=== PATIENT | female | born 1980 | race Caucasian/White ===

== ENCOUNTER 2025-07-12 07:07 | Inpatient (IN) | payer MEDICAID, SELFPAY ==
[2025-07-12] VITALS (85 sets, daily range): BP systolic 77–189; BP diastolic 43–155; PULSE 0–172; RESP 5–40; TEMP 37.2–38.6; O2SAT 92–174; BMI 33.5
--- NOTE | 2025-07-12 07:15 | EKG_ITS ---
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
--- NOTE | 2025-07-12 07:15 | XR_ITS ---
Examination: CT brain head without contrast. 2-D sagittal coronal reconstructions Date and time of exam: July 12, 2025, 0721 hours, comparison May 09, 2022 INDICATIONS: Stroke alert, onset focal neurologic deficit today CTDI: vol (mGy): 54.4 DLP: (mGycm): 1193 Technique: Multiple CT axial sections of the brain have been obtained, 5 mm slice thickness. Contrast has not been administered. 2-D sagittal, coronal reconstructions have been obtained Low dose protocols were performed. One or more of the following dose reduction techniques were used; automated exposure control, adjustment of the mA and/or KV according to patient size, use of iterative reconstruction technique. Findings: The images are degraded by patient motion Ventricles are not enlarged. No hemorrhage or mass effect is depicted Left frontal and to a lesser extent ethmoid and sphenoid as well as maxillary antral sinusitis Chronic mastoiditis IMPRESSION: The images are degraded by patient motion which limits evaluation No hemorrhage mass effect or midline shift noted
--- NOTE | 2025-07-12 07:15 | XR_ITS ---
Examination: CTA carotids with intravenous contrast CTA brain, head with intravenous contrast. 2-D sagittal, coronal reconstructions. 3-D reconstructions. Exam date and time: July 12, 2025, 0733 hours INDICATIONS: Stroke alert, onside focal neurologic deficit today CTDI: vol (mGy) 18.9 DLP: (mGycm) 419 Technique: Multiple CTA axial brain, head carotid images post intravenous contrast injection 75 cc, [id number]. 2-D sagittal, coronal reconstructions. 3-D reconstructions, 3-D post processing including vascular maximum intensity projection images. Low dose protocols were performed. One or more of the following dose reduction techniques were used; automated exposure control, adjustment of the mA and/or KV according to patient size, use of iterative reconstruction technique. Findings: Bilateral thyromegaly with 6 mm calcified right thyroid nodule No significant, carotid carotid bifurcation or internal carotid artery stenoses Dominant left vertebral artery with no critical vertebral artery stenoses in the neck Intracranial vertebral arteries basilar artery posterior cerebral branches fill with no occlusions Petrous juxtasellar supraclinoid portions internal carotid arteries intact M1 segments middle cerebral arteries middle cerebral artery trifurcation vessels anterior cerebral arteries intact with no large vessel occlusions IMPRESSION: No significant neck arterial stenoses No cerebral large vessel arterial occlusions or thrombus
--- NOTE | 2025-07-12 07:17 | PD.EDAMS ---
Altered Mental Status RME/HPI General Chief Complaint: Altered Mental Status Stated Complaint: AMS Time Seen by Provider: 07/12/25 07:16 Arrival date/time: 07/12/25 07:07 RME / HPI RME / HPI narrative: 45 year old female with history of CVA, AML (in remission), hypertension, diabetes, hyperlipidemia, seizures, and migraines presents to the ED BIBA from home for evaluation of altered mental status today. Per medics, family on scene reported the patient was last known well before going to bed at 7pm though during that time was complaining of a headache. State this morning at about 4am the patient was not awake at her usual time. Daughter stated they went into the room to check in on the patient and found her on the floor, altered, and not responding appropriately. Related Data Home Medications ?Medication ?Instructions ?Recorded ?Confirmed metformin 1,000 mg tablet 1,000 mg PO QDAY 08/23/18 08/06/19 Previous Rx's ?Medication ?Instructions ?Recorded aspirin 81 mg tablet,delayed 81 mg PO QDAY #30 tabs 08/25/18 release (Tylor Low Dose Aspirin) atorvastatin 20 mg tablet 20 mg PO QPM #30 tabs 08/25/18 ibuprofen 800 mg tablet 800 mg PO Q8H PRN pain #30 tabs 04/17/22 amoxicillin 875 mg-potassium 1 tab PO Q12H #20 tabs 05/01/22 clavulanate 125 mg tablet ibuprofen 800 mg tablet 800 mg PO TID PRN pain #30 tabs 05/01/22 alprazolam 0.25 mg tablet (Xanax) 0.25 mg PO BID PRN anxiety #20 tabs 05/17/22 lisinopril 5 mg tablet 5 mg PO QDAY #30 tabs 05/17/22 metformin 1,000 mg tablet 1,000 mg PO QDAY #90 tabs 05/17/22 Allergies Allergy/AdvReac Type Severity Reaction Status Date / Time spider venom Allergy Severe Numbness Verified 05/17/22 12:14 codeine Allergy Mild rash Verified 05/17/22 12:14 vomiting hives hydrocodone Allergy Mild rash hives Verified 05/17/22 12:14 vomiting onion Allergy Mild Anaphylaxis Verified 05/17/22 12:14 Review of Systems Review of Systems ROS Unobtainable: unobtainable due to mental status Past Medical History Past Medical History ENDOCRINE: Positive Endocrine Disorders and Diabetes Mellitus Type 2 Surgical History SURGICAL: Positive Tonsillectomy and Hysterectomy Social History SMOKING STATUS: Never smoker ED Exam General General appearance: Present obtunded Head Head exam: Present atraumatic Eye Eye exam: Present other (Pupils equal and reactive bilaterally 3 cm.) ENT ENT exam: Present other (Not stiff neck.) Neck Neck exam: Absent meningismus or lymphadenopathy Chest Chest inspection: Present normal inspection Respiratory Respiratory exam: Present normal lung sounds bilaterally and respiratory distress (Increased respiratory rate) Cardiovascular Cardiovascular exam: Present tachycardia Abdominal Exam Abdominal exam: Present soft; Absent distention, tenderness, guarding, rebound or rigidity Neurological Exam Neurological exam: Present other (Moving all extremities spontaneously, opens eyes spontaneously, no verbal response) Skin Skin exam: Present diaphoresis; Absent rash, cyanosis, erythema, pallor or mottled Course Quality Measures Suspected type of Stroke: Non Acute Last known well (date): 07/11/25 Last known well (time): 19:00 Tenecteplase given: Reason(s) TPA not given: Outside the time window not given stroke and Current suspected stage: sepsis Possible source: pulmonary Blood cultures ordered: completed in ED Antibiotic ordered: Yes sepsis Orders Category Date Time Status Bedside Blood Glucose NOW Care 07/12/25 07:15 Active Bedside COVID-19 Antigen Test NOW Care 07/12/25 09:20 Active COVID-19 Screening Questionnaire NOW Care 07/12/25 09:25 Active Filter Worker NOW Care 07/12/25 07:15 Active Continuous Pulse Oximetry NOW Care 07/12/25 07:15 Completed Decision to Admit X1 Care 07/12/25 09:25 Completed EKG (ED ONLY) *Do not use* NOW Care 07/12/25 07:15 Completed In and Out Catheter NEEDED Care 07/12/25 07:15 Active Insert IV NOW Care 07/12/25 07:15 Active Intubation NOW Care 07/12/25 08:29 Completed NIH Stroke Scale now Care 07/12/25 07:15 Active NPO NOW Care 07/12/25 07:15 Active Nurse Swallow Screen x1 Care 07/12/25 07:15 Active Consult to Supervisor Pairing And Inspecting Stat Cons 07/12/25 08:56 Ordered Consult to Neurology / Tele-Neurology Routine Cons 07/12/25 07:[address] angio stroke protocol Stat Exams 07/12/25 07:[address] stroke protocol Stat Exams 07/12/25 07:15 Completed EKG (ED Only) Stat Exams 07/12/25 07:15 Draft XR chest 1V post procedure Stat Exams 07/12/25 07:44 Completed XR chest 1V post procedure Stat Exams 07/12/25 08:55 Completed ABG [Arterial Blood Gas] Stat Lab 07/12/25 08:31 Completed CBC Stat Lab 07/12/25 07:25 Results Comprehensive Metabolic Panel Stat Lab 07/12/25 07:25 Completed Drug Screen,Urine Stat Lab 07/12/25 08:20 Completed FLU A&B [Influenza A & B Rapid Panel] Stat Lab 07/12/25 09:27 Completed HCG Titer if Positive Stat Lab 07/12/25 07:25 Completed LDH (Lactate Dehydrogenase) Stat Lab 07/12/25 07:25 Completed Magnesium Stat Lab 07/12/25 07:25 Completed Partial Thromboplastin Time Stat Lab 07/12/25 07:25 Completed Path Review Blood Smear Stat Lab 07/12/25 07:25 Results Prothrombin Time with INR Stat Lab 07/12/25 07:25 Completed Sputum Culture and Gram Stain Stat Lab 07/12/25 08:31 Received Troponin I Stat Lab 07/12/25 07:25 Completed Uric Acid Stat Lab 07/12/25 07:25 Completed Urinalysis, C/S if Indicated Stat Lab 07/12/25 08:20 Completed Acetaminophen Ivpb [Ofirmev Inj] Med 07/12/25 08:28 Active 1,000 mg in 100 ml IV Q6HR Dexmedetomidine 400 Mcg Ivpb [Precedex Ivpb] Med 07/12/25 08:18 Discontinued 400 mcg in 100 ml IV 0.2 mcg/kg/hr Etomidate Inj [Amidate Inj] Med 07/12/25 07:38 Discontinued 20 mg .ROUTE .STK-MED ONE Etomidate Inj [Amidate Inj] Med 07/12/25 07:41 Discontinued 20 mg IV X1 ONE Midazolam Inj [Versed Inj] Med 07/12/25 07:34 Discontinued 2 mg .ROUTE .STK-MED ONE Midazolam Inj [Versed Inj] Med 07/12/25 07:34 Discontinued 2 mg IVP X1 ONE Midazolam Inj [Versed Inj] Med 07/12/25 07:52 Discontinued 2 mg IVP X1 ONE Midazolam Inj [Versed Inj] Med 07/12/25 08:12 Discontinued 2 mg IVP X1 ONE Midazolam/Ns 100 mg Ivpb [Versed Pf Inj in Ns Premix] Med 07/12/25 07:45 Discontinued 100 mg in 100 ml IV 1 mg/hr Propofol 1,000 mg Ivpb [Diprivan Ivpb] Med 07/12/25 08:53 Active 1,000 mg in 100 ml IV 5 mcg/kg/min Propofol 1,000 mg Ivpb [Diprivan Ivpb] Med 07/12/25 08:54 Discontinued 1,000 mg in 100 ml IV 5 mcg/kg/min Sodium Chloride 0.9% 1000 ml [Ns] 1,000 ml Med 07/12/25 07:40 Discontinued IV 999 mls/hr Sodium Chloride 0.9% 1000 ml [Ns] 1,000 ml Med 07/12/25 09:17 Discontinued IV 999 mls/hr Sodium Chloride 0.9% 1000 ml [Ns] 1,503 ml Med 07/12/25 08:29 Discontinued IV 1,503 mls/hr Sodium Chloride 0.9% 500 ml [Ns] 500 ml Med 07/12/25 09:18 Discontinued IV 999 mls/hr Sodium Chloride Rt Radha 10% [NS Rt Radha 10%] Med 07/12/25 08:28 Discontinued 5 ml INH X1 ONE Succinylcholine Inj [Anectine Inj] Med 07/12/25 07:42 Discontinued 100 mg IV X1 ONE Succinylcholine Inj [Anectine Inj] Med 07/12/25 07:38 Discontinued 200 mg .ROUTE .STK-MED ONE Vancomycin Pharmacy to Dose Med 07/12/25 07:52 Discontinued 1 each IV QDAY ONE Vancomycin/D5w 1,250 mg Ivpb 250 ml Med 07/12/25 09:00 Discontinued IV X1 Vancomycin/Water 1250 mg Ivpb 250 ml Med 07/12/25 09:00 Active IV X1 cefTRIAXone [Rocephin] 2 gm Med 07/12/25 07:52 Discontinued SODIUM CHLORIDE 0.9% (Popper) [Ns 0.9% (P)] 50 ml IV X1 fentaNYL 2,500 MCG/250 ML BAG [Sublimaze Inj 2,500 MCG/ Med 07/12/25 07:45 Active 250 ML BAG] 2,500 mcg in 250 ml IV 25 mcg/hr levETIRAcetam INJ [Keppra Inj] Med 07/12/25 07:47 Discontinued 1,000 mg IVP X1 ONE levETIRAcetam INJ [Keppra Inj] Med 07/12/25 07:50 Discontinued 1,500 mg IVP X1 ONE Mechanical [Volume Ventilator] Stat RT 07/12/25 Active Oxygen Delivery NOW RT 07/12/25 07:15 Active Sputum Induction PRN RT 07/12/25 08:30 Ordered Vital Signs Vital signs: Vital Signs Pulse Oximetry (%) 100 07/12/25 08:10 Oxygen Flow Rate 100 07/12/25 08:10 PROCEDURES: Intubation Time out performed: Yes sedative: Etomidate Mg Given: 10 paralytic: Succinylcholine Mg Given: 100 Laryngoscope: fiber optic video scope ET Tube Size: 7.5 ET Tube Uncuffed: No Tube Secured Depth (cm): 24 Tube Secured Location: lips Tube Placement Confirmation: visualized tube passing through cords, equal breath sounds bilaterally, no breath sounds over epigastrium and confirmation by capnometry Patient Tolerated Procedure: well Intubation Complications: none Altered Mental Status MDM Narrative MDM Narrative:: Patient arrived to the emergency department 0711-stroke alert was called. Fingerstick noted to be 306. 0713-patient to CAT scan. 0720-patient returned from CAT scan. Per nursing staff patient had? Witnessed seizure. Repeat fingerstick is 300 Patient is not a candidate for tPA since she is out of the 3-hour window. Sepsis Alert called, please see nurses notes. Differential diagnosis includes acute respiratory distress, pneumonia, acute coronary syndrome to include pulmonary embolism, ultimately status secondary to drug use, subarachnoid hemorrhage, aneurysm, aneurysm rupture, acidosis, sepsis, acute coronary syndrome. Overdose. Stroke. 0740: Patient intubated for airway protection. Prior to intubation the patient had a bilateral left eye gaze. Moving all extremities x 4. Initial ET tube-see procedure note below. Placed to 24 at the lip and then withdrawn by respiratory therapist to 21. Patient has decreased satuartion 96 to 92% and she was suctioned. The patient is biting on the tube and given additional medication. Initial chest x-ray shows patient to be at the josemanuel. Patient re-intubated, previous ET tube is removed. Patient is bagged. Visualized with glide a scope, 7-1/2 ET tube visualized going through the vocal cords. Good color change, equal rise of the chest. Post intubation chest x-ray shows bilateral infiltrates 0845: Daughters aware and want the patient to be a full code. 0900: Elevated troponin is noted. Sinus tachycardia on EKG with heart rate 170. 2.5 L of fluid 45-year-old female with a history of seizure disorder, diabetes, anxiety, high cholesterol, CVA back in 2018, AML in remission that was diagnosed and placed in the chart back in 2016, presenting to the emergency department with altered mental status. Family reports that last night approximately 6 PM she left home from work and walked home complaining of a headache. She went to bed approximately at 7 PM. This morning she was not awake at her normal 2 to 4 AM as per her daughter and when she went into the room she found her on the floor. She had a small abrasion on her right mid forehead. On arrival to the emergency department the patient was called as a stroke alert and immediately taken to CT scan for possible stroke versus subarachnoid hemorrhage versus hypertensive bleed versus other intracranial emergency. While in CT the patient had a witnessed seizure. She was moving all 4 extremities. She had a left ocular gaze. Fingerstick prior to CT was approximately 300. Patient was immediately brought back to the emergency department. She was intubated for airway protection. The patient was biting on her tube and the ET tube was moved from 24-21 by the respiratory therapist. The patient was reintubated and suctioned. Sepsis alert was called. The patient was treated with 2.5 L of fluid, ceftriaxone 2 g and vancomycin IV. Of note from her previous chart it shows that she possibly had remission of AML back in 2016 and per the boyfriend the patient has not been treated since. The patient has not been hypotensive and otherwise is tachycardic in the 170s. Her EKG shows sinus tach without ST elevation AL... After IV fluids her pulse is down to 149. White count is noted to be 32,000 with a hemoglobin of 14/42. This is abnormal. Repeat EKG is obtained. Central line is placed by the residents. Unclear why her white count is 32,000 versus new versus reexacerbation of her AML. Patient is acidotic with a pH of 7.1. Sodium is 139 with a potassium of 3.1. Creatinine is 0.9. Lactic acid is 4.8 and uric acid is 8.3. Troponin is 5. Urinalysis does not show infection. Drug screen is negative. Chest x-ray is reviewed interpreted by me. The patient has bilateral infiltrates. CT is reviewed and interpreted by me. The patient does not have an initial bleed, shift, or tumor. Patient data External records reviewed:: [facility] previous records and Other (specify) (Patient seen in emergency department for anxiety 2021.) Clinical information provided by:: EMS Social determinants that could affect healthcare access:: none (History of anxiety) Patient has the following chronic illnesses:: CVA, AML (in remission), hypertension, diabetes, hyperlipidemia, seizures, and migraines How is presenting disease/condition affected by chronic disease/condition?: exacerbated by Evaluation data The following diagnostics were reviewed and interpreted by me:: lab results, radiology exam(s) and EKG tracing(s) ( Sinus tachycardia on EKG with heart rate 170, no STEMI. ) Lab and/or radiology exams considered but not ordered:: None Interpretation Summary: Ordering Physician: Jessie Billy MD Date of Service: 07/12/25 Procedure(s): CT stroke protocol Accession Number(s): [id number] cc: Jose Patel MD; Jessie Billy MD~ Examination: CT brain head without contrast. 2-D sagittal coronal reconstructions Date and time of exam: July 12, 2025, 0721 hours, comparison May 09, 2022 INDICATIONS: Stroke alert, onset focal neurologic deficit today CTDI: vol (mGy): 54.4 DLP: (mGycm): 1193 Technique: Multiple CT axial sections of the brain have been obtained, 5 mm slice thickness. Contrast has not been administered. 2-D sagittal, coronal reconstructions have been obtained Low dose protocols were performed. One or more of the following dose reduction techniques were used; automated exposure control, adjustment of the mA and/or KV according to patient size, use of iterative reconstruction technique. Findings: The images are degraded by patient motion Ventricles are not enlarged. No hemorrhage or mass effect is depicted Left frontal and to a lesser extent ethmoid and sphenoid as well as maxillary antral sinusitis Chronic mastoiditis IMPRESSION: The images are degraded by patient motion which limits evaluation No hemorrhage mass effect or midline shift noted Dictated By: Jose Patel MD Signed By: <Electronically signed by Jose Patel MD in OV> 07/12/25 0729 Ordering Physician: Jessie Billy MD Date of Service: 07/12/25 Procedure(s): CT angio stroke protocol Accession Number(s): [id number] cc: Jose Patel MD; Jessie Billy MD~ Examination: CTA carotids with intravenous contrast CTA brain, head with intravenous contrast. 2-D sagittal, coronal reconstructions. 3-D reconstructions. Exam date and time: July 12, 2025, 0733 hours INDICATIONS: Stroke alert, onside focal neurologic deficit today CTDI: vol (mGy) 18.9 DLP: (mGycm) 419 Technique: Multiple CTA axial brain, head carotid images post intravenous contrast injection 75 cc, [id number]. 2-D sagittal, coronal reconstructions. 3-D reconstructions, 3-D post processing including vascular maximum intensity projection images. Low dose protocols were performed. One or more of the following dose reduction techniques were used; automated exposure control, adjustment of the mA and/or KV according to patient size, use of iterative reconstruction technique. Findings: Bilateral thyromegaly with 6 mm calcified right thyroid nodule No significant, carotid carotid bifurcation or internal carotid artery stenoses Dominant left vertebral artery with no critical vertebral artery stenoses in the neck Intracranial vertebral arteries basilar artery posterior cerebral branches fill with no occlusions Petrous juxtasellar supraclinoid portions internal carotid arteries intact M1 segments middle cerebral arteries middle cerebral artery trifurcation vessels anterior cerebral arteries intact with no large vessel occlusions IMPRESSION: No significant neck arterial stenoses No cerebral large vessel arterial occlusions or thrombus Dictated By: Jose Patel MD Signed By: <Electronically signed by Jose Patel MD in OV> 07/12/25 0800 Ordering Physician: Jessie Billy MD Date of Service: 07/12/25 Procedure(s): XR chest 1V post procedure Accession Number(s): [id number] cc: Fady Evangelista MD; Jose Patel MD; Jessie Billy MD~ EXAMINATION: AP chest single view TECHNIQUE: AP portable semiupright chest single view Date and time: July 12, 2025, 0809 hours INDICATIONS: Stroke alert, hypoxic respiratory failure today FINDINGS: Endotracheal tube 20 mm above josemanuel. Normal heart size Extensive bilateral aspiration pneumonia IMPRESSION: Extensive bilateral aspiration pneumonia Dictated By: Jose Patel MD Signed By: <Electronically signed by Jose Patel MD in OV> 07/12/25 0856 Ordering Physician: Jessie Billy MD Date of Service: 07/12/25 Procedure(s): XR chest 1V post procedure Accession Number(s): [id number] cc: Fady Evangelista MD; Jose Patel MD; Jessie Billy MD~ EXAMINATION: AP chest single view TECHNIQUE: AP portable upright chest single view Date and time: July 12, 2025, 0909 hours, comparison 0808 hours INDICATIONS: Hypoxic respiratory failure FINDINGS: Extensive bilateral pneumonia again noted Endotracheal tube tip 29 mm above josemanuel. Orogastric tube in the stomach in satisfactory position Normal heart size IMPRESSION: Extensive bilateral aspiration pneumonia Dictated By: Jose Patel MD Signed By: <Electronically signed by Jose Patel MD in OV> 07/12/25923 Medications / Prescriptions Medications or Prescriptions considered but not ordered:: None Medication administrations:: Medication Administration History Acetaminophen (Acetaminophen 325 Mg Tablet) 650 mg NG Q6H PRN PRN Reason: Fever >100.5 or pain 1-3 Stop: 08/11/25 09:28 Dextrose (Dextrose 50%-Water Inj 50 Ml Syringe) 25 ml IV Q15MIN PRN PRN Reason: BG 50-70 responsive npo pt Stop: 08/11/25 10:04 Dextrose (Dextrose 50%-Water Inj 50 Ml Syringe) 50 ml IV Q15MIN PRN PRN Reason: BG <50 OR BG <70 & pt unresponsive Stop: 08/11/25 10:04 Enoxaparin Sodium (Enoxaparin Sod Inj 40 Mg/0.4 Ml Syringe) 40 mg SC QDAY ASHLEY Stop: 07/26/25 09:44 Glucagon (Glucagon Inj 1 Mg Vial) 1 mg IM Q15MIN PRN PRN Reason: BG <70, and no IV access Fentanyl Citrate (Sublimaze Inj 2,500 Mcg/250 Ml Bag) 2,500 mcg in 250 mls @ 2.5 mls/hr IV .Q24H PRN; Protocol PRN Reason: PER PROTOCOL Stop: 07/17/25 07:44 Last Titration: 07/12/25 10:00 Dose: 175 mcg/hr, 17.5 mls/hr Documented By: Titration: 07/12/25 09:00 Dose: 175 mcg/hr, 17.5 mls/hr Documented By: Titration: 07/12/25 08:45 Dose: 125 mcg/hr, 12.5 mls/hr Documented By: Titration: 07/12/25 08:20 Dose: 75 mcg/hr, 7.5 mls/hr Documented By: Admin: 07/12/25 08:00 Dose: 25 mcg/hr, 2.5 mls/hr Documented By: JUAN Co-signed By: KIRBY Vancomycin HCl (Vancomycin/Water 1250 Mg Ivpb) 250 mls @ 120 mls/hr IV X1 ONE; Protocol Stop: 07/12/25 11:04 Last Admin: 07/12/25 09:14 Dose: 120 mls/hr Documented By: JUAN Acetaminophen (Ofirmev Inj) 1,000 mg in 100 mls @ 250 mls/hr IV Q6HR ASHLEY Stop: 07/13/25 00:23 Last Infusion: 07/12/25 09:22 Dose: Infused Documented By: Admin: 07/12/25 08:44 Dose: 250 mls/hr Documented By: JUAN Propofol (Diprivan Ivpb) 1,000 mg in 100 mls @ 2.5 mls/hr IV .Q24H PRN; Protocol PRN Reason: PER PROTOCOL Stop: 08/11/25 08:52 Last Titration: 07/12/25 10:00 Dose: 50 mcg/kg/min, 24.998 mls/hr Documented By: Titration: 07/12/25 09:20 Dose: 25 mcg/kg/min, 12.499 mls/hr Documented By: Titration: 07/12/25 09:13 Dose: 20 mcg/kg/min, 9.999 mls/hr Documented By: Titration: 07/12/25 09:08 Dose: 15 mcg/kg/min, 7.499 mls/hr Documented By: Admin: 07/12/25 09:05 Dose: 5 mcg/kg/min, 2.5 mls/hr Documented By: JUAN Co-signed By: KIRBY Ceftriaxone Sodium 2 gm/ (Sodium Chloride) 50 mls @ 100 mls/hr IV QDAY ASHLEY Stop: 07/20/25 08:59 Norepinephrine/Dextrose (Levophed In D5w 8mg/250ml) 8 mg in 250 mls @ 7.812 mls/hr IV .Q24H PRN; Protocol PRN Reason: PER PROTOCOL Stop: 08/11/25 09:48 Last Admin: 07/12/25 10:00 Dose: 0.05 mcg/kg/min, 7.812 mls/hr Documented By: KIRBY Acyclovir Sodium 500 mg/ (Sodium Chloride) 110 mls @ 94.286 mls/hr IV Q8HR ASHLEY Stop: 07/19/25 09:59 Magnesium Sulfate (Magnesium Sulfate Ivpb) 2 gm in 50 mls @ 25 mls/hr IV X1 ONE Stop: 07/12/25 12:06 Potassium Chloride (Kcl Ivpb) 10 meq in 100 mls @ 100 mls/hr IV Q1H ASHLEY Stop: 07/12/25 14:06 Lactated Ringer's (Lactated Ringers) 1,000 mls @ 999 mls/hr IV .Q1H1M ONE Stop: 07/12/25 11:10 Lactated Ringer's (Lactated Ringers) 500 mls @ 999 mls/hr IV .Q31M ONE Stop: 07/12/25 10:40 Insulin Human Lispro (Insulin Lispro (Admelog) 1 Unit/0.01 Ml Unit) 0 unit SC Q6HR ASHLEY; Protocol Stop: 08/11/25 11:59 Levetiracetam (Levetiracetam Inj 100 Mg/Ml Vial 5ml) 1,000 mg IVP Q12HR ASHLEY Stop: 08/11/25 20:59 Pantoprazole Sodium (Pantoprazole Inj 40 Mg Vial) 40 mg IVP QDAY ASHLEY Stop: 08/11/25 09:44 Discontinued Medications Etomidate (Etomidate Inj 2 Mg/Ml Vial 10 Ml) 20 mg IV X1 ONE Stop: 07/12/25 07:42 Last Admin: 07/12/25 07:42 Dose: 20 mg Documented By: JUAN Etomidate (Etomidate Inj 2 Mg/Ml Vial 10 Ml) Confirm Administered Dose 20 mg .ROUTE .STK-MED ONE Stop: 07/12/25 07:39 Last Admin: 07/12/25 07:50 Dose: Not Given Documented By: JUAN Non-Admin Reason: Override Medication Fentanyl Citrate (Fentanyl Cit Inj 50 Mcg/Ml Amp 2ml) 100 mcg IVP X1 ONE Stop: 07/12/25 09:50 Sodium Chloride (Ns) 1,000 mls @ 999 mls/hr IV .Q1H1M ONE Stop: 07/12/25 08:40 Last Admin: 07/12/25 07:40 Dose: 999 mls/hr Documented By: JUAN Midazolam HCl (Versed Pf Inj In Ns Premix) 100 mg in 100 mls @ 1 mls/hr IV .Q24H PRN; Protocol PRN Reason: PER PROTOCOL Stop: 07/17/25 07:44 Last Titration: 07/12/25 10:16 Dose: 1 mg/hr, 1 mls/hr Documented By: Titration: 07/12/25 10:00 Dose: 2 mg/hr, 2 mls/hr Documented By: Titration: 07/12/25 09:08 Dose: 2 mg/hr, 2 mls/hr Documented By: Titration: 07/12/25 09:00 Dose: 3 mg/hr, 3 mls/hr Documented By: Titration: 07/12/25 08:45 Dose: 3 mg/hr, 3 mls/hr Documented By: Titration: 07/12/25 08:20 Dose: 2 mg/hr, 2 mls/hr Documented By: Admin: 07/12/25 08:04 Dose: 1 mg/hr, 1 mls/hr Documented By: JUAN Co-signed By: KIRBY Ceftriaxone Sodium 2 gm/ (Sodium Chloride) 50 mls @ 100 mls/hr IV X1 ONE Stop: 07/12/25 08:21 Last Admin: 07/12/25 08:18 Dose: 100 mls/hr Documented By: JUAN Vancomycin HCl/Dextrose (Vancomycin/D5w 1,250 Mg Ivpb) 250 mls @ 120 mls/hr IV X1 ONE Stop: 07/12/25 11:04 Dexmedetomidine/Sodium Chloride (Precedex Ivpb) 400 mcg in 100 mls @ 4.166 mls/hr IV .Q24H PRN; Protocol PRN Reason: Per PROTOCOL Stop: 08/11/25 08:17 Sodium Chloride (Ns) 1,503 mls @ 1,503 mls/hr 30 ml/kg infuse over 60 min (1503 ml) IV .Q1H ONE Stop: 07/12/25 09:28 Last Admin: 07/12/25 08:43 Dose: 1,503 mls/hr Documented By: JUAN Propofol (Diprivan Ivpb) 1,000 mg in 100 mls @ 2.5 mls/hr IV .Q24H PRN; Protocol PRN Reason: PER PROTOCOL Stop: 08/11/25 08:53 Sodium Chloride (Ns) 1,000 mls @ 999 mls/hr IV .Q1H1M ONE Stop: 07/12/25 10:17 Last Admin: 07/12/25 09:38 Dose: 999 mls/hr Documented By: JUAN Sodium Chloride (Ns) 500 mls @ 999 mls/hr IV .Q31M ONE Stop: 07/12/25 09:48 Last Admin: 07/12/25 10:29 Dose: 999 mls/hr Documented By: JUAN Acyclovir Sodium 500 mg/ (Sodium Chloride) 110 mls @ 94.286 mls/hr IV Q8HR ASHLEY Stop: 07/19/25 09:59 Levetiracetam (Levetiracetam Inj 100 Mg/Ml Vial 5ml) 1,000 mg IVP X1 ONE Stop: 07/12/25 07:48 Last Admin: 07/12/25 09:41 Dose: Not Given Documented By: JUAN Non-Admin Reason: Cancelled by Provider Levetiracetam (Levetiracetam Inj 100 Mg/Ml Vial 5ml) 1,500 mg IVP X1 ONE Stop: 07/12/25 07:51 Last Admin: 07/12/25 08:02 Dose: 1,500 mg Documented By: JUAN Midazolam HCl (Midazolam Inj 1 Mg/Ml Vial 2 Ml) 2 mg IVP X1 ONE Stop: 07/12/25 07:35 Last Admin: 07/12/25 07:36 Dose: 2 mg Documented By: JUAN Midazolam HCl (Midazolam Inj 1 Mg/Ml Vial 2 Ml) Confirm Administered Dose 2 mg .ROUTE .STK-MED ONE Stop: 07/12/25 07:35 Last Admin: 07/12/25 07:50 Dose: Not Given Documented By: JUAN Non-Admin Reason: Override Medication Midazolam HCl (Midazolam Inj 1 Mg/Ml Vial 2 Ml) 2 mg IVP X1 ONE Stop: 07/12/25 07:53 Last Admin: 07/12/25 07:57 Dose: 2 mg Documented By: JUAN Midazolam HCl (Midazolam Inj 1 Mg/Ml Vial 2 Ml) 2 mg IVP X1 ONE Stop: 07/12/25 08:13 Last Admin: 07/12/25 08:15 Dose: 2 mg Documented By: JUAN Pharmacy Consult (Vancomycin Pharmacy To Dose 1 Each Each) 1 each IV QDAY ONE Stop: 07/12/25 07:53 Last Admin: 07/12/25 08:01 Dose: Not Given Documented By: JUAN Non-Admin Reason: pharmacy dose Sodium Chloride (Sodium Chloride Rt 10% 15 Ml Nebu) 5 ml INH X1 ONE Stop: 07/12/25 08:29 Succinylcholine Chloride (Succinylcholine Inj 20 Mg/Ml Vial 10 Ml) 100 mg IV X1 ONE Stop: 07/12/25 07:43 Last Admin: 07/12/25 07:52 Dose: 100 mg Documented By: JUAN Succinylcholine Chloride (Succinylcholine Inj 20 Mg/Ml Vial 10 Ml) Confirm Administered Dose 200 mg .ROUTE .STK-MED ONE Stop: 07/12/25 07:39 Last Admin: 07/12/25 07:51 Dose: Not Given Documented By: JUAN Non-Admin Reason: Override Medication See above Consultations Consultation(s) initiated? (list below): Yes Consultation #1 (Physician, Specialty, Details): Dr. Dupont saw the patient when she was on the CT scanner table and reported by the nursing that the patient likely has a metabolic etiology to her altered mental status however pending call from [employer]. States patient is no a TNK candidate, LKWT > 4.5 hours. Time: 07:15 Diagnosis Differential diagnosis altered mental status: other ( acute respiratory distress, pneumonia, acute coronary syndrome to include pulmonary embolism, ultimately status secondary to drug use, subarachnoid hemorrhage, aneurysm, aneurysm rupture, acidosis, sepsis, acute coronary syndrome. Overdose. Stroke.) Most likely diagnosis given after review of the tests above:: Acute respiratory distress AMS Elevated troponin level Sepsis Admission Indicated Admission indicated?: indicated Admission Request Was there a request for admission?: Yes Admission Attestation Admission request attestation: Discussed case with [] from Hospitalist service regarding admission. Discussed patients ED course, exam findings, labs, and radiology results. The Hospitalist [agrees,declines] to accept the patient for admission. Disposition Plan Disposition Plan: Admit Critical Care Time Critical Care Time Critical Care Time: Yes Total Critical Care Time (min.): 60 Attestation: The high probability of sudden, clinically significant deterioration in the patient's condition required the highest level of my preparedness to intervene urgently. The services I provided to this patient were to treat and/or prevent clinically significant deterioration. Services included the following: chart data review, reviewing nursing notes and/or old charts, documentation time, crm consultant collaboration regarding findings and treatment options, medication orders and management, direct patient care, vital sign assessments and ordering, interpreting and reviewing diagnostic studies and lab tests. Aggregate critical care time includes only time during which I was engaged in work directly related to the patient's care, as described above, whether at bedside or elsewhere in the Emergency Department. It did not include time spent performing other reported procedures or the services of residents, students, nurses or physician assistants. Discharge Plan Plan Patient Disposition: Admit Acute Care w/in Hospital Patient condition on transfer: Stable Problem List Clinical Impression: Acute respiratory distress, AMS (altered mental status), Elevated troponin I level, Sepsis
[2025-07-12] MEDS: MIDAZOLAM INJ 1 MG/ML VIAL 2 ML 2 MG IVP ×3 (07:36→08:15)
[2025-07-12] MEDS: SODIUM CHLORIDE 0.9% 1000 ML 1,000 ML 999 ML IV ×2 (07:40→09:38)
[2025-07-12] MEDS: ETOMIDATE INJ 2 MG/ML VIAL 10 ML 20 MG IV (07:42)
--- NOTE | 2025-07-12 07:44 | XR_ITS ---
EXAMINATION: AP chest single view TECHNIQUE: AP portable semiupright chest single view Date and time: July 12, 2025, 0809 hours INDICATIONS: Stroke alert, hypoxic respiratory failure today FINDINGS: Endotracheal tube 20 mm above josemanuel. Normal heart size Extensive bilateral aspiration pneumonia IMPRESSION: Extensive bilateral aspiration pneumonia
[2025-07-12 07:52] LABS: Basophils # (Auto) 0.1 Thou/mm3 (0.0-0.2); Basophils % (Auto) 0 % (0-2.5); Eosinophils # (Auto) 0.0 Thou/mm3 (0.0-0.5); Eosinophils % (Auto) 0 % (0-10); Hematocrit 42.5 % (36.0-46.0); Hemoglobin 14.1 g/dL (12.0-16.0); Immature Granulocytes Auto 0.79 Thou/mm3 (0.00-0.00); Lymphocytes # (Auto) 1.3 Thou/mm3 (1.0-4.8); Lymphocytes % (Auto) 4 % (10-50); Mean Corpuscular HGB Conc 33.2 g/dl (31.0-37.0); Mean Corpuscular Hemoglobin 27.8 pg (25.0-35.0); Mean Corpuscular Volume 84 fL (80-100); Monocytes # (Auto) 1.7 Thou/mm3 (0.0-0.8); Monocytes % (Auto) 5 % (0-12); Neutrophils # (Auto) 28.6 Thou/mm3 (1.8-7.7); Neutrophils % (Auto) 88 % (37-80); Nucleated Red Blood Cell # 0.00 Thou/mm3 (0.00-0.00); Nucleated Red Blood Cell % 0 /100 WBC (0); Platelet Count 279 Thou/mm3 (140-440); RDW Standard Deviation 42.1 fL (36.4-46.3); Red Blood Count 5.08 Miln/mm3 (4.00-5.20); White Blood Count 32.4 Thou/mm3 (3.6-11.0)
[2025-07-12] MEDS: SUCCINYLCHOLINE INJ 20 MG/ML VIAL 10 ML 100 MG IV (07:52)
[2025-07-12] MEDS: fentaNYL 2,500 MCG/250 ML BAG 2,500 MCG/250 ML BAG IV (08:00)
[2025-07-12] MEDS: levETIRAcetam INJ 100 MG/ML VIAL 5ML 1500 MG IVP (08:02)
[2025-07-12] MEDS: MIDAZOLAM/NS 100 MG IVPB 100 MG/100 ML BAG IV ×2 (08:04→16:18)
[2025-07-12] MEDS: cefTRIAXone 2 GM in SODIUM CHLORIDE 0.9% (Popper) 50 ML IV (08:18)
[2025-07-12 08:20] LABS: Alanine Aminotransferase 36 U/L (10-49); Albumin, Serum 5.0 gm/dL (3.5-5.0); Albumin/Globulin Ratio 1.7 (1.2-2.2); Alkaline Phosphatase 105 U/L (46-116); Anion Gap 21 (7-16); Aspartate Amino Transferase 36 U/L (0-34); BUN/Creatinine Ratio 14 Ratio (12-20); Bilirubin,Total 0.9 mg/dL (0.3-1.2); Blood Urea Nitrogen 13 mg/dL (9-23); Calcium 9.9 mg/dL (8.3-10.6); Calcium (Corrected) 9.9 mg/dL (8.5-10.1); Carbon Dioxide 18.4 mMol/L (20.0-31.0); Chloride 100 mMol/L (98-107); Creatinine (Component) 0.9 mg/dL (0.6-1.3); Estimated Creatinine Clearance 79.8 mL/min (>60); Globulin 2.9 gm/dL (2.3-3.5); Glucose 375 mg/dL (74-106); Magnesium 1.6 mg/dL (1.6-2.6); Osmolality,Calculated 292 (275-295); Potassium 3.1 mMol/L (3.4-5.1); Sodium 139 mMol/L (136-145); Total Protein 7.9 gm/dL (5.7-8.2); eGFR > 60 See Note
[2025-07-12 08:22] LABS: Troponin I 5.052 ng/mL (0.0-0.045)
[2025-07-12 08:25] LABS: HCG Titer if Positive Negative
--- NOTE | 2025-07-12 08:31 | PD.TNEURO ---
Tele Neuro Consultation Consultation Date 07/12/25 Consultation Narrative [facility] Patient Name:???Juanita Bond Date of :???1980 Identification Number:??? Date of Service:???07/12/2025 07:14:03 Diagnosis:?G93.49 - Encephalopathy Multifactorial Impression: ?Patient is a 41 year old woman, BIBEMS, per family at scene reported patent was LKN at 07/11/2025 at 1900 EST at bedtime, did go to bed with migraine. History of migraines and seizures. This morning found altered, dried yellow around mouth, altered mental status. Not reportedly on blood thinners. Denied drugs or etoh usage. ? ?The patient was not a candidate for IV thrombolytics due to LKN > 4.5 hrs ago. ? ?CT head was performed. No acute findings per radiology report. I reviewed images as well. CTA head and neck, no LVO. ? ?WBC elevated at 32.4 suggesting underlying infectious process. Trop 5, highly elevated. ? ?Differential includes but not limited to [id number] vs post ictal encephalopathy. Also possibly cardiac related given elevated trop. Recommend encephalopathy workup per primary, if unrevealing consider MRI head without contrast to evaluate for stroke. ? ? Our recommendations are outlined below. Recommendations: ? Sign Out: ? Discussed with Emergency Department Provider Advanced Imaging:CTA Head and Neck Completed. LVO:No Patient is not a candidate for LORI Metrics: Last Known Well: 07/11/2025 19:00:00 Dispatch Time: 07/12/2025 07:14:03 Arrival Time: 07/12/2025 07:07:00 Initial Response Time: 07/12/2025 07:16:07Symptoms: altered mental status. Initial patient interaction: 07/12/2025 07:16:50 NIHSS Assessment Completed: 07/12/2025 07:33:30Patient is not a candidate for Thrombolytic. Thrombolytic Medical Decision: 07/12/2025 07:33:31Patient was not deemed candidate for Thrombolytic because of following reasons: LKW outside 4.[address] Head: I personally reviewed all the CT images that were available to me and it showed: no acute hemorrhage. Primary Provider Notified of Diagnostic Impression and Management Plan on: 07/12/2025 08:32:28 History of Present Illness:Patient is a 45 year old Female. Patient was brought by EMS for symptoms of altered mental status. Patient is a 41 year old woman, DOROTHY, per family at scene reported patent was LKN at 07/11/2025 at 1900 EST at bedtime, did go to bed with migraine. History of migraine, HTN, DM, HLD and seizures. Not reportedly on seizure medications. This morning found altered, dried yellow around mouth, altered mental status. Not reportedly on blood thinners. Denied drugs or etoh usage. ? Past Medical History: ?Hypertension ?Diabetes Mellitus ?Hyperlipidemia ?Seizures ?Migraine Headaches Medications: No Anticoagulant use? Antiplatelet use:?Yes?asa Reviewed EMR for current medications Allergies:? Reviewed Social History: Drug Use: No Family History: There is no family history of premature cerebrovascular disease pertinent to this consultation ROS : 14 Points Review of Systems was performed and was negative except mentioned in HPI. Past Surgical History: There Is No Surgical History Contributory To Today?s Visit ? Examination: BP(164/92),?Pulse(120),?Blood Glucose(363) 1A: Level of Consciousness - Movements to Pain?+ 2 1B: Ask Month and Age - Aphasic?+ 2 1C: Blink Eyes & Squeeze Hands - Performs 0 Tasks?+ 2 2: Test Horizontal Extraocular Movements - Normal?+ 0 3: Test Visual Agarwal - No Visual Loss?+ 0 4: Test Facial Palsy (Use Grimace if Obtunded) - Normal symmetry?+ 0 5A: Test Left Arm Motor Drift - Some Effort Against Greenwood?+ 2 5B: Test Right Arm Motor Drift - Some Effort Against Greenwood?+ 2 6A: Test Left Leg Motor Drift - Some Effort Against Greenwood?+ 2 6B: Test Right Leg Motor Drift - Some Effort Against Greenwood?+ 2 7: Test Limb Ataxia (FNF/Heel-Strickland) - No Ataxia?+ 0 8: Test Sensation - Normal; No sensory loss?+ 0 9: Test Language/Aphasia - Mute/Global Aphasia: No Usable Speech/Auditory Comprehension?+ 3 10: Test Dysarthria - Mute/Anarthric?+ 2 11: Test Extinction/Inattention - No abnormality?+ 0 NIHSS Score:?19 Pre-Morbid Modified Dublin Scale: Unable to assess Spoke with :?Connie Garcias This consult was conducted in real time using interactive audio and video technology. Patient was informed of the technology being used for this visit and agreed to proceed. Patient located in hospital and provider located at home/office setting. Patient is being evaluated for possible acute neurologic impairment and high probability of imminent or life-threatening deterioration. I spent total of 30 minutes providing care to this patient, including time for face to face visit via telemedicine, review of medical records, imaging studies and discussion of findings with providers, the patient and/or family. Dr Flaco Dupont [facility] For Inpatient follow-up with [facility] physician please call [facility] at . As we are not an outpatient service for any post hospital discharge needs please contact the hospital for assistance. If you have any questions for the [facility] physicians or need to reconsult for clinical or diagnostic changes please contact us via [facility] at . Signature :Amisha Dupont ?
[2025-07-12 08:41] LABS: Collection Type, Urine Catheter
[2025-07-12] MEDS: SODIUM CHLORIDE 0.9% 1000 ML 1,503 ML 1503 ML IV (08:43)
[2025-07-12] MEDS: ACETAMINOPHEN IVPB 1,000 MG/100 ML VIAL 250 MG IV (08:44)
[2025-07-12 08:45] LABS: Base Excess -14 (-3-3); HCO3 15 mEq/L (20-26); Inspired Oxygen, FIO2 100 %; O2 Saturation 98 % (91-98); PCO2 46 mmHg (32.0-48.0); PO2 122 mmHg (83-108)
[2025-07-12 08:47] LABS: Allen Test Not Performed; Puncture Site Right Radial
[2025-07-12 08:48] LABS: pH, Arterial 7.13 (7.35-7.45)
--- NOTE | 2025-07-12 08:55 | XR_ITS ---
EXAMINATION: AP chest single view TECHNIQUE: AP portable upright chest single view Date and time: July 12, 2025, 0909 hours, comparison 0808 hours INDICATIONS: Hypoxic respiratory failure FINDINGS: Extensive bilateral pneumonia again noted Endotracheal tube tip 29 mm above josemanuel. Orogastric tube in the stomach in satisfactory position Normal heart size IMPRESSION: Extensive bilateral aspiration pneumonia
[2025-07-12 08:56] LABS: Amphetamine/Methamp Scrn,U Negative (Negative); Barbiturate Screen,Urine Negative (Negative); Benzodiazepines Screen,Urine Negative (Negative); Benzoylecgonine Screen, Ur Negative (Negative); Fentanyl Screen,Urine Negative (Negative); Opiate Screen,Urine Negative (Negative); THC Screen,Urine Negative (Negative)
[2025-07-12 08:57] LABS: INR 1.0 (0.9-1.3); Partial Thromboplastin Time 30.9 Seconds (22.0-36.0); Prothrombin Time 10.9 Seconds (9.0-12.2)
[2025-07-12 09:02] LABS: Bacteria,Urine Rare; Bilirubin,Urine Negative (Negative); Blood,Urine 1+ (Negative); Clarity,Urine Clear (Clear/Hazy); Color,Urine Lt-Yellow (Lt Yel-Yel); Culture Indicated,Urine Not Indicated; Glucose, Urine 4+ (Negative); Ketones,Urine 1+ (Negative); Leukocyte Esterase,Urine Negative (Negative); Nitrite,Urine Negative (Negative); PH,Urine 6.0 (5.0-7.0); Protein,Urine 1+ (Neg - Trace); RBC,Urine 2 /hpf (0-3); Specific Gravity,Urine 1.021 (1.001-1.035); Squamous Epithelial Cell,Urine < 1 /hpf (0-5); Urobilinogen,Urine Negative mg/dL (0.0-1.0); WBC,Urine 1 /hpf (0-5)
[2025-07-12] MEDS: PROPOFOL 1,000 MG IVPB 1,000 MG/100 ML VIAL 2.5 MG IV (09:05)
[2025-07-12] MEDS: VANCOMYCIN/WATER 1250 MG IVPB 250 ML 120 MG IV (09:14)
[2025-07-12 09:55] LABS: LDH (Lactate Dehydrogenase) 277 U/L (120-246); Uric Acid 8.3 mg/dL (3.1-7.8)
[2025-07-12 09:57] LABS: Influenza A Ag Negative; Influenza B Ag Negative
[2025-07-12 10:00] LABS: Lactate (Lactic Acid) 4.8 mMol/L (0.4-2.0)
[2025-07-12] MEDS: Norepinephrine/D5W 8mg/250ml 8 MG/250 ML BAG 7.812 MG IV (10:00)
--- NOTE | 2025-07-12 10:24 | PC.NURSE ---
NIHSS was performed on the patient intubated. Teleneuro was unsuccessful to perform due to patient coming in restless, all extremities moving around, pt not speaking, moving head right to left, not able to follow commands. Withdraws to painful stimuli, pupils are equal. Family at bedside reported that patient had a headache yesterday at 2100, and then was found in her own feces and emesis at 0645 this am.
[2025-07-12] MEDS: SODIUM CHLORIDE 0.9% 500 ML 500 ML 999 ML IV (10:29)
--- NOTE | 2025-07-12 10:32 | XR_ITS ---
EXAMINATION: AP chest single view TECHNIQUE: AP portable supine chest single view Date and time: July 12, 2025, 10:41 a.m., comparison July 12, 2025 0909 hours INDICATIONS: Post central line placement FINDINGS: Right internal jugular central line tip right atrium, no pneumothorax Again noted bilateral extensive lung opacity Endotracheal tube tip 26 mm above josemanuel. The orogastric tube is in the stomach, the tip is below the level of the film IMPRESSION: Interval right internal jugular central line, tip right atrium
--- NOTE | 2025-07-12 11:33 | ECHO_ITS ---
Transthoracic Echo Report Ht (in): 62 Wt (lb): 183 Exam Location: 256 Status: Inpatient Lei Seller: Katharine Mccabe Indications: Procedure Performed: BP: 100 / 79 HR: 139 MEASUREMENTS (Male / Female) Normal Values 2D ECHO LV Diastolic Diameter PLAX 4.2 cm 4.2 - 5.9 / 3.9 - 5.3 cm LV Systolic Diameter PLAX 3.3 cm IVS Diastolic Thickness 0.9 cm 0.6 - 1.0 / 0.6 - 0.9 cm LVPW Diastolic Thickness 0.9 cm 0.6 - 1.0 / 0.6 - 0.9 cm LV Relative Wall Thickness 0.4 LVOT Diameter 1.8 cm LV Ejection Fraction MOD BP 41.2 % >= 55 % LV Cardiac Index MOD BP 3100.6 cm?/min?m? LV Ejection Fraction MOD 4C 32.9 % LV Cardiac Index MOD 4C 2427.5 cm?/min?m? LV Ejection Fraction 4C AL 36.6 % LV Cardiac Index 4C AL 2794.4 cm?/min?m? LV Ejection Fraction MOD 2C 53.4 % LV Cardiac Index MOD 2C 3938.4 cm?/min?m? LV Ejection Fraction 2C AL 56.7 % LV Cardiac Index 2C AL 4244.1 cm?/min?m? LA Volume Index 17.0 cm?/m? 16 - 28 cm?/m? Ascending Aorta Diameter 2.6 cm M-MODE AV Cusp Separation MM 1.3 cm DOPPLER AV Peak Velocity 125.0 cm/s AV Peak Gradient 6.3 mmHg AV Mean Gradient 3.0 mmHg AV Velocity Time Integral 16.5 cm LVOT Peak Velocity 100.0 cm/s LVOT Peak Gradient 4.0 mmHg LVOT Velocity Time Integral 15.8 cm LVOT Cardiac Index 2879.1 cm?/min?m? AV Area Cont Eq vti 2.4 cm? AV Area Cont Eq pk 2.0 cm? MV Area PHT 15.7 cm? Mitral E Point Velocity 82.0 cm/s Mitral A Point Velocity 87.8 cm/s Mitral E to A Ratio 0.9 LV E' Lateral Velocity 9.0 cm/s Mitral E to LV E' Lateral Ratio 9.1 LV E' Septal Velocity 9.0 cm/s Mitral E to LV E' Septal Ratio 9.1 TR Peak Velocity 195.3 cm/s TR Peak Gradient 15.3 mmHg PV Peak Velocity 76.0 cm/s PV Peak Gradient 2.3 mmHg FINDINGS Left Ventricle Normal left ventricular size and wall thickness.There is global left ventricular hypokinesis. Global left ventricular systolic function is moderately decreased. The ejection fraction is visually estimated at 40-45% Right Ventricle The right ventricular systolic function is mildly decreased. The estimated right ventricular systolic pressure,24 mmHg with RAP 3. Left Atrium The left atrium is normal by two-dimensional, color flow and Doppler imaging with no structural abnormalities, no thrombus formation present. Right Atrium The right atrium is normal by two-dimensional imaging, color flow and Doppler imaging with no structural abnormalities, no thrombus formation present. Atrial Septum The interatrial septum appears normal with no evidence of a shunt. Aorta The aorta is normal by two-dimensional, color flow and Doppler interrogation. Mitral Valve The mitral valve is normal by two-dimensional, color flow and Doppler interrogation. Mild mitral regurgitation. Aortic Valve The aortic valve is trileaflet and normal by two-dimensional, color flow and Doppler interrogation. There is no significant aortic valve regurgitation. Tricuspid Valve The tricuspid valve is normal by two-dimensional, color flow and Doppler interrogation. There is mild tricuspid valve regurgitation. Pulmonic Valve The pulmonic valve is not well visualized. There is no significant pulmonic valve regurgitation. Vessels The pulmonary artery appears normal. The inferior vena cava pulmonary and hepatic veins appear normal. Pericardium The pericardium is normal by two-dimensional imaging. There is no significant pericardial effusion. CONCLUSIONS Indication: Elevated troponins Normal LV size and mildly decreased LV function with an estimated EF of 40 to 45%. Patient tachycardic. Diastolic dysfunction could not be evaluated. Normal RV size and function is mildly decreased. RVSP 24 mmHg with RAP 3. Mild mitral and tricuspid regurgitation noted. No pericardial effusion Dilip Branhamumansanjana (Electronically Signed) Final Date: 12 July 2025 18:56
--- NOTE | 2025-07-12 11:41 | PC.NURSE ---
Hand off report given to Mila RN @1032 for admission to ICU. Patient is intubated and on ventilator. Pt is now calmer than before, currently sedated. Levophed is infusing as ordered by Dr. Harris, MAP has been above 70. Dr. Castillo placed central line to right IJ right before patient sent up to floor, xray taken for verification. Bedrails padded for seizure precautions. Pt sent via magaly gautam ventilator, RT and vital sign machine.
[2025-07-12 11:49] LABS: Path Review Blood Smear Sent to Pathologist
--- NOTE | 2025-07-12 11:51 | PC.NURSE ---
Patient ALIREZA after found covered in emesis and feces by sister. When pt arrived to ED paitent not following commands, moving all 4 extremeites around, not speaking but making garbled sounds. Pt sent to CT for stroke alert, there RN witnessed tonic clonic seizure lasting 2min [address] was able to be performed. PT returned to ed 2 where she was desating and large amount of foaming at mouth. PT intubated to protect airway. Pt's ETT was adjusted since saturations were on the lower side. CXRAY confirmed, pt heavily sedated since she was very agitated. Mary (sister) was updated.
[2025-07-12 12:14] LABS: Lactate (Lactic Acid) 2.4 mMol/L (0.4-2.0)
[2025-07-12] MEDS: RINGERS LACTATED 1000 ML 1,000 ML 999 ML IV ×2 (12:17→18:30)
[2025-07-12] MEDS: Magnesium Sulfate 2 GM Ivpb 2 GM/50 ML BAG IV ×2 (12:17→19:40)
[2025-07-12] MEDS: ENOXAPARIN SOD INJ 40 MG/0.4 ML SYRINGE SC (12:19)
[2025-07-12] MEDS: PROPOFOL 1,000 MG IVPB 1,000 MG/100 ML VIAL 24.998 MG IV ×3 (12:30→19:40)
[2025-07-12] MEDS: POTASSIUM CHL 20 mEq IVPB 20 MEQ/100 ML BAG 50 MEQ IV ×2 (12:38→14:27)
[2025-07-12 12:44] LABS: Reflex Lactate? Y
[2025-07-12] MEDS: INSULIN LISPRO (AdmeLOG) 1 UNIT/0.01 ML UNIT SC ×3 (13:22→23:42)
[2025-07-12 13:23] LABS: Lactic Acid, 3 HR 2.5 mMol/L (0.4-2.0)
[2025-07-12 13:27] LABS: Beta Hydroxybutyrate 0.3 mmol/L (<0.6)
[2025-07-12] MEDS: RINGERS LACTATED 500 ML 500 ML 999 ML IV (13:27)
[2025-07-12 13:46] LABS: Troponin I 8.049 ng/mL (0.0-0.045)
[2025-07-12] MEDS: NICOTINE PATCH 21 MG/24 HR PATCH.TD24 TOP (14:30)
--- NOTE | 2025-07-12 14:50 | ESHP_ITS ---
<Statement entered by Cayden Anthony MD - 07/12/25 20:48> I discussed and supervised with the newsroom intern physician who took care of this patient. I personally saw and examined the patient. I agree with most of the assessment and plan. Disclaimer: Despite multiple revisions, due to the dictation software being used, the document bellow may not be free of grammatical errors including phonetic/typographic errors. However, this does not deter from our commitment to providing health care in the patient's best interest in mind. Plan of care discussed with attending Physician Dr. Steven Anthony MD PGY-3 Documentation for date of: 07/12/25 HPI History of Present Illness History of present illness: Patient is a 45-year-old female with past medical history of CVA 2018, AML, type 2 diabetes, seizures, migraine, HLD, HTN presented with altered mental status to the ED. Patient initially had a stroke alert called with a fingerstick blood glucose of 306, patient went to the CT and after coming back from that had a witnessed seizure and was given a loading dose of Keppra and was consulted and seen by teleneuro. Patient ended up being intubated for airway protection. Due to being unable to get history from patient, met with family and informed us she has a history of seizures due to a horse riding accident years ago. They state that patient was noted to have a severe migraine yesterday afternoon. Patient last ate yesteday evening and last well known was around 7pm. They stated patient usually wakes up around 2 to 4 AM in the morning, has a history of insomnia. Around 630 they checked on her because she was not awake yet, entered her room and found her with a cut on her head, on the floor, rolling around seizing. Patient's last seizures were around 6 to 12 months ago. States she only takes her seizure medications occasionally mainly whenever she is around flashing lights. States that she did not take her seizure medicine as scheduled due to it being back cancer per her oncologist. Family states her baseline is ANO x 3. States they did not see any foaming but did say she had made some urine during this episode. Primary point of contact is the daughter, Madhu. Past Medical History: AML (last chemo was 10 years ago, remission around 1 year ago) sees oncologist in [place]. CVA 4 to 5 years ago, recovered completely, has not been following a neurologist recently, type 2 diabetes, seizures, migraine, HLD, HTN. Family History: no family history of seizures, endorses family history of diabetes Surgical History: Denies any heart stents, endorses hysterectomy, teeth removal for dentures Social History: Lives at home with family, smokes 1 pack of cigarettes per day, alcohol occasionally, no recreational drugs no vape or marijuana. Current Medications: Excedrin 1 or 2 per month (whenever migraines occur), metformin, was on Mounjaro, multivitamins, aspirin 81, blood pressure meds once or twice a month for her migraines (will follow up med rec) Allergies: Allergies: Codeine (anaphylaxis), bees, [place], Bactrim? ED Course: Vitals on admission showed temperature of 101.4 rectally, 145 heart rate, 27 respiratory rate, 96% oxygen saturation on 6 L nasal cannula, blood pressure 118/43 Labs: Significant for WBC of 32.4, neutrophil percentage 88%, ABG showing pH of 7.13, pCO2 46, pO2 122, bicarb 15; potassium 3.1, bicarb 18.4, anion gap 21, glucose 375, urine uric acid 8.3, LDH 277, troponin 5.052; urinalysis significant for 1+ protein, 4+ glucose, 1+ ketones, 1+ blood; Imaging: Head CT: No hemorrhage mass affect or midline shift noted Head neck CTA showed no significant neck arterial stenosis, no cerebral large vessel arterial occlusions or thrombus Chest x-rays #1, #2: Extensive bilateral aspiration pneumonia EKG #1,#2: Supraventricular tachycardia with nonspecific ST and T wave abnormality Chest x-ray #3 showed interval right internal jugular central line, tip right atrium In ED patient given: In the ED patient was given midazolam 2 mg IV x 1, sodium chloride 1 L bolus x 1, etomidate 20 mg IV x 1, succinylcholine 100 mg IV x 1, midazolam 2 mg IV x 1, fentanyl, Keppra 1500 IV x 1, midazolam drip, midazolam 2 mg IV x 1, ceftriaxone 2 g x 1, normal saline IV bolus 1.5 L x 1, Tylenol 1000 mg IV every 6 hours, propofol drip, vancomycin, normal saline IVF bolus 1 L x 1, Levophed drip, normal saline 0.5 L bolus x 1, fentanyl 100 mcg IV x 1, acyclovir 500 mg, mag sulfate 2 g IV x 1, LR 1 L bolus x 1, enoxaparin 40 mg subcu daily, propofol drip, Protonix 40 mg IV daily, potassium chloride 20 mEq every 2 hours, insulin sliding scale, 0.5 L LR bolus, topical nicotine 21 mg Patient admitted to ICU for workup and management of seizures. Review of Systems Review of systems otherwise negative except what is mentioned above. Exam Vital Signs Temp Pulse Resp BP Pulse Ox O2 Del Method O2 Flow Rate 99.1 F 137 H 27 H 94/69 96 Mechanical Ventilation 100 07/12/25 09:50 07/12/25 13:59 07/12/25 11:00 07/12/25 13:59 07/12/25 13:59 07/12/25 09:50 07/12/25 08:10 FiO2 100 07/12/25 13:59 Narrative Exam General: Sedated, intubated. Skin: Warm, dry, intact, no obvious rash. HENT: NCAT, EOMI/PERRL, not icteric. External ears normal. No rhinorrhea. Moist mucous membranes Cardiovascular: Tachycardic, regular rhythm, no murmur, +S1/S2. Respiratory: Lungs CTAB GI: Soft, nontender, non-distended. No guarding or rebound tenderness. : No suprapubic tenderness. No flank tenderness bilaterally. Extremities: no edema, no cyanosis, no clubbing. Extremity pulses present Neuro: PERRL Results: Labs 07/15/25 04:51 07/15/25 04:51 Labs: Short CBC 07/12/25 Range/Units 07:25 WBC 32.4 H (3.6-11.0) Thou/mm3 Hgb 14.1 (12.0-16.0) g/dL Hct 42.5 (36.0-46.0) % Plt Count 279 (140-440) Thou/mm3 BMP 07/12/25 07:25 Sodium 139 Potassium 3.1 L Chloride 100 Carbon Dioxide 18.4 L BUN 13 Creatinine 0.9 Glucose 375 H Calcium 9.9 Cardiac Enzymes 07/12/25 07/12/25 Range/Units 07:25 13:00 Troponin I 5.052 H* 8.049 H* D (0.0-0.045) ng/mL Liver Function 07/12/25 Range/Units 07:25 Total Bilirubin 0.9 (0.3-1.2) mg/dL AST 36 H (0-34) U/L ALT 36 (10-49) U/L Alkaline Phosphatase 105 (46-116) U/L Albumin 5.0 (3.5-5.0) gm/dL Urine 07/12/25 Range/Units 08:20 Urine Color Lt-Yellow (Lt Yel-Yel) Urine Clarity Clear (Clear/Hazy) Urine pH 6.0 (5.0-7.0) Ur Specific Sunset 1.021 (1.001-1.035) Urine Protein 1+ A (Neg - Trace) Urine Glucose (UA) 4+ A (Negative) ABG Interpretation ABG results: 07/12/25 08:31 ABG pH 7.13 L* ABG pCO2 46 ABG pO2 122 H ABG HCO3 15 L ABG O2 Saturation 98 ABG Base Excess -14 L Quality Measures Quality Measures VTE prophylaxis Medications Home Medications and Allergies Home Medications ?Medication ?Instructions ?Recorded ?Confirmed ?Type metformin 1,000 mg tablet 1,000 mg PO QDAY 08/23/18 History aspirin 81 mg tablet,delayed 325 mg PO QDAY 07/12/25 1 History release (Tylor Low Dose Aspirin) lisinopril 5 mg tablet 20 mg PO QDAY 07/12/2507/12 History metformin 1,000 mg tablet 1,000 mg PO BID 07/12/25 History Allergies Allergy/AdvReac Type Severity Reaction Status Date / Time spider venom Allergy Severe Numbness Verified 05/17/22 12:14 codeine Allergy Mild rash Verified 05/17/22 12:14 vomiting hives hydrocodone Allergy Mild rash hives Verified 05/17/22 12:14 vomiting onion Allergy Mild Anaphylaxis Verified 05/17/22 12:14 Visit Medications Acetaminophen (Acetaminophen 325 Mg Tablet) 650 mg NG Q6H PRN PRN Reason: Fever >100.5 or pain 1-3 Stop: 08/11/25 09:28 Dextrose (Dextrose 50%-Water Inj 50 Ml Syringe) 25 ml IV Q15MIN PRN PRN Reason: BG 50-70 responsive npo pt Stop: 08/11/25 10:04 Dextrose (Dextrose 50%-Water Inj 50 Ml Syringe) 50 ml IV Q15MIN PRN PRN Reason: BG <50 OR BG <70 & pt unresponsive Stop: 08/11/25 10:04 Enoxaparin Sodium (Enoxaparin Sod Inj 40 Mg/0.4 Ml Syringe) 40 mg SC QDAY [facility] Stop: 07/26/25 09:44 Last Admin: 07/12/25 12:19 Dose: 40 mg Glucagon (Glucagon Inj 1 Mg Vial) 1 mg IM Q15MIN PRN PRN Reason: BG <70, and no IV access Fentanyl Citrate (Sublimaze Inj 2,500 Mcg/250 Ml Bag) 2,500 mcg in 250 mls @ 2.5 mls/hr IV .Q24H PRN; Protocol PRN Reason: PER PROTOCOL Stop: 07/17/25 07:44 Last Titration: 07/12/25 14:00 Dose: 175 mcg/hr, 17.5 mls/hr Propofol (Diprivan Ivpb) 1,000 mg in 100 mls @ 2.5 mls/hr IV .Q24H PRN; Protocol PRN Reason: PER PROTOCOL Stop: 08/11/25 08:52 Last Admin: 07/12/25 12:30 Dose: 50 mcg/kg/min, 24.998 mls/hr Ceftriaxone Sodium 2 gm/ (Sodium Chloride) 50 mls @ 100 mls/hr IV QDAY [facility] Stop: 07/20/25 08:59 Norepinephrine/Dextrose (Levophed In D5w 8mg/250ml) 8 mg in 250 mls @ 7.812 mls/hr IV .Q24H PRN; Protocol PRN Reason: PER PROTOCOL Stop: 08/11/25 09:48 Last Titration: 07/12/25 14:46 Dose: 0.03 mcg/kg/min, 4.687 mls/hr Acyclovir Sodium 500 mg/ (Sodium Chloride) 110 mls @ 94.286 mls/hr IV Q8HR [facility] Stop: 07/19/25 09:59 Last Admin: 07/12/25 13:28 Dose: Not Given Potassium Chloride (Kcl Ivpb) 20 meq in 100 mls @ 50 mls/hr IV Q2H [facility] Stop: 07/12/25 16:08 Last Admin: 07/12/25 14:27 Dose: 50 mls/hr Insulin Human Lispro (Insulin Lispro (Admelog) 1 Unit/0.01 Ml Unit) 0 unit SC Q6HR ASHLEY; Protocol Stop: 08/11/25 11:59 Last Admin: 07/12/25 13:22 Dose: 3 unit Levetiracetam (Levetiracetam Inj 100 Mg/Ml Vial 5ml) 1,000 mg IVP Q12HR [facility] Stop: 08/11/25 20:59 Nicotine (Nicotine Patch 21 Mg/24 Hr Patch.Td24) 21 mg TOP QDAY [facility] Stop: 08/11/25 13:14 Last Admin: 07/12/25 14:30 Dose: 21 mg Pantoprazole Sodium (Pantoprazole Inj 40 Mg Vial) 40 mg IVP QDAY [facility] Stop: 08/11/25 09:44 Last Admin: 07/12/25 12:38 Dose: 40 mg Discontinued Medications Etomidate (Etomidate Inj 2 Mg/Ml Vial 10 Ml) 20 mg IV X1 ONE Stop: 07/12/25 07:42 Last Admin: 07/12/25 07:42 Dose: 20 mg Fentanyl Citrate (Fentanyl Cit Inj 50 Mcg/Ml Amp 2ml) 100 mcg IVP X1 ONE Stop: 07/12/25 09:50 Last Admin: 07/12/25 12:06 Dose: Not Given Sodium Chloride (Ns) 1,000 mls @ 999 mls/hr IV .Q1H1M ONE Stop: 07/12/25 08:40 Last Infusion: 07/12/25 10:29 Dose: Infused Midazolam HCl (Versed Pf Inj In Ns Premix) 100 mg in 100 mls @ 1 mls/hr IV .Q24H PRN; Protocol PRN Reason: PER PROTOCOL Stop: 07/17/25 07:44 Last Titration: 07/12/25 10:29 Dose: 0 mg/hr, 0 mls/hr Ceftriaxone Sodium 2 gm/ (Sodium Chloride) 50 mls @ 100 mls/hr IV X1 ONE Stop: 07/12/25 08:21 Last Infusion: 07/12/25 10:29 Dose: Infused Vancomycin HCl/Dextrose (Vancomycin/D5w 1,250 Mg Ivpb) 250 mls @ 120 mls/hr IV X1 ONE Stop: 07/12/25 11:04 Vancomycin HCl (Vancomycin/Water 1250 Mg Ivpb) 250 mls @ 120 mls/hr IV X1 ONE; Protocol Stop: 07/12/25 11:04 Last Infusion: 07/12/25 11:00 Dose: Infused Dexmedetomidine/Sodium Chloride (Precedex Ivpb) 400 mcg in 100 mls @ 4.166 mls/hr IV .Q24H PRN; Protocol PRN Reason: Per PROTOCOL Stop: 08/11/25 08:17 Acetaminophen (Ofirmev Inj) 1,000 mg in 100 mls @ 250 mls/hr IV Q6HR ASHLEY Stop: 07/13/25 00:23 Last Admin: 07/12/25 12:51 Dose: Not Given Sodium Chloride (Ns) 1,503 mls @ 1,503 mls/hr 30 ml/kg infuse over 60 min (1503 ml) IV .Q1H ONE Stop: 07/12/25 09:28 Last Infusion: 07/12/25 10:29 Dose: Infused Propofol (Diprivan Ivpb) 1,000 mg in 100 mls @ 2.5 mls/hr IV .Q24H PRN; Protocol PRN Reason: PER PROTOCOL Stop: 08/11/25 08:53 Sodium Chloride (Ns) 1,000 mls @ 999 mls/hr IV .Q1H1M ONE Stop: 07/12/25 10:17 Last Infusion: 07/12/25 10:29 Dose: Infused Sodium Chloride (Ns) 500 mls @ 999 mls/hr IV .Q31M ONE Stop: 07/12/25 09:48 Last Infusion: 07/12/25 11:00 Dose: Infused Acyclovir Sodium 500 mg/ (Sodium Chloride) 110 mls @ 94.286 mls/hr IV Q8HR [facility]LEY Stop: 07/19/25 09:59 Last Admin: 07/12/25 12:07 Dose: Not Given Magnesium Sulfate (Magnesium Sulfate Ivpb) 2 gm in 50 mls @ 25 mls/hr IV X1 ONE Stop: 07/12/25 12:06 Last Admin: 07/12/25 12:17 Dose: 25 mls/hr Potassium Chloride (Kcl Ivpb) 10 meq in 100 mls @ 100 mls/hr IV Q1H [facility]LEY Stop: 07/12/25 14:06 Last Admin: 07/12/25 12:11 Dose: Not Given Lactated Ringer's (Lactated Ringers) 1,000 mls @ 999 mls/hr IV .Q1H1M ONE Stop: 07/12/25 11:10 Last Admin: 07/12/25 12:17 Dose: 999 mls/hr Lactated Ringer's (Lactated Ringers) 500 mls @ 999 mls/hr IV .Q31M ONE Stop: 07/12/25 10:40 Last Admin: 07/12/25 13:27 Dose: 999 mls/hr Levetiracetam (Levetiracetam Inj 100 Mg/Ml Vial 5ml) 1,000 mg IVP X1 ONE Stop: 07/12/25 07:48 Last Admin: 07/12/25 09:41 Dose: Not Given Levetiracetam (Levetiracetam Inj 100 Mg/Ml Vial 5ml) 1,500 mg IVP X1 ONE Stop: 07/12/25 07:51 Last Admin: 07/12/25 08:02 Dose: 1,500 mg Midazolam HCl (Midazolam Inj 1 Mg/Ml Vial 2 Ml) 2 mg IVP X1 ONE Stop: 07/12/25 07:35 Last Admin: 07/12/25 07:36 Dose: 2 mg Midazolam HCl (Midazolam Inj 1 Mg/Ml Vial 2 Ml) 2 mg IVP X1 ONE Stop: 07/12/25 07:53 Last Admin: 07/12/25 07:57 Dose: 2 mg Midazolam HCl (Midazolam Inj 1 Mg/Ml Vial 2 Ml) 2 mg IVP X1 ONE Stop: 07/12/25 08:13 Last Admin: 07/12/25 08:15 Dose: 2 mg Pharmacy Consult (Vancomycin Pharmacy To Dose 1 Each Each) 1 each IV QDAY ONE Stop: 07/12/25 07:53 Last Admin: 07/12/25 08:01 Dose: Not Given Sodium Chloride (Sodium Chloride Rt 10% 15 Ml Nebu) 5 ml INH X1 ONE Stop: 07/12/25 08:29 Last Admin: 07/12/25 12:04 Dose: Not Given Succinylcholine Chloride (Succinylcholine Inj 20 Mg/Ml Vial 10 Ml) 100 mg IV X1 ONE Stop: 07/12/25 07:43 Last Admin: 07/12/25 07:52 Dose: 100 mg Assessment & Plan Plan Patient is a 45-year-old female with past medical history of CVA 2018, AML, type 2 diabetes, seizures, migraine, HLD, HTN presented with altered mental status to the ED; required intubation for airway protection after having another seizure in the ED. Patient admitted to ICU for workup and management of seizures. Neurology #Acute Encephalopathy 2/2 #Status Epilepticus DDx: septic shock vs cardiac vs lack of sleep, vs dehydration vs electrolyte derangements vs less likely hypoglycemia Dx: -Family states occasionally takes seizure meds at home. Most recent seizures 6- 12 months ago. Patient last well known ~7pm 07/11. Patient's baseline is Patient found seizing in bedroom 07/12 AM by family. Brought to ED, noted to have started seizing again in the ED after getting CT for initial stroke rule out. Glucose was 300s. With patient's reported complaint of severe migraine since yesterday evening, meningitis on differential. -Patient given keppra 1500 mg loading dose followed by Rx: -Discontinued Keppra and Lacosamide, per neurology -Started Depakote 1000 mg IV BID -Neuro checks q2hr -Seizure precautions -EEG ordered -Treat underlying infection -Tele neuro consulted for stroke r/o -Neurology consulted, appreciate recs #Sedation For intubation & mechanical ventilation i/s/o seizures and concern for airway protection Dx: -RASS ordered at -5 Rx: -Plan to decrease sedation in AM to assess for alert and orientation status. -Diet consulted for propofol use #Hx of CVA Patient's family reported CVA ~5 years ago with symptoms fully resolving. Dx: -No stroke on CT imaging -Tele neuro consulted, stroke r/o -Home BP meds (will f/u med rec), ,aspirin 81, per family. Cardiovascular #Distributive Shock DDx: septic shock due to meningitis or aspiration pneumonia (i/s/o seizures) vs possible cardiogenic shock from TN vs arrhythmia Dx: -Severe migraine reported night before. Arrived to ED with fever 101.4, WBC 32.4. Rx: -Given total 3 L NS IV, 2.5 L IV LR -Continue mechanical ventilation -Correct underlying acidosis with fluids -Treat underlying infection with acidosis -Started on levophed 0.05, weaning off #Elevated Troponins 2/2 demand ischemia (shock) vs TN Dx: vs dehyrdation vs sleep deprivation -Trops 5.052 -EKG nonspecific ST & T wave abnormalities Rx: -Cardology consulted to evaluate for acute ischemia -Echo ordered #SVT 2/2 seizures vs acute illness Dx: -EKG as above Rx: -Echo ordered; fluids given as above, #hx of HTN Patient's home meds of lisinopril Rx: -holding lisinopril Respiratory #Intubated with mechanical ventilation 2/2 airway protection (i/s/o seizures) Dx: -ABG 7.13 pH, 46 pco2, 122 po2, 15 bicarb Rx: -continue vent settings; #Likely aspiration pneumonia Dx: -CXR shows extensive bilateral spiration pneumonia Rx: -Blood cultures, ET tube cultures taken -On vancomycin, acycylovir 500 mg IV q8hr, Ceftriaxone 2 gm qd GI and F/E/N #NG Tube -To decrease aspiration risk given seizures and likely aspiration pna Rx: -Will reassess if seizures continue for if NG tube continues to be necessary Renal #High anion gap metabolic acidosis #Lactic Acidosis (i/s/o seizures) DDx: Seizures vs septic shock Dx: -Utox negative Rx: -Trend lactic acid -Treating underlying infection, seizures #hypokalemia DDx: Unsure etiology, possibly due to medication vs dehydration (diarrhea, vomiting) Dx: -Potassium 3.1 Rx: -Repleted with IV potassium chloride Heme #Leukocytosis #Hx AML DDx: Infection (sepsis) vs leukemoid reaction vs less likely blast crisis due to WBC < 100k. Patient had chemo for AML 10 years ago, has been in resmission for ~1 year; unsure oncologist (Jj) Dx: -WBC 32 -CXR extensive pneumonia aspiration bilaterally Rx: -Peripheral smear ordered -Blood cultures, ET tube cultures ordered -Asked family to get records from oncologist -Continue ABX Endo #T2DM Dx: - Home meds reported as Metformin, previously on Mounjaro -Glucose 375 on admission Rx: -Insulin sliding scale in place -glucose q6hr checks -A1c ordered -hypoglycemia protocol in place ID #Aspiration pneumonia #meningitis ? Dx: -As above, patient presented after having seizure and severe migraine reported as well Rx: -Started Vancomycin, Ceftriaxone, acycylovir, as above Disposition: ICU DVT prophylaxis: Lovenox 40 mg SC qday GI prophylaxis: Protonix 40 mg IV qday Diet: NPO Linn: Yes Lines: Peripherals Drips: Midazolam, Propofol Vent: A/CMV PRVC CODE STATUS: Full Code Reason of hospitalization: Seizures Patient plan of care was discussed with the attending physician, Dr. Harris & senior resident Dr. Gabrielle Nicholas MD PGY-1 Attending Provider Attestation/Addendum Patient seen and examined with above resident, Ashutosh Nicholas MD. I agree with the findings, assessment, and plan of care as document except for any differences below. Patient admitted with status epilepticus requiring mechanical ventilation/intubation for airway protection. Patient also with significant history of remote CVA and seizure disorder. Requiring 3 agents to adequately sedate and stop all visible seizures. EEG was ordered as well. Patient will remain on Vimpat and Keppra until further direction of neurology. Versed and propofol drips have all been continued, boluses of Versed utilized as needed for any suspicious breakthrough seizure activity. Patient on appropriate lung protective mechanical ventilation. High-grade fever with suspicion for meningitis, plan for lumbar puncture by neurology. Have empirically started on antibiotics with adequate coverage utilizing vancomycin/ceftriaxone, and acyclovir. patient is under 65 and will not treat for Listeria. Patient had significant leukocytosis with remote history of AML, peripheral smear has been sent for evaluation. Patient with elevated troponin this is likely due to demand ischemia in the setting of severe sepsis/borderline septic shock. Would not plan for anticoagulation at this point. Suspect that component of sedation induced hypotension is the etiology for requirement for vasopressors. Patient aggressively volume resuscitated as per protocol for severe sepsis. Trend lactic acid and monitor urine output. Weaned off vasopressors towards the end of the day we will need to continue to monitor overnight for reassessment of volume responsiveness versus reinitiation of vasopressor support. Await additional input from neurology. Patient is on appropriate prophylaxis otherwise. Patient's daughter was updated at bedside. Total critical care time: I personally spent 50 minutes for review of physiologic parameters, directing plan of care throughout the day, coordination of care with other subspecialties, and counseling patient's family at bedside. This is exclusive of time spent teaching of staff performing a separate billable procedures. Patient remains at significant risk for further morbidity and mortality warranting close monitoring and care only available in the ICU. Critical care services required for acute metabolic encephalopathy, status epilepticus, severe sepsis/septic shock, aspiration pneumonia, and acute hypoxic respiratory failure.
[2025-07-12 15:12] LABS: Reflex Lactate? Y
--- NOTE | 2025-07-12 16:04 | PD.RESPRO ---
Documentation for date of: 07/12/25 Subjective Subjective Interval history: Patient was examined at bedside at ICU. Intubated and on MV with fentanyl and propofol drip. Levophed started due to hypotension from propofol. Vitals at bedside showed tachycardia with rate 130s and BP 96/72. Two daughters were at bedside provided some history. Patient started having seizures at the of 23 after a fall from horse riding. She landed on a pile a rocks resulting in a head injury with a piece that remained lodged intracranially. Since then she was started on Keppra. 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 Daughter stated that visits are 1-2 times/yr. 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 Since that time, patient will only take the Keppra when going to music concerts. Last seizure occurred in February 2025 while at a concert. The seizure was characterized by flexion of the upper extremities, bilateral hand fisting, and eye closure. The patient remained upright and did not fall due to being supported. There was no post ictal confusion, episode lasted for about 1 min. Daughter has never noticed harm during episodes such as tounge biting, head injury, or other body injury. No incontinence. Daughters are unaware of who neurologist is. Possibly located in [place]. CT head/CTA negative. Plan to repeat EEG and do LP to rule out meningitis. Continue acyclovir, ceftriaxone, and vancomycin. Start IV Depakote 1000mg BID. Exam Vital Signs Temp Pulse Resp BP Pulse Ox O2 Del Method O2 Flow Rate 99.1 F 137 H 27 H 94/69 96 Mechanical Ventilation 100 07/12/25 09:50 07/12/25 13:59 07/12/25 11:00 07/12/25 13:59 07/12/25 13:59 07/12/25 09:50 07/12/25 08:10 FiO2 100 07/12/25 13:59 Narrative Exam General: sedated, intubated, on MV HEENT: NCAT, No JVD noted. Mucosa moist. Pupils are equal and reactive to light bilaterally Cardiovascular: Normal S1 and S2. Regular rate and rhythm. Respiratory: Lungs are clear to auscultation bilaterally. Mechanical breath sounds Abdomen: Soft, nontender, not distended, normal bowel sounds. : powers in place Skin: Warm to touch, dry, no rashes noted. Various Tattoes Musculoskeletal: No gross injuries. No pitting edema, pedal pulses palpated Neuro: limited by sedation Objective Labs 07/15/25 04:51 07/15/25 04:51 Labs: Laboratory Results - last 24 hr 07/12/25 07/12/25 07/12/25 07:25 08:20 08:31 WBC 32.4 H RBC 5.08 Hgb 14.1 Hct 42.5 MCV 84 MCH 27.8 MCHC 33.2 RDW Std Deviation 42.1 Plt Count 279 Neut % (Auto) 88 H Lymph % (Auto) 4 L [place] % (Auto) 5 Eos % (Auto) 0 Baso % (Auto) 0 Neut # (Auto) 28.6 H Lymph # (Auto) 1.3 [place] # (Auto) 1.7 H Eos # (Auto) 0.0 Baso # (Auto) 0.1 Immature Gran # (Auto) 0.79 H Absolute Nucleated RBC 0.00 Immature Gran % 2 H Nucleated RBC % 0 Smear Path Review Sent to Pathologist PT 10.9 INR 1.0 APTT 30.9 Puncture Site Right Radial ABG pH 7.13 L* ABG pCO2 46 ABG pO2 122 H ABG HCO3 15 L ABG O2 Saturation 98 ABG Base Excess -14 L FiO2 100 Sodium 139 Potassium 3.1 L Chloride 100 Carbon Dioxide 18.4 L Anion Gap 21 H BUN 13 Creatinine 0.9 Estim Creat Clear Calc 79.8 eGFR > 60 BUN/Creatinine Ratio 14 Glucose 375 H Calculated Osmolality 292 Lactic Acid Uric Acid 8.3 H Calcium 9.9 Corrected Calcium 9.9 Magnesium 1.6 Total Bilirubin 0.9 AST 36 H ALT 36 Alkaline Phosphatase 105 Lactate Dehydrogenase 277 H Troponin I 5.052 H* Total Protein 7.9 Albumin 5.0 Globulin 2.9 Albumin/Globulin Ratio 1.7 Beta-Hydroxybutyrate/Acetoacetate Ur Collection Type Catheter Urine Color Lt-Yellow Urine Clarity Clear Urine pH 6.0 Ur Specific [place] 1.021 Urine Protein 1+ A Urine Glucose (UA) 4+ A Urine Ketones 1+ A Urine Blood 1+ A Urine Nitrite Negative Urine Bilirubin Negative Urine Urobilinogen (Auto) Negative Ur Leukocyte Esterase Negative Urine RBC 2 Urine WBC 1 Ur Squamous Epith Cells < 1 Urine Bacteria Rare Ur Culture Indicated? Not Indicated Urine Opiates Screen Negative Urine Fentanyl Screen Negative Ur Barbiturates Screen Negative U Amphetamin/Meth Scrn Negative U Benzodiazepines Scrn Negative U Cocaine Metab Screen Negative U Marijuana (THC) Screen Negative Influenza A (Rapid) Influenza B (Rapid) HCG (Qual) Negative 07/12/25 07/12/25 07/12/25 09:27 09:40 12:00 WBC RBC Hgb Hct MCV MCH MCHC RDW Std Deviation Plt Count Neut % (Auto) Lymph % (Auto) [place] % (Auto) Eos % (Auto) Baso % (Auto) Neut # (Auto) Lymph # (Auto) [place] # (Auto) Eos # (Auto) Baso # (Auto) Immature Gran # (Auto) Absolute Nucleated RBC Immature Gran % Nucleated RBC % Smear Path Review PT INR APTT Puncture Site ABG pH ABG pCO2 ABG pO2 ABG HCO3 ABG O2 Saturation ABG Base Excess FiO2 Sodium Potassium Chloride Carbon Dioxide Anion Gap BUN Creatinine Estim Creat Clear Calc eGFR BUN/Creatinine Ratio Glucose Calculated Osmolality Lactic Acid 4.8 H* 2.4 H Uric Acid Calcium Corrected Calcium Magnesium Total Bilirubin AST ALT Alkaline Phosphatase Lactate Dehydrogenase Troponin I Total Protein Albumin Globulin Albumin/Globulin Ratio Beta-Hydroxybutyrate/Acetoacetate Ur Collection Type Urine Color Urine Clarity Urine pH Ur Specific [place] Urine Protein Urine Glucose (UA) Urine Ketones Urine Blood Urine Nitrite Urine Bilirubin Urine Urobilinogen (Auto) Ur Leukocyte Esterase Urine RBC Urine WBC Ur Squamous Epith Cells Urine Bacteria Ur Culture Indicated? Urine Opiates Screen Urine Fentanyl Screen Ur Barbiturates Screen U Amphetamin/Meth Scrn U Benzodiazepines Scrn U Cocaine Metab Screen U Marijuana (THC) Screen Influenza A (Rapid) Negative Influenza B (Rapid) Negative HCG (Qual) 07/12/25 13:00 WBC RBC Hgb Hct MCV MCH MCHC RDW Std Deviation Plt Count Neut % (Auto) Lymph % (Auto) [place] % (Auto) Eos % (Auto) Baso % (Auto) Neut # (Auto) Lymph # (Auto) [place] # (Auto) Eos # (Auto) Baso # (Auto) Immature Gran # (Auto) Absolute Nucleated RBC Immature Gran % Nucleated RBC % Smear Path Review PT INR APTT Puncture Site ABG pH ABG pCO2 ABG pO2 ABG HCO3 ABG O2 Saturation ABG Base Excess FiO2 Sodium Potassium Chloride Carbon Dioxide Anion Gap BUN Creatinine Estim Creat Clear Calc eGFR BUN/Creatinine Ratio Glucose Calculated Osmolality Lactic Acid 2.5 H Uric Acid Calcium Corrected Calcium Magnesium Total Bilirubin AST ALT Alkaline Phosphatase Lactate Dehydrogenase Troponin I 8.049 H* D Total Protein Albumin Globulin Albumin/Globulin Ratio Beta-Hydroxybutyrate/Acetoacetate 0.3 Ur Collection Type Urine Color Urine Clarity Urine pH Ur Specific [place] Urine Protein Urine Glucose (UA) Urine Ketones Urine Blood Urine Nitrite Urine Bilirubin Urine Urobilinogen (Auto) Ur Leukocyte Esterase Urine RBC Urine WBC Ur Squamous Epith Cells Urine Bacteria Ur Culture Indicated? Urine Opiates Screen Urine Fentanyl Screen Ur Barbiturates Screen U Amphetamin/Meth Scrn U Benzodiazepines Scrn U Cocaine Metab Screen U Marijuana (THC) Screen Influenza A (Rapid) Influenza B (Rapid) HCG (Qual) ABG Interpretation ABG results: 07/12/25 08:31 ABG pH 7.13 L* ABG pCO2 46 ABG pO2 122 H ABG HCO3 15 L ABG O2 Saturation 98 ABG Base Excess -14 L Quality Measures Quality Measures stroke Suspected type of Stroke: Non Acute Last known well (date): 07/11/25 Last known well (time): 19:00 Tenecteplase given: Reason(s) Tenecteplase not given: Outside the time window not given Rehab services: Speech Language Pathology eval ordered VTE Prophylaxis: mechanical Antithrombotic by day 2:: not indicated (describe) Statin ordered: not ordered Anticoagulation ordered for A-fib or flutter (current or hx): not indicated and sepsis Current suspected stage: ruled out Possible source: pulmonary Blood cultures ordered: completed in ED Antibiotic ordered: Yes Assessment & Plan Assessment Current Active Medications: Generic Name Dose Route Start Last Admin Trade Name Freq PRN Reason Stop Dose Admin Acetaminophen 650 mg 07/12/25 09:29 Acetaminophen 325 Mg Tablet NG 08/11/25 09:28 Q6H PRN Fever >100.5 or pain 1-3 Dextrose 25 ml 07/12/25 10:05 Dextrose 50%-Water Inj 50 Ml Syringe IV 08/11/25 10:04 Q15MIN PRN BG 50-70 responsive npo pt Dextrose 50 ml 07/12/25 10:05 Dextrose 50%-Water Inj 50 Ml Syringe IV 08/11/25 10:04 Q15MIN PRN BG <50 OR BG <70 & pt unresponsive Enoxaparin Sodium 40 mg 07/12/25 09:45 07/12/25 12:19 Enoxaparin Sod Inj 40 Mg/0.4 Ml Syringe SC 07/26/25 09:44 40 mg QDAY ASHLEY Administration Glucagon 1 mg 07/12/25 10:05 Glucagon Inj 1 Mg Vial IM Q15MIN PRN BG <70, and no IV access Ceftriaxone Sodium 2 gm/ 50 mls @ 100 mls/hr 07/13/25 09:00 Sodium Chloride IV 07/20/25 08:59 QDAY ASHLEY Norepinephrine/Dextrose 8 mg in 250 mls @ 7.812 mls/hr 07/12/25 09:49 07/12/25 15:00 Levophed In D5w 8mg/250ml IV 08/11/25 09:48 0.01 mcg/kg/min .Q24H PRN 1.562 mls/hr PER PROTOCOL Titration Protocol 0.05 MCG/KG/MIN Acyclovir Sodium 500 mg/ 110 mls @ 94.286 mls/hr 07/12/25 10:15 07/12/25 13:28 Sodium Chloride IV 07/19/25 09:59 Not Given Q8HR ASHLEY Potassium Chloride 20 meq in 100 mls @ 50 mls/hr 07/12/25 12:09 07/12/25 14:27 Kcl Ivpb IV 07/12/25 16:08 50 mls/hr Q2H ASHLEY Administration Fentanyl Citrate 2,500 mcg in 250 mls @ 2.5 mls/hr 07/12/25 15:35 Sublimaze Inj 2,500 Mcg/250 Ml Bag IV 07/17/25 07:44 .Q24H PRN PER PROTOCOL Protocol 25 MCG/HR Propofol 1,000 mg in 100 mls @ 2.5 mls/hr 07/12/25 15:35 Diprivan Ivpb IV 08/11/25 08:52 .Q24H PRN PER PROTOCOL Protocol 5 MCG/KG/MIN Midazolam HCl 100 mg in 100 mls @ 5 mls/hr 07/12/25 15:35 Versed Pf Inj In Ns Premix IV 07/17/25 15:32 .Q20H PRN PER PROTOCOL Protocol 5 MG/HR Insulin Human Lispro 0 unit 07/12/25 12:00 07/12/25 13:22 Insulin Lispro (Admelog) 1 Unit/0.01 Ml Unit SC 08/11/25 11:59 3 unit Q6HR ASHLEY Administration Protocol Lacosamide 200 mg 07/12/25 21:00 Lacosamide Inj 200 Mg/20 Ml Vial IVP 08/11/25 20:59 BID ASHLEY Levetiracetam 1,000 mg 07/12/25 21:00 Levetiracetam Inj 100 Mg/Ml Vial 5ml IVP 08/11/25 20:59 Q12HR ASHLEY Nicotine 21 mg 07/12/25 13:15 07/12/25 14:30 Nicotine Patch 21 Mg/24 Hr Patch.Td24 TOP 08/11/25 13:14 21 mg QDAY ASHLEY Administration Pantoprazole Sodium 40 mg 07/12/25 09:45 07/12/25 12:38 Pantoprazole Inj 40 Mg Vial IVP 08/11/25 09:44 40 mg QDAY ASHLEY Administration Plan Patient is a 45-year-old female with past medical history of CVA 2018, AML, type 2 diabetes, seizures, migraine, HLD, HTN presented to ED on 07/12/25 due to breakthrough seizures/AMS. Neurology consulted for management and LP to rule out meningitis. #Acute encephalopathy #Hx seizures Likely due to status epilepticus break through seizures. 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 Since that time, patient will only take the Keppra when going to music concerts. Stroke alert called in ED. Tele neuro was consulted, NIHSS score 0. CT head/CTA negative. She recieved 4mg of versed without cessation. Subsequently intubated and sedated with prop/fent. Given 1500mg loading dose of Keppra in ED. Urine, sputum, and blood cultures negative. -plan for LP to rule out meningitis -repeat EEG -Continue acyclovir, ceftriaxone, and vancomycin. -stop lacosamide due to cardiogenic effects -hold Keppra has family expresses concern about AML returning. They were counseled on this medication and how there has been no correlation on this. -start IV depakote 1000mg BID -euthermia, euglycemia -serial neuro checks as sedation lightened #AML #Previous CVA #T2DM #HLD #HTN Primary care team to manage above conditions and ongoing care needs. The patient's management plan was discussed with my attending physician Dr. Colvin. Paz Rivero, PGY-2 Attending Provider Attestation/Addendum I personally have seen and examined the patient at the bedside and I agreed with the resident's findings, assessment and plan of care. Follow-up with the spinal fluid analysis, continue with IV antibiotics for now
[2025-07-12] MEDS: MIDAZOLAM INJ 1 MG/ML VIAL 2 ML 5 MG IVP ×2 (16:17→18:37)
[2025-07-12 16:21] LABS: Lactic Acid, 3 HR 1.8 mMol/L (0.4-2.0)
[2025-07-12] MEDS: LACOSAMIDE INJ 200 MG/20 ML VIAL IVP (16:34)
--- NOTE | 2025-07-12 16:45 | PD.RESPRO ---
Documentation for date of: 07/12/25 Exam Vital Signs Temp Pulse Resp BP Pulse Ox O2 Del Method O2 Flow Rate 100.4 F 148 H 29 H 101/62 99 Mechanical Ventilation 100 07/12/25 16:00 07/12/25 16:32 07/12/25 16:32 07/12/25 16:32 07/12/25 16:32 07/12/25 09:50 07/12/25 08:10 FiO2 100 07/12/25 13:59 Objective Labs 07/12/25 07:25 07/12/25 07:25 Labs: Laboratory Results - last 24 hr 07/12/25 07/12/25 07/12/25 07:25 08:20 08:31 WBC 32.4 H RBC 5.08 Hgb 14.1 Hct 42.5 MCV 84 MCH 27.8 MCHC 33.2 RDW Std Deviation 42.1 Plt Count 279 Neut % (Auto) 88 H Lymph % (Auto) 4 L [place] % (Auto) 5 Eos % (Auto) 0 Baso % (Auto) 0 Neut # (Auto) 28.6 H Lymph # (Auto) 1.3 [place] # (Auto) 1.7 H Eos # (Auto) 0.0 Baso # (Auto) 0.1 Immature Gran # (Auto) 0.79 H Absolute Nucleated RBC 0.00 Immature Gran % 2 H Nucleated RBC % 0 Smear Path Review Sent to Pathologist PT 10.9 INR 1.0 APTT 30.9 Puncture Site Right Radial ABG pH 7.13 L* ABG pCO2 46 ABG pO2 122 H ABG HCO3 15 L ABG O2 Saturation 98 ABG Base Excess -14 L FiO2 100 Sodium 139 Potassium 3.1 L Chloride 100 Carbon Dioxide 18.4 L Anion Gap 21 H BUN 13 Creatinine 0.9 Estim Creat Clear Calc 79.8 eGFR > 60 BUN/Creatinine Ratio 14 Glucose 375 H Calculated Osmolality 292 Lactic Acid Uric Acid 8.3 H Calcium 9.9 Corrected Calcium 9.9 Magnesium 1.6 Total Bilirubin 0.9 AST 36 H ALT 36 Alkaline Phosphatase 105 Lactate Dehydrogenase 277 H Troponin I 5.052 H* Total Protein 7.9 Albumin 5.0 Globulin 2.9 Albumin/Globulin Ratio 1.7 Beta-Hydroxybutyrate/Acetoacetate Ur Collection Type Catheter Urine Color Lt-Yellow Urine Clarity Clear Urine pH 6.0 Ur Specific [place] 1.021 Urine Protein 1+ A Urine Glucose (UA) 4+ A Urine Ketones 1+ A Urine Blood 1+ A Urine Nitrite Negative Urine Bilirubin Negative Urine Urobilinogen (Auto) Negative Ur Leukocyte Esterase Negative Urine RBC 2 Urine WBC 1 Ur Squamous Epith Cells < 1 Urine Bacteria Rare Ur Culture Indicated? Not Indicated Urine Opiates Screen Negative Urine Fentanyl Screen Negative Ur Barbiturates Screen Negative U Amphetamin/Meth Scrn Negative U Benzodiazepines Scrn Negative U Cocaine Metab Screen Negative U Marijuana (THC) Screen Negative Influenza A (Rapid) Influenza B (Rapid) HCG (Qual) Negative 07/12/25 07/12/25 07/12/25 09:27 09:40 12:00 WBC RBC Hgb Hct MCV MCH MCHC RDW Std Deviation Plt Count Neut % (Auto) Lymph % (Auto) [place] % (Auto) Eos % (Auto) Baso % (Auto) Neut # (Auto) Lymph # (Auto) [place] # (Auto) Eos # (Auto) Baso # (Auto) Immature Gran # (Auto) Absolute Nucleated RBC Immature Gran % Nucleated RBC % Smear Path Review PT INR APTT Puncture Site ABG pH ABG pCO2 ABG pO2 ABG HCO3 ABG O2 Saturation ABG Base Excess FiO2 Sodium Potassium Chloride Carbon Dioxide Anion Gap BUN Creatinine Estim Creat Clear Calc eGFR BUN/Creatinine Ratio Glucose Calculated Osmolality Lactic Acid 4.8 H* 2.4 H Uric Acid Calcium Corrected Calcium Magnesium Total Bilirubin AST ALT Alkaline Phosphatase Lactate Dehydrogenase Troponin I Total Protein Albumin Globulin Albumin/Globulin Ratio Beta-Hydroxybutyrate/Acetoacetate Ur Collection Type Urine Color Urine Clarity Urine pH Ur Specific [place] Urine Protein Urine Glucose (UA) Urine Ketones Urine Blood Urine Nitrite Urine Bilirubin Urine Urobilinogen (Auto) Ur Leukocyte Esterase Urine RBC Urine WBC Ur Squamous Epith Cells Urine Bacteria Ur Culture Indicated? Urine Opiates Screen Urine Fentanyl Screen Ur Barbiturates Screen U Amphetamin/Meth Scrn U Benzodiazepines Scrn U Cocaine Metab Screen U Marijuana (THC) Screen Influenza A (Rapid) Negative Influenza B (Rapid) Negative HCG (Qual) 07/12/25 07/12/25 13:00 16:14 WBC RBC Hgb Hct MCV MCH MCHC RDW Std Deviation Plt Count Neut % (Auto) Lymph % (Auto) [place] % (Auto) Eos % (Auto) Baso % (Auto) Neut # (Auto) Lymph # (Auto) [place] # (Auto) Eos # (Auto) Baso # (Auto) Immature Gran # (Auto) Absolute Nucleated RBC Immature Gran % Nucleated RBC % Smear Path Review PT INR APTT Puncture Site ABG pH ABG pCO2 ABG pO2 ABG HCO3 ABG O2 Saturation ABG Base Excess FiO2 Sodium Potassium Chloride Carbon Dioxide Anion Gap BUN Creatinine Estim Creat Clear Calc eGFR BUN/Creatinine Ratio Glucose Calculated Osmolality Lactic Acid 2.5 H 1.8 Uric Acid Calcium Corrected Calcium Magnesium Total Bilirubin AST ALT Alkaline Phosphatase Lactate Dehydrogenase Troponin I 8.049 H* D Total Protein Albumin Globulin Albumin/Globulin Ratio Beta-Hydroxybutyrate/Acetoacetate 0.3 Ur Collection Type Urine Color Urine Clarity Urine pH Ur Specific [place] Urine Protein Urine Glucose (UA) Urine Ketones Urine Blood Urine Nitrite Urine Bilirubin Urine Urobilinogen (Auto) Ur Leukocyte Esterase Urine RBC Urine WBC Ur Squamous Epith Cells Urine Bacteria Ur Culture Indicated? Urine Opiates Screen Urine Fentanyl Screen Ur Barbiturates Screen U Amphetamin/Meth Scrn U Benzodiazepines Scrn U Cocaine Metab Screen U Marijuana (THC) Screen Influenza A (Rapid) Influenza B (Rapid) HCG (Qual) ABG Interpretation ABG results: 07/12/25 08:31 ABG pH 7.13 L* ABG pCO2 46 ABG pO2 122 H ABG HCO3 15 L ABG O2 Saturation 98 ABG Base Excess -14 L Quality Measures Quality Measures stroke Suspected type of Stroke: Non Acute Last known well (date): 07/11/25 Last known well (time): 19:00 Tenecteplase given: Reason(s) Tenecteplase not given: Outside the time window not given and sepsis Possible source: pulmonary Blood cultures ordered: completed in ED Assessment & Plan Assessment Current Active Medications: Generic Name Dose Route Start Last Admin Trade Name Freq PRN Reason Stop Dose Admin Acetaminophen 650 mg 07/12/25 09:29 Acetaminophen 325 Mg Tablet NG 08/11/25 09:28 Q6H PRN Fever >100.5 or pain 1-3 Dextrose 25 ml 07/12/25 10:05 Dextrose 50%-Water Inj 50 Ml Syringe IV 08/11/25 10:04 Q15MIN PRN BG 50-70 responsive npo pt Dextrose 50 ml 07/12/25 10:05 Dextrose 50%-Water Inj 50 Ml Syringe IV 08/11/25 10:04 Q15MIN PRN BG <50 OR BG <70 & pt unresponsive Enoxaparin Sodium 40 mg 07/12/25 09:45 07/12/25 12:19 Enoxaparin Sod Inj 40 Mg/0.4 Ml Syringe SC 07/26/25 09:44 40 mg QDAY ASHLEY Administration Glucagon 1 mg 07/12/25 10:05 Glucagon Inj 1 Mg Vial IM Q15MIN PRN BG <70, and no IV access Ceftriaxone Sodium 2 gm/ 50 mls @ 100 mls/hr 07/13/25 09:00 Sodium Chloride IV 07/20/25 08:59 QDAY ASHLEY Norepinephrine/Dextrose 8 mg in 250 mls @ 7.812 mls/hr 07/12/25 09:49 07/12/25 15:00 Levophed In D5w 8mg/250ml IV 08/11/25 09:48 0.01 mcg/kg/min .Q24H PRN 1.562 mls/hr PER PROTOCOL Titration Protocol 0.05 MCG/KG/MIN Acyclovir Sodium 500 mg/ 110 mls @ 94.286 mls/hr 07/12/25 10:15 07/12/25 13:28 Sodium Chloride IV 07/19/25 09:59 Not Given Q8HR ASHLEY Fentanyl Citrate 2,500 mcg in 250 mls @ 2.5 mls/hr 07/12/25 15:35 Sublimaze Inj 2,500 Mcg/250 Ml Bag IV 07/17/25 07:44 .Q24H PRN PER PROTOCOL Protocol 25 MCG/HR Propofol 1,000 mg in 100 mls @ 2.5 mls/hr 07/12/25 15:35 Diprivan Ivpb IV 08/11/25 08:52 .Q24H PRN PER PROTOCOL Protocol 5 MCG/KG/MIN Midazolam HCl 100 mg in 100 mls @ 5 mls/hr 07/12/25 15:35 07/12/25 16:18 Versed Pf Inj In Ns Premix IV 07/17/25 15:32 5 mg/hr .Q20H PRN 5 mls/hr PER PROTOCOL Administration Protocol 5 MG/HR Insulin Human Lispro 0 unit 07/12/25 12:00 07/12/25 13:22 Insulin Lispro (Admelog) 1 Unit/0.01 Ml Unit SC 08/11/25 11:59 3 unit Q6HR ASHLEY Administration Protocol Lacosamide 200 mg 07/12/25 21:00 Lacosamide Inj 200 Mg/20 Ml Vial IVP 08/11/25 20:59 BID ASHLEY Levetiracetam 1,000 mg 07/12/25 21:00 Levetiracetam Inj 100 Mg/Ml Vial 5ml IVP 08/11/25 20:59 Q12HR ASHLEY Nicotine 21 mg 07/12/25 13:15 07/12/25 14:30 Nicotine Patch 21 Mg/24 Hr Patch.Td24 TOP 08/11/25 13:14 21 mg QDAY ASHLEY Administration Pantoprazole Sodium 40 mg 07/12/25 09:45 07/12/25 12:38 Pantoprazole Inj 40 Mg Vial IVP 08/11/25 09:44 40 mg QDAY ASHLEY Administration
[2025-07-12 16:47] LABS: Anion Gap 12 (7-16); BUN/Creatinine Ratio 15 Ratio (12-20); Blood Urea Nitrogen 9 mg/dL (9-23); Calcium 8.1 mg/dL (8.3-10.6); Carbon Dioxide 16.3 mMol/L (20.0-31.0); Chloride 111 mMol/L (98-107); Creatinine (Component) 0.6 mg/dL (0.6-1.3); Estimated Creatinine Clearance 119.7 mL/min (>60); Glucose 292 mg/dL (74-106); Osmolality,Calculated 287 (275-295); Potassium 4.7 mMol/L (3.4-5.1); Sodium 139 mMol/L (136-145); eGFR > 60 See Note
[2025-07-12 17:21] LABS: Base Excess -7 (-3-3); HCO3 20 mEq/L (20-26); Inspired Oxygen, FIO2 65 %; O2 Saturation 98 % (91-98); PCO2 45 mmHg (32.0-48.0); PO2 100 mmHg (83-108); pH, Arterial 7.26 (7.35-7.45)
[2025-07-12 17:22] LABS: Allen Test Not Performed; Puncture Site Right Radial
--- NOTE | 2025-07-12 17:29 | PD.RESCONSUL ---
HPI Data of Consult Requesting Physician: Edward Harris MD Admitting Provider: Edward Harris MD Attending Provider: Edward Harris MD Primary Care Provider: Fady Evangelista MD Consult Narrative History of present illness: Patient is a 45 year old female with PMH of CVA 2018, AML, type 2 diabetes, seizures, migraine, HLD, HTN who presents with altered mental status. Was found to be seizing this morning by her family members, last known normal 7PM last night. On Keppra but does not take it consistently because she was told that it could exacerbate her AML. BP 118/43 but tachycardic at HR 145, RR 27 and fever of 101.4. WBC 32.4, hemoglobin 14.1. Potassium 2.1, bicarb 18.4, anion gap 21, BUN 13, creatinine 0.9, glucose 275, LDH 277. Troponin 5.052. Magnesium 1.6. Patient was intubated s/p witnessed seizure during CT scan. EKG showed SVT, unable to clearly identify any ST or T wave abnormalities. Head neck CTA negative for stenosis. CXR shows extensive bilateral aspiration pneumonia. Cardiology was consulted for elevated troponin. Past Medical History: As above Family History: No known history of heart disease. Surgical History: hysterectomy, appendectomy, cholecystectomy Social History: Smoked 1ppd, denies current alcohol use, denies recreational drug use. Current Medications: per pharmacy review, Xanax prn, atorvastatin 20 mg daily, lisinopril 20 mg daily, metformin 1000 mg BID Allergies: No known drug allergies cc:: cc: Edward Harris MD Exam Vital Signs Temp Pulse Resp BP Pulse Ox O2 Del Method O2 Flow Rate 100.4 F 148 H 29 H 101/62 99 Mechanical Ventilation 100 07/12/25 16:00 07/12/25 16:32 07/12/25 16:32 07/12/25 16:32 07/12/25 16:32 07/12/25 09:50 07/12/25 08:10 FiO2 65 07/12/25 16:00 Narrative Exam Physical Exam General: Intubated and sedated. Obese female. HEENT: Normocephalic, atraumatic, mucous membranes moist. Heart: Tachycardic. Regular rate and rhythm, normal S1 and S2, no murmurs. Lungs: Clear to auscultation with no wheezing or crackles. Abdomen: Soft, nondistended, nontender, positive bowel sounds. No guarding or rebound tenderness. Neurologic: Alert and oriented x3, no gross neurological deficit, and patient able to move all 4 extremities. Extremities: No edema. Skin: No rash or ecchymoses. Results Labs 07/14/25 04:27 07/14/25 04:27 Labs: Short CBC 07/12/25 Range/Units 07:25 WBC 32.4 H (3.6-11.0) Thou/mm3 Hgb 14.1 (12.0-16.0) g/dL Hct 42.5 (36.0-46.0) % Plt Count 279 (140-440) Thou/mm3 BMP 07/12/25 07/12/25 07:25 16:14 Sodium 139 139 Potassium 3.1 L 4.7 D Chloride 100 111 H Carbon Dioxide 18.4 L 16.3 L BUN 13 9 Creatinine 0.9 0.6 Glucose 375 H 292 H D Calcium 9.9 8.1 L D Cardiac Enzymes 07/12/25 07/12/25 Range/Units 07:25 13:00 Troponin I 5.052 H* 8.049 H* D (0.0-0.045) ng/mL Liver Function 07/12/25 Range/Units 07:25 Total Bilirubin 0.9 (0.3-1.2) mg/dL AST 36 H (0-34) U/L ALT 36 (10-49) U/L Alkaline Phosphatase 105 (46-116) U/L Albumin 5.0 (3.5-5.0) gm/dL Urine 07/12/25 Range/Units 08:20 Urine Color Lt-Yellow (Lt Yel-Yel) Urine Clarity Clear (Clear/Hazy) Urine pH 6.0 (5.0-7.0) Ur Specific [place] 1.021 (1.001-1.035) Urine Protein 1+ A (Neg - Trace) Urine Glucose (UA) 4+ A (Negative) ABG Interpretation ABG results: 07/12/25 07/12/25 08:31 17:13 ABG pH 7.13 L* 7.26 L D ABG pCO2 46 45 ABG pO2 122 H 100 D ABG HCO3 15 L 20 ABG O2 Saturation 98 98 ABG Base Excess -14 L -7 L Quality Measures Quality Measures stroke Suspected type of Stroke: Non Acute Last known well (date): 07/11/25 Last known well (time): 19:00 Tenecteplase given: Reason(s) Tenecteplase not given: Outside the time window not given Rehab services: Speech Language Pathology eval ordered (deferred as patient is currently intubated) VTE Prophylaxis: pharmaceutical Antithrombotic by day 2:: not indicated (describe) Statin ordered: not ordered Anticoagulation ordered for A-fib or flutter (current or hx): not indicated and sepsis Current suspected stage: sepsis Possible source: pulmonary Blood cultures ordered: completed in ED Antibiotic ordered: Yes Medications Home Medications and Allergies Home Medications ?Medication ?Instructions ?Recorded ?Confirmed ?Type metformin 1,000 mg tablet 1,000 mg PO QDAY 08/23/18 07/12/25 History aspirin 81 mg tablet,delayed 325 mg PO QDAY 07/12/25 07/12/25 History release (Tylor Low Dose Aspirin) lisinopril 5 mg tablet 20 mg PO QDAY 07/12/25 07/12/25 History metformin 1,000 mg tablet 1,000 mg PO BID 07/12/25 07/12/25 History Allergies Allergy/AdvReac Type Severity Reaction Status Date / Time spider venom Allergy Severe Numbness Verified 05/17/22 12:14 codeine Allergy Mild rash Verified 05/17/22 12:14 vomiting hives hydrocodone Allergy Mild rash hives Verified 05/17/22 12:14 vomiting onion Allergy Mild Anaphylaxis Verified 05/17/22 12:14 Visit Medications Acetaminophen (Acetaminophen 325 Mg Tablet) 650 mg NG Q6H PRN PRN Reason: Fever >100.5 or pain 1-3 Stop: 08/11/25 09:28 Dextrose (Dextrose 50%-Water Inj 50 Ml Syringe) 25 ml IV Q15MIN PRN PRN Reason: BG 50-70 responsive npo pt Stop: 08/11/25 10:04 Dextrose (Dextrose 50%-Water Inj 50 Ml Syringe) 50 ml IV Q15MIN PRN PRN Reason: BG <50 OR BG <70 & pt unresponsive Stop: 08/11/25 10:04 Enoxaparin Sodium (Enoxaparin Sod Inj 40 Mg/0.4 Ml Syringe) 40 mg SC QDAY [facility] Stop: 07/26/25 09:44 Last Admin: 07/12/25 12:19 Dose: 40 mg Glucagon (Glucagon Inj 1 Mg Vial) 1 mg IM Q15MIN PRN PRN Reason: BG <70, and no IV access Ceftriaxone Sodium 2 gm/ (Sodium Chloride) 50 mls @ 100 mls/hr IV QDAY [facility] Stop: 07/20/25 08:59 Norepinephrine/Dextrose (Levophed In D5w 8mg/250ml) 8 mg in 250 mls @ 7.812 mls/hr IV .Q24H PRN; Protocol PRN Reason: PER PROTOCOL Stop: 08/11/25 09:48 Last Titration: 07/12/25 15:00 Dose: 0.01 mcg/kg/min, 1.562 mls/hr Acyclovir Sodium 500 mg/ (Sodium Chloride) 110 mls @ 94.286 mls/hr IV Q8HR [facility] Stop: 07/19/25 09:59 Last Admin: 07/12/25 13:28 Dose: Not Given Fentanyl Citrate (Sublimaze Inj 2,500 Mcg/250 Ml Bag) 2,500 mcg in 250 mls @ 2.5 mls/hr IV .Q24H PRN; Protocol PRN Reason: PER PROTOCOL Stop: 07/17/25 07:44 Propofol (Diprivan Ivpb) 1,000 mg in 100 mls @ 2.5 mls/hr IV .Q24H PRN; Protocol PRN Reason: PER PROTOCOL Stop: 08/11/25 08:52 Midazolam HCl (Versed Pf Inj In Ns Premix) 100 mg in 100 mls @ 5 mls/hr IV .Q20H PRN; Protocol PRN Reason: PER PROTOCOL Stop: 07/17/25 15:32 Last Admin: 07/12/25 16:18 Dose: 5 mg/hr, 5 mls/hr Insulin Human Lispro (Insulin Lispro (Admelog) 1 Unit/0.01 Ml Unit) 0 unit SC Q6HR [facility]; Protocol Stop: 08/11/25 11:59 Last Admin: 07/12/25 13:22 Dose: 3 unit Lacosamide (Lacosamide Inj 200 Mg/20 Ml Vial) 200 mg IVP BID [facility] Stop: 08/11/25 20:59 Levetiracetam (Levetiracetam Inj 100 Mg/Ml Vial 5ml) 1,000 mg IVP Q12HR [facility] Stop: 08/11/25 20:59 Nicotine (Nicotine Patch 21 Mg/24 Hr Patch.Td24) 21 mg TOP QDAY [facility] Stop: 08/11/25 13:14 Last Admin: 07/12/25 14:30 Dose: 21 mg Pantoprazole Sodium (Pantoprazole Inj 40 Mg Vial) 40 mg IVP QDAY [facility] Stop: 08/11/25 09:44 Last Admin: 07/12/25 12:38 Dose: 40 mg Discontinued Medications Etomidate (Etomidate Inj 2 Mg/Ml Vial 10 Ml) 20 mg IV X1 ONE Stop: 07/12/25 07:42 Last Admin: 07/12/25 07:42 Dose: 20 mg Fentanyl Citrate (Fentanyl Cit Inj 50 Mcg/Ml Amp 2ml) 100 mcg IVP X1 ONE Stop: 07/12/25 09:50 Last Admin: 07/12/25 12:06 Dose: Not Given Sodium Chloride (Ns) 1,000 mls @ 999 mls/hr IV .Q1H1M ONE Stop: 07/12/25 08:40 Last Infusion: 07/12/25 10:29 Dose: Infused Midazolam HCl (Versed Pf Inj In Ns Premix) 100 mg in 100 mls @ 1 mls/hr IV .Q24H PRN; Protocol PRN Reason: PER PROTOCOL Stop: 07/17/25 07:44 Last Titration: 07/12/25 10:29 Dose: 0 mg/hr, 0 mls/hr Fentanyl Citrate (Sublimaze Inj 2,500 Mcg/250 Ml Bag) 2,500 mcg in 250 mls @ 2.5 mls/hr IV .Q24H PRN; Protocol PRN Reason: PER PROTOCOL Stop: 07/17/25 07:44 Last Titration: 07/12/25 15:00 Dose: 175 mcg/hr, 17.5 mls/hr Ceftriaxone Sodium 2 gm/ (Sodium Chloride) 50 mls @ 100 mls/hr IV X1 ONE Stop: 07/12/25 08:21 Last Infusion: 07/12/25 10:29 Dose: Infused Vancomycin HCl/Dextrose (Vancomycin/D5w 1,250 Mg Ivpb) 250 mls @ 120 mls/hr IV X1 ONE Stop: 07/12/25 11:04 Vancomycin HCl (Vancomycin/Water 1250 Mg Ivpb) 250 mls @ 120 mls/hr IV X1 ONE; Protocol Stop: 07/12/25 11:04 Last Infusion: 07/12/25 11:00 Dose: Infused Dexmedetomidine/Sodium Chloride (Precedex Ivpb) 400 mcg in 100 mls @ 4.166 mls/hr IV .Q24H PRN; Protocol PRN Reason: Per PROTOCOL Stop: 08/11/25 08:17 Acetaminophen (Ofirmev Inj) 1,000 mg in 100 mls @ 250 mls/hr IV Q6HR [facility] Stop: 07/13/25 00:23 Last Admin: 07/12/25 12:51 Dose: Not Given Sodium Chloride (Ns) 1,503 mls @ 1,503 mls/hr 30 ml/kg infuse over 60 min (1503 ml) IV .Q1H ONE Stop: 07/12/25 09:28 Last Infusion: 07/12/25 10:29 Dose: Infused Propofol (Diprivan Ivpb) 1,000 mg in 100 mls @ 2.5 mls/hr IV .Q24H PRN; Protocol PRN Reason: PER PROTOCOL Stop: 08/11/25 08:52 Last Titration: 07/12/25 15:00 Dose: 50 mcg/kg/min, 24.998 mls/hr Propofol (Diprivan Ivpb) 1,000 mg in 100 mls @ 2.5 mls/hr IV .Q24H PRN; Protocol PRN Reason: PER PROTOCOL Stop: 08/11/25 08:53 Sodium Chloride (Ns) 1,000 mls @ 999 mls/hr IV .Q1H1M ONE Stop: 07/12/25 10:17 Last Infusion: 07/12/25 10:29 Dose: Infused Sodium Chloride (Ns) 500 mls @ 999 mls/hr IV .Q31M ONE Stop: 07/12/25 09:48 Last Infusion: 07/12/25 11:00 Dose: Infused Acyclovir Sodium 500 mg/ (Sodium Chloride) 110 mls @ 94.286 mls/hr IV Q8HR [facility] Stop: 07/19/25 09:59 Last Admin: 07/12/25 12:07 Dose: Not Given Magnesium Sulfate (Magnesium Sulfate Ivpb) 2 gm in 50 mls @ 25 mls/hr IV X1 ONE Stop: 07/12/25 12:06 Last Admin: 07/12/25 12:17 Dose: 25 mls/hr Potassium Chloride (Kcl Ivpb) 10 meq in 100 mls @ 100 mls/hr IV Q1H [facility] Stop: 07/12/25 14:06 Last Admin: 07/12/25 12:11 Dose: Not Given Lactated Ringer's (Lactated Ringers) 1,000 mls @ 999 mls/hr IV .Q1H1M ONE Stop: 07/12/25 11:10 Last Admin: 07/12/25 12:17 Dose: 999 mls/hr Lactated Ringer's (Lactated Ringers) 500 mls @ 999 mls/hr IV .Q31M ONE Stop: 07/12/25 10:40 Last Admin: 07/12/25 13:27 Dose: 999 mls/hr Potassium Chloride (Kcl Ivpb) 20 meq in 100 mls @ 50 mls/hr IV Q2H [facility] Stop: 07/12/25 16:08 Last Admin: 07/12/25 14:27 Dose: 50 mls/hr Midazolam HCl (Versed Pf Inj In Ns Premix) 100 mg in 100 mls @ 5 mls/hr IV .Q20H PRN; Protocol PRN Reason: PER PROTOCOL Stop: 07/17/25 15:32 Lacosamide (Lacosamide Inj 200 Mg/20 Ml Vial) 200 mg IVP X1 ONE Stop: 07/12/25 15:41 Last Admin: 07/12/25 16:34 Dose: 200 mg Levetiracetam (Levetiracetam Inj 100 Mg/Ml Vial 5ml) 1,000 mg IVP X1 ONE Stop: 07/12/25 07:48 Last Admin: 07/12/25 09:41 Dose: Not Given Levetiracetam (Levetiracetam Inj 100 Mg/Ml Vial 5ml) 1,500 mg IVP X1 ONE Stop: 07/12/25 07:51 Last Admin: 07/12/25 08:02 Dose: 1,500 mg Midazolam HCl (Midazolam Inj 1 Mg/Ml Vial 2 Ml) 2 mg IVP X1 ONE Stop: 07/12/25 07:35 Last Admin: 07/12/25 07:36 Dose: 2 mg Midazolam HCl (Midazolam Inj 1 Mg/Ml Vial 2 Ml) 2 mg IVP X1 ONE Stop: 07/12/25 07:53 Last Admin: 07/12/25 07:57 Dose: 2 mg Midazolam HCl (Midazolam Inj 1 Mg/Ml Vial 2 Ml) 2 mg IVP X1 ONE Stop: 07/12/25 08:13 Last Admin: 07/12/25 08:15 Dose: 2 mg Midazolam HCl (Midazolam Inj 1 Mg/Ml Vial 2 Ml) 5 mg IVP X1 ONE Stop: 07/12/25 15:34 Last Admin: 07/12/25 16:17 Dose: 5 mg Pharmacy Consult (Vancomycin Pharmacy To Dose 1 Each Each) 1 each IV QDAY ONE Stop: 07/12/25 07:53 Last Admin: 07/12/25 08:01 Dose: Not Given Sodium Chloride (Sodium Chloride Rt 10% 15 Ml Nebu) 5 ml INH X1 ONE Stop: 07/12/25 08:29 Last Admin: 07/12/25 12:04 Dose: Not Given Succinylcholine Chloride (Succinylcholine Inj 20 Mg/Ml Vial 10 Ml) 100 mg IV X1 ONE Stop: 07/12/25 07:43 Last Admin: 07/12/25 07:52 Dose: 100 mg Assessment & Plan Plan Patient is a 45 year old female with PMH of CVA 2018, AML, type 2 diabetes, seizures, migraine, HLD, HTN who presents with altered mental status s/p intubation, admitted to ICU for work up and management of seizures. Cardiology consulted for elevated troponins likely secondary to lactic acidosis. #Elevated troponins - NSTEMI type II #SVT versus Sinus tachycardia Patient initial troponins were elevated at 5.05. Unable to obtain cardiac history and cannot determine any chest pain or chest pressure. Mostly NSTEMI type II secondary to the severe sepsis or septic shock on pressors along with status epilepticus and metabolic abnormalities. BP 118/43 but tachycardic at HR 145, RR 27 and fever of 101.4. WBC count was severely elevated at 32,000 on admission. Troponin 5.052. Initial EKG was read as SVT versus sinus tachycardia and nonspecific T wave changes. Reviewed the EKG and patient does have distinct P waves indicating mostly sinus tachycardia for this patient. - Repeat the EKG once the patient is admitted to the ICU. - Continue to trend the troponins until the peak is noticed, troponin starts downtrending. - Start heparin drip with bolus as per protocol if no contraindications. Continue for a total of 48 hours if troponins are downtrending. - Check TSH A1c and lipid profile for further cardiac risk stratification. - Echo ordered to rule out any kind of cardiomyopathy and evaluate LV function RV function diastolic function as well as to look for regional wall motion abnormalities. Will follow-up with results. - Agree with pressor support with Levophed for now. If patient continues to be tachycardic then patient can be changed to phenylephrine drip. - Recommend to identify and treat underlying cause - Keep K >4 and Mg >2 #Acute metabolic encephalopathy secondary to seizures #Hx of seizures, on Keppra #History of CVA - Neurology consulted - Defer to primary team for management #Bilateral aspiration PNA CXR finding, likely occurred after seizure. - Defer to primary team for management #History of hypertension Takes lisinopril 20 mg daily. ?Hold home BP med as patient is normotensive #High anion gap metabolic acidosis #Lactic acidosis #Leukocytosis #History of AML #Type 2 diabetes #? Meningitis #Complex migraines Thank you for your consultation, please do not hesitate to reach out if you have any question or concern Patient plan of care was discussed with the attending physician, Dr. Early. Barbara Gabriel, PGY-1 Attending Provider Attestation/Addendum I have personally seen and examined the patient separately on the above date of service and discussed the plan of care with the resident. I reviewed the resident Dr. Barbara Gabriel consultation progress note and agree with the resident findings and plan in the note above and have also edited the documentation to reflect my findings and plan. Dilip Early M.D. Interventional Cardiology
--- NOTE | 2025-07-12 17:55 | ESOP_ITS ---
<Statement entered by Edward Harris MD - 07/15/25 08:50> Attending Attestation: I was present for entire procedure. No immediate complications. Tolerated procedure well. Tip of catheter in adequate position. No post procedure PTX. PROCEDURES: Procedure Date / Time 07/12/25 1100 Procedure Narrative Procedure Narrative: Right IJV central Line placement A time out was performed. My hands were washed immediately prior to the procedure. I wore a surgical cap, mask with protective eyewear, full gown and sterile gloves throughout the procedure. The patient was placed in Trendelenburg position. Right chest region was prepped using chlorhexidine scrub and draped in sterile fashion using a full drape and sterile probe cover and sterile gel employed. The medial and lateral heads of the sternocleidomastoid muscle were identified as was the carotid pulse. The Right Internal Jugular vein was identified using the ultrasound. Anesthesia was achieved over the vein using 1% lidocaine. Using real-time out of plane guidance, the introducer needle was inserted into the Right Internal Jugular vein under direct ultrasound visualization. Venous blood was withdrawn. The syringe was removed and a guidewire was advanced into the introducer needle. The guidewire was visualized in the Internal Jugular Vein by ultrasound. A small incision was made at the skin surface with a scalpel and the introducer needle was exchanged for a dilator over the guidewire. After appropriate dilation was obtained, the dilator was exchanged over the wire for a central venous catheter. The wire was removed and the catheter was sutured in place. A sterile sorbaview shield was placed over the catheter at the insertion site. The patient tolerated the procedure without any hemodynamic compromise. At time of procedure completion, all ports aspirated and flushed properly. Post-procedure chest x-ray is pending at this time. Estimated blood loss is <5cc. -- Proceedure performed under the supervision of ICU attending,Dr Steven Nicholas MD PGY1 Central Line Placement Right IJ: Indication(s): poor, or inadequate peripheral venous access Informed consent obtained: obtained from surrogate decision maker Time out done, and the following verified: correct patient, side and site, procedure, patient position and implants and/or equipment Patient placed on monitor/pulse ox: Yes Hand Hygiene: scrub, soap & water, alcohol-based hand rub and other Max Sterile Barrier Techniques used: cap, mask, sterile gown and sterile gloves Central line prep: Chlorhexidine scrub and sterile drapes applied Local anesthesia used: lidocaine 1% Amount of anesthesia used (mL): 3 Ultrasound used for placement: Yes Sterile Technique if Ultrasound used, including sterile gel: yes Central line lumen inserted: triple Post procedure: sutured in place, good blood return, all ports aspirated, flushed, capped and sterile dressing applied Post procedure x-ray: tip of catheter in good position and no pneumothorax seen Patient tolerated procedure: well and no complications EBL(ml): 4 Complications: none
[2025-07-12] MEDS: VALPROATE SOD INJ 1,000 MG in SODIUM CHLORIDE 0.9% 50 ML 60 MG IV (18:59)
[2025-07-12 19:47] LABS: Magnesium 2.1 mg/dL (1.6-2.6)
[2025-07-12] MEDS: fentaNYL 2,500 MCG/250 ML BAG 2,500 MCG/250 ML BAG 17.5 MCG IV (22:41)
[2025-07-12 23:16] LABS: Glucose,CSF 97 mg/dL (40-70); Protein Total,CSF > 250 mg/dL (8-32)
[2025-07-12 23:43] LABS: CSF Cell Count Tube # Tube # 4
[2025-07-12 23:44] LABS: CSF Color Other (Colorless); CSF Mononuclear 9 %; CSF Red Blood Cell 1000 /cmm
[2025-07-12 23:45] LABS: CSF Polynuclear WBC 91 %; CSF White Blood Cell 10720 /cmm; CSF, Appearance Cloudy (Clear)
[2025-07-13] VITALS (104 sets, daily range): BP systolic 81–126; BP diastolic 53–81; PULSE 104–145; RESP 15–32; TEMP 35.7–37.2; O2SAT 96–99; BMI 33.5; BMI 33.7
--- NOTE | 2025-07-13 00:01 | PD.EVENT ---
Documentation for date of: 07/12/25 Date of procedure: 07/12/25 Pre-op diagnosis: Encephalitis Post-op diagnosis: Same Consent signed by: Family Position: lateral decubitus Prep: betadine Anesthesia: 1 % Lidocaine Sedation: none Needle size: 22ga Needle length: other (5) Interspace: L3-4 Number of attempts: 2 Opening pressure: other (37) Fluids mLs collected: 14 Fluid description: cloudy Complications: No Procedure performed by: Alfie Colvin Condition: Stable Disposition: ICU
[2025-07-13] MEDS: PROPOFOL 1,000 MG IVPB 1,000 MG/100 ML VIAL 24.998 MG IV ×3 (00:13→08:42)
[2025-07-13] MEDS: DEXAMETHASONE SOD PHOS INJ 10 MG/ML VIAL IVP (02:08)
[2025-07-13 05:12] LABS: Base Excess -5 (-3-3); HCO3 22 mEq/L (20-26); Inspired Oxygen, FIO2 55 %; O2 Saturation 99 % (91-98); PCO2 46 mmHg (32.0-48.0); PO2 129 mmHg (83-108); pH, Arterial 7.28 (7.35-7.45)
[2025-07-13 05:18] LABS: Allen Test Performed/OK; Puncture Site Right Radial
[2025-07-13 05:19] LABS: Basophils # (Auto) 0.1 Thou/mm3 (0.0-0.2); Basophils % (Auto) 0 % (0-2.5); Eosinophils # (Auto) 0.0 Thou/mm3 (0.0-0.5); Eosinophils % (Auto) 0 % (0-10); Hematocrit 35.9 % (36.0-46.0); Hemoglobin 11.3 g/dL (12.0-16.0); Immature Granulocytes Auto 0.41 Thou/mm3 (0.00-0.00); Lymphocytes # (Auto) 1.0 Thou/mm3 (1.0-4.8); Lymphocytes % (Auto) 4 % (10-50); Mean Corpuscular HGB Conc 31.5 g/dl (31.0-37.0); Mean Corpuscular Hemoglobin 27.4 pg (25.0-35.0); Mean Corpuscular Volume 87 fL (80-100); Monocytes # (Auto) 0.8 Thou/mm3 (0.0-0.8); Monocytes % (Auto) 3 % (0-12); Neutrophils # (Auto) 24.9 Thou/mm3 (1.8-7.7); Neutrophils % (Auto) 92 % (37-80); Nucleated Red Blood Cell # 0.00 Thou/mm3 (0.00-0.00); Nucleated Red Blood Cell % 0 /100 WBC (0); Platelet Count 177 Thou/mm3 (140-440); RDW Standard Deviation 46.2 fL (36.4-46.3); Red Blood Count 4.12 Miln/mm3 (4.00-5.20); White Blood Count 27.2 Thou/mm3 (3.6-11.0)
[2025-07-13 05:42] LABS: Glucose Estimated Average 217 mg/dL (80-131); Hemoglobin A1C 9.2 % Hgb (4.8-6.0)
[2025-07-13 05:51] LABS: Alanine Aminotransferase 35 U/L (10-49); Albumin, Serum 3.4 gm/dL (3.5-5.0); Albumin/Globulin Ratio 1.5 (1.2-2.2); Alkaline Phosphatase 86 U/L (46-116); Anion Gap 9 (7-16); Aspartate Amino Transferase 67 U/L (0-34); BUN/Creatinine Ratio 27 Ratio (12-20); Bilirubin,Total 0.6 mg/dL (0.3-1.2); Blood Urea Nitrogen 16 mg/dL (9-23); Calcium 8.7 mg/dL (8.3-10.6); Calcium (Corrected) 9.2 mg/dL (8.5-10.1); Carbon Dioxide 22.1 mMol/L (20.0-31.0); Chloride 110 mMol/L (98-107); Creatinine (Component) 0.6 mg/dL (0.6-1.3); Estimated Creatinine Clearance 119.7 mL/min (>60); Globulin 2.2 gm/dL (2.3-3.5); Glucose 221 mg/dL (74-106); Magnesium 2.9 mg/dL (1.6-2.6); Osmolality,Calculated 289 (275-295); Phosphorous 3.2 mg/dL (2.4-5.1); Potassium 4.7 mMol/L (3.4-5.1); Sodium 141 mMol/L (136-145); Thyroid Stimulating Hormone < 0.01 uIU/mL (0.55-4.78); Total Protein 5.6 gm/dL (5.7-8.2); eGFR > 60 See Note
[2025-07-13] MEDS: DEXAMETHASONE SOD PHOS INJ 4 MG/ML VIAL IV ×3 (06:23→18:16)
[2025-07-13] MEDS: INSULIN LISPRO (AdmeLOG) 1 UNIT/0.01 ML UNIT SC ×3 (06:24→18:13)
[2025-07-13 08:05] LABS: Free T4 (Free Thyroxine) 3.08 ng/dL (0.89-1.76); Troponin I 6.167 ng/mL (0.0-0.045)
[2025-07-13 08:22] LABS: Ag, Group B Strep Negative (Negative); Ag, H Influenza B Negative (Negative); Ag, N Meningitidis ACY W135 Negative (Negative)
[2025-07-13 08:23] LABS: Ag, N Mening B/Ecoli K1 Negative (Negative)
[2025-07-13 08:24] LABS: Ag, Strep Pneumonia Positive (Negative)
[2025-07-13 08:25] LABS: CSF Gram Stain Alert Gram Stain Completed
[2025-07-13] MEDS: VANCOMYCIN/NS 1 GM IVPB 200 ML IV ×2 (08:30→14:09)
[2025-07-13] MEDS: MIDAZOLAM/NS 100 MG IVPB 100 MG/100 ML BAG IV (08:42)
[2025-07-13] MEDS: ENOXAPARIN SOD INJ 40 MG/0.4 ML SYRINGE SC (09:53)
[2025-07-13] MEDS: NICOTINE PATCH 21 MG/24 HR PATCH.TD24 TOP (09:54)
[2025-07-13] MEDS: cefTRIAXone 2 GM in SODIUM CHLORIDE 0.9% (Popper) 50 ML IV (09:55)
[2025-07-13] MEDS: VALPROATE SOD INJ 1,000 MG in SODIUM CHLORIDE 0.9% 50 ML 60 MG IV ×2 (09:55→20:31)
--- NOTE | 2025-07-13 10:51 | PC.DIETICIAN ---
Nutrition prescription If EN is initiated, consider: Trophic feeds of Vital 1.2 at 20 ml/hr via OG tube by pump. If no IV fluids, water flushes of 25 ml/hr (or per MD). When indicated, advance 10 ml every 8 hrs to goal rate of 40 ml/hr x 24 hrs.
--- NOTE | 2025-07-13 11:36 | ESPR_ITS ---
Documentation for date of: 07/13/25 Subjective Subjective Interval history: Patient was seen and assessed at bedside. Patient continues to be intubated and sedated. Blood pressure 87/53, heart rate 108. Continues to be in SVT on telemetry. Recommend repeat EKG. Troponins down trended to 6 this morning. All CBC cell lines decreased, likely secondary to IV fluid resuscitation. Potassium 4.7, magnesium 2.9. TSH less than 0.01. A1c 9.2. Echo results below. Exam Vital Signs Temp Pulse Resp BP Pulse Ox O2 Del Method O2 Flow Rate 97.9 F 107 H 21 H 91/55 L 98 Mechanical Ventilation 100 07/13/25 04:00 07/13/25 10:12 07/13/25 07:15 07/13/25 10:12 07/13/25 10:12 07/12/25 09:50 07/12/25 08:10 FiO2 55 07/13/25 10:12 Narrative Exam Physical Exam General: Intubated and sedated. Obese female. HEENT: Normocephalic, atraumatic, mucous membranes moist. Heart: Tachycardic. Regular rate and rhythm, normal S1 and S2, no murmurs. Lungs: Clear to auscultation with no wheezing or crackles. Abdomen: Soft, nondistended, nontender, positive bowel sounds. No guarding or rebound tenderness. Neurologic: Alert and oriented x3, no gross neurological deficit, and patient able to move all 4 extremities. Extremities: No edema. Skin: No rash or ecchymoses. Objective Labs 07/14/25 04:27 07/14/25 04:27 Labs: Laboratory Results - last 24 hr 07/12/25 07/12/25 07/12/25 07:25 12:00 13:00 WBC RBC Hgb Hct MCV MCH MCHC RDW Std Deviation Plt Count Neut % (Auto) Lymph % (Auto) [place] % (Auto) Eos % (Auto) Baso % (Auto) Neut # (Auto) Lymph # (Auto) [place] # (Auto) Eos # (Auto) Baso # (Auto) Immature Gran # (Auto) Absolute Nucleated RBC Immature Gran % Nucleated RBC % Smear Path Review Sent to Pathologist Puncture Site ABG pH ABG pCO2 ABG pO2 ABG HCO3 ABG O2 Saturation ABG Base Excess FiO2 Sodium Potassium Chloride Carbon Dioxide Anion Gap BUN Creatinine Estim Creat Clear Calc eGFR BUN/Creatinine Ratio Glucose Estimated Ave Glu mg/dL Hemoglobin A1c Calculated Osmolality Lactic Acid 2.4 H 2.5 H Calcium Corrected Calcium Phosphorus Magnesium Total Bilirubin AST ALT Alkaline Phosphatase Troponin I 8.049 H* D Total Protein Albumin Globulin Albumin/Globulin Ratio Beta-Hydroxybutyrate/Acetoacetate 0.3 TSH Free T4 CSF Appearance CSF Color CSF WBC CSF RBC CSF Cell Count Tube # CSF Mononuclear WBCs CSF Polynuclear WBCs CSF Glucose CSF Total Protein CSF H.influenzae B Ag CSF N.meningit ACY/W135 CSF N.mening B/E.coli K1 CSF Strep B Antigen CSF Strep pneumoniae Ag 07/12/25 07/12/25 07/12/25 16:14 17:13 21:58 WBC RBC Hgb Hct MCV MCH MCHC RDW Std Deviation Plt Count Neut % (Auto) Lymph % (Auto) [place] % (Auto) Eos % (Auto) Baso % (Auto) Neut # (Auto) Lymph # (Auto) [place] # (Auto) Eos # (Auto) Baso # (Auto) Immature Gran # (Auto) Absolute Nucleated RBC Immature Gran % Nucleated RBC % Smear Path Review Puncture Site Right Radial ABG pH 7.26 L D ABG pCO2 45 ABG pO2 100 D ABG HCO3 20 ABG O2 Saturation 98 ABG Base Excess -7 L FiO2 65 Sodium 139 Potassium 4.7 D Chloride 111 H Carbon Dioxide 16.3 L Anion Gap 12 BUN 9 Creatinine 0.6 Estim Creat Clear Calc 119.7 eGFR > 60 BUN/Creatinine Ratio 15 Glucose [address] Glu mg/dL Hemoglobin A1c Calculated Osmolality 287 Lactic Acid 1.8 Calcium 8.1 L D Corrected Calcium Phosphorus Magnesium 2.1 Total Bilirubin AST ALT Alkaline Phosphatase Troponin I Total Protein Albumin Globulin Albumin/Globulin Ratio Beta-Hydroxybutyrate/Acetoacetate TSH Free T4 CSF Appearance Cloudy A CSF Color Other A CSF WBC 74325 CSF RBC 1000 CSF Cell Count Tube # Tube # 4 CSF Mononuclear WBCs 9 CSF Polynuclear WBCs 91 CSF Glucose 97 H CSF Total Protein > 250 H CSF H.influenzae B Ag Negative CSF N.meningit ACY/W135 Negative CSF N.mening B/E.coli K1 Negative CSF Strep B Antigen Negative CSF Strep pneumoniae Ag Positive A 07/13/25 07/13/25 04:48 04:57 WBC 27.2 H D RBC 4.12 Hgb 11.3 L D Hct 35.9 L MCV 87 MCH 27.4 MCHC 31.5 RDW Std Deviation 46.2 Plt Count 177 D Neut % (Auto) 92 H Lymph % (Auto) 4 L [place] % (Auto) 3 Eos % (Auto) 0 Baso % (Auto) 0 Neut # (Auto) 24.9 H Lymph # (Auto) 1.0 [place] # (Auto) 0.8 Eos # (Auto) 0.0 Baso # (Auto) 0.1 Immature Gran # (Auto) 0.41 H Absolute Nucleated RBC 0.00 Immature Gran % 2 H Nucleated RBC % 0 Smear Path Review Puncture Site Right Radial ABG pH 7.28 L ABG pCO2 46 ABG pO2 129 H D ABG HCO3 22 ABG O2 Saturation 99 H ABG Base Excess -5 L FiO2 55 Sodium 141 Potassium 4.7 Chloride 110 H Carbon Dioxide 22.1 Anion Gap 9 BUN 16 Creatinine 0.6 Estim Creat Clear Calc 119.7 eGFR > 60 BUN/Creatinine Ratio 27 H Glucose [address] Glu mg/dL 217 H Hemoglobin A1c 9.2 H Calculated Osmolality 289 Lactic Acid Calcium 8.7 Corrected Calcium 9.2 Phosphorus 3.2 Magnesium 2.9 H Total Bilirubin 0.6 AST 67 H ALT 35 Alkaline Phosphatase 86 Troponin I 6.167 H* D Total Protein 5.6 L Albumin 3.4 L D Globulin 2.2 L Albumin/Globulin Ratio 1.5 Beta-Hydroxybutyrate/Acetoacetate TSH < 0.01 L* Free T4 3.08 H CSF Appearance CSF Color CSF WBC CSF RBC CSF Cell Count Tube # CSF Mononuclear WBCs CSF Polynuclear WBCs CSF Glucose CSF Total Protein CSF H.influenzae B Ag CSF N.meningit ACY/W135 CSF N.mening B/E.coli K1 CSF Strep B Antigen CSF Strep pneumoniae Ag ABG Interpretation ABG results: 07/12/25 07/12/25 07/13/25 08:31 17:13 04:48 ABG pH 7.13 L* 7.26 L D 7.28 L ABG pCO2 46 45 46 ABG pO2 122 H 100 D 129 H D ABG HCO3 15 L 20 22 ABG O2 Saturation 98 98 99 H ABG Base Excess -14 L -7 L -5 L Quality Measures Quality Measures VTE prophylaxis Assessment & Plan Assessment Current Active Medications: Generic Name Dose Route Start Last Admin Trade Name Freq PRN Reason Stop Dose Admin Dexamethasone Sodium Phosphate 4 mg 07/13/25 06:00 07/13/25 06:23 Dexamethasone Sod Phos Inj 4 Mg/Ml Vial IV 07/17/25 05:59 4 mg Q6HR ASHLEY Administration Protocol Dextrose 25 ml 07/12/25 10:05 Dextrose 50%-Water Inj 50 Ml Syringe IV 08/11/25 10:04 Q15MIN PRN BG 50-70 responsive npo pt Dextrose 50 ml 07/12/25 10:05 Dextrose 50%-Water Inj 50 Ml Syringe IV 08/11/25 10:04 Q15MIN PRN BG <50 OR BG <70 & pt unresponsive Enoxaparin Sodium 40 mg 07/12/25 09:45 07/13/25 09:53 Enoxaparin Sod Inj 40 Mg/0.4 Ml Syringe SC 07/26/25 09:44 40 mg QDAY ASHLEY Administration Glucagon 1 mg 07/12/25 10:05 Glucagon Inj 1 Mg Vial IM Q15MIN PRN BG <70, and no IV access Ceftriaxone Sodium 2 gm/ 50 mls @ 100 mls/hr 07/13/25 09:00 07/13/25 09:55 Sodium Chloride IV 07/20/25 08:59 100 mls/hr QDAY ASHLEY Administration Norepinephrine/Dextrose 8 mg in 250 mls @ 7.812 mls/hr 07/12/25 09:49 07/12/25 18:15 Levophed In D5w 8mg/250ml IV 08/11/25 09:48 0 mcg/kg/min .Q24H PRN 0 mls/hr PER PROTOCOL Titration Protocol 0.05 MCG/KG/MIN Acyclovir Sodium 500 mg/ 110 mls @ 94.286 mls/hr 07/12/25 10:15 07/13/25 06:31 Sodium Chloride IV 07/19/25 09:59 94.286 mls/hr Q8HR ASHLEY Administration Fentanyl Citrate 2,500 mcg in 250 mls @ 2.5 mls/hr 07/12/25 15:35 07/13/25 10:00 Sublimaze Inj 2,500 Mcg/250 Ml Bag IV 07/17/25 07:44 Infused .Q24H PRN Titration PER PROTOCOL Protocol 25 MCG/HR Propofol 1,000 mg in 100 mls @ 2.5 mls/hr 07/12/25 15:35 07/13/25 08:42 Diprivan Ivpb IV 08/11/25 08:52 50 mcg/kg/min .Q24H PRN 24.998 mls/hr PER PROTOCOL Administration Protocol 5 MCG/KG/MIN Valproic Acid 1,000 mg/ Sodium 60 mls @ 60 mls/hr 07/12/25 19:00 07/13/25 09:55 Chloride IV 08/11/25 18:59 60 mls/hr BID ASHLEY Administration Protocol Acetaminophen 1,000 mg in 100 mls @ 250 mls/hr 07/12/25 20:33 Ofirmev Inj IV 07/15/25 20:32 Q6HR PRN fever >99.9 Vancomycin/Sodium Chloride 200 mls @ 120 mls/hr 07/13/25 07:30 07/13/25 08:30 Vancomycin/Ns 1 Gm Ivpb IV 07/20/25 07:29 120 mls/hr Q8HR ASHLEY Administration Protocol Midazolam HCl 100 mg in 100 mls @ 5 mls/hr 07/13/25 09:53 07/13/25 08:42 Versed Pf Inj In Ns Premix IV 07/17/25 15:32 5 mg/hr .Q20H PRN 5 mls/hr PER PROTOCOL Administration Protocol 5 MG/HR Insulin Human Lispro 0 unit 07/12/25 12:00 07/13/25 06:24 Insulin Lispro (Admelog) 1 Unit/0.01 Ml Unit SC 08/11/25 11:59 2 unit Q6HR ASHLEY Administration Protocol Nicotine 21 mg 07/12/25 13:15 07/13/25 09:54 Nicotine Patch 21 Mg/24 Hr Patch.Td24 TOP 08/11/25 13:14 21 mg QDAY ASHLEY Administration Pantoprazole Sodium 40 mg 07/12/25 09:45 07/13/25 09:55 Pantoprazole Inj 40 Mg Vial IVP 08/11/25 09:44 40 mg QDAY ASHLEY Administration Pharmacy Consult 1 each 07/13/25 07:18 Vancomycin Pharmacy To Dose 1 Each Each IV 08/12/25 07:17 QDAY PRN CONSULT Plan Patient is a 45 year old female with PMH of CVA 2018, AML, type 2 diabetes, seizures, migraine, HLD, HTN who presents with altered mental status s/p intubation, admitted to ICU for work up and management of seizures. Cardiology consulted for elevated troponins likely secondary to lactic acidosis. #NSTEMI II secondary to severe sepsis and metabolic abnormalities from status epilepticus #Elevated troponins #SVT versus tachycardia #HFrEF (EF 40-45%) (07/12/25) Patient initial troponins were elevated at 5.05. Unable to obtain cardiac history and cannot determine any chest pain or chest pressure. Mostly NSTEMI type II secondary to the severe sepsis or septic shock on pressors along with status epilepticus and metabolic abnormalities. BP 118/43 but tachycardic at HR 145, RR 27 and fever of 101.4. WBC count was severely elevated at 32,000 on admission. Troponin 5.052 -> 8.049 -> 6.167. TSH <0.01. A1c 9.2. Initial EKG was read as SVT versus sinus tachycardia and nonspecific T wave changes. Reviewed the EKG and patient does have distinct P waves indicating mostly sinus tachycardia for this patient. Echo 07/12/25 showed normal LV size and mildly decreased LV function with an estimated EF of 40 to 45%. Patient tachycardic. Diastolic dysfunction could not be evaluated. Normal RV size and function is mildly decreased. RVSP 24 mmHg with RAP 3. Mild mitral and tricuspid regurgitation noted. No pericardial effusion. - Decreased EF with mild global hypokinesis mostly secondary to septic shock and tachycardia- expect improvement and will repeat echo prior to discharge. - Repeat the EKG once the patient is admitted to the ICU. - Not started on heparin per primary team as patient was having LP procedure and did not believe anticoagulation was indicated - Check lipid profile for further cardiac risk stratification. - Agree with pressor support with Levophed for now. If patient continues to be tachycardic then patient can be changed to phenylephrine drip. - Recommend to identify and treat underlying cause - Keep K >4 and Mg >2 #Acute metabolic encephalopathy secondary to seizures #Hx of seizures, on Keppra #History of CVA - Intubated and sedated - Neurology consulted - Defer to primary team for management #Bilateral aspiration PNA CXR finding, likely occurred after seizure. - Defer to primary team for management #History of hypertension Takes lisinopril 20 mg daily. ?Hold home BP med as patient is normotensive #High anion gap metabolic acidosis #Lactic acidosis #Leukocytosis #History AML #Type 2 diabetes #? Meningitis #Complex migraines Thank you for your consultation, please do not hesitate to reach out if you have any question or concern Patient plan of care was discussed with the attending physician, Dr. Early. Barbara Gabriel, PGY-1 Attending Provider Attestation/Addendum I have personally seen and examined the patient separately on the above date of service and discussed the plan of care with the resident. I reviewed the resident Dr. Barbara Gabriel consultation progress note and agree with the resident findings and plan in the note above and have also edited the documentation to reflect my findings and plan. Dilip Early M.D. Interventional Cardiology
[2025-07-13] MEDS: INSULIN DEGLUDEC 5 UNIT/0.05 ML (PER 5 UNITS) 10 UNIT SC (12:27)
--- NOTE | 2025-07-13 12:28 | ESPR_ITS ---
<Statement entered by Cayden Anthony MD - 07/13/25 19:09> I discussed and supervised with the merchandising intern physician who took care of this patient. I personally saw and examined the patient. I agree with most of the assessment and plan. Disclaimer: Despite multiple revisions, due to the dictation software being used, the document bellow may not be free of grammatical errors including phonetic/typographic errors. However, this does not deter from our commitment to providing health care in the patient's best interest in mind. Plan of care discussed with attending Physician Dr. Steven Anthony MD PGY-3 Documentation for date of: 07/13/25 Subjective Subjective Interval history: Patient is a 45-year-old female with past medical history of CVA 2018, AML (last chemo 10 years ago, in remission for ~1 year), type 2 diabetes, seizures, migraine, HLD, HTN presented with altered mental status to the ED. Patient initially had a stroke alert called with a fingerstick blood glucose of 306, patient had a witnessed seizure and was given a loading dose of Keppra and was consulted and seen by teleneuro. Patient ended up being intubated for airway protection. Due to being unable to get history from patient, met with family and informed us she has a history of seizures due to a horse riding accident years ago. They state that patient was noted to have a severe migraine yesterday afternoon. Patient last ate yesteday evening and last well known was around 7pm. They stated patient usually wakes up around 2 to 4 AM in the morning, has a history of insomnia. Around 630 they checked on her because she was not awake yet, entered her room and found her with a cut on her head, on the floor, rolling around seizing. Patient's last seizures were around 6 to 12 months ago. States she only takes her seizure medications occasionally mainly whenever she is around flashing lights. States that she did not take her seizure medicine as scheduled due to it being back cancer per her oncologist. Family states her baseline is ANO x 3. States they did not see any foaming but did say she had made some urine during this episode. Primary point of contact is the daughter, Madhu. ED Course: Vitals on admission showed temperature of 101.4 rectally, 145 heart rate, 27 respiratory rate, 96% oxygen saturation on 6 L nasal cannula, blood pressure 118/43. Labs Significant for WBC of 32.4, neutrophil percentage 88%, ABG showing pH of 7.13, pCO2 46, pO2 122, bicarb 15; potassium 3.1, bicarb 18.4, anion gap 21, glucose 375, urine uric acid 8.3, LDH 277, troponin 5.052; urinalysis significant for 1+ protein, 4+ glucose, 1+ ketones, 1+ blood; CT Imaging negative for stroke, Chest x-rays showed Extensive bilateral aspiration pneumonia. In ED patient was given multiple Versed's x1 for agitation, was sedated, paralyzed and intubated, given keppra loading dose, 4 total L of IV fluids. Patient admitted to ICU for workup and management of seizures. Interval Subjective History: 07/13/2025: Overnight patient had a lumbar puncture done, consent was obtained from daughter yesterday. Results from LP showed cloudy CSF, 10k WBC, 1K RBC, glucose 97, total protein > 250; pending CSF cultures. CSF gram stain came back positive for strep pneumo. Patient was off of levophed overnight with heart rate at 110s (down from yesterdays 140+) with a MAP around 70. Cardiology was consulted regarding patient's initial troponin level increase and most recent decrease to 6, will not plan to do heparin drip. This morning patient was afebrile, heart rate of 104, MAP of 68, saturating well on 55% FiO2 on mechanical ventilation A/CMV & PRVC. Patient was initially sedated and overnight continued to be on fentanyl, midazolam and propofol. In the morning, she was taken off fentanyl, titrated down on propofol (and taken off shortly after) , patient remains on Versed sedation. Exam Vital Signs Temp Pulse Resp BP Pulse Ox O2 Del Method O2 Flow Rate 96.3 F L 107 H 21 H 92/63 99 Mechanical Ventilation 100 07/13/25 12:00 07/13/25 12:00 07/13/25 12:00 07/13/25 12:00 07/13/25 12:00 07/12/25 09:50 07/12/25 08:10 FiO2 55 07/13/25 12:00 Narrative Exam General: Sedated, intubated. Skin: Warm, dry, intact, no obvious rash. HENT: NCAT, PERRL, not icteric. External ears normal. No rhinorrhea. Moist mucous membranes Cardiovascular: Tachycardic, regular rhythm, no murmur, +S1/S2. Respiratory: Lungs CTAB, decreased breath sounds bilateral lower lobes. GI: Soft, nontender, non-distended. No guarding or rebound tenderness. : No suprapubic tenderness. No flank tenderness bilaterally. Extremities: Bilateral lower extremity edema +2, no cyanosis, no clubbing. Extremity pulses present Neuro: PERRL, RASS -5, gag reflex intact, Objective Labs 07/15/25 04:51 07/15/25 04:51 Labs: Laboratory Results - last 24 hr 07/12/25 07/12/25 07/12/25 13:00 16:14 17:13 WBC RBC Hgb Hct MCV MCH MCHC RDW Std Deviation Plt Count Neut % (Auto) Lymph % (Auto) Yates % (Auto) Eos % (Auto) Baso % (Auto) Neut # (Auto) Lymph # (Auto) Yates # (Auto) Eos # (Auto) Baso # (Auto) Immature Gran # (Auto) Absolute Nucleated RBC Immature Gran % Nucleated RBC % Puncture Site Right Radial ABG pH 7.26 L D ABG pCO2 45 ABG pO2 100 D ABG HCO3 20 ABG O2 Saturation 98 ABG Base Excess -7 L FiO2 65 Sodium 139 Potassium 4.7 D Chloride 111 H Carbon Dioxide 16.3 L Anion Gap 12 BUN 9 Creatinine 0.6 Estim Creat Clear Calc 119.7 eGFR > 60 BUN/Creatinine Ratio 15 [address]ucose [address] Glu mg/dL Hemoglobin A1c Calculated Osmolality 287 Lactic Acid 2.5 H 1.8 Calcium 8.1 L D Corrected Calcium Phosphorus Magnesium 2.1 Total Bilirubin AST ALT Alkaline Phosphatase Troponin I 8.049 H* D Total Protein Albumin Globulin Albumin/Globulin Ratio Beta-Hydroxybutyrate/Acetoacetate 0.3 TSH Free T4 CSF Appearance CSF Color CSF WBC CSF RBC CSF Cell Count Tube # CSF Mononuclear WBCs CSF Polynuclear WBCs CSF Glucose CSF Total Protein CSF H.influenzae B Ag CSF N.meningit ACY/W135 CSF N.mening B/E.coli K1 CSF Strep B Antigen CSF Strep pneumoniae Ag 07/12/25 07/13/25 07/13/25 21:58 04:48 04:57 WBC 27.2 H D RBC 4.12 Hgb 11.3 L D Hct 35.9 L MCV 87 MCH 27.4 MCHC 31.5 RDW Std Deviation 46.2 Plt Count 177 D Neut % (Auto) 92 H Lymph % (Auto) 4 L Yates % (Auto) 3 Eos % (Auto) 0 Baso % (Auto) 0 Neut # (Auto) 24.9 H Lymph # (Auto) 1.0 Yates # (Auto) 0.8 Eos # (Auto) 0.0 Baso # (Auto) 0.1 Immature Gran # (Auto) 0.41 H Absolute Nucleated RBC 0.00 Immature Gran % 2 H Nucleated RBC % 0 Puncture Site Right Radial ABG pH 7.28 L ABG pCO2 46 ABG pO2 129 H D ABG HCO3 22 ABG O2 Saturation 99 H ABG Base Excess -5 L FiO2 55 Sodium 141 Potassium 4.7 Chloride 110 H Carbon Dioxide 22.1 Anion Gap 9 BUN 16 Creatinine 0.6 Estim Creat Clear Calc 119.7 eGFR > 60 BUN/Creatinine Ratio 27 H Glucose [address] Glu mg/dL 217 H Hemoglobin A1c 9.2 H Calculated Osmolality 289 Lactic Acid Calcium 8.7 Corrected Calcium 9.2 Phosphorus 3.2 Magnesium 2.9 H Total Bilirubin 0.6 AST 67 H ALT 35 Alkaline Phosphatase 86 Troponin I 6.167 H* D Total Protein 5.6 L Albumin 3.4 L D Globulin 2.2 L Albumin/Globulin Ratio 1.5 Beta-Hydroxybutyrate/Acetoacetate TSH < 0.01 L* Free T4 3.08 H CSF Appearance Cloudy A CSF Color Other A CSF WBC 56069 CSF RBC 1000 CSF Cell Count Tube # Tube # 4 CSF Mononuclear WBCs 9 CSF Polynuclear WBCs 91 CSF Glucose 97 H CSF Total Protein > 250 H CSF H.influenzae B Ag Negative CSF N.meningit ACY/W135 Negative CSF N.mening B/E.coli K1 Negative CSF Strep B Antigen Negative CSF Strep pneumoniae Ag Positive A ABG Interpretation ABG results: 07/12/25 07/12/25 07/13/25 08:31 17:13 04:48 ABG pH 7.13 L* 7.26 L D 7.28 L ABG pCO2 46 45 46 ABG pO2 122 H 100 D 129 H D ABG HCO3 15 L 20 22 ABG O2 Saturation 98 98 99 H ABG Base Excess -14 L -7 L -5 L Quality Measures Quality Measures VTE prophylaxis Assessment & Plan Assessment Current Active Medications: Generic Name Dose Route Start Last Admin Trade Name Freq PRN Reason Stop Dose Admin Dexamethasone Sodium Phosphate 4 mg 07/13/25 06:00 07/13/25 12:16 Dexamethasone Sod Phos Inj 4 Mg/Ml Vial IV 07/17/25 05:59 4 mg Q6HR ASHLEY Administration Protocol Dextrose 25 ml 07/12/25 10:05 Dextrose 50%-Water Inj 50 Ml Syringe IV 08/11/25 10:04 Q15MIN PRN BG 50-70 responsive npo pt Dextrose 50 ml 07/12/25 10:05 Dextrose 50%-Water Inj 50 Ml Syringe IV 08/11/25 10:04 Q15MIN PRN BG <50 OR BG <70 & pt unresponsive Enoxaparin Sodium 40 mg 07/12/25 09:45 07/13/25 09:53 Enoxaparin Sod Inj 40 Mg/0.4 Ml Syringe SC 07/26/25 09:44 40 mg QDAY ASHLEY Administration Glucagon 1 mg 07/12/25 10:05 Glucagon Inj 1 Mg Vial IM Q15MIN PRN BG <70, and no IV access Ceftriaxone Sodium 2 gm/ 50 mls @ 100 mls/hr 07/13/25 09:00 07/13/25 09:55 Sodium Chloride IV 07/20/25 08:59 100 mls/hr QDAY ASHLEY Administration Norepinephrine/Dextrose 8 mg in 250 mls @ 7.812 mls/hr 07/12/25 09:49 07/12/25 18:15 Levophed In D5w 8mg/250ml IV 08/11/25 09:48 0 mcg/kg/min .Q24H PRN 0 mls/hr PER PROTOCOL Titration Protocol 0.05 MCG/KG/MIN Acyclovir Sodium 500 mg/ 110 mls @ 94.286 mls/hr 07/12/25 10:15 07/13/25 06:31 Sodium Chloride IV 07/19/25 09:59 94.286 mls/hr Q8HR ASHLEY Administration Fentanyl Citrate 2,500 mcg in 250 mls @ 2.5 mls/hr 07/12/25 15:35 07/13/25 10:00 Sublimaze Inj 2,500 Mcg/250 Ml Bag IV 07/17/25 07:44 Infused .Q24H PRN Titration PER PROTOCOL Protocol 25 MCG/HR Propofol 1,000 mg in 100 mls @ 2.5 mls/hr 07/12/25 15:35 07/13/25 11:45 Diprivan Ivpb IV 08/11/25 08:52 35 mcg/kg/min .Q24H PRN 17.498 mls/hr PER PROTOCOL Titration Protocol 5 MCG/KG/MIN Valproic Acid 1,000 mg/ Sodium 60 mls @ 60 mls/hr 07/12/25 19:00 07/13/25 09:55 Chloride IV 08/11/25 18:59 60 mls/hr BID ASHLEY Administration Protocol Acetaminophen 1,000 mg in 100 mls @ 250 mls/hr 07/12/25 20:33 Ofirmev Inj IV 07/15/25 20:32 Q6HR PRN fever >99.9 Vancomycin/Sodium Chloride 200 mls @ 120 mls/hr 07/13/25 07:30 07/13/25 08:30 Vancomycin/Ns 1 Gm Ivpb IV 07/20/25 07:29 120 mls/hr Q8HR ASHLEY Administration Protocol Midazolam HCl 100 mg in 100 mls @ 5 mls/hr 07/13/25 09:53 07/13/25 11:00 Versed Pf Inj In Ns Premix IV 07/17/25 15:32 5 mg/hr .Q20H PRN 5 mls/hr PER PROTOCOL Titration Protocol 5 MG/HR Insulin Degludec 10 unit 07/13/25 12:15 Insulin Degludec 5 Unit/0.05 Ml (Per 5 Units) SC 08/12/25 12:14 QDAY ASHLEY Insulin Human Lispro 0 unit 07/12/25 12:00 07/13/25 12:14 Insulin Lispro (Admelog) 1 Unit/0.01 Ml Unit SC 08/11/25 11:59 2 unit Q6HR ASHLEY Administration Protocol Nicotine 21 mg 07/12/25 13:15 07/13/25 09:54 Nicotine Patch 21 Mg/24 Hr Patch.Td24 TOP 08/11/25 13:14 21 mg QDAY ASHLEY Administration Pantoprazole Sodium 40 mg 07/12/25 09:45 07/13/25 09:55 Pantoprazole Inj 40 Mg Vial IVP 08/11/25 09:44 40 mg QDAY ASHLEY Administration Pharmacy Consult 1 each 07/13/25 07:18 Vancomycin Pharmacy To Dose 1 Each Each IV 08/12/25 07:17 QDAY PRN CONSULT Plan Patient is a 45-year-old female with past medical history of CVA 2018, AML, type 2 diabetes, seizures, migraine, HLD, HTN presented with altered mental status to the ED; required intubation for airway protection after having another seizure in the ED. Patient admitted to ICU for workup and management of seizures. Neurology #meningitis Dx: -LP showed cloudy CSF, 10k WBC, 1K RBC, glucose 97, total protein > 250; pending CSF cultures. -CSF antigen positive for strep pneumo; other antigens pending/negative -CSF gram stain +3 WBCs, no ogranism seen -CSF Culture pending -MRSA 07/12 pending -Blood culture prelim 2/2 strep pneumo -ET Gram stain +1 WBCs, 2+ Mixed gilma -ET sputum culture pending Rx: -Continuing Ceftriaxone -Gave Decadron loading dose 10 mg IV x1 -Started Decadron 4 mg IV q6hr for 4 days -DC'd Vanc & acyclovir #Status Epilepticus DDx: infection vs cardiac vs lack of sleep, vs dehydration vs electrolyte derangements vs less likely hypoglycemia Dx: -Family states occasionally takes seizure meds at home. Most recent seizures 6- 12 months ago. Patient last well known ~7pm 07/11. Patient's baseline is Patient found seizing in bedroom 1014 AM by family. Brought to ED, noted to have started seizing again in the ED after getting CT for initial stroke rule out. Glucose was 300s. With patient's reported complaint of severe migraine since yesterday evening, meningitis on differential. -Patient given keppra 1500 mg loading dose followed by Rx: -Continue Depakote 1000 mg IV BID -Seizure precautions -EEG taken, follow up results -Treating underlying infection -Neurology consulted, appreciate recs #Sedated for mech ventilation for airway protection i/s/o status epilepticus For intubation & mechanical ventilation i/s/o seizures and concern for airway protection Dx: -RASS ordered at -5, examined and was -5 1015 AM. Rx: -Decreased sedation. DC'd fentanyl & propofol. -Continuing Versed, will wean in morning to assess mentation #Hx of CVA Patient's family reported CVA ~5 years ago with symptoms fully resolving. Dx: -No stroke on CT imaging -Tele neuro consulted, stroke r/o -Home BP meds (will f/u med rec), ,aspirin 81, per family. Cardiovascular #Severe Sepsis DDx: severe sepsis due to meningitis vs oral etiology of patient's family reporting having swollen L jaw area on 07/10 vs aspiration pneumonia (i/s/o seizures). Family denied sick contacts, Dx: -Severe migraine reported night before. Arrived to ED with fever 101.4, WBC 32.4. Rx: -Given total 3 L NS IV, 2.5 L IV LR -Continue mechanical ventilation -Correct underlying acidosis with fluids -Treat underlying infection with abx -Has been off levophed since previous night #Elevated Troponins 2/2 demand ischemia (shock) vs less likelyMI DDx: Other contributors including dehyrdation vs sleep deprivation Dx: -Trops 5.052 -> 8 -> 6 -EKG nonspecific ST & T wave abnormalities Rx: -Cardology consulted to evaluate for acute ischemia -Echo ordered #SVT 2/2 seizures vs acute illness Dx: -EKG as above Rx: -Echo ordered; fluids given as above Respiratory #Intubated with mechanical ventilation 2/2 airway protection (i/s/o seizures) Dx: -07/12: ABG 7.13 pH, 46 pco2, 122 po2, 15 bicarb -07/13: ABG 7.28 pH, 46 pco2, 129 po2, 22 bicarb Rx: -plan for pressure support tomorrow morning after sedation is weaned -continue vent settings for now #Likely aspiration pneumonia Dx: -CXR shows extensive bilateral spiration pneumonia Rx: -Blood cultures, ET tube cultures taken -On Ceftriaxone 2 gm qd GI and F/E/N #OG Tube -Dietitian Consulted, appreciate recs -Ordered, Per Dietitian If EN is initiated, consider: feeds of Vital 1.2 at 20 ml/hr via OG tube by pump. If no IV fluids, water flushes of 25 ml/hr (or per MD). When indicated, advance 10 ml every 8 hrs to goal rate of 40 ml/hr x 24 hrs. Renal #High anion gap metabolic acidosis, resolved #Lactic Acidosis (i/s/o seizures) DDx: Seizures vs septic shock Dx: -Utox negative Rx: -Trend lactic acid -Treating underlying infection, seizures #hypokalemia, resolved DDx: Unsure etiology, possibly due to medication vs dehydration (diarrhea, vomiting) Dx: -Potassium 3.1 Rx: -Repleted with IV potassium chloride Heme #Leukocytosis #Hx AML DDx: Infection (sepsis) vs leukemoid reaction vs less likely blast crisis due to WBC < 100k. Patient had chemo for AML 10 years ago, has been in resmission for ~1 year; unsure oncologist (Jj) Dx: -WBC 32 -> 27.2 -Meningitis confirmed. -CXR extensive pneumonia aspiration bilaterally Rx: -Peripheral smear showed unremarkable RBC's & platelets; mature neutrophila -Asked family to get records from oncologist -Continue ABX #Anemia DDx: dilutional after getting multiple liters of fluid yesterday Dx: -Hgb 11.3 (14.1) Rx: -Will continue to trend hgb, monitor for signs of bleeding Endo #T2DM Dx: - Home meds reported as Metformin, previously on Mounjaro -Glucose 375 on admission -> 221 (07/13) - A1c 9.2% -Expect rise in glucose from steroids and tube feeds being started. Will be more aggressive with insulin usage. Rx: -Started Degludec 15 u SC qday -Insulin sliding scale in place -glucose q6hr checks -hypoglycemia protocol in place #Euthyroid sick syndrome Dx: -TSH < 0.01, Free T4 wnl Rx: -Treat underlying illness ID #meningitis As above in Neuro Disposition: ICU DVT prophylaxis: Lovenox 40 mg SC qday GI prophylaxis: Protonix 40 mg IV qday Diet: NPO Powers: Yes Lines: Peripherals, Central line, powers Drips: Midazolam Vent: A/CMV PRVC CODE STATUS: Full Code Reason of hospitalization: Seizures Patient plan of care was discussed with the attending physician, Dr. Harris & senior resident Dr. Gabrielle Nicholas MD PGY-1 Attending Provider Attestation/Addendum Patient seen and examined with above resident, Ashutosh Nicholas MD. I agree with the findings, assessment, and plan of care as document except for any differences below. Patient overnight with confirmed strep pneumonia and meningitis. Patient started promptly on steroids to prevent secondary complications. Patient remains on appropriate sedation with Versed and propofol. Patient adequately started on antiepileptic with transition to just Depakote per neurology recommendations. EEG results still pending at this time though no visible seizures overnight. Patient did also defervesced. No pressors or pressor requirements with additional volume resuscitation done overnight. Monitoring urine output closely which is remains adequate at this point. Peripheral smear reassuring with mature leukocytes. Hypoglycemia continues to be persistent due to underlying infection and will be more aggressive in management of status epilepticus has been adequately controlled. Patient also with sick euthyroid syndrome. Follow-up as an outpatient level of TSH before initiating therapy. Patient's echo does show global decline in function likely secondary to stress-induced cardiomyopathy versus true ischemic events. Patient remains on appropriate DVT prophylaxis with heparin. Will begin to wean sedation gradually throughout the day and overnight to allow for patient to arise and reassess neurologic status with adequate treatment. Patient family updated at bedside. Continue on current mechanical ventilation with appropriate lung protective strategy. Total critical care time: I personally spent 45 minutes for review of physiologic parameters, directing plan of care throughout the day, coordination of care with other subspecialties, and counseling patient's family at bedside. This is exclusive of time spent teaching and staff performing separate billable procedures. Patient remains at significant risk for further morbidity and mortality warranting close monitoring and care only available in the ICU. Critical care services required for bacterial/streptococcal meningitis, acute metabolic encephalopathy, status epilepticus, acute hypoxic respiratory failure, severe sepsis.
--- NOTE | 2025-07-13 13:10 | PC.SS ---
SOFTWARE BUILD ENGINEER conducted bedside contact with the patient conduct initial assessment and to discuss discharge planning.? Patient is currently in ICU on mechanical ventilation.? At bedside with patient was daughterKarl .? Information obtained from patient?s daughter.? Patient resides at home with daughter.? Patient is employed as senior care specialist.? Patient does not utilize DME to assist with ambulation.? Patient does not require the use of home oxygen.? Patient is able to complete ADL?s independently.? Patient?s surrogate medical decision maker is Karl parker.? Patient?s PCP is Dr. Evangelista [facility]. ?hospitality services manager will discuss discharge needs at an appropriate future time.? No further intervention required at this time, social worker delinquency prevention will be available to address any further concerns.? Next of Kin: Karl Matt D/C Plan: Pending
--- NOTE | 2025-07-13 17:41 | PD.RESPRO ---
Documentation for date of: 07/13/25 Subjective Subjective Interval history: Patient examined at bedside. Blood pressure noted to be still soft 92/63, heart rate 107. Yesterday lacosamide was discontinued and started patient on valproate 1000 mg twice daily. Has remained seizure-free since upgraded to ICU. CSF analysis appearance was cloudy, WBCs 10,720, RBC 1000, glucose 97, protein greater than 250, strep pneumo antigen positive. Opening pressure 37. CSF culture stain showing 3+ WBCs. Plan to continue ceftriaxone and vancomycin along with starting dexamethasone. Appropriate to discontinue acyclovir at this time. WBCs downtrending 27, A1c 9.2, TSH less than 0.01, T43.08. Continue current seizure medication valproate 1000 mg twice daily. Exam Vital Signs Temp Pulse Resp BP Pulse Ox O2 Del Method O2 Flow Rate 96.3 F L 115 H 21 H 113/79 98 Mechanical Ventilation 100 07/13/25 12:00 07/13/25 14:24 07/13/25 12:00 07/13/25 14:24 07/13/25 14:24 07/12/25 09:50 07/12/25 08:10 FiO2 45 07/13/25 14:24 Narrative Exam General: sedated, intubated, on MV HEENT: NCAT, No JVD noted. Mucosa moist. Pupils are equal and reactive to light bilaterally Cardiovascular: Normal S1 and S2. Regular rate and rhythm. Respiratory: Lungs are clear to auscultation bilaterally. Mechanical breath sounds Abdomen: Soft, nontender, not distended, normal bowel sounds. : powers in place Skin: Warm to touch, dry, no rashes noted. Various Tattoes Musculoskeletal: No gross injuries. No pitting edema, pedal pulses palpated Neuro: limited by sedation Objective Labs 07/15/25 04:51 07/15/25 04:51 Labs: Laboratory Results - last 24 hr 07/12/25 07/12/25 07/13/25 16:14 21:58 04:48 WBC RBC Hgb Hct MCV MCH MCHC RDW Std Deviation Plt Count Neut % (Auto) Lymph % (Auto) [place] % (Auto) Eos % (Auto) Baso % (Auto) Neut # (Auto) Lymph # (Auto) [place] # (Auto) Eos # (Auto) Baso # (Auto) Immature Gran # (Auto) Absolute Nucleated RBC Immature Gran % Nucleated RBC % Puncture Site Right Radial ABG pH 7.28 L ABG pCO2 46 ABG pO2 129 H D ABG HCO3 22 ABG O2 Saturation 99 H ABG Base Excess -5 L FiO2 55 Sodium Potassium Chloride Carbon Dioxide Anion Gap BUN Creatinine Estim Creat Clear Calc eGFR BUN/Creatinine Ratio Glucose Estimated Ave Glu mg/dL Hemoglobin A1c Calculated Osmolality Calcium Corrected Calcium Phosphorus Magnesium 2.1 Total Bilirubin AST ALT Alkaline Phosphatase Troponin I Total Protein Albumin Globulin Albumin/Globulin Ratio TSH Free T4 CSF Appearance Cloudy A CSF Color Other A CSF WBC 76502 CSF RBC 1000 CSF Cell Count Tube # Tube # 4 CSF Mononuclear WBCs 9 CSF Polynuclear WBCs 91 CSF Glucose 97 H CSF Total Protein > 250 H CSF H.influenzae B Ag Negative CSF N.meningit ACY/W135 Negative CSF N.mening B/E.coli K1 Negative CSF Strep B Antigen Negative CSF Strep pneumoniae Ag Positive A 07/13/25 04:57 WBC 27.2 H D RBC 4.12 Hgb 11.3 L D Hct 35.9 L MCV 87 MCH 27.4 MCHC 31.5 RDW Std Deviation 46.2 Plt Count 177 D Neut % (Auto) 92 H Lymph % (Auto) 4 L [place] % (Auto) 3 Eos % (Auto) 0 Baso % (Auto) 0 Neut # (Auto) 24.9 H Lymph # (Auto) 1.0 [place] # (Auto) 0.8 Eos # (Auto) 0.0 Baso # (Auto) 0.1 Immature Gran # (Auto) 0.41 H Absolute Nucleated RBC 0.00 Immature Gran % 2 H Nucleated RBC % 0 Puncture Site ABG pH ABG pCO2 ABG pO2 ABG HCO3 ABG O2 Saturation ABG Base Excess FiO2 Sodium 141 Potassium 4.7 Chloride 110 H Carbon Dioxide 22.1 Anion Gap 9 BUN 16 Creatinine 0.6 Estim Creat Clear Calc 119.7 eGFR > 60 BUN/Creatinine Ratio 27 H Glucose [address] Glu mg/dL 217 H Hemoglobin A1c 9.2 H Calculated Osmolality 289 Calcium 8.7 Corrected Calcium 9.2 Phosphorus 3.2 Magnesium 2.9 H Total Bilirubin 0.6 AST 67 H ALT 35 Alkaline Phosphatase 86 Troponin I 6.167 H* D Total Protein 5.6 L Albumin 3.4 L D Globulin 2.2 L Albumin/Globulin Ratio 1.5 TSH < 0.01 L* Free T4 3.08 H CSF Appearance CSF Color CSF WBC CSF RBC CSF Cell Count Tube # CSF Mononuclear WBCs CSF Polynuclear WBCs CSF Glucose CSF Total Protein CSF H.influenzae B Ag CSF N.meningit ACY/W135 CSF N.mening B/E.coli K1 CSF Strep B Antigen CSF Strep pneumoniae Ag ABG Interpretation ABG results: 07/12/25 07/12/25 07/13/25 08:31 17:13 04:48 ABG pH 7.13 L* 7.26 L D 7.28 L ABG pCO2 46 45 46 ABG pO2 122 H 100 D 129 H D ABG HCO3 15 L 20 22 ABG O2 Saturation 98 98 99 H ABG Base Excess -14 L -7 L -5 L Quality Measures Quality Measures VTE prophylaxis Assessment & Plan Assessment Current Active Medications: Generic Name Dose Route Start Last Admin Trade Name Freq PRN Reason Stop Dose Admin Dexamethasone Sodium Phosphate 4 mg 07/13/25 06:00 07/13/25 12:16 Dexamethasone Sod Phos Inj 4 Mg/Ml Vial IV 07/17/25 05:59 4 mg Q6HR ASHLEY Administration Protocol Dextrose 25 ml 07/12/25 10:05 Dextrose 50%-Water Inj 50 Ml Syringe IV 08/11/25 10:04 Q15MIN PRN BG 50-70 responsive npo pt Dextrose 50 ml 07/12/25 10:05 Dextrose 50%-Water Inj 50 Ml Syringe IV 08/11/25 10:04 Q15MIN PRN BG <50 OR BG <70 & pt unresponsive Enoxaparin Sodium 40 mg 07/12/25 09:45 07/13/25 09:53 Enoxaparin Sod Inj 40 Mg/0.4 Ml Syringe SC 07/26/25 09:44 40 mg QDAY ASHLEY Administration Glucagon 1 mg 07/12/25 10:05 Glucagon Inj 1 Mg Vial IM Q15MIN PRN BG <70, and no IV access Ceftriaxone Sodium 2 gm/ 50 mls @ 100 mls/hr 07/13/25 09:00 07/13/25 09:55 Sodium Chloride IV 07/20/25 08:59 100 mls/hr QDAY ASHLEY Administration Norepinephrine/Dextrose 8 mg in 250 mls @ 7.812 mls/hr 07/12/25 09:49 07/12/25 18:15 Levophed In D5w 8mg/250ml IV 08/11/25 09:48 0 mcg/kg/min .Q24H PRN 0 mls/hr PER PROTOCOL Titration Protocol 0.05 MCG/KG/MIN Valproic Acid 1,000 mg/ Sodium 60 mls @ 60 mls/hr 07/12/25 19:00 07/13/25 09:55 Chloride IV 08/11/25 18:59 60 mls/hr BID ASHLEY Administration Protocol Acetaminophen 1,000 mg in 100 mls @ 250 mls/hr 07/12/25 20:33 Ofirmev Inj IV 07/15/25 20:32 Q6HR PRN fever >99.9 Midazolam HCl 100 mg in 100 mls @ 5 mls/hr 07/13/25 09:53 07/13/25 13:52 Versed Pf Inj In Ns Premix IV 07/17/25 15:32 4 mg/hr .Q20H PRN 4 mls/hr PER PROTOCOL Titration Protocol 5 MG/HR Insulin Degludec 15 unit 07/14/25 09:00 Insulin Degludec 5 Unit/0.05 Ml (Per 5 Units) SC 08/13/25 08:59 QDAY ASHLEY Insulin Human Lispro 0 unit 07/12/25 12:00 07/13/25 12:14 Insulin Lispro (Admelog) 1 Unit/0.01 Ml Unit SC 08/11/25 11:59 2 unit Q6HR ASHLEY Administration Protocol Nicotine 21 mg 07/12/25 13:15 07/13/25 09:54 Nicotine Patch 21 Mg/24 Hr Patch.Td24 TOP 08/11/25 13:14 21 mg QDAY ASHLEY Administration Pantoprazole Sodium 40 mg 07/12/25 09:45 07/13/25 09:55 Pantoprazole Inj 40 Mg Vial IVP 08/11/25 09:44 40 mg QDAY ASHLEY Administration Plan Patient is a 45-year-old female with past medical history of CVA 2018, AML, type 2 diabetes, seizures, migraine, HLD, HTN presented to ED on 07/12/25 due to breakthrough seizures/AMS. Neurology consulted for management and LP to rule out meningitis. #Strep pneumonia meningitis #Hx seizures Likely due to status epilepticus break through seizures. 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 Since that time, patient will only take the Keppra when going to music concerts. Stroke alert called in ED. Tele neuro was consulted, NIHSS score 0. CT head/CTA negative. She received 4mg of versed without cessation. Subsequently intubated and sedated with prop/fent. Given 1500mg loading dose of Keppra in ED. Urine, sputum, and blood cultures negative. CSF analysis appearance was cloudy, WBCs 10,720, RBC 1000, glucose 97, protein greater than 250, strep pneumo antigen positive. Opening pressure 37. CSF culture stain showing 3+ WBCs. -EEG read pending -dc acyclovir -continue IV ceftriaxone and IV vancomycin until sensitivity pannel results -stop lacosamide due to cardiogenic effects -hold Keppra has family expresses concern about AML returning. They were counseled on this medication and how there has been no correlation on this. -continue IV depakote 1000mg BID -euthermia, euglycemia -serial neuro checks as sedation lightened #AML #Previous CVA #T2DM #HLD #HTN Primary care team to manage above conditions and ongoing care needs. The patient's management plan was discussed with my attending physician Dr. Colvin. Paz Rivero, PGY-2 Attending Provider Attestation/Addendum I personally have seen and examined the patient at the bedside and agreed with the resident's findings, assessment and plan of care. CSF analysis showed strep. Pneumo meningitis, continue with current IV antibiotics, iv depakote for sz control and FU with imaging study. EEG showed paroxysmal epileptifom discharges, slowing with burst suppression.
[2025-07-13] MEDS: INSULIN DEGLUDEC 5 UNIT/0.05 ML (PER 5 UNITS) SC (18:12)
[2025-07-13] MEDS: Vancomycin Inj 1,500 MG in SODIUM CHLORIDE 0.9% 500 ML 500 ML 200 MG IV (19:59)
[2025-07-13 21:58] LABS: Vancomycin,Trough 36.6 mcg/mL (5.0-10.0)
[2025-07-14] VITALS (52 sets, daily range): BP systolic 109–167; BP diastolic 66–108; PULSE 106–133; RESP 16–32; TEMP 36.6–37.5; O2SAT 95–99; BMI 33.9
[2025-07-14] MEDS: DEXAMETHASONE SOD PHOS INJ 4 MG/ML VIAL IV ×4 (00:14→18:14)
[2025-07-14] MEDS: INSULIN LISPRO (AdmeLOG) 1 UNIT/0.01 ML UNIT SC ×3 (00:15→18:14)
[2025-07-14 01:12] LABS: Base Excess -2 (-3-3); HCO3 24 mEq/L (20-26); Inspired Oxygen, FIO2 45 %; O2 Saturation 100 % (91-98); PCO2 46 mmHg (32.0-48.0); PO2 127 mmHg (83-108); pH, Arterial 7.33 (7.35-7.45)
[2025-07-14 01:13] LABS: Allen Test Performed/OK; Puncture Site Right Radial
--- NOTE | 2025-07-14 01:30 | PC.RT ---
fio2 titrated to 35% per abg results MALENA Manning made aware.
[2025-07-14 04:24] LABS: Base Excess -1 (-3-3); HCO3 25 mEq/L (20-26); Inspired Oxygen, FIO2 35 %; O2 Saturation 99 % (91-98); PCO2 44 mmHg (32.0-48.0); PO2 98 mmHg (83-108); pH, Arterial 7.36 (7.35-7.45)
[2025-07-14 04:29] LABS: Allen Test Performed/OK; Puncture Site Right Radial
--- NOTE | 2025-07-14 04:43 | PC.RT ---
DR. martinez made aware of abg results per titrate peep to 5 no other changes at this time, RN made aware.
[2025-07-14 05:03] LABS: Basophils # (Auto) 0.0 Thou/mm3 (0.0-0.2); Basophils % (Auto) 0 % (0-2.5); Eosinophils # (Auto) 0.0 Thou/mm3 (0.0-0.5); Eosinophils % (Auto) 0 % (0-10); Hematocrit 31.8 % (36.0-46.0); Hemoglobin 10.2 g/dL (12.0-16.0); Immature Granulocytes Auto 0.29 Thou/mm3 (0.00-0.00); Lymphocytes # (Auto) 1.1 Thou/mm3 (1.0-4.8); Lymphocytes % (Auto) 6 % (10-50); Mean Corpuscular HGB Conc 32.1 g/dl (31.0-37.0); Mean Corpuscular Hemoglobin 27.8 pg (25.0-35.0); Mean Corpuscular Volume 87 fL (80-100); Monocytes # (Auto) 0.9 Thou/mm3 (0.0-0.8); Monocytes % (Auto) 5 % (0-12); Neutrophils # (Auto) 17.2 Thou/mm3 (1.8-7.7); Neutrophils % (Auto) 88 % (37-80); Nucleated Red Blood Cell # 0.00 Thou/mm3 (0.00-0.00); Nucleated Red Blood Cell % 0 /100 WBC (0); Platelet Count 172 Thou/mm3 (140-440); RDW Standard Deviation 46.5 fL (36.4-46.3); Red Blood Count 3.67 Miln/mm3 (4.00-5.20); White Blood Count 19.5 Thou/mm3 (3.6-11.0)
[2025-07-14 05:22] LABS: Alanine Aminotransferase 27 U/L (10-49); Albumin, Serum 3.4 gm/dL (3.5-5.0); Albumin/Globulin Ratio 1.5 (1.2-2.2); Alkaline Phosphatase 79 U/L (46-116); Anion Gap 8 (7-16); Aspartate Amino Transferase 39 U/L (0-34); BUN/Creatinine Ratio 50 Ratio (12-20); Bilirubin,Total 0.3 mg/dL (0.3-1.2); Blood Urea Nitrogen 20 mg/dL (9-23); Calcium 9.2 mg/dL (8.3-10.6); Calcium (Corrected) 9.7 mg/dL (8.5-10.1); Carbon Dioxide 25.9 mMol/L (20.0-31.0); Cardiac Risk Estimate 8.0 RATIO (3.7-5.6); Chloride 110 mMol/L (98-107); Cholesterol 81 mg/dL (132-200); Creatinine (Component) 0.4 mg/dL (0.6-1.3); Estimated Creatinine Clearance 175.7 mL/min (>60); Globulin 2.3 gm/dL (2.3-3.5); Glucose 252 mg/dL (74-106); HDL Cholesterol < 10 mg/dL (40-60); LDL Cholesterol,Calculated 23 mg/dL (0-130); Magnesium 2.1 mg/dL (1.6-2.6); Osmolality,Calculated 298 (275-295); Phosphorous 2.5 mg/dL (2.4-5.1); Potassium 4.4 mMol/L (3.4-5.1); Sodium 144 mMol/L (136-145); Total Protein 5.7 gm/dL (5.7-8.2); Triglycerides 238 mg/dL (30-150); eGFR > 60 See Note
[2025-07-14] MEDS: ALBUTEROL RT 2.5 MG/0.5 ML NEBU 10 MG INH (08:51)
[2025-07-14] MEDS: cefTRIAXone 2 GM in SODIUM CHLORIDE 0.9% (Popper) 50 ML IV (08:51)
--- NOTE | 2025-07-14 08:52 | PD.RESPRO ---
Documentation for date of: 07/14/25 Subjective Subjective Interval history: Patient seen and assessed at bedside. Remains intubated however off Levophed and sedation this morning, still not responsive to verbal cues or pain. Blood pressure 118/85, heart rate continues to be between 119-130. On telemetry appears to be in sinus tachycardia as P waves are clearly visualized. Ordered EKG to confirm. Tachycardia secondary to sepsis and being off sedation. Hemoglobin 10.2 (from 11.3, 14.1 on admission). WBC 19.5. Potassium 4.4, magnesium 2.1, creatinine 0.4. Exam Vital Signs Temp Pulse Resp BP Pulse Ox O2 Del Method O2 Flow Rate 99.2 F 131 H 26 H 143/99 H 97 Mechanical Ventilation 35 07/14/25 08:00 07/14/25 08:51 07/14/25 08:00 07/14/25 08:00 07/14/25 08:00 07/14/25 08:00 07/14/25 08:00 FiO2 35 07/14/25 08:00 Narrative Exam Physical Exam General: Intubated, but off sedation and pressors. Obese female. Still not responsive to verbal or pain cues. HEENT: Normocephalic, atraumatic, mucous membranes moist. Heart: Tachycardic. Regular rate and rhythm, normal S1 and S2, no murmurs. Lungs: Clear to auscultation with no wheezing or crackles. Abdomen: Soft, nondistended, nontender, positive bowel sounds. No guarding or rebound tenderness. Neurologic: Alert and oriented x3, no gross neurological deficit, and patient able to move all 4 extremities. Extremities: No edema. Skin: No rash or ecchymoses. Objective Labs 07/15/25 04:51 07/15/25 04:51 Labs: Laboratory Results - last 24 hr 07/13/25 07/14/25 07/14/25 21:22 01:03 04:17 WBC RBC Hgb Hct MCV MCH MCHC RDW Std Deviation Plt Count Neut % (Auto) Lymph % (Auto) [place] % (Auto) Eos % (Auto) Baso % (Auto) Neut # (Auto) Lymph # (Auto) [place] # (Auto) Eos # (Auto) Baso # (Auto) Immature Gran # (Auto) Absolute Nucleated RBC Immature Gran % Nucleated RBC % Puncture Site Right Radial Right Radial ABG pH 7.33 L 7.36 ABG pCO2 46 44 ABG pO2 127 H 98 D ABG HCO3 24 25 ABG O2 Saturation 100 H 99 H ABG Base Excess -2 -1 FiO2 45 35 Sodium Potassium Chloride Carbon Dioxide Anion Gap BUN Creatinine Estim Creat Clear Calc eGFR BUN/Creatinine Ratio Glucose Calculated Osmolality Calcium Corrected Calcium Phosphorus Magnesium Total Bilirubin AST ALT Alkaline Phosphatase Total Protein Albumin Globulin Albumin/Globulin Ratio Triglycerides Cholesterol LDL Cholesterol, Calc HDL Cholesterol Cholesterol/HDL Ratio Vancomycin Trough 36.6 H* 07/14/25 04:27 WBC 19.5 H D RBC 3.67 L Hgb 10.2 L Hct 31.8 L MCV 87 MCH 27.8 MCHC 32.1 RDW Std Deviation 46.5 H Plt Count 172 Neut % (Auto) 88 H Lymph % (Auto) 6 L [place] % (Auto) 5 Eos % (Auto) 0 Baso % (Auto) 0 Neut # (Auto) 17.2 H Lymph # (Auto) 1.1 [place] # (Auto) 0.9 H Eos # (Auto) 0.0 Baso # (Auto) 0.0 Immature Gran # (Auto) 0.29 H Absolute Nucleated RBC 0.00 Immature Gran % 2 H Nucleated RBC % 0 Puncture Site ABG pH ABG pCO2 ABG pO2 ABG HCO3 ABG O2 Saturation ABG Base Excess FiO2 Sodium 144 Potassium 4.4 Chloride 110 H Carbon Dioxide 25.9 Anion Gap 8 BUN 20 Creatinine 0.4 L Estim Creat Clear Calc 175.7 eGFR > 60 BUN/Creatinine Ratio 50 H Glucose 252 H Calculated Osmolality 298 H Calcium 9.2 Corrected Calcium 9.7 Phosphorus 2.5 Magnesium 2.1 Total Bilirubin 0.3 AST 39 H ALT 27 Alkaline Phosphatase 79 Total Protein 5.7 Albumin 3.4 L Globulin 2.3 Albumin/Globulin Ratio 1.5 Triglycerides 238 H Cholesterol 81 L LDL Cholesterol, Calc 23 HDL Cholesterol < 10 L Cholesterol/HDL Ratio 8.0 H Vancomycin Trough ABG Interpretation ABG results: 07/12/25 07/12/25 07/13/25 08:31 17:13 04:48 ABG pH 7.13 L* 7.26 L D 7.28 L ABG pCO2 46 45 46 ABG pO2 122 H 100 D 129 H D ABG HCO3 15 L 20 22 ABG O2 Saturation 98 98 99 H ABG Base Excess -14 L -7 L -5 L 07/14/25 07/14/25 01:03 04:17 ABG pH 7.33 L 7.36 ABG pCO2 46 44 ABG pO2 127 H 98 D ABG HCO3 24 25 ABG O2 Saturation 100 H 99 H ABG Base Excess -2 -1 Quality Measures Quality Measures VTE prophylaxis Assessment & Plan Assessment Current Active Medications: Generic Name Dose Route Start Last Admin Trade Name Freq PRN Reason Stop Dose Admin Dexamethasone Sodium Phosphate 4 mg 07/13/25 06:00 07/14/25 06:02 Dexamethasone Sod Phos Inj 4 Mg/Ml Vial IV 07/17/25 05:59 4 mg Q6HR ASHLEY Administration Protocol Dextrose 25 ml 07/12/25 10:05 Dextrose 50%-Water Inj 50 Ml Syringe IV 08/11/25 10:04 Q15MIN PRN BG 50-70 responsive npo pt Dextrose 50 ml 07/12/25 10:05 Dextrose 50%-Water Inj 50 Ml Syringe IV 08/11/25 10:04 Q15MIN PRN BG <50 OR BG <70 & pt unresponsive Enoxaparin Sodium 40 mg 07/12/25 09:45 07/13/25 09:53 Enoxaparin Sod Inj 40 Mg/0.4 Ml Syringe SC 07/26/25 09:44 40 mg QDAY ASHLEY Administration Glucagon 1 mg 07/12/25 10:05 Glucagon Inj 1 Mg Vial IM Q15MIN PRN BG <70, and no IV access Ceftriaxone Sodium 2 gm/ 50 mls @ 100 mls/hr 07/13/25 09:00 07/14/25 08:51 Sodium Chloride IV 07/20/25 08:59 100 mls/hr QDAY ASHLEY Administration Norepinephrine/Dextrose 8 mg in 250 mls @ 7.812 mls/hr 07/12/25 09:49 07/12/25 18:15 Levophed In D5w 8mg/250ml IV 08/11/25 09:48 0 mcg/kg/min .Q24H PRN 0 mls/hr PER PROTOCOL Titration Protocol 0.05 MCG/KG/MIN Valproic Acid 1,000 mg/ Sodium 60 mls @ 60 mls/hr 07/12/25 19:00 07/13/25 20:31 Chloride IV 08/11/25 18:59 60 mls/hr BID ASHLEY Administration Protocol Acetaminophen 1,000 mg in 100 mls @ 250 mls/hr 07/12/25 20:33 Ofirmev Inj IV 07/15/25 20:32 Q6HR PRN fever >99.9 Midazolam HCl 100 mg in 100 mls @ 5 mls/hr 07/13/25 09:53 07/14/25 06:00 Versed Pf Inj In Ns Premix IV 07/17/25 15:32 0 mg/hr .Q20H PRN 0 mls/hr PER PROTOCOL Titration Protocol 5 MG/HR Vancomycin/Sodium Chloride 200 mls @ 120 mls/hr 07/14/25 06:45 07/14/25 07:12 Vancomycin/Ns 1 Gm Ivpb IV 07/21/25 06:44 Not Given Q8HR [facility] Protocol Insulin Degludec 15 unit 07/14/25 09:00 Insulin Degludec 5 Unit/0.05 Ml (Per 5 Units) SC 08/13/25 08:59 QDAY ASHLEY Insulin Human Lispro 0 unit 07/12/25 12:00 07/14/25 06:02 Insulin Lispro (Admelog) 1 Unit/0.01 Ml Unit SC 08/11/25 11:59 3 unit Q6HR ASHLEY Administration Protocol Nicotine 21 mg 07/12/25 13:15 07/13/25 09:54 Nicotine Patch 21 Mg/24 Hr Patch.Td24 TOP 08/11/25 13:14 21 mg QDAY ASHLEY Administration Pantoprazole Sodium 40 mg 07/12/25 09:45 07/14/25 08:50 Pantoprazole Inj 40 Mg Vial IVP 08/11/25 09:44 40 mg QDAY ASHLEY Administration Pharmacy Consult 1 each 07/14/25 09:00 Vancomycin Pharmacy To Dose 1 Each Each IV 08/13/25 08:59 QDAY PRN PROTOCOL Plan Patient is a 45 year old female with PMH of CVA 2018, AML, type 2 diabetes, seizures, migraine, HLD, HTN who presents with altered mental status s/p intubation, admitted to ICU for work up and management of seizures. Cardiology consulted for elevated troponins likely secondary to lactic acidosis. #NSTEMI II secondary to severe sepsis and metabolic abnormalities from status epilepticus #Elevated troponins #SVT versus tachycardia #HFrEF (EF 40-45%) (07/12/25) Patient initial troponins were elevated at 5.05. Unable to obtain cardiac history and cannot determine any chest pain or chest pressure. Mostly NSTEMI type II secondary to the severe sepsis or septic shock on pressors along with status epilepticus and metabolic abnormalities. BP 118/43 but tachycardic at HR 145, RR 27 and fever of 101.4. WBC count was severely elevated at 32,000 on admission. Troponin 5.052 -> 8.049 -> 6.167. TSH <0.01. A1c 9.2. Initial EKG was read as SVT versus sinus tachycardia and nonspecific T wave changes. Reviewed the EKG and patient does have distinct P waves indicating mostly sinus tachycardia for this patient. Sinus tachycardia also likely secondary to severe sepsis, also currently being weaned from sedation. Echo 07/12/25 showed normal LV size and mildly decreased LV function with an estimated EF of 40 to 45%. Patient tachycardic. Diastolic dysfunction could not be evaluated. Normal RV size and function is mildly decreased. RVSP 24 mmHg with RAP 3. Mild mitral and tricuspid regurgitation noted. No pericardial effusion. - Decreased EF with mild global hypokinesis mostly secondary to septic shock and tachycardia- expect improvement and will repeat echo prior to discharge. - Ordered repeat EKG - Not started on heparin per primary team as patient was having LP procedure and did not believe anticoagulation was indicated - Check lipid profile for further cardiac risk stratification. - Agree with pressor support with Levophed for now. If patient continues to be tachycardic then patient can be changed to phenylephrine drip. - Recommend to identify and treat underlying cause - Keep K >4 and Mg >2 #Acute metabolic encephalopathy secondary to seizures #Hx of seizures, on Keppra #History of CVA - Intubated, off sedation and pressors - Neurology consulted - Defer to primary team for management #Bilateral aspiration PNA CXR finding, likely occurred after seizure. - Defer to primary team for management #History of hypertension Takes lisinopril 20 mg daily. ?Hold home BP med as patient is normotensive #High anion gap metabolic acidosis #Lactic acidosis #Leukocytosis #History AML #Type 2 diabetes #? Meningitis #Complex migraines Thank you for your consultation, please do not hesitate to reach out if you have any question or concern Patient plan of care was discussed with the attending physician, Dr. Early. Barbara Gabriel, PGY-1 Attending Provider Attestation/Addendum I have personally seen and examined the patient separately on the above date of service and discussed the plan of care with the resident. I reviewed the resident Dr. Barbara Gabriel consultation progress note and agree with the resident findings and plan in the note above and have also edited the documentation to reflect my findings and plan. Dilip Early M.D. Interventional Cardiology
[2025-07-14] MEDS: VALPROATE SOD INJ 1,000 MG in SODIUM CHLORIDE 0.9% 50 ML 60 MG IV ×2 (09:11→20:54)
[2025-07-14] MEDS: ENOXAPARIN SOD INJ 40 MG/0.4 ML SYRINGE SC (09:11)
[2025-07-14] MEDS: NICOTINE PATCH 21 MG/24 HR PATCH.TD24 TOP (09:11)
--- NOTE | 2025-07-14 09:18 | XR_ITS ---
Examination: CT brain head without contrast. 2-D sagittal coronal reconstructions Date and time of exam: July 14, 2025 1233 hours INDICATIONS: Hypoxic respiratory failure, stroke alert July 12, 2025 CTDI: vol (mGy): 54.2 DLP: (mGycm): 1143 Technique: Multiple CT axial sections of the brain have been obtained, 5 mm slice thickness. Contrast has not been administered. 2-D sagittal, coronal reconstructions have been obtained Low dose protocols were performed. One or more of the following dose reduction techniques were used; automated exposure control, adjustment of the mA and/or KV according to patient size, use of iterative reconstruction technique. Findings: No significant ventricular enlargement. Subtle abnormal low density areas in the left parietal convexity, for instance axial image 9 Intra-axial or extra-axial hemorrhage density is not seen. No mass effect or midline shift Basal cisterns are not remarkable. Fourth ventricle is midline. Cranial vault intact. Impression: Suspicious for acute infarcts in the high left parietal lobe, recommend brain MRI MRA without contrast, stroke protocol, follow-up
[2025-07-14] MEDS: INSULIN DEGLUDEC 5 UNIT/0.05 ML (PER 5 UNITS) 15 UNIT SC (10:19)
--- NOTE | 2025-07-14 10:25 | ESPR_ITS ---
<Statement entered by Cayden Anthony MD - 07/14/25 17:57> Patient was seen and examined in the ICU. No acute overnight events were reported. Patient was completely off sedation this morning. She was not withdrawing to painful stimuli likely related to prolonged sedation use since admission. Patient was wheezing on auscultation therefore breathing treatment was given with albuterol 10 mg inhalation. Tube feeds were held to evaluate with SBT and extubation trial. However, patient had a RASS of -4 despite being off sedation. CT brain without contrast was ordered to evaluate EDITORIAL CLERK pathology like stroke given underlying strep pneumonia meningitis concerning for vasculitis or vascular pathology. EEG reported to show multifocal seizures. Neurology recommended in case patient's neurological does not improve then recommended to repeat EEG.CT brain came suspicious for left parietal lobe infarct, which will confirm with MR brain. We will continue with IV ceftriaxone 2 g once daily, 4 mg dexamethasone for 3 more days, continue Depakote 1000 mg twice daily. Tube feeds are resumed. Will continue to keep her off sedation. Patient was having prolonged expiratory phase with short expiratory phase improved after breathing treatment. I discussed and supervised with the regulatory affairs internship physician who took care of this patient. I personally saw and examined the patient. I agree with most of the assessment and plan. Disclaimer: Despite multiple revisions, due to the dictation software being used, the document bellow may not be free of grammatical errors including phonetic/typographic errors. However, this does not deter from our commitment to providing health care in the patient's best interest in mind. Plan of care discussed with attending Physician Dr. Steven Anthony MD PGY-3 Documentation for date of: 07/14/25 Subjective Subjective Interval history: Patient is a 45-year-old female with past medical history of CVA 2018, AML (last chemo 10 years ago, in remission for ~1 year), type 2 diabetes, seizures, migraine, HLD, HTN presented with altered mental status to the ED. Patient initially had a stroke alert called with a fingerstick blood glucose of 306, patient had a witnessed seizure and was given a loading dose of Keppra and was consulted and seen by teleneuro. Patient ended up being intubated for airway protection. Due to being unable to get history from patient, met with family and informed us she has a history of seizures due to a horse riding accident years ago. They state that patient was noted to have a severe migraine yesterday afternoon. Patient last ate yesteday evening and last well known was around 7pm. They stated patient usually wakes up around 2 to 4 AM in the morning, has a history of insomnia. Around 630 they checked on her because she was not awake yet, entered her room and found her with a cut on her head, on the floor, rolling around seizing. Patient's last seizures were around 6 to 12 months ago. States she only takes her seizure medications occasionally mainly whenever she is around flashing lights. States that she did not take her seizure medicine as scheduled due to it being back cancer per her oncologist. Family states her baseline is ANO x 3. States they did not see any foaming but did say she had made some urine during this episode. Primary point of contact is the daughter, Madhu. ED Course: Vitals on admission showed temperature of 101.4 rectally, 145 heart rate, 27 respiratory rate, 96% oxygen saturation on 6 L nasal cannula, blood pressure 118/43. Labs Significant for WBC of 32.4, neutrophil percentage 88%, ABG showing pH of 7.13, pCO2 46, pO2 122, bicarb 15; potassium 3.1, bicarb 18.4, anion gap 21, glucose 375, urine uric acid 8.3, LDH 277, troponin 5.052; urinalysis significant for 1+ protein, 4+ glucose, 1+ ketones, 1+ blood; CT Imaging negative for stroke, Chest x-rays showed Extensive bilateral aspiration pneumonia. In ED patient was given multiple Versed's x1 for agitation, was sedated, paralyzed and intubated, given keppra loading dose, 4 total L of IV fluids. Patient admitted to ICU for workup and management of seizures. Interval Subjective History: 07/13/2025: Overnight patient had a lumbar puncture done, consent was obtained from daughter yesterday. Results from LP showed cloudy CSF, 10k WBC, 1K RBC, glucose 97, total protein > 250; pending CSF cultures. CSF gram stain came back positive for strep pneumo. Patient was off of levophed overnight with heart rate at 110s (down from yesterdays 140+) with a MAP around 70. Cardiology was consulted regarding patient's initial troponin level increase and most recent decrease to 6, will not plan to do heparin drip. This morning patient was afebrile, heart rate of 104, MAP of 68, saturating well on 55% FiO2 on mechanical ventilation A/CMV & PRVC. Patient was initially sedated and overnight continued to be on fentanyl, midazolam and propofol. In the morning, she was taken off fentanyl, titrated down on propofol (and taken off shortly after) , patient remains on Versed sedation. 07/14/2025: Overnight patient was titrated off of sedation. Did not appear to have any seizures. Patient when assessed and examined today had a RASS of -4, patient would awake to sternal rub, not voice. Patient urine output overnight was 125 cc/hr. Patient's vitals this morning were heart rate fo 121, blood pressure of 127/88, saturating well on mechanical ventilation of FiO2 of 35. Patient planned to get a head CT done today to try and rule out complications of meningitis, will plan to start tube feeds after patient gets back from CT scan. Continuing patient on antibiotic and steroid for meningitis. EEG results showed paroxysmal multifocal spike and wave discharges consistent with seizure disorder. Patient was given breathing treatment x1 for some wheezes in the morning; is now getting scheduled levalbuteral/ipratropium treatments q2hr. Exam Vital Signs Temp Pulse Resp BP Pulse Ox O2 Del Method O2 Flow Rate 99.2 F 124 H 26 H 133/87 H 99 Mechanical Ventilation 35 07/14/25 08:00 07/14/25 09:00 07/14/25 09:00 07/14/25 09:00 07/14/25 09:00 07/14/25 08:00 07/14/25 08:00 FiO2 35 07/14/25 08:00 Narrative Exam General: NOT sedated. Intubated. Skin: Warm, dry, intact, no obvious rash. HENT: NCAT, PERRL, not icteric. External ears normal. No rhinorrhea. Moist mucous membranes Cardiovascular: Tachycardic, regular rhythm, no murmur, +S1/S2. Respiratory: Lungs CTAB, decreased breath sounds bilateral lower lobes. GI: Soft, nontender, non-distended. No guarding or rebound tenderness. : No suprapubic tenderness. No flank tenderness bilaterally. Extremities: Trace bilateral LE edema, no cyanosis, no clubbing. Extremity pulses present Neuro: PERRL, RASS -4, gag reflex intact, Objective Labs 07/14/25 04:27 07/14/25 04:27 Labs: Laboratory Results - last 24 hr 07/13/25 07/14/25 07/14/25 21:22 01:03 04:17 WBC RBC Hgb Hct MCV MCH MCHC RDW Std Deviation Plt Count Neut % (Auto) Lymph % (Auto) [place] % (Auto) Eos % (Auto) Baso % (Auto) Neut # (Auto) Lymph # (Auto) [place] # (Auto) Eos # (Auto) Baso # (Auto) Immature Gran # (Auto) Absolute Nucleated RBC Immature Gran % Nucleated RBC % Puncture Site Right Radial Right Radial ABG pH 7.33 L 7.36 ABG pCO2 46 44 ABG pO2 127 H 98 D ABG HCO3 24 25 ABG O2 Saturation 100 H 99 H ABG Base Excess -2 -1 FiO2 45 35 Sodium Potassium Chloride Carbon Dioxide Anion Gap BUN Creatinine Estim Creat Clear Calc eGFR BUN/Creatinine Ratio Glucose Calculated Osmolality Calcium Corrected Calcium Phosphorus Magnesium Total Bilirubin AST ALT Alkaline Phosphatase Total Protein Albumin Globulin Albumin/Globulin Ratio Triglycerides Cholesterol LDL Cholesterol, Calc HDL Cholesterol Cholesterol/HDL Ratio Vancomycin Trough 36.6 H* 07/14/25 04:27 WBC 19.5 H D RBC 3.67 L Hgb 10.2 L Hct 31.8 L MCV 87 MCH 27.8 MCHC 32.1 RDW Std Deviation 46.5 H Plt Count 172 Neut % (Auto) 88 H Lymph % (Auto) 6 L [place] % (Auto) 5 Eos % (Auto) 0 Baso % (Auto) 0 Neut # (Auto) 17.2 H Lymph # (Auto) 1.1 [place] # (Auto) 0.9 H Eos # (Auto) 0.0 Baso # (Auto) 0.0 Immature Gran # (Auto) 0.29 H Absolute Nucleated RBC 0.00 Immature Gran % 2 H Nucleated RBC % 0 Puncture Site ABG pH ABG pCO2 ABG pO2 ABG HCO3 ABG O2 Saturation ABG Base Excess FiO2 Sodium 144 Potassium 4.4 Chloride 110 H Carbon Dioxide 25.9 Anion Gap 8 BUN 20 Creatinine 0.4 L Estim Creat Clear Calc 175.7 eGFR > 60 BUN/Creatinine Ratio 50 H Glucose 252 H Calculated Osmolality 298 H Calcium 9.2 Corrected Calcium 9.7 Phosphorus 2.5 Magnesium 2.1 Total Bilirubin 0.3 AST 39 H ALT 27 Alkaline Phosphatase 79 Total Protein 5.7 Albumin 3.4 L Globulin 2.3 Albumin/Globulin Ratio 1.5 Triglycerides 238 H Cholesterol 81 L LDL Cholesterol, Calc 23 HDL Cholesterol < 10 L Cholesterol/HDL Ratio 8.0 H Vancomycin Trough ABG Interpretation ABG results: 07/12/25 07/12/25 07/13/25 08:31 17:13 04:48 ABG pH 7.13 L* 7.26 L D 7.28 L ABG pCO2 46 45 46 ABG pO2 122 H 100 D 129 H D ABG HCO3 15 L 20 22 ABG O2 Saturation 98 98 99 H ABG Base Excess -14 L -7 L -5 L 07/14/25 07/14/25 01:03 04:17 ABG pH 7.33 L 7.36 ABG pCO2 46 44 ABG pO2 127 H 98 D ABG HCO3 24 25 ABG O2 Saturation 100 H 99 H ABG Base Excess -2 -1 Quality Measures Quality Measures VTE prophylaxis Assessment & Plan Assessment Current Active Medications: Generic Name Dose Route Start Last Admin Trade Name Freq PRN Reason Stop Dose Admin Dexamethasone Sodium Phosphate 4 mg 07/13/25 06:00 07/14/25 06:02 Dexamethasone Sod Phos Inj 4 Mg/Ml Vial IV 07/17/25 05:59 4 mg Q6HR ASHLEY Administration Protocol Dextrose 25 ml 07/12/25 10:05 Dextrose 50%-Water Inj 50 Ml Syringe IV 08/11/25 10:04 Q15MIN PRN BG 50-70 responsive npo pt Dextrose 50 ml 07/12/25 10:05 Dextrose 50%-Water Inj 50 Ml Syringe IV 08/11/25 10:04 Q15MIN PRN BG <50 OR BG <70 & pt unresponsive Enoxaparin Sodium 40 mg 07/12/25 09:45 07/14/25 09:11 Enoxaparin Sod Inj 40 Mg/0.4 Ml Syringe SC 07/26/25 09:44 40 mg QDAY ASHLEY Administration Glucagon 1 mg 07/12/25 10:05 Glucagon Inj 1 Mg Vial IM Q15MIN PRN BG <70, and no IV access Ceftriaxone Sodium 2 gm/ 50 mls @ 100 mls/hr 07/13/25 09:00 07/14/25 09:21 Sodium Chloride IV 07/20/25 08:59 Infused QDAY ASHLEY Infusion Norepinephrine/Dextrose 8 mg in 250 mls @ 7.812 mls/hr 07/12/25 09:49 07/12/25 18:15 Levophed In D5w 8mg/250ml IV 08/11/25 09:48 0 mcg/kg/min .Q24H PRN 0 mls/hr PER PROTOCOL Titration Protocol 0.05 MCG/KG/MIN Valproic Acid 1,000 mg/ Sodium 60 mls @ 60 mls/hr 07/12/25 19:00 07/14/25 10:21 Chloride IV 08/11/25 18:59 Infused BID ASHLEY Infusion Protocol Acetaminophen 1,000 mg in 100 mls @ 250 mls/hr 07/12/25 20:33 Ofirmev Inj IV 07/15/25 20:32 Q6HR PRN fever >99.9 Midazolam HCl 100 mg in 100 mls @ 5 mls/hr 07/13/25 09:53 07/14/25 06:00 Versed Pf Inj In Ns Premix IV 07/17/25 15:32 0 mg/hr .Q20H PRN 0 mls/hr PER PROTOCOL Titration Protocol 5 MG/HR Vancomycin/Sodium Chloride 200 mls @ 120 mls/hr 07/14/25 06:45 07/14/25 07:12 Vancomycin/Ns 1 Gm Ivpb IV 07/21/25 06:44 Not Given Q8HR [facility] Protocol Insulin Degludec 15 unit 07/14/25 09:00 07/14/25 10:19 Insulin Degludec 5 Unit/0.05 Ml (Per 5 Units) SC 08/13/25 08:59 15 unit QDAY ASHLEY Administration Insulin Human Lispro 0 unit 07/12/25 12:00 07/14/25 06:02 Insulin Lispro (Admelog) 1 Unit/0.01 Ml Unit SC 08/11/25 11:59 3 unit Q6HR ASHLEY Administration Protocol Nicotine 21 mg 07/12/25 13:15 07/14/25 09:11 Nicotine Patch 21 Mg/24 Hr Patch.Td24 TOP 08/11/25 13:14 21 mg QDAY ASHLEY Administration Pantoprazole Sodium 40 mg 07/12/25 09:45 07/14/25 08:50 Pantoprazole Inj 40 Mg Vial IVP 08/11/25 09:44 40 mg QDAY ASHLEY Administration Pharmacy Consult 1 each 07/14/25 09:00 Vancomycin Pharmacy To Dose 1 Each Each IV 08/13/25 08:59 QDAY PRN PROTOCOL Plan Patient is a 45-year-old female with past medical history of CVA 2018, AML, type 2 diabetes, seizures, migraine, HLD, HTN presented with altered mental status to the ED; required intubation for airway protection after having another seizure in the ED. Patient admitted to ICU for workup and management of seizures. Neurology #meningitis Dx: -LP showed cloudy CSF, 10k WBC, 1K RBC, glucose 97, total protein > 250; pending CSF cultures. -CSF antigen positive for strep pneumo; other antigens pending/negative -CSF gram stain +3 WBCs, no ogranism seen -CSF Culture prelim NG24 hours, reincubating -MRSA 07/12 negative -Blood culture prelim 10/31 strep pneumo -ET Gram stain +1 WBCs, 2+ Mixed gilma -ET sputum culture 3+ mixed oral gilma -07/14: CT Head ordered to rule out neurological complications from meningitis/seizures, showed suspiscious for acute infaracts? Will follow up Neuro recommendations, plan to order MRI Rx: -Continuing Ceftriaxone -Gave Decadron loading dose 10 mg IV x1 -Started Decadron 4 mg IV q6hr for 4 days (07/13 through 07/16) #Status Epilepticus DDx: infection vs cardiac vs lack of sleep, vs dehydration vs electrolyte derangements vs less likely hypoglycemia Dx: -Family states occasionally takes seizure meds at home. Most recent seizures 6- 12 months ago. Patient last well known ~7pm 07/11. Patient's baseline is Patient found seizing in bedroom 10/14 AM by family. Brought to ED, noted to have started seizing again in the ED after getting CT for initial stroke rule out. Glucose was 300s. With patient's reported complaint of severe migraine since yesterday evening, meningitis on differential. -Patient given keppra 1500 mg loading dose on admission -Possible repeat EEG if patient's mentation does not improve Rx: -Continue Depakote 1000 mg IV BID -Seizure precautions -EEG taken, follow up results -Treating underlying infection -Neurology consulted, appreciate recs #Weaned off of Sedation for mech ventilation for airway protection i/s/o status epilepticus Dx: -RASS -4 07/14. Patient may take some time for sedation medication (versed, multiple pushes) to get out of system. Rx: -Continues to be off of sedation -Will continue to assess mentation #Hx of CVA Patient's family reported CVA ~5 years ago with symptoms fully resolving. Dx: -No stroke on CT imaging -Tele neuro consulted, stroke r/o -Home BP meds (will f/u med rec), ,aspirin 81, per family. Cardiovascular #Severe Sepsis DDx: severe sepsis due to meningitis vs oral etiology of patient's family reporting having swollen L jaw area on 07/10 vs aspiration pneumonia (i/s/o seizures). Family denied sick contacts, Dx: -Severe migraine reported night before. Arrived to ED with fever 101.4, WBC 32.4. Rx: -Given total 3 L NS IV, 2.5 L IV LR -Continue mechanical ventilation -Correct underlying acidosis with fluids -Treat underlying infection with abx -Has been off levophed since previous night #Elevated Troponins 2/2 demand ischemia (shock) vs less likelyMI, resolved DDx: Other contributors including dehyrdation vs sleep deprivation Dx: -Trops 5.052 -> 8 -> 6 -EKG nonspecific ST & T wave abnormalities -07/12 ECHO: Normal LV size and mildly decreased LV function with an estimated EF of 40 to 45%. Patient tachycardic. Normal RV size and function is mildly decreased. RVSP 24 mmHg with RAP 3. Rx: -Cardology consulted to evaluate for acute ischemia #SVT 2/2 seizures vs acute illness Dx: -EKG as above Rx: -Echo ordered; fluids given as above Respiratory #Intubated with mechanical ventilation 2/2 airway protection (i/s/o seizures) Dx: -07/12: ABG 7.13 pH, 46 pco2, 122 po2, 15 bicarb -07/13: ABG 7.28 pH, 46 pco2, 129 po2, 22 bicarb -07/14: ABG 7.36 pH, 44 pco2, 98 po2, 25 bicarb Rx: -Gave Albuterol 10 mg inh x1 07/14 for wheezing, breathing improved, saturating well -Scheduled prn 2hr breathing treatment -plan for pressure support pending mentation improvement -continue vent settings for now #Likely aspiration pneumonia Dx: -CXR shows extensive bilateral spiration pneumonia Rx: -Blood cultures, ET tube cultures taken -On Ceftriaxone 2 gm qd GI and F/E/N #OG Tube -Dietitian Consulted, appreciate recs -Planned to start tube feeds after CT scan -Ordered, Per Dietitian If EN is initiated, consider: feeds of Vital 1.2 at 20 ml/hr via OG tube by pump. If no IV fluids, water flushes of 25 ml/hr (or per MD). When indicated, advance 10 ml every 8 hrs to goal rate of 40 ml/hr x 24 hrs. Renal #High anion gap metabolic acidosis, resolved #Lactic Acidosis (i/s/o seizures) DDx: Seizures vs septic shock Dx: -Utox negative Rx: -Trend lactic acid -Treating underlying infection, seizures #hypokalemia, resolved DDx: Unsure etiology, possibly due to medication vs dehydration (diarrhea, vomiting) Dx: -Potassium 3.1 Rx: -Repleted with IV potassium chloride Heme #Leukocytosis #Hx AML DDx: Infection (sepsis) vs leukemoid reaction vs less likely blast crisis due to WBC < 100k. Patient had chemo for AML 10 years ago, has been in resmission for ~1 year; unsure oncologist (Jj) Dx: -WBC 19.5 (27.2); afebrile -Meningitis confirmed. -CXR extensive pneumonia aspiration bilaterally Rx: -Peripheral smear showed unremarkable RBC's & platelets; mature neutrophila -Asked family to get records from oncologist -Continue ABX #Anemia DDx: dilutional after getting multiple liters of fluid yesterday Dx: -Hgb 10.2 (11.3) -stable, no signs of bleeding Rx: -Will continue to trend hgb, monitor for signs of bleeding Endo #T2DM Dx: - Home meds reported as Metformin, previously on Mounjaro -Glucose 375 on admission -> 252 (221) - A1c 9.2% -Expect rise in glucose from steroids and tube feeds being started. Will be more aggressive with insulin usage. Rx: -Increased Degludec to 20 u qday. -Insulin sliding scale q6hr -glucose q6hr checks -hypoglycemia protocol in place #Euthyroid sick syndrome Dx: -TSH < 0.01, Free T4 wnl Rx: -Continue to treat underlying illness ID #meningitis As above in Neuro Disposition: ICU DVT prophylaxis: Lovenox 40 mg SC qday GI prophylaxis: Protonix 40 mg IV qday Diet: NPO, plan for tube feeds later today Powers: Yes Lines: Peripherals, Central line, powers Drips: None Vent: yes CODE STATUS: Full Code Patient plan of care was discussed with the attending physician, Dr. Harris & senior resident Dr. Gabrielle Nicholas MD PGY-1 Attending Provider Attestation/Addendum Patient seen and examined with the above resident, Ashutosh Nicholas MD. I agree with the findings, assessment, and plan of care as documented except for any differences below. Patient with continued improvement clinically. Remains on stable MV. Antibiotics and steroids continued for streptococcal meningitis. Patient's sedation completely weaned off this AM. Trying to open eyes to sternal rub with cough/ gag intact. Pupils equal and reactive. Hold all sedation for now to allow metabolization. Remains on depakote per neurology. No recurrence of seizure activity. EEG did confirm seizures on initial hospital day prior to addition of higher dosing of versed. Patient completed repeat CT this afternoon. Presence of suspected infarct in let parietal though will need MRI to be definitive. This can be associated with streptococal meninigitis with hypercoaguability and vasculitis. No repeat EEG at this time, reassess in AM for possible need to exclude NCS. Patients daughters updated at bedside. TF initiated. Prophylaxis with lovenox and protonix in place. BG remains out of goal range, additional adjustments to insulin regimen. Tolerating lung protective ventilation on SIMV, treating for bronchospasm did help work of breathing and component of bronchitis form ongoing smoking possible. Await mentation to determine ability to extubate in coming days. Total critical care time: I personally spent 40 minutes for review of physiologic parameters, directing plan of care, coordination of care with other specialists, and counseling family at bedside. This is exclusive of time spent teaching housestaff or performing any separate billable procedures. Patient remains at significant risk of further morbidity and mortality warranting close monitoring and care only available in the ICU. Critical care services required for acute hypoxic respiratory failure, acute metabolic encephalopathy, bacterial meningitis, and severe sepsis.
[2025-07-14] MEDS: INSULIN LISPRO (AdmeLOG) 1 UNIT/0.01 ML UNIT 3 UNIT SC (12:16)
[2025-07-14] MEDS: VANCOMYCIN/NS 1 GM IVPB 200 ML IV ×2 (14:53→21:52)
--- NOTE | 2025-07-14 15:58 | PC.SS ---
Update: Patient remains intubated. Off sedation. Tube feedings on hold. Patient receiving IV antibiotics. Patient is in possession of low grade fever. Neurology is consulting.
--- NOTE | 2025-07-14 18:16 | ESPR_ITS ---
Documentation for date of: 07/14/25 Subjective Subjective Interval history: Patient examined at bedside at ICU. Vitals at bedside showed tachycardia 120, BP 120/70. WBCs downtrending to 19. Currently on ceftriaxone and vancomycin. Continue vancomycin until cultures so sensitivity to ceftriaxone strep pneumonia meningitis. Remains intubated, no longer on any sedation. No movement appreciated to painful stimuli. EEG had shown seizure-like activity. Continue valproate 1000 mg twice daily. Boyfriend of 1 year was present at bedside. Shared concern that patient has been noncompliant with medication even before her oncologist has suggested to stop antiepileptic. CT head from this morning showed area of acute infarct in left parietal lobe. Plan for MRI without contrast. Monitor for improvement s/p sedation. Exam Vital Signs Temp Pulse Resp BP Pulse Ox O2 Del Method O2 Flow Rate 99.2 F 121 H 24 H 129/86 H 98 Mechanical Ventilation 35 07/14/25 16:00 07/14/25 18:00 07/14/25 18:00 07/14/25 18:00 07/14/25 18:00 07/14/25 16:00 07/14/25 08:00 FiO2 35 07/14/25 16:00 Narrative Exam General: no longer sedated, intubated, on MV HEENT: NCAT, No JVD noted. Mucosa moist. Pupils are equal and reactive to light bilaterally Cardiovascular: Normal S1 and S2. Regular rate and rhythm. Respiratory: Lungs are clear to auscultation bilaterally. Mechanical breath sounds Abdomen: Soft, nontender, not distended, normal bowel sounds. : powers in place Skin: Warm to touch, dry, no rashes noted. Various Tattoes Musculoskeletal: No gross injuries. No pitting edema, pedal pulses palpated Neuro: limited by sedation effect. Does not withdran to pain Objective Labs 07/17/25 04:30 07/17/25 09:13 Labs: Laboratory Results - last 24 hr 07/13/25 07/14/25 07/14/25 21:22 01:03 04:17 WBC RBC Hgb Hct MCV MCH MCHC RDW Std Deviation Plt Count Neut % (Auto) Lymph % (Auto) [place] % (Auto) Eos % (Auto) Baso % (Auto) Neut # (Auto) Lymph # (Auto) [place] # (Auto) Eos # (Auto) Baso # (Auto) Immature Gran # (Auto) Absolute Nucleated RBC Immature Gran % Nucleated RBC % Puncture Site Right Radial Right Radial ABG pH 7.33 L 7.36 ABG pCO2 46 44 ABG pO2 127 H 98 D ABG HCO3 24 25 ABG O2 Saturation 100 H 99 H ABG Base Excess -2 -1 FiO2 45 35 Sodium Potassium Chloride Carbon Dioxide Anion Gap BUN Creatinine Estim Creat Clear Calc eGFR BUN/Creatinine Ratio Glucose Calculated Osmolality Calcium Corrected Calcium Phosphorus Magnesium Total Bilirubin AST ALT Alkaline Phosphatase Total Protein Albumin Globulin Albumin/Globulin Ratio Triglycerides Cholesterol LDL Cholesterol, Calc HDL Cholesterol Cholesterol/HDL Ratio Vancomycin Trough 36.6 H* 07/14/25 04:27 WBC 19.5 H D RBC 3.67 L Hgb 10.2 L Hct 31.8 L MCV 87 MCH 27.8 MCHC 32.1 RDW Std Deviation 46.5 H Plt Count 172 Neut % (Auto) 88 H Lymph % (Auto) 6 L [place] % (Auto) 5 Eos % (Auto) 0 Baso % (Auto) 0 Neut # (Auto) 17.2 H Lymph # (Auto) 1.1 [place] # (Auto) 0.9 H Eos # (Auto) 0.0 Baso # (Auto) 0.0 Immature Gran # (Auto) 0.29 H Absolute Nucleated RBC 0.00 Immature Gran % 2 H Nucleated RBC % 0 Puncture Site ABG pH ABG pCO2 ABG pO2 ABG HCO3 ABG O2 Saturation ABG Base Excess FiO2 Sodium 144 Potassium 4.4 Chloride 110 H Carbon Dioxide 25.9 Anion Gap 8 BUN 20 Creatinine 0.4 L Estim Creat Clear Calc 175.7 eGFR > 60 BUN/Creatinine Ratio 50 H Glucose 252 H Calculated Osmolality 298 H Calcium 9.2 Corrected Calcium 9.7 Phosphorus 2.5 Magnesium 2.1 Total Bilirubin 0.3 AST 39 H ALT 27 Alkaline Phosphatase 79 Total Protein 5.7 Albumin 3.4 L Globulin 2.3 Albumin/Globulin Ratio 1.5 Triglycerides 238 H Cholesterol 81 L LDL Cholesterol, Calc 23 HDL Cholesterol < 10 L Cholesterol/HDL Ratio 8.0 H Vancomycin Trough ABG Interpretation ABG results: 07/12/25 07/12/25 07/13/25 08:31 17:13 04:48 ABG pH 7.13 L* 7.26 L D 7.28 L ABG pCO2 46 45 46 ABG pO2 122 H 100 D 129 H D ABG HCO3 15 L 20 22 ABG O2 Saturation 98 98 99 H ABG Base Excess -14 L -7 L -5 L 07/14/25 07/14/25 01:03 04:17 ABG pH 7.33 L 7.36 ABG pCO2 46 44 ABG pO2 127 H 98 D ABG HCO3 24 25 ABG O2 Saturation 100 H 99 H ABG Base Excess -2 -1 Quality Measures Quality Measures VTE prophylaxis Assessment & Plan Assessment Current Active Medications: Generic Name Dose Route Start Last Admin Trade Name Freq PRN Reason Stop Dose Admin Dexamethasone Sodium Phosphate 4 mg 07/13/25 06:00 07/14/25 12:06 Dexamethasone Sod Phos Inj 4 Mg/Ml Vial IV 07/17/25 05:59 4 mg Q6HR ASHLEY Administration Protocol Dextrose 25 ml 07/12/25 10:05 Dextrose 50%-Water Inj 50 Ml Syringe IV 08/11/25 10:04 Q15MIN PRN BG 50-70 responsive npo pt Dextrose 50 ml 07/12/25 10:05 Dextrose 50%-Water Inj 50 Ml Syringe IV 08/11/25 10:04 Q15MIN PRN BG <50 OR BG <70 & pt unresponsive Enoxaparin Sodium 40 mg 07/12/25 09:45 07/14/25 09:11 Enoxaparin Sod Inj 40 Mg/0.4 Ml Syringe SC 07/26/25 09:44 40 mg QDAY ASHLEY Administration Glucagon 1 mg 07/12/25 10:05 Glucagon Inj 1 Mg Vial IM Q15MIN PRN BG <70, and no IV access Ceftriaxone Sodium 2 gm/ 50 mls @ 100 mls/hr 07/13/25 09:00 07/14/25 09:21 Sodium Chloride IV 07/20/25 08:59 Infused QDAY ASHLEY Infusion Norepinephrine/Dextrose 8 mg in 250 mls @ 7.812 mls/hr 07/12/25 09:49 07/12/25 18:15 Levophed In D5w 8mg/250ml IV 08/11/25 09:48 0 mcg/kg/min .Q24H PRN 0 mls/hr PER PROTOCOL Titration Protocol 0.05 MCG/KG/MIN Valproic Acid 1,000 mg/ Sodium 60 mls @ 60 mls/hr 07/12/25 19:00 07/14/25 10:21 Chloride IV 08/11/25 18:59 Infused BID ASHLEY Infusion Protocol Acetaminophen 1,000 mg in 100 mls @ 250 mls/hr 07/12/25 20:33 Ofirmev Inj IV 07/15/25 20:32 Q6HR PRN fever >99.9 Midazolam HCl 100 mg in 100 mls @ 5 mls/hr 07/13/25 09:53 07/14/25 06:00 Versed Pf Inj In Ns Premix IV 07/17/25 15:32 0 mg/hr .Q20H PRN 0 mls/hr PER PROTOCOL Titration Protocol 5 MG/HR Vancomycin/Sodium Chloride 200 mls @ 120 mls/hr 07/14/25 06:45 07/14/25 14:53 Vancomycin/Ns 1 Gm Ivpb IV 07/21/25 06:44 120 mls/hr Q8HR ASHLEY Administration Protocol Insulin Degludec 20 unit 07/15/25 09:00 Insulin Degludec 5 Unit/0.05 Ml (Per 5 Units) SC 08/14/25 08:59 QDAY ASHLEY Insulin Human Lispro 0 unit 07/14/25 12:05 Insulin Lispro (Admelog) 1 Unit/0.01 Ml Unit SC 08/11/25 11:59 Q6HR [facility] Protocol Ipratropium [place] 0.5 mg 07/14/25 11:29 Ipratropium Rt 0.5 Mg/ 2.5 Ml Nebu INH 08/13/25 11:28 Q2HR PRN WHEEZING Levalbuterol HCl 1.25 mg 07/14/25 11:29 Levalbuterol Rt 1.25 Mg/0.5 Ml Nebu INH 08/13/25 11:28 Q2H PRN WHEEZING Nicotine 21 mg 07/12/25 13:15 07/14/25 09:11 Nicotine Patch 21 Mg/24 Hr Patch.Td24 TOP 08/11/25 13:14 21 mg QDAY ASHLEY Administration Pantoprazole Sodium 40 mg 07/12/25 09:45 07/14/25 08:50 Pantoprazole Inj 40 Mg Vial IVP 08/11/25 09:44 40 mg QDAY ASHLEY Administration Pharmacy Consult 1 each 07/14/25 09:00 Vancomycin Pharmacy To Dose 1 Each Each IV 08/13/25 08:59 QDAY PRN PROTOCOL Sodium Chloride 3 ml 07/14/25 11:29 Sodium Chloride Rt Radha 0.9% 3 Ml Nebu INH 08/13/25 11:28 PRN PRN SOLN Plan Patient is a 45-year-old female with past medical history of CVA 2018, AML, type 2 diabetes, seizures, migraine, HLD, HTN presented to ED on 07/12/25 due to breakthrough seizures/AMS. Neurology consulted for management and LP to rule out meningitis. #Strep pneumonia meningitis #Multifocal seizure #Hx seizures Likely due to status epilepticus break through seizures. 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 Since that time, patient will only take the Keppra when going to music concerts. Stroke alert called in ED. Tele neuro was consulted, NIHSS score 0. CT head/CTA negative. She received 4mg of versed without cessation. Subsequently intubated and sedated with prop/fent. Given 1500mg loading dose of Keppra in ED. Urine, sputum, and blood cultures negative. CSF analysis appearance was cloudy, WBCs 10,720, RBC 1000, glucose 97, protein greater than 250, strep pneumo antigen positive. Opening pressure 37. CSF culture stain showing 3+ WBCs. Repeat CT head showed area of acute infarct in left parietal lobe. EEG read was abnormal showing multifocal seizure pattern. -plan for MRI without contrast to rule out stroke lesions -continue IV ceftriaxone and IV vancomycin until sensitivity pannel results -stop lacosamide due to cardiogenic effects -hold Keppra has family expresses concern about AML returning. They were counseled on this medication and how there has been no correlation on this. -continue IV depakote 1000mg BID -euthermia, euglycemia -serial neuro checks as sedation lightened -EEG repeat if mentation not improving #AML #Previous CVA #T2DM #HLD #HTN Primary care team to manage above conditions and ongoing care needs. The patient's management plan was discussed with my attending physician Dr. Colvin. Paz Rivero, PGY-2 Attending Provider Attestation/Addendum I have seen and examined the patient at the bedside and agree with the resident's findings, assessment and plan of care. She has not had any seizures after being on Depakote. Will continue to watch her closely for any breakthrough seizures, follow Depakote level as it becomes available. Follow-up with MRI brain to evaluate for the extent of ischemic infarction as the CT head showed hypodensity in the left parietal and frontal lobe.
[2025-07-14 21:41] LABS: Vancomycin,Trough 11.6 mcg/mL (5.0-10.0)
[2025-07-15] VITALS (33 sets, daily range): BP systolic 114–156; BP diastolic 70–110; PULSE 78–145; RESP 16–334; TEMP 36.5–37.3; O2SAT 89–97
--- NOTE | 2025-07-15 | XR_ITS ---
Examination: MRI brain without intravenous contrast. Date and time of exam: July 15, 2025, 1106 hours, comparison August 23, 2018 INDICATIONS: Onset lethargy and left-sided body weakness July 14, 2025, CT brain July 14, 2025 suspicious for acute infarction in the high left parietal lobe Technique: Multiple axial and sagittal images of the brain obtained. Siemens high-resolution 1.5 Sandi short bore scanners utilized. Sagittal sections, T1-weighted, TR 500, TE 14, are performed. Axial sections proton-density and T2-weighted have been obtained. Inversion recovery axial images, TR 9, 260, TE 111, TI 2500. Diffusion weighted images, axial sections, TR 4800, TE 128, B value 1000 Axial sections, ADC map, TR 4800, TE 128 Findings: Enlargement of the sella turcica is not present. The optic chiasm and infundibular are not remarkable. Prepontine and interpeduncular cisterns are not enlarged. There is no localized enlargement of the medulla or susana. Fourth ventricle and cerebellar tonsils appear normal in position. No subacute area of hemorrhage density is seen. Mass in the cerebellopontine angle region is not evident. Globes symmetrical. Orbital musculature including medial lateral rectus muscles do not exhibit abnormality. Diffusion-weighted images demonstrate multiple foci restricted diffusion left frontal lobe left parietal lobe, the largest in the left frontal lobe 21 mm Foci of restricted diffusion also in the occipital horns diffusion image 11. Increased white matter signal evident in the same locations left frontal lobe left parietal lobe and occipital horns Mass effect upon the ventricular system is not identified. Impression: Foci of restricted diffusion in the left frontal lobe left parietal lobe without prominent signal deficit on the ADC map, recommend neurology consultation and correlation with clinical findings as to whether this represents demyelinating disease versus acute infarct Also recommend repeat CT brain scan to assess the occipital horns as there is restricted diffusion in these locations in addition
[2025-07-15] MEDS: DEXAMETHASONE SOD PHOS INJ 4 MG/ML VIAL IV ×5 (00:09→23:55)
[2025-07-15] MEDS: INSULIN LISPRO (AdmeLOG) 1 UNIT/0.01 ML UNIT SC ×4 (00:10→17:54)
[2025-07-15] MEDS: VANCOMYCIN/NS 1 GM IVPB 200 ML IV (05:41)
[2025-07-15 06:00] LABS: Basophils # (Auto) 0.0 Thou/mm3 (0.0-0.2); Basophils % (Auto) 0 % (0-2.5); Eosinophils # (Auto) 0.0 Thou/mm3 (0.0-0.5); Eosinophils % (Auto) 0 % (0-10); Hematocrit 32.2 % (36.0-46.0); Hemoglobin 10.6 g/dL (12.0-16.0); Immature Granulocytes Auto 0.14 Thou/mm3 (0.00-0.00); Lymphocytes # (Auto) 1.4 Thou/mm3 (1.0-4.8); Lymphocytes % (Auto) 12 % (10-50); Mean Corpuscular HGB Conc 32.9 g/dl (31.0-37.0); Mean Corpuscular Hemoglobin 27.7 pg (25.0-35.0); Mean Corpuscular Volume 84 fL (80-100); Monocytes # (Auto) 0.6 Thou/mm3 (0.0-0.8); Monocytes % (Auto) 5 % (0-12); Neutrophils # (Auto) 10.0 Thou/mm3 (1.8-7.7); Neutrophils % (Auto) 82 % (37-80); Nucleated Red Blood Cell # 0.10 Thou/mm3 (0.00-0.00); Nucleated Red Blood Cell % 1 /100 WBC (0); Platelet Count 211 Thou/mm3 (140-440); RDW Standard Deviation 44.9 fL (36.4-46.3); Red Blood Count 3.82 Miln/mm3 (4.00-5.20); White Blood Count 12.2 Thou/mm3 (3.6-11.0)
[2025-07-15 06:20] LABS: Alanine Aminotransferase 26 U/L (10-49); Albumin, Serum 3.6 gm/dL (3.5-5.0); Albumin/Globulin Ratio 1.5 (1.2-2.2); Alkaline Phosphatase 76 U/L (46-116); Anion Gap 9 (7-16); Aspartate Amino Transferase 43 U/L (0-34); BUN/Creatinine Ratio 52 Ratio (12-20); Bilirubin,Total 0.4 mg/dL (0.3-1.2); Blood Urea Nitrogen 26 mg/dL (9-23); Calcium 9.4 mg/dL (8.3-10.6); Calcium (Corrected) 9.7 mg/dL (8.5-10.1); Carbon Dioxide 27.6 mMol/L (20.0-31.0); Chloride 111 mMol/L (98-107); Creatinine (Component) 0.5 mg/dL (0.6-1.3); Estimated Creatinine Clearance 144.4 mL/min (>60); Globulin 2.4 gm/dL (2.3-3.5); Glucose 276 mg/dL (74-106); Magnesium 2.0 mg/dL (1.6-2.6); Osmolality,Calculated 308 (275-295); Phosphorous 2.7 mg/dL (2.4-5.1); Potassium 3.9 mMol/L (3.4-5.1); Sodium 148 mMol/L (136-145); Total Protein 6.0 gm/dL (5.7-8.2); eGFR > 60 See Note
--- NOTE | 2025-07-15 08:19 | PD.INTPROG ---
Documentation for date of: 07/15/25 Subjective Subjective Interval history: No events overnight. Afebrile. Adequate UOP. Opens right eye to verbal stimuli. Coughing more this AM. Remains off sedation, no pushes given overnight. PPeak 24, remains tachypnic in high 20s, mild tachycardia. Critical Care Note Critical care time (min.): 35 Exam Vital Signs Temp Pulse Resp BP Pulse Ox O2 Del Method O2 Flow Rate 97.7 F 106 H 28 H 147/85 H 95 Mechanical Ventilation 35 07/15/25 04:00 07/15/25 07:00 07/15/25 07:00 07/15/25 07:00 07/15/25 07:00 07/14/25 16:00 07/14/25 08:00 FiO2 35 07/15/25 06:19 Narrative Exam GEN: NAD, opening eyes to verbal stimulation, no distress HEENT: PERRL, ETT in place 23 at gum, gag intact NECK: RIJ CVC site C/D/I CVS: S1/S2+ regular, slight tachycardia PULM: no wheezing/ crackles ABD: soft, NT, ND, BS+ EXT: no pedal edema, pulses intact NEURO: CN grossly intact, nonresponsive, not responding to pain in all limbs, sternal rub leads to cough/ gag Physical Exam Completion Physical Exam Complete?: Yes Objective - [employer] Labs 07/15/25 04:51 07/15/25 04:51 Labs: Laboratory Results - last 24 hr 07/14/25 07/15/25 20:52 04:51 WBC 12.2 H D RBC 3.82 L Hgb 10.6 L Hct 32.2 L MCV 84 MCH 27.7 MCHC 32.9 RDW Std Deviation 44.9 Plt Count 211 D Neut % (Auto) 82 H Lymph % (Auto) 12 [place] % (Auto) 5 Eos % (Auto) 0 Baso % (Auto) 0 Neut # (Auto) 10.0 H Lymph # (Auto) 1.4 [place] # (Auto) 0.6 Eos # (Auto) 0.0 Baso # (Auto) 0.0 Immature Gran # (Auto) 0.14 H Absolute Nucleated RBC 0.10 H Immature Gran % 1 H Nucleated RBC % 1 H Sodium 148 H Potassium 3.9 D Chloride 111 H Carbon Dioxide 27.6 Anion Gap 9 BUN 26 H Creatinine 0.5 L Estim Creat Clear Calc 144.4 eGFR > 60 BUN/Creatinine Ratio 52 H Glucose 276 H Calculated Osmolality 308 H Calcium 9.4 Corrected Calcium 9.7 Phosphorus 2.7 Magnesium 2.0 Total Bilirubin 0.4 AST 43 H ALT 26 Alkaline Phosphatase 76 Total Protein 6.0 Albumin 3.6 Globulin 2.4 Albumin/Globulin Ratio 1.5 Vancomycin Trough 11.6 H Assessment & Plan Additional Plan Additional Plan: Patient is a 45-year-old female with past medical history of CVA 2018, AML, type 2 diabetes, seizures, migraine, HLD, HTN presented with altered mental status to the ED; required intubation for airway protection after having another seizure in the ED. Patient admitted to ICU for workup and management of seizures. Neurology #Streptococcal meningitis Dx: -LP showed cloudy CSF, 10k WBC, 1K RBC, glucose 97, total protein > 250; CSF NGTD. -CSF antigen positive for strep pneumo; other antigens pending/negative -CSF gram stain +3 WBCs, no ogranism seen -CSF Culture prelim NG24 hours, reincubating -MRSA 07/12 negative -Blood culture prelim 2/2 strep pneumo -07/14: CT Head ordered to rule out neurological complications from meningitis/seizures, showed suspiscious for acute infaracts? Will follow up Neuro recommendations, Rx: -Continuing Ceftriaxone, stop vancomycin as confirmed MRSA negative and strep is sensitive to CFTX -Gave Decadron loading dose 10 mg IV x1 -Continue on Decadron 4 mg IV q6hr for 4 days (07/13 through 07/16) -MRI today to confirm findings on repeat CT #Status Epilepticus DDx: infection vs cardiac vs lack of sleep, vs dehydration vs electrolyte derangements vs less likely hypoglycemia Dx: -Family states occasionally takes seizure meds at home. Most recent seizures 6-12 months ago. Patient last well known ~7pm 07/11. Patient's baseline is Patient found seizing in bedroom 10/14 AM by family. Brought to ED, noted to have started seizing again in the ED after getting CT for initial stroke rule out. Glucose was 300s. With patient's reported complaint of severe migraine since yesterday evening, meningitis on differential. -Patient given keppra 1500 mg loading dose on admission -Possible repeat EEG if patient's mentation does not improve, though slow to reemerge from sedation Rx: -Continue Depakote 1000 mg IV BID -Seizure precautions -EEG taken, follow up results -Treating underlying infection -Neurology consulted, appreciate recs #Hx of CVA Patient's family reported CVA ~5 years ago with symptoms fully resolving. Dx: -No stroke on CT imaging initially, repeat with questionable high left parietal lobe -Tele neuro consulted, stroke r/o on admission -Home BP meds (will f/u med rec), ,aspirin 81, per family. Cardiovascular #Severe Sepsis DDx: severe sepsis due to meningitis vs oral etiology of patient's family reporting having swollen L jaw area on 07/10 vs aspiration pneumonia (i/s/o seizures). Family denied sick contacts, Dx: -Severe migraine reported night before. Arrived to ED with fever 101.4, WBC 32.4. Rx: -Given total 3 L NS IV, 2.5 L IV LR -Correct underlying acidosis with fluids -Treat underlying infection with abx -Has been off levophed for 48 hours, predominantly to faciltate high dose sedation #Elevated Troponins 2/2 demand ischemia (shock) vs less likelyMI, resolved DDx: Other contributors including dehyrdation vs sleep deprivation Dx: -Trops 5.052 -> 8 -> 6 -EKG nonspecific ST & T wave abnormalities -07/12 ECHO: Normal LV size and mildly decreased LV function with an estimated EF of 40 to 45%. Patient tachycardic. Normal RV size and function is mildly decreased. RVSP 24 mmHg with RAP 3. Rx: -Cardology consulted to evaluate for acute ischemia, likely demand -Repeat Echo prior to discharge #SVT 2/2 seizures vs acute illness - Resolved Respiratory #Intubated with mechanical ventilation 2/2 airway protection (i/s/o seizures) Dx: -07/12: ABG 7.13 pH, 46 pco2, 122 po2, 15 bicarb -07/13: ABG 7.28 pH, 46 pco2, 129 po2, 22 bicarb -07/14: ABG 7.36 pH, 44 pco2, 98 po2, 25 bicarb Rx: -Gave Albuterol 10 mg inh x1 07/14 for wheezing, breathing improved, saturating well -Scheduled PRN 2hr breathing treatment -plan for pressure support pending mentation improvement -continue vent settings for now, SIMV well tolerated with tachypnea #Likely aspiration pneumonia Dx: -CXR shows extensive bilateral aspiration pneumonia Rx: -ET tube cultures NGTD -On Ceftriaxone 2 gm qd GI and F/E/N #OG Tube -Dietitian Consulted, appreciate recs -Planned to start tube feeds after CT scan -Ordered, Per Dietitian If EN is initiated, consider: feeds of Vital 1.2 at 20 ml/hr via OG tube by pump. If no IV fluids, water flushes of 25 ml/hr (or per MD). When indicated, advance 10 ml every 8 hrs to goal rate of 40 ml/hr x 24 hrs. -Now at goal, well tolerated -Start daily Miralax Renal #High anion gap metabolic acidosis, resolved #Lactic Acidosis (i/s/o seizures) DDx: Seizures vs septic shock Dx: -Utox negative Rx: -Trend lactic acid -Treating underlying infection, seizures #hypokalemia, resolved DDx: Unsure etiology, possibly due to medication vs dehydration (diarrhea, vomiting) Dx: -Potassium 3.1->3.9 Rx: -Replete as needed Heme #Leukocytosis #Hx AML DDx: Infection (sepsis) vs leukemoid reaction vs less likely blast crisis due to WBC < 100k. Patient had chemo for AML 10 years ago, has been in resmission for ~1 year; unsure oncologist (Jj) Dx: -WBC 27.2->19.5->12.2; afebrile -Meningitis confirmed. -CXR extensive pneumonia aspiration bilaterally Rx: -Peripheral smear showed unremarkable RBC's & platelets; mature neutrophila -Asked family to get records from oncologist -Continue ABX as per above #Anemia DDx: dilutional after getting multiple liters of fluid yesterday Dx: -Hgb 10.6 (11.3) -stable, no signs of bleeding Rx: -Will continue to trend hgb, monitor for signs of bleeding Endo #T2DM Dx: - Home meds reported as Metformin, previously on Mounjaro -Glucose 375 on admission -> 252 (221) - A1c 9.2% -Expect rise in glucose from steroids and tube feeds being started. Will be more aggressive with insulin usage. Rx: -Increased Degludec to 30 u qday. -Scheduled short acting as well -Insulin sliding scale q6hr -glucose q6hr checks -hypoglycemia protocol in place #Euthyroid sick syndrome Dx: -TSH < 0.01, Free T4 wnl Rx: -Continue to treat underlying illness ID # Bacterial/ streptoccoccal meningitis As above in Neuro Disposition: ICU DVT prophylaxis: Lovenox 40 mg SC qday GI prophylaxis: Protonix 40 mg IV qday Diet: NPO, tube feeds at goal Powers: Yes Lines: Peripherals, Central line, powers Drips: None Vent: yes, LTV ( <8 ml/kg IBW) with PPeak in mid teens CODE STATUS: Full Code Provider Notation Provider Notation: Although this document has been carefully reviewed, there may still be some phonetic and other typographical errors. These errors are purely grammatical due to imperfections in the software program and should not be construed in any way to compromise the substance of the patient's medical care during this visit. Thank you for the opportunity and privilege in assisting you with this patient's care and management.
[2025-07-15] MEDS: cefTRIAXone 2 GM in SODIUM CHLORIDE 0.9% (Popper) 50 ML IV (09:10)
[2025-07-15] MEDS: VALPROATE SOD INJ 1,000 MG in SODIUM CHLORIDE 0.9% 50 ML 60 MG IV ×2 (09:10→20:36)
[2025-07-15] MEDS: NICOTINE PATCH 21 MG/24 HR PATCH.TD24 TOP (09:10)
[2025-07-15] MEDS: ENOXAPARIN SOD INJ 40 MG/0.4 ML SYRINGE SC (09:10)
[2025-07-15] MEDS: POLYETHYLENE GLYCOL 17 GM PACKET PO (09:11)
[2025-07-15] MEDS: INSULIN DEGLUDEC 5 UNIT/0.05 ML (PER 5 UNITS) 30 UNIT SC (09:21)
[2025-07-15] MEDS: fentaNYL CIT INJ 50 mCg/ML AMP 2ML 200 MCG IVP (11:05)
[2025-07-15] MEDS: MIDAZOLAM INJ 1 MG/ML VIAL 2 ML 4 MG IVP (11:05)
[2025-07-15] MEDS: ASPIRIN 81 MG CHEW NG (13:42)
--- NOTE | 2025-07-15 14:08 | ESPR_ITS ---
Documentation for date of: 07/15/25 Subjective Subjective Interval history: Patient seen and assessed at bedside. Patient still intubated and sedated Telemetry reviewed and patient still continues to be tachycardic around 110-130 bpm and mostly sinus tachycardia Tachycardia mostly secondary to the septic shock. Troponin elevation mostly secondary to the septic shock with status epilepticus and unlikely cardiac. Echo as noted before with mild LV dysfunction but with diffuse hypokinesis and will repeat before discharge to reevaluate her cardiac function is present clinical presentation could be contributing to the global mild LV dysfunction. CT done yesterday showed questionable infarct in the left parietal lobe and MRI of the brain performed today showed foci of restricted diffusion in the left frontal side, left parietal lobe concerning for demyelinating disease versus acute infarct. WBC still elevated but improving from 32,000-12,000 Sodium at 148 and BUN at 26 and creatinine of 0.5. LFTs appear normal Exam Vital Signs Temp Pulse Resp BP Pulse Ox O2 Del Method O2 Flow Rate 98.2 F 85 30 H 114/74 92 L Mechanical Ventilation 35 07/15/25 12:03 07/15/25 13:00 07/15/25 13:00 07/15/25 13:00 07/15/25 13:00 07/15/25 12:03 07/14/25 08:00 FiO2 40 07/15/25 12:03 Narrative Exam General: Intubated, but off sedation and pressors. Obese female. Still not responsive to verbal or pain cues. HEENT: Normocephalic, atraumatic, mucous membranes moist. Heart: Tachycardic. Regular rate and rhythm, normal S1 and S2, no murmurs. Lungs: Clear to auscultation with no wheezing or crackles. Abdomen: Soft, nondistended, nontender, positive bowel sounds. No guarding or rebound tenderness. Neurologic: Alert and oriented x3, no gross neurological deficit, and patient able to move all 4 extremities. Extremities: No edema. Skin: No rash or ecchymoses. Objective Labs 07/16/25 04:56 07/17/25 00:19 Labs: Laboratory Results - last 24 hr 07/14/25 07/15/25 20:52 04:51 WBC 12.2 H D RBC 3.82 L Hgb 10.6 L Hct 32.2 L MCV 84 MCH 27.7 MCHC 32.9 RDW Std Deviation 44.9 Plt Count 211 D Neut % (Auto) 82 H Lymph % (Auto) 12 [place] % (Auto) 5 Eos % (Auto) 0 Baso % (Auto) 0 Neut # (Auto) 10.0 H Lymph # (Auto) 1.4 [place] # (Auto) 0.6 Eos # (Auto) 0.0 Baso # (Auto) 0.0 Immature Gran # (Auto) 0.14 H Absolute Nucleated RBC 0.10 H Immature Gran % 1 H Nucleated RBC % 1 H Sodium 148 H Potassium 3.9 D Chloride 111 H Carbon Dioxide 27.6 Anion Gap 9 BUN 26 H Creatinine 0.5 L Estim Creat Clear Calc 144.4 eGFR > 60 BUN/Creatinine Ratio 52 H Glucose 276 H Calculated Osmolality 308 H Calcium 9.4 Corrected Calcium 9.7 Phosphorus 2.7 Magnesium 2.0 Total Bilirubin 0.4 AST 43 H ALT 26 Alkaline Phosphatase 76 Total Protein 6.0 Albumin 3.6 Globulin 2.4 Albumin/Globulin Ratio 1.5 Vancomycin Trough 11.6 H ABG Interpretation ABG results: 07/12/25 07/12/25 07/13/25 08:31 17:13 04:48 ABG pH 7.13 L* 7.26 L D 7.28 L ABG pCO2 46 45 46 ABG pO2 122 H 100 D 129 H D ABG HCO3 15 L 20 22 ABG O2 Saturation 98 98 99 H ABG Base Excess -14 L -7 L -5 L 07/14/25 07/14/25 01:03 04:17 ABG pH 7.33 L 7.36 ABG pCO2 46 44 ABG pO2 127 H 98 D ABG HCO3 24 25 ABG O2 Saturation 100 H 99 H ABG Base Excess -2 -1 Assessment & Plan A&P Narrative Patient is a 45 year old female with PMH of CVA 2018, AML, type 2 diabetes, seizures, migraine, HLD, HTN who presents with altered mental status s/p intubation, admitted to ICU for work up and management of seizures. Cardiology consulted for elevated troponins likely secondary to lactic acidosis. #NSTEMI II secondary to severe sepsis and metabolic abnormalities from status epilepticus #Elevated troponins #SVT versus tachycardia #HFrEF (EF 40-45%) (07/12/25) Patient initial troponins were elevated at 5.05. Unable to obtain cardiac history and cannot determine any chest pain or chest pressure. Mostly NSTEMI type II secondary to the severe sepsis or septic shock on pressors along with status epilepticus and metabolic abnormalities. BP 118/43 but tachycardic at HR 145, RR 27 and fever of 101.4. WBC count was severely elevated at 32,000 on admission. Troponin 5.052 -> 8.049 -> 6.167. TSH <0.01. A1c 9.2. Initial EKG was read as SVT versus sinus tachycardia and nonspecific T wave changes. Reviewed the EKG and patient does have distinct P waves indicating mostly sinus tachycardia for this patient. Sinus tachycardia also likely secondary to severe sepsis, also currently being weaned from sedation. Echo 07/12/25 showed normal LV size and mildly decreased LV function with an estimated EF of 40 to 45%. Patient tachycardic. Diastolic dysfunction could not be evaluated. Normal RV size and function is mildly decreased. RVSP 24 mmHg with RAP 3. Mild mitral and tricuspid regurgitation noted. No pericardial effusion. - Decreased EF with mild global hypokinesis mostly secondary to septic shock and tachycardia- expect improvement and will repeat echo prior to discharge. - Ordered repeat EKG - Not started on heparin per primary team as patient was having LP procedure and did not believe anticoagulation was indicated - Check lipid profile for further cardiac risk stratification. - Agree with pressor support with Levophed for now. If patient continues to be tachycardic then patient can be changed to phenylephrine drip. - Recommend to identify and treat underlying cause - Keep K >4 and Mg >2 07/15/2025: Patient still intubated and sedated Telemetry reviewed and patient still continues to be tachycardic around 110-130 bpm and mostly sinus tachycardia Tachycardia mostly secondary to the septic shock. Troponin elevation mostly secondary to the septic shock with status epilepticus and unlikely cardiac. Echo as noted before with mild LV dysfunction but with diffuse hypokinesis and will repeat before discharge to reevaluate her cardiac function is present clinical presentation could be contributing to the global mild LV dysfunction. CT done yesterday showed questionable infarct in the left parietal lobe and MRI of the brain performed today showed foci of restricted diffusion in the left frontal side, left parietal lobe concerning for demyelinating disease versus acute infarct. WBC still elevated but improving from 32,000-12,000 Sodium at 148 and BUN at 26 and creatinine of 0.5. LFTs appear normal #Acute metabolic encephalopathy secondary to seizures #Hx of seizures, on Keppra #History of CVA - Intubated, off sedation and pressors - Neurology consulted - Defer to primary team for management #Bilateral aspiration PNA CXR finding, likely occurred after seizure. - Defer to primary team for management #History of hypertension Takes lisinopril 20 mg daily. ?Hold home BP med as patient is normotensive #High anion gap metabolic acidosis #Lactic acidosis #Leukocytosis #History AML #Type 2 diabetes #? Meningitis #Complex migraines Management of rest of the medical conditions as per primary team and other consultants. Thank you for the consult and allowing me to participate in the care of the patient. Cardiology will continue to follow. Dilip Early M.D. Interventional Cardiology Time Spent With Patient Time: Total time spent is greater than 50% in coordination of care (as documented) at patient's floor/unit and/or counseling patient:
--- NOTE | 2025-07-15 16:05 | PC.SS ---
Update: Patient remains intubated. Off sedation. Afebrile. Not receiving pressor support. Patient receiving IV antibiotics. Tube feedings in place. Plan to extubate patient tomorrow.
[2025-07-15] MEDS: DEXMEDETOMIDINE 400 MCG IVPB 400 MCG/100 ML BAG IV (19:36)
--- NOTE | 2025-07-15 23:54 | ESPR_ITS ---
Documentation for date of: 07/15/25 Subjective Subjective Interval history: Patient was seen in ICU today, continues to be intubated on mechanical ventilatory support. Not much response other than spontaneous eye opening. Exam - Neurology Vital Signs Temp Pulse Resp BP Pulse Ox O2 Del Method O2 Flow Rate 98.8 F 84 16 155/97 H 96 Mechanical Ventilation 35 07/15/25 20:00 07/15/25 23:00 07/15/25 23:00 07/15/25 23:00 07/15/25 23:00 07/15/25 20:00 07/14/25 08:00 FiO2 45 07/15/25 21:56 Narrative Exam GENERAL APPEARANCE: Well hydrated, well-nourished intubated and on mechanical ventilatory support. HEENT: Normocephalic, atraumatic. Pupils: Equal reacting to light NECK: Supple, no JVD or bruits. CARDIOVASULAR: Heart: S1, S2 heard, regular without S3-S4 or murmur no rubs or gallops. LUNGS/CHEST: Occasional Rales and rhonchi heard in the bases ABDOMEN: Soft, nontender, with normal bowel sounds. No pulsatile masses. No rebound, rigidity, or guarding. Normal inspection and palpation. EXTREMITIES: Normal inspection and palpation. No edema, clubbing or cyanosis. SKIN: Warm and dry without rashes. Normal inspection. NEURO: Spontaneous eye opening noted, no response to pain or verbal commands in the extremities PSYCHIATRIC: Limited Objective Labs 07/17/25 04:30 07/17/25 09:13 Labs: Laboratory Results - last 24 hr 07/15/25 04:51 WBC 12.2 H D RBC 3.82 L Hgb 10.6 L Hct 32.2 L MCV 84 MCH 27.7 MCHC 32.9 RDW Std Deviation 44.9 Plt Count 211 D Neut % (Auto) 82 H Lymph % (Auto) 12 [place] % (Auto) 5 Eos % (Auto) 0 Baso % (Auto) 0 Neut # (Auto) 10.0 H Lymph # (Auto) 1.4 [place] # (Auto) 0.6 Eos # (Auto) 0.0 Baso # (Auto) 0.0 Immature Gran # (Auto) 0.14 H Absolute Nucleated RBC 0.10 H Immature Gran % 1 H Nucleated RBC % 1 H Sodium 148 H Potassium 3.9 D Chloride 111 H Carbon Dioxide 27.6 Anion Gap 9 BUN 26 H Creatinine 0.5 L Estim Creat Clear Calc 144.4 eGFR > 60 BUN/Creatinine Ratio 52 H Glucose 276 H Calculated Osmolality 308 H Calcium 9.4 Corrected Calcium 9.7 Phosphorus 2.7 Magnesium 2.0 Total Bilirubin 0.4 AST 43 H ALT 26 Alkaline Phosphatase 76 Total Protein 6.0 Albumin 3.6 Globulin 2.4 Albumin/Globulin Ratio 1.5 ABG Interpretation ABG results: 07/12/25 07/12/25 07/13/25 08:31 17:13 04:48 ABG pH 7.13 L* 7.26 L D 7.28 L ABG pCO2 46 45 46 ABG pO2 122 H 100 D 129 H D ABG HCO3 15 L 20 22 ABG O2 Saturation 98 98 99 H ABG Base Excess -14 L -7 L -5 L 07/14/25 07/14/25 01:03 04:17 ABG pH 7.33 L 7.36 ABG pCO2 46 44 ABG pO2 127 H 98 D ABG HCO3 24 25 ABG O2 Saturation 100 H 99 H ABG Base Excess -2 -1 Assessment & Plan Additional Assessment & Plan Additional Plan: Patient is a 45-year-old female with past medical history of CVA 2018, AML, type 2 diabetes, seizures, migraine, HLD, HTN presented to ED on 07/12/25 due to breakthrough seizures/AMS. Neurology consulted for management and LP to rule out meningitis. #Strep pneumonia meningitis #Multifocal seizure #Hx seizures Likely due to status epilepticus break through seizures. 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 Since that time, patient will only take the Keppra when going to music concerts. Stroke alert called in ED. Tele neuro was consulted, NIHSS score 0. CT head/CTA negative. She received 4mg of versed without cessation. Subsequently intubated and sedated with prop/fent. Given 1500mg loading dose of Keppra in ED. Urine, sputum, and blood cultures negative. CSF analysis appearance was cloudy, WBCs 10,720, RBC 1000, glucose 97, protein greater than 250, strep pneumo antigen positive. Opening pressure 37. CSF culture stain showing 3+ WBCs. Repeat CT head and MRI brain showed areas of acute infarct in left frontal and parietal lobe. EEG read was abnormal showing multifocal epileptiform discharges consistent with seizures. But no electrographic status noted -continue IV depakote 1000mg BID -euthermia, euglycemia -serial neuro checks as sedation lightened -EEG repeat if mentation not improving - Continue with aspirin 81 mg alone as the left hemispherical infarct is massive to prevent hemorrhagic conversion and DVT prophylaxis - Continue with IV antibiotics. CSF culture resulted negative. #AML #Previous CVA by history but not from MRI in 2018 #T2DM #HLD #HTN Primary care team to manage above conditions and ongoing care needs.
[2025-07-16] VITALS (34 sets, daily range): BP systolic 146–177; BP diastolic 81–109; PULSE 60–109; RESP 15–34; TEMP 36.6–38.2; O2SAT 9–99; BMI 34.4
[2025-07-16] MEDS: INSULIN LISPRO (AdmeLOG) 1 UNIT/0.01 ML UNIT SC ×4 (00:09→18:09)
[2025-07-16] MEDS: ACETAMINOPHEN 325 MG TABLET 650 MG PO ×2 (01:11→13:43)
[2025-07-16] MEDS: DEXMEDETOMIDINE 400 MCG IVPB 400 MCG/100 ML BAG 12.705 MCG IV (02:44)
[2025-07-16] MEDS: DEXAMETHASONE SOD PHOS INJ 4 MG/ML VIAL IV ×4 (05:28→23:45)
[2025-07-16 05:51] LABS: Basophils # (Auto) 0.0 Thou/mm3 (0.0-0.2); Basophils % (Auto) 0 % (0-2.5); Eosinophils # (Auto) 0.0 Thou/mm3 (0.0-0.5); Eosinophils % (Auto) 0 % (0-10); Hematocrit 34.3 % (36.0-46.0); Hemoglobin 11.0 g/dL (12.0-16.0); Immature Granulocytes Auto 0.15 Thou/mm3 (0.00-0.00); Lymphocytes # (Auto) 1.6 Thou/mm3 (1.0-4.8); Lymphocytes % (Auto) 23 % (10-50); Mean Corpuscular HGB Conc 32.1 g/dl (31.0-37.0); Mean Corpuscular Hemoglobin 27.4 pg (25.0-35.0); Mean Corpuscular Volume 86 fL (80-100); Monocytes # (Auto) 0.5 Thou/mm3 (0.0-0.8); Monocytes % (Auto) 8 % (0-12); Neutrophils # (Auto) 4.6 Thou/mm3 (1.8-7.7); Neutrophils % (Auto) 67 % (37-80); Nucleated Red Blood Cell # 0.04 Thou/mm3 (0.00-0.00); Nucleated Red Blood Cell % 1 /100 WBC (0); Platelet Count 202 Thou/mm3 (140-440); RDW Standard Deviation 44.6 fL (36.4-46.3); Red Blood Count 4.01 Miln/mm3 (4.00-5.20); White Blood Count 6.8 Thou/mm3 (3.6-11.0)
[2025-07-16 06:14] LABS: Alanine Aminotransferase 22 U/L (10-49); Albumin, Serum 3.5 gm/dL (3.5-5.0); Albumin/Globulin Ratio 1.5 (1.2-2.2); Alkaline Phosphatase 67 U/L (46-116); Anion Gap 13 (7-16); Aspartate Amino Transferase 37 U/L (0-34); BUN/Creatinine Ratio 53 Ratio (12-20); Bilirubin,Total 0.3 mg/dL (0.3-1.2); Blood Urea Nitrogen 32 mg/dL (9-23); Calcium 8.9 mg/dL (8.3-10.6); Calcium (Corrected) 9.3 mg/dL (8.5-10.1); Carbon Dioxide 25.9 mMol/L (20.0-31.0); Chloride 111 mMol/L (98-107); Creatinine (Component) 0.6 mg/dL (0.6-1.3); Estimated Creatinine Clearance 121.5 mL/min (>60); Globulin 2.3 gm/dL (2.3-3.5); Glucose 372 mg/dL (74-106); Magnesium 2.2 mg/dL (1.6-2.6); Osmolality,Calculated 319 (275-295); Phosphorous 3.8 mg/dL (2.4-5.1); Potassium 4.1 mMol/L (3.4-5.1); Sodium 150 mMol/L (136-145); Total Protein 5.8 gm/dL (5.7-8.2); eGFR > 60 See Note
[2025-07-16] MEDS: cefTRIAXone 2 GM in SODIUM CHLORIDE 0.9% (Popper) 50 ML IV (08:28)
[2025-07-16] MEDS: ENOXAPARIN SOD INJ 40 MG/0.4 ML SYRINGE SC (08:29)
[2025-07-16] MEDS: INSULIN DEGLUDEC 5 UNIT/0.05 ML (PER 5 UNITS) 30 UNIT SC (08:30)
[2025-07-16] MEDS: NICOTINE PATCH 21 MG/24 HR PATCH.TD24 TOP (08:32)
[2025-07-16] MEDS: ASPIRIN 81 MG CHEW NG (08:33)
[2025-07-16] MEDS: VALPROATE SOD INJ 1,000 MG in SODIUM CHLORIDE 0.9% 50 ML 60 MG IV ×2 (08:58→20:22)
[2025-07-16] MEDS: POLYETHYLENE GLYCOL 17 GM PACKET PO (09:59)
[2025-07-16 15:35] LABS: West Nile Virus (IgG), CSF <1.30
--- NOTE | 2025-07-16 16:08 | ESPR_ITS ---
Documentation for date of: 07/16/25 Subjective Subjective Interval history: No events overnight. Afebrile. On precedex until this AM. Tracking and opening eyes spontaneously. Not following commands at this time. Doing well on TF and had BM this AM X2. Spontaneously voiding urine. Patient tolerated PS trial with adequate RSBI however unable to extubate due to mentation. Trasition back to SIMV with PRVC and spontaneous volume improving. Good UOP. Family visiting throughout the morning. Updated daughters at bedside. Critical Care Note Critical care time (min.): 35 Exam Vital Signs Temp Pulse Resp BP Pulse Ox O2 Del Method O2 Flow Rate 97.9 F 109 H 23 H 177/86 H 98 Mechanical Ventilation 35 07/16/25 14:47 07/16/25 15:01 07/16/25 15:01 07/16/25 15:01 07/16/25 15:01 07/16/25 04:00 07/14/25 08:00 FiO2 45 07/16/25 13:35 Narrative Exam GEN: NAD, opening eyes to verbal stimulation and tracking voice, no distress HEENT: PERRL, ETT in place 23 at gum, gag/cough intact NECK: RIJ CVC site C/D/I CVS: S1/S2+ regular, slight tachycardia PULM: no wheezing/ crackles ABD: soft, NT, ND, BS+ EXT: no pedal edema, pulses intact NEURO: Left eye ptosis, follows verbal stimuli, cough/ gag intact, overbreathing ventilator, moves LUE and LLE spontaneously, no RLE movement, rare RUE movement, not following commands though turns to both sides and tracks Physical Exam Completion Physical Exam Complete?: Yes Objective - Clarification Operator Labs 07/16/25 04:56 07/16/25 04:56 Labs: Laboratory Results - last 24 hr 07/16/25 04:56 WBC 6.8 D RBC 4.01 Hgb 11.0 L Hct 34.3 L MCV 86 MCH 27.4 MCHC 32.1 RDW Std Deviation 44.6 Plt Count 202 Neut % (Auto) 67 Lymph % (Auto) 23 [place] % (Auto) 8 Eos % (Auto) 0 Baso % (Auto) 0 Neut # (Auto) 4.6 Lymph # (Auto) 1.6 [place] # (Auto) 0.5 Eos # (Auto) 0.0 Baso # (Auto) 0.0 Immature Gran # (Auto) 0.15 H Absolute Nucleated RBC 0.04 H Immature Gran % 2 H Nucleated RBC % 1 H Sodium 150 H Potassium 4.1 Chloride 111 H Carbon Dioxide 25.9 Anion Gap 13 BUN 32 H Creatinine 0.6 Estim Creat Clear Calc 121.5 eGFR > 60 BUN/Creatinine Ratio 53 H Glucose 372 H D Calculated Osmolality 319 H Calcium 8.9 Corrected Calcium 9.3 Phosphorus 3.8 Magnesium 2.2 Total Bilirubin 0.3 AST 37 H ALT 22 Alkaline Phosphatase 67 Total Protein 5.8 Albumin 3.5 Globulin 2.3 Albumin/Globulin Ratio 1.5 Critical care time Critical Care Time Total Critical Care Time (min.): 35 Attestation: Patient remains at significant risk for further morbidity and mortality warranting close monitoring and care only available in the ICU. Critical care services required for acute metabolic encephalopathy, streptococcal meningitis, cerebral infarction, status epilepticus Assessment & Plan Additional Plan Additional Plan: Patient is a 45-year-old female with past medical history of CVA 2018, AML, type 2 diabetes, seizures, migraine, HLD, HTN presented with altered mental status to the ED; required intubation for airway protection after having another seizure in the ED. Patient admitted to ICU for workup and management of seizures. Neurology #Streptococcal meningitis Dx: -LP showed cloudy CSF, 10k WBC, 1K RBC, glucose 97, total protein > 250; CSF NGTD. -CSF antigen positive for strep pneumo; other antigens pending/negative -CSF gram stain +3 WBCs, no ogranism seen -CSF Culture prelim NG24 hours, reincubating -MRSA 07/12 negative -Blood culture prelim 2/2 strep pneumo -07/14: CT Head ordered to rule out neurological complications from meningitis/seizures, showed suspiscious for acute infaracts? Will follow up Neuro recommendations, Rx: -Continuing Ceftriaxone, strep is sensitive to CFTX -Complete decadron today -MRI today to confirm findings on repeat CT #Status Epilepticus DDx: infection vs cardiac vs lack of sleep, vs dehydration vs electrolyte derangements vs less likely hypoglycemia Dx: -Family states occasionally takes seizure meds at home. Most recent seizures 6- 12 months ago. Patient last well known ~7pm 07/11. Patient's baseline is Patient found seizing in bedroom 07/12 AM by family. Brought to ED, noted to have started seizing again in the ED after getting CT for initial stroke rule out. Glucose was 300s. With patient's reported complaint of severe migraine since yesterday evening, meningitis on differential. -Patient given keppra 1500 mg loading dose on admission -Possible repeat EEG if patient's mentation does not improve, though slow to reemerge from sedation Rx: -Continue Depakote 1000 mg IV BID -Seizure precautions -EEG taken, consistent with seizure activity -Treating underlying infection -Neurology consulted, appreciate recs #Hx of CVA Patient's family reported CVA ~5 years ago with symptoms fully resolving. Dx: -No stroke on CT imaging initially, repeat with questionable high left parietal lobe - MRI confirmed multifocal cerebral infarction consistent with meningitis - Tele neuro consulted, stroke r/o on admission - Home BP meds (will f/u med rec), ,aspirin 81, per family. Cardiovascular #Severe Sepsis DDx: severe sepsis due to meningitis vs oral etiology of patient's family reporting having swollen L jaw area on 07/10 vs aspiration pneumonia (i/s/o seizures). Family denied sick contacts, Dx: -Severe migraine reported night before. Arrived to ED with fever 101.4, WBC 32.4. Rx: -Given total 3 L NS IV, 2.5 L IV LR -Correct underlying acidosis with fluids -Treat underlying infection with abx -Has been off levophed for 72 hours, predominantly to facilitate high dose sedation #Elevated Troponins 2/2 demand ischemia (shock) vs less likely type I OK, resolved DDx: Other contributors including dehyrdation vs sleep deprivation Dx: -Trops 5.052 -> 8 -> 6 -EKG nonspecific ST & T wave abnormalities -07/12 ECHO: Normal LV size and mildly decreased LV function with an estimated EF of 40 to 45%. Patient tachycardic. Normal RV size and function is mildly decreased. RVSP 24 mmHg with RAP 3. Rx: -Cardiology consulted to evaluate for acute ischemia, likely demand -Repeat Echo prior to discharge #SVT 2/2 seizures vs acute illness - Resolved Respiratory #Intubated with mechanical ventilation 2/2 airway protection (i/s/o seizures) Rx: -Gave Albuterol 10 mg inh x1 07/14 for wheezing, breathing improved, saturating well -Scheduled PRN 2hr breathing treatment -plan for pressure support pending mentation improvement -continue vent settings for now, SIMV well tolerated with tachypnea #Likely aspiration pneumonia Dx: -CXR shows extensive bilateral aspiration pneumonia Rx: -ET tube cultures NGTD -On Ceftriaxone 2 gm qd GI and F/E/N #OG Tube -Dietitian Consulted, appreciate recs -Planned to start tube feeds after CT scan -Ordered, Per Dietitian If EN is initiated, consider: feeds of Vital 1.2 at 20 ml/hr via OG tube by pump. If no IV fluids, water flushes of 25 ml/hr (or per MD). When indicated, advance 10 ml every 8 hrs to goal rate of 40 ml/hr x 24 hrs. -Now at goal, well tolerated -Start daily Miralax- last BM 07/16 Renal #High anion gap metabolic acidosis, resolved #Lactic Acidosis (i/s/o seizures) DDx: Seizures vs septic shock Dx: -Utox negative Rx: -Trend lactic acid -Treating underlying infection, seizures #hypokalemia, resolved DDx: Unsure etiology, possibly due to medication vs dehydration (diarrhea, vomiting) Rx: -Replete as needed Heme #Leukocytosis #Hx AML DDx: Infection (sepsis) vs leukemoid reaction vs less likely blast crisis due to WBC < 100k. Patient had chemo for AML 10 years ago, has been in resmission for ~1 year; unsure oncologist (Jj) Dx: -WBC 27.2->19.5->12.2-6.8>; afebrile -Meningitis confirmed. -CXR extensive pneumonia aspiration bilaterally Rx: -Peripheral smear showed unremarkable RBC's & platelets; mature neutrophila -Asked family to get records from oncologist -Continue ABX as per above #Anemia DDx: dilutional after getting multiple liters of fluid yesterday Dx: -Hgb 11.0 (10.6) -stable, no signs of bleeding Rx: -Will continue to trend hgb, monitor for signs of bleeding Endo #T2DM Dx: - Home meds reported as Metformin, previously on Mounjaro -Glucose 375 on admission -> 252 (221) - A1c 9.2% -Expect rise in glucose from steroids and tube feeds being started. Will be more aggressive with insulin usage. Rx: -Increased Degludec to 40 u qday - Expect improvement with completion of dexamethasone -Scheduled short acting as well -Insulin sliding scale q6hr -glucose q6hr checks -hypoglycemia protocol in place #Euthyroid sick syndrome Dx: -TSH < 0.01, Free T4 wnl Rx: -Continue to treat underlying illness ID # Bacterial/ streptoccoccal meningitis As above in Neuro Disposition: ICU DVT prophylaxis: Lovenox 40 mg SC qday GI prophylaxis: Protonix 40 mg IV qday Diet: NPO, tube feeds at goal Powers: Yes Lines: Peripherals, Central line, powers Drips: None Vent: yes, LTV ( <8 ml/kg IBW) with PPeak in mid teens/ spontaneous breaths volume appropriate CODE STATUS: Full Code Provider Notation Provider Notation: Although this document has been carefully reviewed, there may still be some phonetic and other typographical errors. These errors are purely grammatical due to imperfections in the software program and should not be construed in any way to compromise the substance of the patient's medical care during this visit. Thank you for the opportunity and privilege in assisting you with this patient's care and management.
[2025-07-16] MEDS: INSULIN DEGLUDEC 5 UNIT/0.05 ML (PER 5 UNITS) 10 UNIT SC (18:10)
--- NOTE | 2025-07-16 19:13 | PD.RESEVENT ---
Documentation for date of: 07/16/25 Event Note Event Note: 1900 Corrected Na for hyperglycemia form CMP am draw today showed Na 154 Will start water flushes via NGT @ 100cc every 2 hours Recheck Na on chem panel STAT, again at 0000 and 0500 - Billy Biswas M.D. PGY3
[2025-07-16 19:51] LABS: Anion Gap 10 (7-16); BUN/Creatinine Ratio 56 Ratio (12-20); Blood Urea Nitrogen 28 mg/dL (9-23); Calcium 8.8 mg/dL (8.3-10.6); Carbon Dioxide 30.1 mMol/L (20.0-31.0); Chloride 112 mMol/L (98-107); Creatinine (Component) 0.5 mg/dL (0.6-1.3); Estimated Creatinine Clearance 145.7 mL/min (>60); Glucose 235 mg/dL (74-106); Osmolality,Calculated 315 (275-295); Potassium 3.6 mMol/L (3.4-5.1); Sodium 152 mMol/L (136-145); eGFR > 60 See Note
[2025-07-16 19:52] LABS: Enterovirus Source CSF; HSV-1 DNA, CSF NOT DETECTED copies/mL; HSV-1 DNA, CSF Source CEREBROSPINAL FLUID
--- NOTE | 2025-07-16 23:56 | PD.NEUROPROG ---
Documentation for date of: 07/16/25 Subjective Subjective Interval history: Patient was seen in ICU today, continues to be intubated on neck and medical support. Only on Precedex. Not much response other than spontaneous eye opening. Exam - Neurology Vital Signs Temp Pulse Resp BP Pulse Ox O2 Del Method O2 Flow Rate 98.2 F 60 24 H 149/84 H 99 Mechanical Ventilation 35 07/16/25 20:00 07/16/25 23:00 07/16/25 23:00 07/16/25 23:00 07/16/25 23:00 07/16/25 23:00 07/14/25 08:00 FiO2 45 07/16/25 22:25 Narrative Exam GENERAL APPEARANCE: Well hydrated, well-nourished intubated and on mechanical ventilatory support. HEENT: Normocephalic, atraumatic. Pupils: Equal reacting to light NECK: Supple, no JVD or bruits. CARDIOVASULAR: Heart: S1, S2 heard, regular without S3-S4 or murmur no rubs or gallops. LUNGS/CHEST: Occasional Rales and rhonchi heard in the bases ABDOMEN: Soft, nontender, with normal bowel sounds. No pulsatile masses. No rebound, rigidity, or guarding. Normal inspection and palpation. EXTREMITIES: Normal inspection and palpation. No edema, clubbing or cyanosis. SKIN: Warm and dry without rashes. Normal inspection. NEURO: Spontaneous eye opening noted, no response to pain or verbal commands in the extremities PSYCHIATRIC: Limited Objective Labs 07/17/25 04:30 07/17/25 04:30 Labs: Laboratory Results - last 24 hr 07/16/25 07/16/25 04:56 19:28 WBC 6.8 D RBC 4.01 Hgb 11.0 L Hct 34.3 L MCV 86 MCH 27.4 MCHC 32.1 RDW Std Deviation 44.6 Plt Count 202 Neut % (Auto) 67 Lymph % (Auto) 23 Cottle % (Auto) 8 Eos % (Auto) 0 Baso % (Auto) 0 Neut # (Auto) 4.6 Lymph # (Auto) 1.6 Cottle # (Auto) 0.5 Eos # (Auto) 0.0 Baso # (Auto) 0.0 Immature Gran # (Auto) 0.15 H Absolute Nucleated RBC 0.04 H Immature Gran % 2 H Nucleated RBC % 1 H Sodium 150 H 152 H Potassium 4.1 3.6 D Chloride 111 H 112 H Carbon Dioxide 25.9 30.1 Anion Gap 13 10 BUN 32 H 28 H Creatinine 0.6 0.5 L Estim Creat Clear Calc 121.5 145.7 eGFR > 60 > 60 BUN/Creatinine Ratio 53 H 56 H Glucose 372 H D 235 H D Calculated Osmolality 319 H 315 H Calcium 8.9 8.8 Corrected Calcium 9.3 Phosphorus 3.8 Magnesium 2.2 Total Bilirubin 0.3 AST 37 H ALT 22 Alkaline Phosphatase 67 Total Protein 5.8 Albumin 3.5 Globulin 2.3 Albumin/Globulin Ratio 1.5 ABG Interpretation ABG results: 07/12/25 07/12/25 07/13/25 08:31 17:13 04:48 ABG pH 7.13 L* 7.26 L D 7.28 L ABG pCO2 46 45 46 ABG pO2 122 H 100 D 129 H D ABG HCO3 15 L 20 22 ABG O2 Saturation 98 98 99 H ABG Base Excess -14 L -7 L -5 L 07/14/25 07/14/25 01:03 04:17 ABG pH 7.33 L 7.36 ABG pCO2 46 44 ABG pO2 127 H 98 D ABG HCO3 24 25 ABG O2 Saturation 100 H 99 H ABG Base Excess -2 -1 Assessment & Plan Additional Assessment & Plan Additional Plan: Patient is a 45-year-old female with past medical history of CVA 2018, AML, type 2 diabetes, seizures, migraine, HLD, HTN presented to ED on 07/12/25 due to breakthrough seizures/AMS. Neurology consulted for management and LP to rule out meningitis. #Strep pneumonia meningitis #Multifocal seizure #Hx seizures Likely due to status epilepticus break through seizures. 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 Since that time, patient will only take the Keppra when going to music concerts. Stroke alert called in ED. Tele neuro was consulted, NIHSS score 0. CT head/CTA negative. She received 4mg of versed without cessation. Subsequently intubated and sedated with prop/fent. Given 1500mg loading dose of Keppra in ED. Urine, sputum, and blood cultures negative. CSF analysis appearance was cloudy, WBCs 10,720, RBC 1000, glucose 97, protein greater than 250, strep pneumo antigen positive. Opening pressure 37. CSF culture stain showing 3+ WBCs. Repeat CT head and MRI brain showed areas of acute infarct in left frontal and parietal lobe. EEG read was abnormal showing multifocal epileptiform discharges consistent with seizures. But no electrographic status noted -continue IV depakote 1000mg BID -euthermia, euglycemia -serial neuro checks as sedation lightened -EEG repeat if mentation not improving - Continue with aspirin 81 mg alone as the left hemispherical infarct is massive to prevent hemorrhagic conversion and DVT prophylaxis - Continue with IV antibiotics. CSF culture resulted negative. #AML #Previous CVA by history but not from MRI in 2018 #T2DM #HLD #HTN Primary care team to manage above conditions and ongoing care needs.
[2025-07-17] VITALS (32 sets, daily range): BP systolic 125–197; BP diastolic 61–105; PULSE 57–89; RESP 0–34; TEMP 36.1–37.3; O2SAT 91–100; BMI 34.6
[2025-07-17] MEDS: INSULIN LISPRO (AdmeLOG) 1 UNIT/0.01 ML UNIT SC ×3 (00:03→11:55)
[2025-07-17] MEDS: DEXMEDETOMIDINE 400 MCG IVPB 400 MCG/100 ML BAG 8.47 MCG IV (00:30)
[2025-07-17 00:55] LABS: Anion Gap 9 (7-16); BUN/Creatinine Ratio 56 Ratio (12-20); Blood Urea Nitrogen 28 mg/dL (9-23); Calcium 8.2 mg/dL (8.3-10.6); Carbon Dioxide 30.0 mMol/L (20.0-31.0); Chloride 111 mMol/L (98-107); Creatinine (Component) 0.5 mg/dL (0.6-1.3); Estimated Creatinine Clearance 145.7 mL/min (>60); Glucose 282 mg/dL (74-106); Osmolality,Calculated 313 (275-295); Potassium 4.0 mMol/L (3.4-5.1); Sodium 150 mMol/L (136-145); eGFR > 60 See Note
[2025-07-17 04:59] LABS: Basophils # (Auto) 0.0 Thou/mm3 (0.0-0.2); Basophils % (Auto) 0 % (0-2.5); Eosinophils # (Auto) 0.0 Thou/mm3 (0.0-0.5); Eosinophils % (Auto) 0 % (0-10); Hematocrit 33.7 % (36.0-46.0); Hemoglobin 10.6 g/dL (12.0-16.0); Immature Granulocytes Auto 0.17 Thou/mm3 (0.00-0.00); Lymphocytes # (Auto) 2.5 Thou/mm3 (1.0-4.8); Lymphocytes % (Auto) 28 % (10-50); Mean Corpuscular HGB Conc 31.5 g/dl (31.0-37.0); Mean Corpuscular Hemoglobin 27.0 pg (25.0-35.0); Mean Corpuscular Volume 86 fL (80-100); Monocytes # (Auto) 0.7 Thou/mm3 (0.0-0.8); Monocytes % (Auto) 8 % (0-12); Neutrophils # (Auto) 5.5 Thou/mm3 (1.8-7.7); Neutrophils % (Auto) 62 % (37-80); Nucleated Red Blood Cell # 0.02 Thou/mm3 (0.00-0.00); Nucleated Red Blood Cell % 0 /100 WBC (0); Platelet Count 184 Thou/mm3 (140-440); RDW Standard Deviation 44.1 fL (36.4-46.3); Red Blood Count 3.92 Miln/mm3 (4.00-5.20); White Blood Count 8.9 Thou/mm3 (3.6-11.0)
[2025-07-17 05:51] LABS: Alanine Aminotransferase 20 U/L (10-49); Albumin, Serum 3.3 gm/dL (3.5-5.0); Albumin/Globulin Ratio 1.6 (1.2-2.2); Alkaline Phosphatase 52 U/L (46-116); Anion Gap 10 (7-16); Aspartate Amino Transferase 37 U/L (0-34); BUN/Creatinine Ratio 54 Ratio (12-20); Bilirubin,Total 0.3 mg/dL (0.3-1.2); Blood Urea Nitrogen 27 mg/dL (9-23); Calcium 8.4 mg/dL (8.3-10.6); Calcium (Corrected) 9.0 mg/dL (8.5-10.1); Carbon Dioxide 29.7 mMol/L (20.0-31.0); Chloride 110 mMol/L (98-107); Creatinine (Component) 0.5 mg/dL (0.6-1.3); Estimated Creatinine Clearance 145.7 mL/min (>60); Globulin 2.1 gm/dL (2.3-3.5); Glucose 285 mg/dL (74-106); Magnesium 2.3 mg/dL (1.6-2.6); Osmolality,Calculated 313 (275-295); Phosphorous 4.0 mg/dL (2.4-5.1); Potassium 4.2 mMol/L (3.4-5.1); Sodium 150 mMol/L (136-145); Total Protein 5.4 gm/dL (5.7-8.2); eGFR > 60 See Note
[2025-07-17] MEDS: ENOXAPARIN SOD INJ 40 MG/0.4 ML SYRINGE SC (08:25)
[2025-07-17] MEDS: ASPIRIN 81 MG CHEW NG (08:25)
[2025-07-17] MEDS: NICOTINE PATCH 21 MG/24 HR PATCH.TD24 TOP (08:26)
[2025-07-17] MEDS: VALPROATE SOD INJ 1,000 MG in SODIUM CHLORIDE 0.9% 50 ML 60 MG IV ×2 (08:27→20:14)
[2025-07-17] MEDS: cefTRIAXone 2 GM in SODIUM CHLORIDE 0.9% (Popper) 50 ML IV (08:27)
[2025-07-17] MEDS: INSULIN DEGLUDEC 5 UNIT/0.05 ML (PER 5 UNITS) 40 UNIT SC (08:30)
--- NOTE | 2025-07-17 09:41 | ESPR_ITS ---
Documentation for date of: 07/17/25 Subjective Subjective Interval history: Patient seen and assessed at bedside. Awake and tracking with eyes however continues to be intubated. Blood pressure 150/88, systolics 150s to 160s. Heart rate improved, now in 60s-70s since on Precedex. Sinus rhythm with shortened NC interval and peaked T waves on telemetry. WBC within normal limits, septic shock appears to have resolved. Potassium 4.2, magnesium 2.3. Exam Vital Signs Temp Pulse Resp BP Pulse Ox O2 Del Method O2 Flow Rate 98.2 F 65 24 H 156/93 H 98 Mechanical Ventilation 35 07/17/25 08:00 07/17/25 09:00 07/17/25 09:00 07/17/25 09:00 07/17/25 09:00 07/17/25 08:00 07/14/25 08:00 FiO2 45 07/17/25 08:00 Narrative Exam General: Intubated and mildly sedated, off pressors. Obese female. Tracking with eyes and responsive to verbal cues but drowsy. HEENT: Normocephalic, atraumatic, mucous membranes moist. Heart: Regular rate and rhythm, normal S1 and S2, no murmurs appreciated. Lungs: Clear to auscultation with no wheezing or crackles. Abdomen: Soft, nondistended, nontender, positive bowel sounds. No guarding or rebound tenderness. Neurologic: Unable to assess. Extremities: No edema. Skin: No rash or ecchymoses. Objective Labs 07/18/25 04:52 07/18/25 01:14 Labs: Laboratory Results - last 24 hr 07/16/25 07/17/25 07/17/25 19:28 00:19 04:30 WBC 8.9 RBC 3.92 L Hgb 10.6 L Hct 33.7 L MCV 86 MCH 27.0 MCHC 31.5 RDW Std Deviation 44.1 Plt Count 184 Neut % (Auto) 62 Lymph % (Auto) 28 Emery % (Auto) 8 Eos % (Auto) 0 Baso % (Auto) 0 Neut # (Auto) 5.5 Lymph # (Auto) 2.5 Emery # (Auto) 0.7 Eos # (Auto) 0.0 Baso # (Auto) 0.0 Immature Gran # (Auto) 0.17 H Absolute Nucleated RBC 0.02 H Immature Gran % 2 H Nucleated RBC % 0 Sodium 152 H 150 H 150 H Potassium 3.6 D 4.0 4.2 Chloride 112 H 111 H 110 H Carbon Dioxide 30.1 30.0 29.7 Anion Gap 10 9 10 BUN 28 H 28 H 27 H Creatinine 0.5 L 0.5 L 0.5 L Estim Creat Clear Calc 145.7 145.7 145.7 eGFR > 60 > 60 > 60 BUN/Creatinine Ratio 56 H 56 H 54 H Glucose 235 H D 282 H 285 H Calculated Osmolality 315 H 313 H 313 H Calcium 8.8 8.2 L 8.4 Corrected Calcium 9.0 Phosphorus 4.0 Magnesium 2.3 Total Bilirubin 0.3 AST 37 H ALT 20 Alkaline Phosphatase 52 D Total Protein 5.4 L Albumin 3.3 L Globulin 2.1 L Albumin/Globulin Ratio 1.6 ABG Interpretation ABG results: 07/12/25 07/12/25 07/13/25 08:31 17:13 04:48 ABG pH 7.13 L* 7.26 L D 7.28 L ABG pCO2 46 45 46 ABG pO2 122 H 100 D 129 H D ABG HCO3 15 L 20 22 ABG O2 Saturation 98 98 99 H ABG Base Excess -14 L -7 L -5 L 07/14/25 07/14/25 01:03 04:17 ABG pH 7.33 L 7.36 ABG pCO2 46 44 ABG pO2 127 H 98 D ABG HCO3 24 25 ABG O2 Saturation 100 H 99 H ABG Base Excess -2 -1 Quality Measures Quality Measures VTE prophylaxis Assessment & Plan Assessment Current Active Medications: Generic Name Dose Route Start Last Admin Trade Name Kodakq PRN Reason Stop Dose Admin Acetaminophen 650 mg 07/16/25 01:05 07/16/25 13:43 Acetaminophen 325 Mg Tablet PO 08/15/25 01:04 650 mg Q6HR PRN Administration Fever >100.4 Aspirin 81 mg 07/17/25 09:00 07/17/25 08:25 Aspirin 81 Mg Chew NG 08/16/25 08:59 81 mg QDAY ASHLEY Administration Dextrose 25 ml 07/12/25 10:05 Dextrose 50%-Water Inj 50 Ml Syringe IV 08/11/25 10:04 Q15MIN PRN BG 50-70 responsive npo pt Dextrose 50 ml 07/12/25 10:05 Dextrose 50%-Water Inj 50 Ml Syringe IV 08/11/25 10:04 Q15MIN PRN BG <50 OR BG <70 & pt unresponsive Enoxaparin Sodium 40 mg 07/12/25 09:45 07/17/25 08:25 Enoxaparin Sod Inj 40 Mg/0.4 Ml Syringe SC 07/26/25 09:44 40 mg QDAY ASHLEY Administration Glucagon 1 mg 07/12/25 10:05 Glucagon Inj 1 Mg Vial IM Q15MIN PRN BG <70, and no IV access Ceftriaxone Sodium 2 gm/ 50 mls @ 100 mls/hr 07/13/25 09:00 07/17/25 08:27 Sodium Chloride IV 07/20/25 08:59 100 mls/hr QDAY ASHLEY Administration Valproic Acid 1,000 mg/ Sodium 60 mls @ 60 mls/hr 07/12/25 19:00 07/17/25 08:27 Chloride IV 08/11/25 18:59 60 mls/hr BID ASHLEY Administration Protocol Dexmedetomidine/Sodium Chloride 400 mcg in 100 mls @ 4.235 mls/hr 07/15/25 12:44 07/17/25 06:00 Precedex Ivpb IV 08/14/25 12:43 0.4 mcg/kg/hr .[id number] PRN 8.47 mls/hr Per PROTOCOL Titration Protocol 0.2 MCG/KG/HR Insulin Degludec 40 unit 07/17/25 09:00 07/17/25 08:30 Insulin Degludec 5 Unit/0.05 Ml (Per 5 Units) SC 08/16/25 08:59 40 unit QDAY ASHLEY Administration Insulin Human Lispro 0 unit 07/15/25 08:12 07/17/25 05:54 Insulin Lispro (Admelog) 1 Unit/0.01 Ml Unit SC 08/11/25 11:59 5 unit Q6HR ASHLEY Administration Protocol Ipratropium [place] 0.5 mg 07/14/25 11:29 Ipratropium Rt 0.5 Mg/ 2.5 Ml Nebu INH 08/13/25 11:28 Q2HR PRN WHEEZING Levalbuterol HCl 1.25 mg 07/14/25 11:29 Levalbuterol Rt 1.25 Mg/0.5 Ml Nebu INH 08/13/25 11:28 Q2H PRN WHEEZING Lisinopril 20 mg 07/17/25 09:00 07/17/25 08:25 Lisinopril 20 Mg Tablet NG 08/16/25 08:59 20 mg QDAY ASHLEY Administration Nicotine 21 mg 07/12/25 13:15 07/17/25 08:26 Nicotine Patch 21 Mg/24 Hr Patch.Td24 TOP 08/11/25 13:14 21 mg QDAY ASHLEY Administration Pantoprazole Sodium 40 mg 07/12/25 09:45 07/17/25 08:25 Pantoprazole Inj 40 Mg Vial IVP 08/11/25 09:44 40 mg QDAY ASHLEY Administration Polyethylene Glycol 17 gm 07/15/25 09:00 07/17/25 08:46 Polyethylene Glycol 17 Gm Packet PO 08/14/25 08:59 Not Given QDAY ASHLEY Sodium Chloride 3 ml 07/14/25 11:29 Sodium Chloride Rt Radha 0.9% 3 Ml Nebu INH 08/13/25 11:28 PRN PRN SOLN Plan Patient is a 45 year old female with PMH of CVA 2018, AML, type 2 diabetes, seizures, migraine, HLD, HTN who presents with altered mental status s/p intubation, admitted to ICU for work up and management of seizures. Cardiology consulted for elevated troponins likely secondary to lactic acidosis. #NSTEMI II secondary to severe sepsis and metabolic abnormalities from status epilepticus #Elevated troponins secondary to septic shock #Tachycardia secondary to septic shock #HFrEF (EF 40-45%) (07/12/25) Patient initial troponins were elevated at 5.05. Unable to obtain cardiac history and cannot determine any chest pain or chest pressure. Mostly NSTEMI type II secondary to the severe sepsis or septic shock on pressors along with status epilepticus and metabolic abnormalities. BP 118/43 but tachycardic at HR 145, RR 27 and fever of 101.4. WBC count was severely elevated at 32,000 on admission. Troponin 5.052 -> 8.049 -> 6.167. TSH <0.01. A1c 9.2. Lipid panel: Triglycerides 238, cholesterol 81, LDL 23, HDL <10 Initial EKG was read as SVT versus sinus tachycardia and nonspecific T wave changes. Reviewed the EKG and patient does have distinct P waves indicating mostly sinus tachycardia for this patient. Sinus tachycardia also likely secondary to severe sepsis, also currently being weaned from sedation. Echo 10/14/25 showed normal LV size and mildly decreased LV function with an estimated EF of 40 to 45%. Patient tachycardic. Diastolic dysfunction could not be evaluated. Normal RV size and function is mildly decreased. RVSP 24 mmHg with RAP 3. Mild mitral and tricuspid regurgitation noted. No pericardial effusion. - Decreased EF with mild global hypokinesis mostly secondary to septic shock and tachycardia- expect improvement and will repeat echo prior to discharge. - Not started on heparin per primary team as patient was having LP procedure and did not believe anticoagulation was indicated - Keep K >4 and Mg >2 #Acute metabolic encephalopathy secondary to seizures versus CVA #Hx of seizures, on Keppra #History of CVA CT 07/14 showed questionable infarct in the left parietal lobe and MRI of the brain performed today showed foci of restricted diffusion in the left frontal side, left parietal lobe concerning for demyelinating disease versus acute infarct. EEG 07/14 was abnormal showing intermittent slowing and burst suppression with paroxysmal multifocal spike and wave discharges are consistent with seizure disorder Brain MRI 07/15 shows foci of restricted diffusion in the left frontal lobe left parietal lobe without prominent signal deficit, possible demyelinating disease versus acute infarct - Intubated and sedated, off pressors - IV valproate - Neurology consulted - Defer to primary team for management #Bilateral aspiration PNA CXR finding, likely occurred after seizure. - Defer to primary team for management #History of hypertension Takes lisinopril 20 mg daily. ?Hold home BP med as patient is normotensive #High anion gap metabolic acidosis #Lactic acidosis #Leukocytosis #History AML #Type 2 diabetes #? Meningitis #Complex migraines Thank you for your consultation, please do not hesitate to reach out if you have any question or concern Patient plan of care was discussed with the attending physician, Dr. Early. Barbara Gabriel, PGY-1 Attending Provider Attestation/Addendum I have personally seen and examined the patient separately on the above date of service and discussed the plan of care with the resident. I reviewed the resident Dr. Barbara Gabriel consultation progress note and agree with the resident findings and plan in the note above and have also edited the documentation to reflect my findings and plan. Dilip Early M.D. Interventional Cardiology
--- NOTE | 2025-07-17 10:10 | PC.SS ---
SS update: Patient remains intubated.
[2025-07-17 10:13] LABS: Albumin, Serum 3.2 gm/dL (3.5-5.0); Anion Gap 10 (7-16); BUN/Creatinine Ratio 48 Ratio (12-20); Blood Urea Nitrogen 24 mg/dL (9-23); Calcium 8.3 mg/dL (8.3-10.6); Calcium (Corrected) 8.9 mg/dL (8.5-10.1); Carbon Dioxide 29.3 mMol/L (20.0-31.0); Chloride 109 mMol/L (98-107); Creatinine (Component) 0.5 mg/dL (0.6-1.3); Estimated Creatinine Clearance 146.0 mL/min (>60); Glucose 272 mg/dL (74-106); Osmolality,Calculated 308 (275-295); Phosphorous 3.8 mg/dL (2.4-5.1); Potassium 3.8 mMol/L (3.4-5.1); Sodium 148 mMol/L (136-145); eGFR > 60 See Note
[2025-07-17] MEDS: RINGERS LACTATED 500 ML 500 ML 999 ML IV (11:45)
--- NOTE | 2025-07-17 11:47 | PD.RESPRO ---
Documentation for date of: 07/17/25 Subjective Subjective Interval history: Patient is a 45-year-old female with past medical history of CVA 2018, AML (last chemo 10 years ago, in remission for ~1 year), type 2 diabetes, seizures, migraine, HLD, HTN presented with altered mental status to the ED. Patient initially had a stroke alert called with a fingerstick blood glucose of 306, patient had a witnessed seizure and was given a loading dose of Keppra and was consulted and seen by teleneuro. Patient ended up being intubated for airway protection. Due to being unable to get history from patient, met with family and informed us she has a history of seizures due to a horse riding accident years ago. They state that patient was noted to have a severe migraine yesterday afternoon. Patient last ate yesteday evening and last well known was around 7pm. They stated patient usually wakes up around 2 to 4 AM in the morning, has a history of insomnia. Around 630 they checked on her because she was not awake yet, entered her room and found her with a cut on her head, on the floor, rolling around seizing. Patient's last seizures were around 6 to 12 months ago. States she only takes her seizure medications occasionally mainly whenever she is around flashing lights. States that she did not take her seizure medicine as scheduled due to it being back cancer per her oncologist. Family states her baseline is ANO x 3. States they did not see any foaming but did say she had made some urine during this episode. Primary point of contact is the daughter, Madhu. ED Course: Vitals on admission showed temperature of 101.4 rectally, 145 heart rate, 27 respiratory rate, 96% oxygen saturation on 6 L nasal cannula, blood pressure 118/43. Labs Significant for WBC of 32.4, neutrophil percentage 88%, ABG showing pH of 7.13, pCO2 46, pO2 122, bicarb 15; potassium 3.1, bicarb 18.4, anion gap 21, glucose 375, urine uric acid 8.3, LDH 277, troponin 5.052; urinalysis significant for 1+ protein, 4+ glucose, 1+ ketones, 1+ blood; CT Imaging negative for stroke, Chest x-rays showed Extensive bilateral aspiration pneumonia. In ED patient was given multiple Versed's x1 for agitation, was sedated, paralyzed and intubated, given keppra loading dose, 4 total L of IV fluids. Patient admitted to ICU for workup and management of seizures. Interval Subjective History: 07/13/2025: Overnight patient had a lumbar puncture done, consent was obtained from daughter yesterday. Results from LP showed cloudy CSF, 10k WBC, 1K RBC, glucose 97, total protein > 250; pending CSF cultures. CSF gram stain came back positive for strep pneumo. Patient was off of levophed overnight with heart rate at 110s (down from yesterdays 140+) with a MAP around 70. Cardiology was consulted regarding patient's initial troponin level increase and most recent decrease to 6, will not plan to do heparin drip. This morning patient was afebrile, heart rate of 104, MAP of 68, saturating well on 55% FiO2 on mechanical ventilation A/CMV & PRVC. Patient was initially sedated and overnight continued to be on fentanyl, midazolam and propofol. In the morning, she was taken off fentanyl, titrated down on propofol (and taken off shortly after) , patient remains on Versed sedation. 07/14/2025: Overnight patient was titrated off of sedation. Did not appear to have any seizures. Patient when assessed and examined today had a RASS of -4, patient would awake to sternal rub, not voice. Patient urine output overnight was 125 cc/hr. Patient's vitals this morning were heart rate fo 121, blood pressure of 127/88, saturating well on mechanical ventilation of FiO2 of 35. Patient planned to get a head CT done today to try and rule out complications of meningitis, will plan to start tube feeds after patient gets back from CT scan. Continuing patient on antibiotic and steroid for meningitis. EEG results showed paroxysmal multifocal spike and wave discharges consistent with seizure disorder. Patient was given breathing treatment x1 for some wheezes in the morning; is now getting scheduled levalbuteral/ipratropium treatments q2hr. 07/17/2025: Overnight patient noted to be hyponatremic, sodium checks and free water flushes initiated by night team. Patient shows improved mentation, able to follow commands. Patient placed on pressure support, well-tolerated. Patient was extubated successfully, monitoring closely. CSF culture negative, repeat blood cultures negative x 48 hours. MRI showed new multifocal infarcts consistent with strep pneumo meningitis etiology. Continuing Rocephin treatment. Closely monitoring blood sugar, expect improvement now that steroid treatment has been completed. Exam Vital Signs Temp Pulse Resp BP Pulse Ox O2 Del Method O2 Flow Rate 98.2 F 82 28 H 167/91 H 99 Mechanical Ventilation 40 07/17/25 08:00 07/17/25 11:43 07/17/25 11:43 07/17/25 10:26 07/17/25 11:43 07/17/25 08:00 07/17/25 11:43 FiO2 40 07/17/25 11:43 Narrative Exam PE: Gen: Well-developed and well-nourished. Extubated. HEENT: NCAT, PERRLA, EOMI, MMM, anicteric conjunctivae. CVS: normal S1 and S2. RRR. No M/R/G. Resp: CTA B/L. No rhonchi, rales, crackles or wheezing. Abd: soft, non-tender, non-distended. BS+ in all 4 quadrants. MSK: Good ROM in BUE & BLE. No edema or rash. Neuro: CN II-XII grossly intact. Opens eyes spontaneously. Able to follow commands with left upper extremity intermittently, significant weakness. Objective Labs 07/17/25 04:30 07/17/25 09:13 Labs: Laboratory Results - last 24 hr 07/16/25 07/17/25 07/17/25 19:28 00:19 04:30 WBC 8.9 RBC 3.92 L Hgb 10.6 L Hct 33.7 L MCV 86 MCH 27.0 MCHC 31.5 RDW Std Deviation 44.1 Plt Count 184 Neut % (Auto) 62 Lymph % (Auto) 28 [place] % (Auto) 8 Eos % (Auto) 0 Baso % (Auto) 0 Neut # (Auto) 5.5 Lymph # (Auto) 2.5 [place] # (Auto) 0.7 Eos # (Auto) 0.0 Baso # (Auto) 0.0 Immature Gran # (Auto) 0.17 H Absolute Nucleated RBC 0.02 H Immature Gran % 2 H Nucleated RBC % 0 Sodium 152 H 150 H 150 H Potassium 3.6 D 4.0 4.2 Chloride 112 H 111 H 110 H Carbon Dioxide 30.1 30.0 29.7 Anion Gap 10 9 10 BUN 28 H 28 H 27 H Creatinine 0.5 L 0.5 L 0.5 L Estim Creat Clear Calc 145.7 145.7 145.7 eGFR > 60 > 60 > 60 BUN/Creatinine Ratio 56 H 56 H 54 H Glucose 235 H D 282 H 285 H Calculated Osmolality 315 H 313 H 313 H Calcium 8.8 8.2 L 8.4 Corrected Calcium 9.0 Phosphorus 4.0 Magnesium 2.3 Total Bilirubin 0.3 AST 37 H ALT 20 Alkaline Phosphatase 52 D Total Protein 5.4 L Albumin 3.3 L Globulin 2.1 L Albumin/Globulin Ratio 1.6 07/17/25 09:13 WBC RBC Hgb Hct MCV MCH MCHC RDW Std Deviation Plt Count Neut % (Auto) Lymph % (Auto) [place] % (Auto) Eos % (Auto) Baso % (Auto) Neut # (Auto) Lymph # (Auto) [place] # (Auto) Eos # (Auto) Baso # (Auto) Immature Gran # (Auto) Absolute Nucleated RBC Immature Gran % Nucleated RBC % Sodium 148 H Potassium 3.8 Chloride 109 H Carbon Dioxide 29.3 Anion Gap 10 BUN 24 H Creatinine 0.5 L Estim Creat Clear Calc 146.0 eGFR > 60 BUN/Creatinine Ratio 48 H Glucose 272 H Calculated Osmolality 308 H Calcium 8.3 Corrected Calcium 8.9 Phosphorus 3.8 Magnesium Total Bilirubin AST ALT Alkaline Phosphatase Total Protein Albumin 3.2 L Globulin Albumin/Globulin Ratio ABG Interpretation ABG results: 07/12/25 07/12/25 07/13/25 08:31 17:13 04:48 ABG pH 7.13 L* 7.26 L D 7.28 L ABG pCO2 46 45 46 ABG pO2 122 H 100 D 129 H D ABG HCO3 15 L 20 22 ABG O2 Saturation 98 98 99 H ABG Base Excess -14 L -7 L -5 L 07/14/25 07/14/25 01:03 04:17 ABG pH 7.33 L 7.36 ABG pCO2 46 44 ABG pO2 127 H 98 D ABG HCO3 24 25 ABG O2 Saturation 100 H 99 H ABG Base Excess -2 -1 Quality Measures Quality Measures VTE prophylaxis Assessment & Plan Assessment Current Active Medications: Generic Name Dose Route Start Last Admin Trade Name Freq PRN Reason Stop Dose Admin Acetaminophen 650 mg 07/16/25 01:05 07/16/25 13:43 Acetaminophen 325 Mg Tablet PO 08/15/25 01:04 650 mg Q6HR PRN Administration Fever >100.4 Aspirin 81 mg 07/17/25 09:00 07/17/25 08:25 Aspirin 81 Mg Chew NG 08/16/25 08:59 81 mg QDAY ASHLEY Administration Dextrose 25 ml 07/12/25 10:05 Dextrose 50%-Water Inj 50 Ml Syringe IV 08/11/25 10:04 Q15MIN PRN BG 50-70 responsive npo pt Dextrose 50 ml 07/12/25 10:05 Dextrose 50%-Water Inj 50 Ml Syringe IV 08/11/25 10:04 Q15MIN PRN BG <50 OR BG <70 & pt unresponsive Enoxaparin Sodium 40 mg 07/12/25 09:45 07/17/25 08:25 Enoxaparin Sod Inj 40 Mg/0.4 Ml Syringe SC 07/26/25 09:44 40 mg QDAY ASHLEY Administration Glucagon 1 mg 07/12/25 10:05 Glucagon Inj 1 Mg Vial IM Q15MIN PRN BG <70, and no IV access Ceftriaxone Sodium 2 gm/ 50 mls @ 100 mls/hr 07/13/25 09:00 07/17/25 08:27 Sodium Chloride IV 07/20/25 08:59 100 mls/hr QDAY ASHLEY Administration Valproic Acid 1,000 mg/ Sodium 60 mls @ 60 mls/hr 07/12/25 19:00 07/17/25 08:27 Chloride IV 08/11/25 18:59 60 mls/hr BID ASHLEY Administration Protocol Dexmedetomidine/Sodium Chloride 400 mcg in 100 mls @ 4.235 mls/hr 07/15/25 12:44 07/17/25 06:00 Precedex Ivpb IV 08/14/25 12:43 0.4 mcg/kg/hr .[id number] PRN 8.47 mls/hr Per PROTOCOL Titration Protocol 0.2 MCG/KG/HR Lactated Ringer's 500 mls @ 999 mls/hr 07/17/25 11:38 07/17/25 11:45 Lactated Ringers IV 07/17/25 12:08 999 mls/hr .Q31M ONE Administration Insulin Degludec 40 unit 07/17/25 09:00 07/17/25 08:30 Insulin Degludec 5 Unit/0.05 Ml (Per 5 Units) SC 08/16/25 08:59 40 unit QDAY ASHLEY Administration Insulin Human Lispro 0 unit 07/15/25 08:12 07/17/25 05:54 Insulin Lispro (Admelog) 1 Unit/0.01 Ml Unit SC 08/11/25 11:59 5 unit Q6HR ASHLEY Administration Protocol Ipratropium [place] 0.5 mg 07/14/25 11:29 Ipratropium Rt 0.5 Mg/ 2.5 Ml Nebu INH 08/13/25 11:28 Q2HR PRN WHEEZING Levalbuterol HCl 1.25 mg 07/14/25 11:29 Levalbuterol Rt 1.25 Mg/0.5 Ml Nebu INH 08/13/25 11:28 Q2H PRN WHEEZING Lisinopril 20 mg 07/17/25 09:00 07/17/25 08:25 Lisinopril 20 Mg Tablet NG 08/16/25 08:59 20 mg QDAY ASHLEY Administration Nicotine 21 mg 07/12/25 13:15 07/17/25 08:26 Nicotine Patch 21 Mg/24 Hr Patch.Td24 TOP 08/11/25 13:14 21 mg QDAY ASHLEY Administration Pantoprazole Sodium 40 mg 07/12/25 09:45 07/17/25 08:25 Pantoprazole Inj 40 Mg Vial IVP 08/11/25 09:44 40 mg QDAY ASHLEY Administration Polyethylene Glycol 17 gm 07/15/25 09:00 07/17/25 08:46 Polyethylene Glycol 17 Gm Packet PO 08/14/25 08:59 Not Given QDAY ASHLEY Sodium Chloride 3 ml 07/14/25 11:29 Sodium Chloride Rt Radha 0.9% 3 Ml Nebu INH 08/13/25 11:28 PRN PRN SOLN Plan Patient is a 45-year-old female with past medical history of CVA 2018, AML, type 2 diabetes, seizures, migraine, HLD, HTN presented with altered mental status to the ED; required intubation for airway protection after having another seizure in the ED. Patient admitted to ICU for workup and management of seizures. Neurology #Streptococcal meningitis Dx: -LP showed cloudy CSF, 10k WBC, 1K RBC, glucose 97, total protein > 250; CSF NGTD. -CSF antigen positive for strep pneumo; other antigens pending/negative -CSF gram stain +3 WBCs, no ogranism seen -CSF Culture prelim NG24 hours, reincubating -MRSA 07/12 negative -Blood culture prelim 2/2 strep pneumo -07/14: CT Head ordered to rule out neurological complications from meningitis/seizures, showed suspiscious for acute infaracts? Will follow up Neuro recommendations, Rx: -Continuing Ceftriaxone, strep is sensitive to CFTX -Complete decadron 07/17 -MRI showed multifocal infarcts consistent with meningitis #Status Epilepticus (resolved) DDx: infection vs cardiac vs lack of sleep, vs dehydration vs electrolyte derangements vs less likely hypoglycemia Dx: -Family states occasionally takes seizure meds at home. Most recent seizures 6-12 months ago. Patient last well known ~7pm 07/11. Patient's baseline is Patient found seizing in bedroom 07/12 AM by family. Brought to ED, noted to have started seizing again in the ED after getting CT for initial stroke rule out. Glucose was 300s. With patient's reported complaint of severe migraine since yesterday evening, meningitis on differential. -Patient given keppra 1500 mg loading dose on admission -Possible repeat EEG if patient's mentation does not improve, though slow to reemerge from sedation Rx: -Continue Depakote 1000 mg IV BID -Seizure precautions -EEG taken, consistent with seizure activity -Treating underlying infection -Neurology consulted, appreciate recs #Hx of CVA #Acute multi-focal infarcts 2/2 Strep Pneumo meningitis Patient's family reported CVA ~5 years ago with symptoms fully resolving. Dx: - No stroke on CT imaging initially, repeat with questionable high left parietal lobe - MRI confirmed multifocal cerebral infarction consistent with meningitis - Tele neuro consulted, stroke r/o on admission - Home BP meds (will f/u med rec), ,aspirin 81, per family. Cardiovascular #Severe Sepsis DDx: severe sepsis due to meningitis vs oral etiology of patient's family reporting having swollen L jaw area on 07/10 vs aspiration pneumonia (i/s/o seizures). Family denied sick contacts, Dx: -Severe migraine reported night before. Arrived to ED with fever 101.4, WBC 32.4. -CSF showed S. Pneumo antigens, blood cultures showed S. Pneumo bacteremia Rx: -Given total 3 L NS IV, 2.5 L IV LR -Correct underlying acidosis with fluids -Treat underlying infection with abx -Off pressors, afebrile #HTN, patient hx Patient has history of HTN, controlled with lisinopril Initially had low BP in setting of severe sepsis Dx: - BP consistently elevated, SBP >150 for 24 hours Rx: - Resume home lisinopril - consider additional medications if needed #Elevated Troponins 2/2 demand ischemia (shock) vs less likely type I MO, resolved DDx: Other contributors including dehyrdation vs sleep deprivation Dx: -Trops 5.052 -> 8 -> 6 -EKG nonspecific ST & T wave abnormalities -07/12 ECHO: Normal LV size and mildly decreased LV function with an estimated EF of 40 to 45%. Patient tachycardic. Normal RV size and function is mildly decreased. RVSP 24 mmHg with RAP 3. Rx: -Cardiology consulted to evaluate for acute ischemia, likely demand -Repeat Echo prior to discharge #SVT 2/2 seizures vs acute illness - Resolved Respiratory #Intubated with mechanical ventilation 2/2 airway protection (i/s/o seizures) (resolved) Rx: -Gave Albuterol 10 mg inh x1 07/14 for wheezing, breathing improved, saturating well -Scheduled PRN 2hr breathing treatment - Patient placed on pressure support with improved mentation, well-tolerated - Extubated 07/17 to high flow, titrating down #Likely aspiration pneumonia Dx: -CXR shows extensive bilateral aspiration pneumonia Rx: -ET tube cultures NGTD -On Ceftriaxone 2 gm qd GI and F/E/N #OG Tube -Dietitian Consulted, appreciate recs -Planned to start tube feeds after CT scan - Patient received: Per Dietitian If EN is initiated, consider: feeds of Vital 1.2 at 20 ml/hr via OG tube by pump. If no IV fluids, water flushes of 25 ml/hr (or per MD). When indicated, advance 10 ml every 8 hrs to goal rate of 40 ml/hr x 24 hrs. -Patient started on pur?ed diet s/p extubation per speech therapy -Now at goal, well tolerated -Start daily Miralax- last BM 07/16 Renal #High anion gap metabolic acidosis, resolved #Lactic Acidosis (i/s/o seizures) DDx: Seizures vs septic shock Dx: -Utox negative Rx: -Trend lactic acid -Treating underlying infection, seizures #hypokalemia, resolved DDx: Unsure etiology, possibly due to medication vs dehydration (diarrhea, vomiting) Rx: -Replete as needed Heme #Leukocytosis #Hx AML DDx: Infection (sepsis) vs leukemoid reaction vs less likely blast crisis due to WBC < 100k. Patient had chemo for AML 10 years ago, has been in resmission for ~1 year; unsure oncologist (Jj) Dx: -WBC 27.2->19.5->12.2-6.8>; afebrile -Meningitis confirmed. -CXR extensive pneumonia aspiration bilaterally Rx: -Peripheral smear showed unremarkable RBC's & platelets; mature neutrophila -Asked family to get records from oncologist -Continue ABX as per above #Anemia DDx: dilutional after getting multiple liters of fluid yesterday Dx: -Hgb 11.0 (10.6) -stable, no signs of bleeding Rx: -Will continue to trend hgb, monitor for signs of bleeding Endo #T2DM Dx: - Home meds reported as Metformin, previously on Mounjaro -Glucose 375 on admission -> 252 (221) - A1c 9.2% -Expect rise in glucose from steroids and tube feeds being started. Will be more aggressive with insulin usage. Rx: - Increased Degludec to 40 u qday - Expect improvement with completion of dexamethasone - Scheduled short acting as well - Insulin sliding scale ACHS - glucose ACHS checks - hypoglycemia protocol in place #Euthyroid sick syndrome Dx: -TSH < 0.01, Free T4 wnl Rx: -Continue to treat underlying illness ID # Bacterial/ streptoccoccal meningitis As above in Neuro Disposition: ICU DVT prophylaxis: Lovenox 40 mg SC qday GI prophylaxis: Protonix 40 mg IV qday Diet: Pur?ed Powers: Yes Lines: Peripherals, Central line, powers Drips: None Vent: Extubated 07/17 CODE STATUS: Full Code Plan of care discussed with attending Dr. Harris. Nikos Prakash MD PGY?2 Attending Provider Attestation/Addendum Patient seen and examined with the above resident, Nikos Prakash MD. I agree with the findings, assessment, and plan of care as documented except for any differences below. Patient continues to show slow improvement in mentation and followed commands though dense RUE/ RLE deficits due to known stroke 2/2 strep meningitis. Patient remains on CFTX and dexamethasone stopped now. Patient with slowly improving glycemia, will be easier to control with transition post extubation today to dysphagia diet and also off steroids. Patient's blood cultures remained negative and complete 14 day course now. Consideration of ELVA if spikes fever or new murmurs though TTE negative on admit and plan to retest for stress induced/ tachyarrythmia induced cardiomyopathy. AE regimen to be continued with no recurrence after stopping sedation. Started on ASA. Heparin SQ in place. Okay to stop PPI now extubated. Plan to wean of HHHFNC, if stable this afternoon on decreasing supplemental oxygen then can be transfered to telemetry for ongoing management. Total critical care time: I personally spent 50 minutes for review of physiologic parameters, directing plan of care, coordination of care with other specialists, and counseling family at bedside. This is exclusive of time spent teaching housestaff or performing any separate billable procedures. Patient remains at significant risk of further morbidity and mortality warranting close monitoring and care only available in the ICU. Critical care services required for acute hypoxic respiratory failure, acute metabolic encephalopathy, status epliepticus, bacterial meningitis, and severe sepsis/ borderline shock.
--- NOTE | 2025-07-17 17:56 | ESPR_ITS ---
Documentation for date of: 07/17/25 Subjective Subjective Interval history: Patient downgraded to telemetry, continues to physically stay in ICU, will be assigned to team C in the morning. Overnight events and labs reviewed, went over patient's hospital course with the ICU resident. Patient is extubated in the morning after passing spontaneous breathing trial, continues to be nonverbal, is able to follow simple commands but slow to respond, and marked weakness in bilateral upper extremities, eye tracking positive. Seizure precautions in place, neurology following the patient for streptococcal meningitis and seizures. Cardiology is following the patient NSTEMI type II in the setting of sepsis and septic shock. Exam Vital Signs Temp Pulse Resp BP Pulse Ox O2 Del Method O2 Flow Rate 96.9 F 78 34 H 141/77 H 95 High Flow Nasal Cannula 20 07/17/25 16:00 07/17/25 16:00 07/17/25 16:00 07/17/25 16:00 07/17/25 16:00 07/17/25 16:00 07/17/25 16:00 FiO2 07/17/25 16:00 Narrative Exam PE: Gen: Well-developed and well-nourished. Patient is tracking with her eyes but nonverbal. Extubated today. HEENT: NCAT, PERRLA, EOMI, MMM, anicteric conjunctivae. CVS: normal S1 and S2. RRR. No M/R/G. Resp: CTA B/L. No rhonchi, rales, crackles or wheezing. Abd: soft, non-tender, non-distended. BS+ in all 4 quadrants. MSK: Good ROM in BUE & BLE. No edema or rash. Neuro: CN II-XII grossly intact. Opens eyes spontaneously. Able to follow commands with left upper extremity intermittently, significant weakness. Objective Labs 07/18/25 04:52 07/18/25 01:14 Labs: Laboratory Results - last 24 hr 07/16/25 07/17/25 07/17/25 19:28 00:19 04:30 WBC 8.9 RBC 3.92 L Hgb 10.6 L Hct 33.7 L MCV 86 MCH 27.0 MCHC 31.5 RDW Std Deviation 44.1 Plt Count 184 Neut % (Auto) 62 Lymph % (Auto) 28 [place] % (Auto) 8 Eos % (Auto) 0 Baso % (Auto) 0 Neut # (Auto) 5.5 Lymph # (Auto) 2.5 [place] # (Auto) 0.7 Eos # (Auto) 0.0 Baso # (Auto) 0.0 Immature Gran # (Auto) 0.17 H Absolute Nucleated RBC 0.02 H Immature Gran % 2 H Nucleated RBC % 0 Sodium 152 H 150 H 150 H Potassium 3.6 D 4.0 4.2 Chloride 112 H 111 H 110 H Carbon Dioxide 30.1 30.0 29.7 Anion Gap 10 9 10 BUN 28 H 28 H 27 H Creatinine 0.5 L 0.5 L 0.5 L Estim Creat Clear Calc 145.7 145.7 145.7 eGFR > 60 > 60 > 60 BUN/Creatinine Ratio 56 H 56 H 54 H Glucose 235 H D 282 H 285 H Calculated Osmolality 315 H 313 H 313 H Calcium 8.8 8.2 L 8.4 Corrected Calcium 9.0 Phosphorus 4.0 Magnesium 2.3 Total Bilirubin 0.3 AST 37 H ALT 20 Alkaline Phosphatase 52 D Total Protein 5.4 L Albumin 3.3 L Globulin 2.1 L Albumin/Globulin Ratio 1.6 07/17/25 09:13 WBC RBC Hgb Hct MCV MCH MCHC RDW Std Deviation Plt Count Neut % (Auto) Lymph % (Auto) [place] % (Auto) Eos % (Auto) Baso % (Auto) Neut # (Auto) Lymph # (Auto) [place] # (Auto) Eos # (Auto) Baso # (Auto) Immature Gran # (Auto) Absolute Nucleated RBC Immature Gran % Nucleated RBC % Sodium 148 H Potassium 3.8 Chloride 109 H Carbon Dioxide 29.3 Anion Gap 10 BUN 24 H Creatinine 0.5 L Estim Creat Clear Calc 146.0 eGFR > 60 BUN/Creatinine Ratio 48 H Glucose 272 H Calculated Osmolality 308 H Calcium 8.3 Corrected Calcium 8.9 Phosphorus 3.8 Magnesium Total Bilirubin AST ALT Alkaline Phosphatase Total Protein Albumin 3.2 L Globulin Albumin/Globulin Ratio ABG Interpretation ABG results: 07/12/25 07/12/25 07/13/25 08:31 17:13 04:48 ABG pH 7.13 L* 7.26 L D 7.28 L ABG pCO2 46 45 46 ABG pO2 122 H 100 D 129 H D ABG HCO3 15 L 20 22 ABG O2 Saturation 98 98 99 H ABG Base Excess -14 L -7 L -5 L 07/14/25 07/14/25 01:03 04:17 ABG pH 7.33 L 7.36 ABG pCO2 46 44 ABG pO2 127 H 98 D ABG HCO3 24 25 ABG O2 Saturation 100 H 99 H ABG Base Excess -2 -1 Quality Measures Quality Measures VTE prophylaxis Assessment & Plan Assessment Current Active Medications: Generic Name Dose Route Start Last Admin Trade Name Freq PRN Reason Stop Dose Admin Acetaminophen 650 mg 07/16/25 01:05 07/16/25 13:43 Acetaminophen 325 Mg Tablet PO 08/15/25 01:04 650 mg Q6HR PRN Administration Fever >100.4 Aspirin 81 mg 07/17/25 09:00 07/17/25 08:25 Aspirin 81 Mg Chew NG 08/16/25 08:59 81 mg QDAY ASHLEY Administration Dextrose 25 ml 07/12/25 10:05 Dextrose 50%-Water Inj 50 Ml Syringe IV 08/11/25 10:04 Q15MIN PRN BG 50-70 responsive npo pt Dextrose 50 ml 07/12/25 10:05 Dextrose 50%-Water Inj 50 Ml Syringe IV 08/11/25 10:04 Q15MIN PRN BG <50 OR BG <70 & pt unresponsive Enoxaparin Sodium 40 mg 07/12/25 09:45 07/17/25 08:25 Enoxaparin Sod Inj 40 Mg/0.4 Ml Syringe SC 07/26/25 09:44 40 mg QDAY ASHLEY Administration Glucagon 1 mg 07/12/25 10:05 Glucagon Inj 1 Mg Vial IM Q15MIN PRN BG <70, and no IV access Ceftriaxone Sodium 2 gm/ 50 mls @ 100 mls/hr 07/13/25 09:00 07/17/25 08:57 Sodium Chloride IV 07/20/25 08:59 Infused QDAY ASHLEY Infusion Valproic Acid 1,000 mg/ Sodium 60 mls @ 60 mls/hr 07/12/25 19:00 07/17/25 09:27 Chloride IV 08/11/25 18:59 Infused BID ASHLEY Infusion Protocol Insulin Degludec 40 unit 07/17/25 09:00 07/17/25 08:30 Insulin Degludec 5 Unit/0.05 Ml (Per 5 Units) SC 08/16/25 08:59 40 unit QDAY ASHLEY Administration Insulin Human Lispro 0 unit 07/17/25 17:00 07/17/25 17:27 Insulin Lispro (Admelog) 1 Unit/0.01 Ml Unit SC 08/16/25 16:59 Not Given ACHS ASHLEY Protocol Ipratropium [place] 0.5 mg 07/14/25 11:29 Ipratropium Rt 0.5 Mg/ 2.5 Ml Nebu INH 08/13/25 11:28 Q2HR PRN WHEEZING Levalbuterol HCl 1.25 mg 07/14/25 11:29 Levalbuterol Rt 1.25 Mg/0.5 Ml Nebu INH 08/13/25 11:28 Q2H PRN WHEEZING Lisinopril 20 mg 07/17/25 09:00 07/17/25 08:25 Lisinopril 20 Mg Tablet NG 08/16/25 08:59 20 mg QDAY ASHLEY Administration Nicotine 21 mg 07/12/25 13:15 07/17/25 08:26 Nicotine Patch 21 Mg/24 Hr Patch.Td24 TOP 08/11/25 13:14 21 mg QDAY ASHLEY Administration Pantoprazole Sodium 40 mg 07/12/25 09:45 07/17/25 08:25 Pantoprazole Inj 40 Mg Vial IVP 08/11/25 09:44 40 mg QDAY ASHLEY Administration Polyethylene Glycol 17 gm 07/15/25 09:00 07/17/25 08:46 Polyethylene Glycol 17 Gm Packet PO 08/14/25 08:59 Not Given QDAY ASHLEY Sodium Chloride 3 ml 07/14/25 11:29 Sodium Chloride Rt Radha 0.9% 3 Ml Nebu INH 08/13/25 11:28 PRN PRN SOLN Plan The patient is a 45-year-old female with a past medical history of leukemia, stroke, type 2 diabetes mellitus, seizure disorder, migraine hypertension who presented with altered mental status following seizure episode, MD patient was intubated and upgraded to ICU due to inability to protect airway, and management of seizures. Neurology was consulted and a lumbar puncture was done which showed cloudy CSF, 20 WBC, CSF Gram stain positive for strep pneumo, patient was started on IV antibiotics for meningitis and continued on mechanical ventilation, EEG showed discharges consistent with seizure disorder, patient was extubated today in the a.m. CSF culture negative, MRI brain showed multifocal infarcts likely secondary to underlying meningitis. #Sepsis secondary to streptococcus P. meningitis #Streptococcus pneumonia bacteremia #Septic shock,?now resolved History of severe headache/migraine prior to abdominal status, CSF analysis results cloudy, WBC more than 10,000, RBC 1000, glucose 97, protein greater than 250, strep pneumo antigen positive, elevated opening pressure, findings consistent with acute meningitis patient was started on IV antibiotics, CSF cultures negative. Patient was initially on pressor support with Levophed, currently off Levophed for over 72 hours. Was initially treated with IV Decadron. Initial blood cultures grew strep pneumo sensitive to ceftriaxone, repeat blood cultures negative at 48 hours, CSF culture negative to date, ? Continue ceftriaxone 2 g daily ? Follow final microbiology results #Acute encephalopathy #Status epilepticus?now resolved Patient with history of seizures history of noncompliance with medications on Keppra, reportedly concern for Keppra causing relapse of leukemia, patient presented to the ER with status epilepticus, continued seizure despite 4 mg of Versed, patient was intubated and sedated with propofol and fentanyl, given loading dose of Keppra in the ED 1500 mg. EEG showed multiple bilateral focal epileptiform discharges consistent with seizures, but no status epilepticus. Neurology following the patient, appreciate recommendations ? Continue valproate sodium 1000 mg twice daily ? Seizure precautions in place #Acute multifocal CVA Patient has a reported history of CVA over 5 years ago with no residual deficits, but following diagnosis of meningitis, MRI confirmed multifocal acute infarction in the left frontal and parietal lobes, consistent with meningitis, neurology following the patient. ? Physical therapy once mental status improves ? Aspirin 81 mg daily, recommended by neurology as massive left hemispheric infarct to prevent hemorrhagic conversion. #NSTEMI, likely type II #CHF EF 40 to 45% NSTEMI type II likely in the setting of severe sepsis and status epilepticus, elevated troponins in the setting of septic shock, echocardiogram was done which showed normal-sized LV but EF 40 to 45%, mild mitral and tricuspid regurgitation, no pericardial effusion. Per cardiology decreased EF with mild global hypokinesis mostly secondary to septic shock and tachycardia, anticipate improvement and repeat echocardiogram prior to discharge. No anticoagulation recommended in the setting of lumbar puncture. ? [employer] Dr. Early is consulted, appreciate recommendations ? Continue to monitor for volume overload ? Strict intake and output monitoring #Acute hypoxic respiratory failure 2/2 aspiration pneumonia Aspiration pneumonia likely secondary to acute encephalopathy in the setting of seizure disorder and meningitis, was initially intubated for airway protection, started on mechanical ventilation, patient was extubated today after successful spontaneous breathing trial. ? Continue IV antibiotics ceftriaxone 2 g daily #History of type 2 diabetes mellitus ? insulin degludec and sliding scale insulin ? Hypoglycemia protocol in place #History of hypertension ?Continue home medications #History of hyperlipidemia #History of leukemia Patient has a history of acute monocytic leukemia, elevated leukocyte count in the setting of sepsis, improved WBC count following initiation of IV antibiotics, leukocytosis likely reactive. History of chemotherapy 10 years ago, currently in remission. ?Outpatient oncology follow-up following discharge. Disposition: Currently physically in ICU, to be downgraded to team C in the AM. DVT prophylaxis: enoxaparin 40 mg daily GI prophylaxis: Protonix 40 mg daily Diet: Dysphagia diet pur?ed, Lines: PIV CODE STATUS: Full Plan of care discussed with my attending Dr. Pedro MD Quresh PGY 3 Attending Provider Attestation/Addendum I have seen and examined the patient. I was physically present for the [place] portions of the services provided including history, physical exam, diagnosis, treatment plans and orders. I agree with assessment and plan of care as documented by residents. Even though this this note was carefully revised there may still be minor errors in coppersmith helper due to voice recognition software. Nohemy Vasquez MD
--- NOTE | 2025-07-17 22:50 | VVPN_ITS ---
Telemedicine visit statement This visit was conducted with the use of interactive audio and video telecommunications system that permits real time communication between the patient and the provider. Patient's verbal consent for virtual visit was obtained on 07/17/25 at 2250. Documentation for date of: 07/17/25 Subjective Subjective Interval history: Patient is in the ICU today, her mental status significantly improved. But extubated this morning and has passed a swallow evaluation and is started on diet which she is tolerating it well. Have not noticed any motor movements in either upper or lower extremities. Virtual exam Vital Signs Temp Pulse Resp BP Pulse Ox O2 Del Method O2 Flow Rate 97.9 F 87 20 138/70 H 97 High Flow Nasal Cannula 07/17/25 21:00 07/17/25 22:33 07/17/25 22:33 07/17/25 22:00 07/17/25 22:33 07/17/25 22:00 07/17/25 22:33 FiO2 25 07/17/25 22:33 Objective Labs 07/17/25 04:30 07/17/25 09:13 Labs: Laboratory Results - last 24 hr 07/17/25 07/17/25 07/17/25 00:19 04:30 09:13 WBC 8.9 RBC 3.92 L Hgb 10.6 L Hct 33.7 L MCV 86 MCH 27.0 MCHC 31.5 RDW Std Deviation 44.1 Plt Count 184 Neut % (Auto) 62 Lymph % (Auto) 28 [place] % (Auto) 8 Eos % (Auto) 0 Baso % (Auto) 0 Neut # (Auto) 5.5 Lymph # (Auto) 2.5 [place] # (Auto) 0.7 Eos # (Auto) 0.0 Baso # (Auto) 0.0 Immature Gran # (Auto) 0.17 H Absolute Nucleated RBC 0.02 H Immature Gran % 2 H Nucleated RBC % 0 Sodium 150 H 150 H 148 H Potassium 4.0 4.2 3.8 Chloride 111 H 110 H 109 H Carbon Dioxide 30.0 29.7 29.3 Anion Gap 9 10 10 BUN 28 H 27 H 24 H Creatinine 0.5 L 0.5 L 0.5 L Estim Creat Clear Calc 145.7 145.7 146.0 eGFR > 60 > 60 > 60 BUN/Creatinine Ratio 56 H 54 H 48 H Glucose 282 H 285 H 272 H Calculated Osmolality 313 H 313 H 308 H Calcium 8.2 L 8.4 8.3 Corrected Calcium 9.0 8.9 Phosphorus 4.0 3.8 Magnesium 2.3 Total Bilirubin 0.3 AST 37 H ALT 20 Alkaline Phosphatase 52 D Total Protein 5.4 L Albumin 3.3 L 3.2 L Globulin 2.1 L Albumin/Globulin Ratio 1.6 ABG Interpretation ABG results: 07/12/25 07/12/25 07/13/25 08:31 17:13 04:48 ABG pH 7.13 L* 7.26 L D 7.28 L ABG pCO2 46 45 46 ABG pO2 122 H 100 D 129 H D ABG HCO3 15 L 20 22 ABG O2 Saturation 98 98 99 H ABG Base Excess -14 L -7 L -5 L 07/14/25 07/14/25 01:03 04:17 ABG pH 7.33 L 7.36 ABG pCO2 46 44 ABG pO2 127 H 98 D ABG HCO3 24 25 ABG O2 Saturation 100 H 99 H ABG Base Excess -2 -1 Assessment & Plan Assessment Patient is a 45-year-old female with past medical history of CVA 2018, AML, type 2 diabetes, seizures, migraine, HLD, HTN presented to ED on 07/12/25 due to breakthrough seizures/AMS. Neurology consulted for management and LP to rule out meningitis. #Strep pneumonia meningitis #Multifocal seizure #Hx seizures Likely due to status epilepticus break through seizures. 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 Since that time, patient will only take the Keppra when going to music concerts. Stroke alert called in ED. Tele neuro was consulted, NIHSS score 0. CT head/CTA negative. She received 4mg of versed without cessation. Subsequently intubated and sedated with prop/fent. Given 1500mg loading dose of Keppra in ED. Urine, sputum, and blood cultures negative. CSF analysis appearance was cloudy, WBCs 10,720, RBC 1000, glucose 97, protein greater than 250, strep pneumo antigen positive. Opening pressure 37. CSF culture stain showing 3+ WBCs. Repeat CT head and MRI brain showed areas of acute infarct in left frontal and parietal lobe. EEG: abnormal showing multifocal epileptiform discharges consistent with seizures. But no electrographic status noted -continue depakote 1000mg BID -euthermia, euglycemia -serial neuro checks as sedation lightened -Continue with aspirin 81 mg alone as the left hemispherical infarct is massive to prevent hemorrhagic conversion and DVT prophylaxis -Continue with IV antibiotics. CSF culture resulted negative. #AML #Previous CVA by history but not from MRI in 2018 #T2DM #HLD #HTN Primary care team to manage above conditions and ongoing care needs.
[2025-07-18] VITALS (23 sets, daily range): BP systolic 121–164; BP diastolic 61–94; PULSE 20–98; RESP 0–30; TEMP 36.1–36.8; O2SAT 84–99; BMI 34.4; BMI 34.7
[2025-07-18 01:59] LABS: Albumin, Serum 3.0 gm/dL (3.5-5.0); Anion Gap 7 (7-16); BUN/Creatinine Ratio 45 Ratio (12-20); Blood Urea Nitrogen 18 mg/dL (9-23); Calcium 8.0 mg/dL (8.3-10.6); Calcium (Corrected) 8.8 mg/dL (8.5-10.1); Carbon Dioxide 30.9 mMol/L (20.0-31.0); Chloride 107 mMol/L (98-107); Creatinine (Component) 0.4 mg/dL (0.6-1.3); Estimated Creatinine Clearance 182.5 mL/min (>60); Glucose 169 mg/dL (74-106); Osmolality,Calculated 294 (275-295); Phosphorous 3.9 mg/dL (2.4-5.1); Potassium 3.4 mMol/L (3.4-5.1); Sodium 145 mMol/L (136-145); eGFR > 60 See Note
--- NOTE | 2025-07-18 02:48 | PC.NURSE ---
Addendum entered by Danyel Wagner RN 07/18/25 02:52: seizure lasted 5 minutes Original Note: patient noted to be having seizure, MD martinez made aware, and was told to notify tele team or hospitalist. MD Whelan made aware, 2mg versed ordered and given.
[2025-07-18] MEDS: MIDAZOLAM INJ 1 MG/ML VIAL 2 ML 2 MG IVP ×3 (02:51→13:41)
[2025-07-18] MEDS: MIDAZOLAM INJ 1 MG/ML VIAL 2 ML 2 MG (05:06)
--- NOTE | 2025-07-18 05:07 | PC.NURSE ---
0458 Patient had witnessed seizure with eye deviated to right and right hand shaking lasting approx [address] Rachel notified new orders received and given.
[2025-07-18 06:37] LABS: Angiotensin Convert Enz, CSF* <5 U/L (< OR = 15)
[2025-07-18 06:39] LABS: Enterovirus RNA, PCR CSF NOT DETECTED; HSV-2 DNA, CSF NOT DETECTED copies/mL; West Nile Virus (IgM), CSF <0.90
--- NOTE | 2025-07-18 06:39 | PC.NURSE ---
Patient had witnessed seizure lasting [address] Biswas at bedside no new orders received
[2025-07-18 06:50] LABS: Basophils # (Auto) 0.0 Thou/mm3 (0.0-0.2); Basophils % (Auto) 0 % (0-2.5); Eosinophils # (Auto) 0.0 Thou/mm3 (0.0-0.5); Eosinophils % (Auto) 0 % (0-10); Hematocrit 33.0 % (36.0-46.0); Hemoglobin 10.7 g/dL (12.0-16.0); Immature Granulocytes Auto 0.22 Thou/mm3 (0.00-0.00); Lymphocytes # (Auto) 4.3 Thou/mm3 (1.0-4.8); Lymphocytes % (Auto) 40 % (10-50); Mean Corpuscular HGB Conc 32.4 g/dl (31.0-37.0); Mean Corpuscular Hemoglobin 28.2 pg (25.0-35.0); Mean Corpuscular Volume 87 fL (80-100); Monocytes # (Auto) 0.8 Thou/mm3 (0.0-0.8); Monocytes % (Auto) 7 % (0-12); Neutrophils # (Auto) 5.4 Thou/mm3 (1.8-7.7); Neutrophils % (Auto) 50 % (37-80); Nucleated Red Blood Cell # 0.00 Thou/mm3 (0.00-0.00); Nucleated Red Blood Cell % 0 /100 WBC (0); Platelet Count 183 Thou/mm3 (140-440); RDW Standard Deviation 44.4 fL (36.4-46.3); Red Blood Count 3.80 Miln/mm3 (4.00-5.20); White Blood Count 10.7 Thou/mm3 (3.6-11.0)
[2025-07-18 06:57] LABS: Magnesium 1.8 mg/dL (1.6-2.6)
--- NOTE | 2025-07-18 08:24 | ESPR_ITS ---
Documentation for date of: 07/18/25 Subjective Subjective Interval history: Patient seen and assessed at bedside. Extubated and off sedation. Awake and responding to questions, following commands. No complaints at this time. Potassium 3.4, magneisum 1.8. Sinus rhythm on telemetry, HR in 60s-70s. Will repeat limited echo tomorrow. Exam Vital Signs Temp Pulse Resp BP Pulse Ox O2 Del Method O2 Flow Rate 97.9 F 63 25 H 144/92 H 99 Nasal Cannula 4 07/17/25 21:00 07/18/25 07:01 07/18/25 07:01 07/18/25 07:01 07/18/25 07:01 07/18/25 07:01 07/18/25 07:01 FiO2 25 07/18/25 03:05 Narrative Exam Physical Exam General: Awake and in no acute distress. Conversational and non-toxic appearing. HEENT: Normocephalic, atraumatic, mucous membranes moist. Heart: Regular rate and rhythm, normal S1 and S2, no murmurs appreciated. Lungs: Clear to auscultation with no wheezing or crackles. Abdomen: Soft, nondistended, nontender, positive bowel sounds. No guarding or rebound tenderness. Neurologic: Alert and oriented x1, no gross neurological deficit. Extremities: No edema. Skin: No rash or ecchymoses. Objective Labs 07/19/25 04:32 07/19/25 14:05 Labs: Laboratory Results - last 24 hr 07/12/25 07/17/25 07/18/25 21:58 09:13 01:14 WBC RBC Hgb Hct MCV MCH MCHC RDW Std Deviation Plt Count Neut % (Auto) Lymph % (Auto) [place] % (Auto) Eos % (Auto) Baso % (Auto) Neut # (Auto) Lymph # (Auto) [place] # (Auto) Eos # (Auto) Baso # (Auto) Immature Gran # (Auto) Absolute Nucleated RBC Immature Gran % Nucleated RBC % Sodium 148 H 145 Potassium 3.8 3.4 Chloride 109 H 107 Carbon Dioxide 29.3 30.9 Anion Gap 10 7 BUN 24 H 18 Creatinine 0.5 L 0.4 L Estim Creat Clear Calc 146.0 182.5 eGFR > 60 > 60 BUN/Creatinine Ratio 48 H 45 H Glucose 272 H 169 H D Calculated Osmolality 308 H 294 Calcium 8.3 8.0 L Corrected Calcium 8.9 8.8 Phosphorus 3.8 3.9 Magnesium Albumin 3.2 L 3.0 L CSF Source CEREBROSPINAL FLUID CSF Angiotensin Conv Enz <5 CSF Enterovirus RNA Qual NOT DETECTED CSF Herpes I DNA (PCR) NOT DETECTED CSF Herpes II DNA (PCR) NOT DETECTED CSF West Nile IgG Ab <1.30 CSF West Nile IgM Ab <0.90 Enterovirus Source CSF 07/18/25 04:52 WBC 10.7 RBC 3.80 L Hgb 10.7 L Hct 33.0 L MCV 87 MCH 28.2 MCHC 32.4 RDW Std Deviation 44.4 Plt Count 183 Neut % (Auto) 50 Lymph % (Auto) 40 [place] % (Auto) 7 Eos % (Auto) 0 Baso % (Auto) 0 Neut # (Auto) 5.4 Lymph # (Auto) 4.3 [place] # (Auto) 0.8 Eos # (Auto) 0.0 Baso # (Auto) 0.0 Immature Gran # (Auto) 0.22 H Absolute Nucleated RBC 0.00 Immature Gran % 2 H Nucleated RBC % 0 Sodium Potassium Chloride Carbon Dioxide Anion Gap BUN Creatinine Estim Creat Clear Calc eGFR BUN/Creatinine Ratio Glucose Calculated Osmolality Calcium Corrected Calcium Phosphorus Magnesium 1.8 Albumin CSF Source CSF Angiotensin Conv Enz CSF Enterovirus RNA Qual CSF Herpes I DNA (PCR) CSF Herpes II DNA (PCR) CSF West Nile IgG Ab CSF West Nile IgM Ab Enterovirus Source ABG Interpretation ABG results: 07/12/25 07/12/25 07/13/25 08:31 17:13 04:48 ABG pH 7.13 L* 7.26 L D 7.28 L ABG pCO2 46 45 46 ABG pO2 122 H 100 D 129 H D ABG HCO3 15 L 20 22 ABG O2 Saturation 98 98 99 H ABG Base Excess -14 L -7 L -5 L 07/14/25 07/14/25 01:03 04:17 ABG pH 7.33 L 7.36 ABG pCO2 46 44 ABG pO2 127 H 98 D ABG HCO3 24 25 ABG O2 Saturation 100 H 99 H ABG Base Excess -2 -1 Quality Measures Quality Measures VTE prophylaxis Assessment & Plan Assessment Current Active Medications: Generic Name Dose Route Start Last Admin Trade Name Freq PRN Reason Stop Dose Admin Acetaminophen 650 mg 07/16/25 01:05 07/16/25 13:43 Acetaminophen 325 Mg Tablet PO 08/15/25 01:04 650 mg Q6HR PRN Administration Fever >100.4 Aspirin 81 mg 07/17/25 09:00 07/17/25 08:25 Aspirin 81 Mg Chew NG 08/16/25 08:59 81 mg QDAY ASHLEY Administration Dextrose 25 ml 07/12/25 10:05 Dextrose 50%-Water Inj 50 Ml Syringe IV 08/11/25 10:04 Q15MIN PRN BG 50-70 responsive npo pt Dextrose 50 ml 07/12/25 10:05 Dextrose 50%-Water Inj 50 Ml Syringe IV 08/11/25 10:04 Q15MIN PRN BG <50 OR BG <70 & pt unresponsive Enoxaparin Sodium 40 mg 07/12/25 09:45 07/17/25 08:25 Enoxaparin Sod Inj 40 Mg/0.4 Ml Syringe SC 07/26/25 09:44 40 mg QDAY ASHLEY Administration Glucagon 1 mg 07/12/25 10:05 Glucagon Inj 1 Mg Vial IM Q15MIN PRN BG <70, and no IV access Ceftriaxone Sodium 2 gm/ 50 mls @ 100 mls/hr 07/13/25 09:00 07/17/25 08:57 Sodium Chloride IV 07/20/25 08:59 Infused QDAY ASHLEY Infusion Valproic Acid 1,000 mg/ Sodium 60 mls @ 60 mls/hr 07/12/25 19:00 07/17/25 21:14 Chloride IV 08/11/25 18:59 Infused BID ASHLEY Infusion Protocol Insulin Degludec 40 unit 07/17/25 09:00 07/17/25 08:30 Insulin Degludec 5 Unit/0.05 Ml (Per 5 Units) SC 08/16/25 08:59 40 unit QDAY ASHLEY Administration Insulin Human Lispro 0 unit 07/17/25 17:00 07/17/25 20:13 Insulin Lispro (Admelog) 1 Unit/0.01 Ml Unit SC 08/16/25 16:59 Not Given ACHS [facility] Protocol Ipratropium [place] 0.5 mg 07/14/25 11:29 Ipratropium Rt 0.5 Mg/ 2.5 Ml Nebu INH 08/13/25 11:28 Q2HR PRN WHEEZING Levalbuterol HCl 1.25 mg 07/14/25 11:29 Levalbuterol Rt 1.25 Mg/0.5 Ml Nebu INH 08/13/25 11:28 Q2H PRN WHEEZING Lisinopril 20 mg 07/17/25 09:00 07/17/25 08:25 Lisinopril 20 Mg Tablet NG 08/16/25 08:59 20 mg QDAY ASHLEY Administration Midazolam HCl 2 mg 07/18/25 07:41 Midazolam Inj 1 Mg/Ml Vial 2 Ml IVP 07/23/25 07:40 Q5MIN PRN SEIZURES Nicotine 21 mg 07/12/25 13:15 07/17/25 08:26 Nicotine Patch 21 Mg/24 Hr Patch.Td24 TOP 08/11/25 13:14 21 mg QDAY ASHLEY Administration Pantoprazole Sodium 40 mg 07/12/25 09:45 07/17/25 08:25 Pantoprazole Inj 40 Mg Vial IVP 08/11/25 09:44 40 mg QDAY ASHLEY Administration Polyethylene Glycol 17 gm 07/15/25 09:00 07/17/25 08:46 Polyethylene Glycol 17 Gm Packet PO 08/14/25 08:59 Not Given QDAY ASHLEY Sodium Chloride 3 ml 07/14/25 11:29 Sodium Chloride Rt Radha 0.9% 3 Ml Nebu INH 08/13/25 11:28 PRN PRN SOLN Plan Patient is a 45 year old female with PMH of CVA 2018, AML, type 2 diabetes, seizures, migraine, HLD, HTN who presents with altered mental status s/p intubation, admitted to ICU for work up and management of seizures. Cardiology consulted for elevated troponins likely secondary to lactic acidosis. #NSTEMI II secondary to severe sepsis and metabolic abnormalities from status epilepticus #Elevated troponins secondary to septic shock #Tachycardia secondary to septic shock #HFrEF (EF 40-45%) (07/12/25) Patient initial troponins were elevated at 5.05. Unable to obtain cardiac history and cannot determine any chest pain or chest pressure. Mostly NSTEMI type II secondary to the severe sepsis or septic shock on pressors along with status epilepticus and metabolic abnormalities. BP 118/43 but tachycardic at HR 145, RR 27 and fever of 101.4. WBC count was severely elevated at 32,000 on admission. Troponin 5.052 -> 8.049 -> 6.167. TSH <0.01. A1c 9.2. Lipid panel: Triglycerides 238, cholesterol 81, LDL 23, HDL <10 Initial EKG was read as SVT versus sinus tachycardia and nonspecific T wave changes. Reviewed the EKG and patient does have distinct P waves indicating mostly sinus tachycardia for this patient. Sinus tachycardia also likely secondary to severe sepsis, also currently being weaned from sedation. Echo 07/12/25 showed normal LV size and mildly decreased LV function with an estimated EF of 40 to 45%. Patient tachycardic. Diastolic dysfunction could not be evaluated. Normal RV size and function is mildly decreased. RVSP 24 mmHg with RAP 3. Mild mitral and tricuspid regurgitation noted. No pericardial effusion. - Decreased EF with mild global hypokinesis mostly secondary to septic shock and tachycardia- expect improvement and will repeat echo prior to discharge. - Not started on heparin per primary team as patient was having LP procedure and did not believe anticoagulation was indicated - Keep K >4 and Mg >2 #Acute metabolic encephalopathy secondary to seizures versus CVA #Hx of seizures, on Keppra #History of CVA CT 07/14 showed questionable infarct in the left parietal lobe and MRI of the brain performed today showed foci of restricted diffusion in the left frontal side, left parietal lobe concerning for demyelinating disease versus acute infarct. EEG 07/14 was abnormal showing intermittent slowing and burst suppression with paroxysmal multifocal spike and wave discharges are consistent with seizure disorder Brain MRI 07/15 shows foci of restricted diffusion in the left frontal lobe left parietal lobe without prominent signal deficit, possible demyelinating disease versus acute infarct - Intubated and sedated, off pressors - IV valproate - Neurology consulted - Defer to primary team for management #Bilateral aspiration PNA CXR finding, likely occurred after seizure. - Defer to primary team for management #History of hypertension Takes lisinopril 20 mg daily. ?Hold home BP med as patient is normotensive #High anion gap metabolic acidosis #Lactic acidosis #Leukocytosis #History AML #Type 2 diabetes #? Meningitis #Complex migraines Thank you for your consultation, please do not hesitate to reach out if you have any question or concern Patient plan of care was discussed with the attending physician, Dr. Early. Barbara Gabriel, PGY-1 Attending Provider Attestation/Addendum I have personally seen and examined the patient separately on the above date of service and discussed the plan of care with the resident. I reviewed the resident Dr. Barbara Gabriel consultation progress note and agree with the resident findings and plan in the note above and have also edited the documentation to reflect my findings and plan. Dilip Early M.D. Interventional Cardiology
[2025-07-18] MEDS: NICOTINE PATCH 21 MG/24 HR PATCH.TD24 TOP (09:25)
[2025-07-18] MEDS: POLYETHYLENE GLYCOL 17 GM PACKET PO (09:26)
[2025-07-18] MEDS: ASPIRIN 81 MG CHEW NG (09:26)
[2025-07-18] MEDS: ENOXAPARIN SOD INJ 40 MG/0.4 ML SYRINGE SC (09:26)
[2025-07-18] MEDS: cefTRIAXone 2 GM in SODIUM CHLORIDE 0.9% (Popper) 50 ML IV ×2 (09:27→20:49)
[2025-07-18] MEDS: VALPROATE SOD INJ 1,000 MG in SODIUM CHLORIDE 0.9% 50 ML 60 MG IV ×2 (09:37→21:24)
[2025-07-18] MEDS: LACOSAMIDE INJ 200 MG/20 ML VIAL IVP (09:46)
--- NOTE | 2025-07-18 13:24 | ESPR_ITS ---
Documentation for date of: 07/18/25 Subjective Subjective Interval history: Patient was seen and evaluated at bedside this morning. Overnight patient required midazolam 2 mg x 1 given that she had another seizure. This morning during assessment patient again was noted to have right-sided preferential gaze along with tongue movement and unresponsiveness after she had been. Respond to questions. At this time midazolam 2 mg again was given x 1 and neurology was reached out who stated to start patient on Vimpat 200 mg x 1 and then 100 mg twice daily. Patient was later on reassessed and she was AO x 3 and no further seizures after Vimpat was started. Exam Vital Signs Temp Pulse Resp BP Pulse Ox O2 Del Method O2 Flow Rate 97 F 78 25 H 145/85 H 99 Room Air 2 07/18/25 11:00 07/18/25 11:00 07/18/25 11:00 07/18/25 11:00 07/18/25 11:00 07/18/25 11:00 07/18/25 08:00 FiO2 25 07/18/25 03:05 Narrative Exam General: A/O x3, somnolent Eyes: PERRL, EOMI. Anicteric, vision grossly intact, red sclera in L side . Ears: No ear pain, no ear discharge, Hearing grossly intact. Nose: No nasal discharge. Mouth/Throat: dry mucous membranes, no redness, no lesions. Neck: Neck supple, non-tender, no cervical lymphadenopathy. Lungs: Clear [place]IO to auscultation and percussion, No accessory muscle use. Cardio: Normal S1/S2, regular rhythm, no murmurs, no JVD or carotid bruits. Abdomen: Soft, non-tender, no palpable masses, peristalsis present, no guarding or rebound. Extremities: Symmetrical, no significant deformities, no peripheral edema , non-tender, peripheral pulses presents. Skin: No rashes, no lesions, warm to touch. Neuro: Patient moving L LE and UE without any issues and strength 4/5, able to squeeze R UE, but not able to elevate and strength 3/5, R LE unable to move and sensation impaired. Otherwise no facial assymetry. Psych: Cooperative, appropriate mood and effect. Objective Labs 07/18/25 04:52 07/18/25 01:14 Labs: Laboratory Results - last 24 hr 10/07/18/25 07/18/25 21:58 01:14 04:52 WBC 10.7 RBC 3.80 L Hgb 10.7 L Hct 33.0 L MCV 87 MCH 28.2 MCHC 32.4 RDW Std Deviation 44.4 Plt Count 183 Neut % (Auto) 50 Lymph % (Auto) 40 [place] % (Auto) 7 Eos % (Auto) 0 Baso % (Auto) 0 Neut # (Auto) 5.4 Lymph # (Auto) 4.3 [place] # (Auto) 0.8 Eos # (Auto) 0.0 Baso # (Auto) 0.0 Immature Gran # (Auto) 0.22 H Absolute Nucleated RBC 0.00 Immature Gran % 2 H Nucleated RBC % 0 Sodium 145 Potassium 3.4 Chloride 107 Carbon Dioxide 30.9 Anion Gap 7 BUN 18 Creatinine 0.4 L Estim Creat Clear Calc 182.5 eGFR > 60 BUN/Creatinine Ratio 45 H Glucose 169 H D Calculated Osmolality 294 Calcium 8.0 L Corrected Calcium 8.8 Phosphorus 3.9 Magnesium 1.8 Albumin 3.0 L CSF Source CEREBROSPINAL FLUID CSF Angiotensin Conv Enz <5 CSF Enterovirus RNA Qual NOT DETECTED CSF Herpes I DNA (PCR) NOT DETECTED CSF Herpes II DNA (PCR) NOT DETECTED CSF West Nile IgG Ab <1.30 CSF West Nile IgM Ab <0.90 Enterovirus Source CSF ABG Interpretation ABG results: 07/12/25 07/12/25 07/13/25 08:31 17:13 04:48 ABG pH 7.13 L* 7.26 L D 7.28 L ABG pCO2 46 45 46 ABG pO2 122 H 100 D 129 H D ABG HCO3 15 L 20 22 ABG O2 Saturation 98 98 99 H ABG Base Excess -14 L -7 L -5 L 07/14/25 07/14/25 01:03 04:17 ABG pH 7.33 L 7.36 ABG pCO2 46 44 ABG pO2 127 H 98 D ABG HCO3 24 25 ABG O2 Saturation 100 H 99 H ABG Base Excess -2 -1 Quality Measures Quality Measures VTE prophylaxis Assessment & Plan Assessment Current Active Medications: Generic Name Dose Route Start Last Admin Trade Name Freq PRN Reason Stop Dose Admin Acetaminophen 650 mg 07/16/25 01:05 07/16/25 13:43 Acetaminophen 325 Mg Tablet PO 08/15/25 01:04 650 mg Q6HR PRN Administration Fever >100.4 Aspirin 81 mg 07/17/25 09:00 07/18/25 09:26 Aspirin 81 Mg Chew NG 08/16/25 08:59 81 mg QDAY ASHLEY Administration Dextrose 25 ml 07/12/25 10:05 Dextrose 50%-Water Inj 50 Ml Syringe IV 08/11/25 10:04 Q15MIN PRN BG 50-70 responsive npo pt Dextrose 50 ml 07/12/25 10:05 Dextrose 50%-Water Inj 50 Ml Syringe IV 08/11/25 10:04 Q15MIN PRN BG <50 OR BG <70 & pt unresponsive Enoxaparin Sodium 40 mg 07/12/25 09:45 07/18/25 09:26 Enoxaparin Sod Inj 40 Mg/0.4 Ml Syringe SC 07/26/25 09:44 40 mg QDAY ASHLEY Administration Glucagon 1 mg 07/12/25 10:05 Glucagon Inj 1 Mg Vial IM Q15MIN PRN BG <70, and no IV access Valproic Acid 1,000 mg/ Sodium 60 mls @ 60 mls/hr 07/12/25 19:00 07/18/25 09:37 Chloride IV 08/11/25 18:59 60 mls/hr BID ASHLEY Administration Protocol Ceftriaxone Sodium 2 gm/ 50 mls @ 100 mls/hr 07/18/25 09:00 07/18/25 09:27 Sodium Chloride IV 07/25/25 08:59 100 mls/hr Q12HR ASHLEY Administration Insulin Degludec 40 unit 07/17/25 09:00 07/18/25 09:48 Insulin Degludec 5 Unit/0.05 Ml (Per 5 Units) SC 08/16/25 08:59 Not Given QDAY ASHLEY Insulin Human Lispro 0 unit 07/17/25 17:00 07/18/25 11:34 Insulin Lispro (Admelog) 1 Unit/0.01 Ml Unit SC 08/16/25 16:59 Not Given ACHS [facility] Protocol Ipratropium [place] 0.5 mg 07/14/25 11:29 Ipratropium Rt 0.5 Mg/ 2.5 Ml Nebu INH 08/13/25 11:28 Q2HR PRN WHEEZING Lacosamide 100 mg 07/18/25 21:00 Lacosamide Inj 200 Mg/20 Ml Vial IVP 08/17/25 20:59 BID ASHLEY Levalbuterol HCl 1.25 mg 07/14/25 11:29 Levalbuterol Rt 1.25 Mg/0.5 Ml Nebu INH 08/13/25 11:28 Q2H PRN WHEEZING Lisinopril 20 mg 07/17/25 09:00 07/18/25 09:26 Lisinopril 20 Mg Tablet NG 08/16/25 08:59 20 mg QDAY ASHLEY Administration Midazolam HCl 2 mg 07/18/25 07:41 07/18/25 08:46 Midazolam Inj 1 Mg/Ml Vial 2 Ml IVP 07/23/25 07:40 2 mg Q5MIN PRN Administration SEIZURES Nicotine 21 mg 07/12/25 13:15 07/18/25 09:25 Nicotine Patch 21 Mg/24 Hr Patch.Td24 TOP 08/11/25 13:14 21 mg QDAY ASHLEY Administration Pantoprazole Sodium 40 mg 07/12/25 09:45 07/18/25 09:25 Pantoprazole Inj 40 Mg Vial IVP 08/11/25 09:44 40 mg QDAY ASHLEY Administration Polyethylene Glycol 17 gm 07/15/25 09:00 07/18/25 09:26 Polyethylene Glycol 17 Gm Packet PO 08/14/25 08:59 17 gm QDAY ASHLEY Administration Sodium Chloride 3 ml 07/14/25 11:29 Sodium Chloride Rt Radha 0.9% 3 Ml Nebu INH 08/13/25 11:28 PRN PRN SOLN Plan 45-year-old female with a past medical history of leukemia, stroke, type 2 diabetes mellitus, seizure disorder, migraine hypertension who presented with altered mental status following seizure episode, patient was intubated and upgraded to ICU due to inability to protect airway, and management of seizures. Neurology was consulted and a lumbar puncture was done which showed cloudy CSF, 20 WBC, CSF Gram stain positive for strep pneumo, patient was started on IV antibiotics for meningitis and continued on mechanical ventilation, EEG showed discharges consistent with seizure disorder, patient was extubated today in the a.m. CSF culture negative, MRI brain showed multifocal infarcts likely secondary to underlying meningitis. #Sepsis secondary to streptococcus P. meningitis #Streptococcus pneumonia bacteremia #Septic shock,?now resolved History of severe headache/migraine prior to abdominal status, CSF analysis results cloudy, WBC more than 10,000, RBC 1000, glucose 97, protein greater than 250, strep pneumo antigen positive, elevated opening pressure, findings consistent with acute meningitis patient was started on IV antibiotics, CSF cultures negative. Patient was initially on pressor support with Levophed, currently off Levophed for over 72 hours. Was initially treated with IV Decadron. Initial blood cultures grew strep pneumo sensitive to ceftriaxone, repeat blood cultures negative at 48 hours, CSF culture negative to date, ? Continue ceftriaxone 2 g BID ? Follow final microbiology results #Acute encephalopathy #Status epilepticus? Patient with history of seizures history of noncompliance with medications on Keppra, reportedly concern for Keppra causing relapse of leukemia, patient presented to the ER with status epilepticus, continued seizure despite 4 mg of Versed, patient was intubated and sedated with propofol and fentanyl, given loading dose of Keppra in the ED 1500 mg. EEG showed multiple bilateral focal epileptiform discharges consistent with seizures, but no status epilepticus. Neurology following the patient, appreciate recommendations ? Continue valproate sodium 1000 mg twice daily - Added vimpat 100 mg BID after initial 200mg loading dose ? Seizure precautions in place #Acute multifocal CVA Patient has a reported history of CVA over 5 years ago with no residual deficits, but following diagnosis of meningitis, MRI confirmed multifocal acute infarction in the left frontal and parietal lobes, consistent with meningitis, neurology following the patient. ? Physical therapy once mental status improves ? Aspirin 81 mg daily, recommended by neurology as massive left hemispheric infarct to prevent hemorrhagic conversion. #NSTEMI, likely type II #CHF EF 40 to 45% NSTEMI type II likely in the setting of severe sepsis and status epilepticus, elevated troponins in the setting of septic shock, echocardiogram was done which showed normal-sized LV but EF 40 to 45%, mild mitral and tricuspid regurgitation, no pericardial effusion. Per cardiology decreased EF with mild global hypokinesis mostly secondary to septic shock and tachycardia, anticipate improvement and repeat echocardiogram prior to discharge. No anticoagulation recommended in the setting of lumbar puncture. ? Licensed [employer] Disp[employer]er Dr. Early is consulted, appreciate recommendations ? Continue to monitor for volume overload ? Strict intake and output monitoring #Acute hypoxic respiratory failure 2/2 aspiration pneumonia Aspiration pneumonia likely secondary to acute encephalopathy in the setting of seizure disorder and meningitis, was initially intubated for airway protection, started on mechanical ventilation, patient was extubated today after successful spontaneous breathing trial. ? Continue IV antibiotics ceftriaxone 2 g BID #History of type 2 diabetes mellitus ? insulin degludec (held)and sliding scale insulin ? Hypoglycemia protocol in place #History of hypertension ?Continue home medications #History of hyperlipidemia #History of leukemia Patient has a history of acute monocytic leukemia, elevated leukocyte count in the setting of sepsis, improved WBC count following initiation of IV antibiotics, leukocytosis likely reactive. History of chemotherapy 10 years ago, currently in remission. ?Outpatient oncology follow-up following discharge. Disposition: Started vimpat DVT prophylaxis: enoxaparin 40 mg daily GI prophylaxis: Protonix 40 mg daily Diet: Dysphagia diet pur?ed, CODE STATUS: Full Case disclosed with Attending Dr. Pedro Roper PGY2 Disclaimer: Even though this this note was dictated by speech recognition and even though it was carefully revised there may still be minor errors in aircraft refueller due to voice recognition software. Attending Provider Attestation/Addendum I have seen and examined the patient. I was physically present for the barillas portions of the services provided including history, physical exam, diagnosis, treatment plans and orders. I agree with assessment and plan of care as documented by residents. Patient seen and examined at bedside this morning. Appears comfortable , Alert and oriented, appears sleepy and very weak but was able to answer some simple questions and follow commands appropriately. Overnight, patient had episode of seizure and received IV midazolam, she had another episode this morning to. Discussed with neurology, recommended to restart Vimpat 100 mg twice daily, appreciate recommendations. We will continue with IV Rocephin 2 g twice daily for Streptococcus pneumonia bacteremia and meningitis. As needed midazolam for breakthrough seizure, we will continue to monitor closely for seizure episodes. Patient was also found to have multifocal acute infarction in left frontal and parietal lobes, continues to be on aspirin, holding off on clopidogrel due to concern for hemorrhagic conversion of massive left hemispheric infarct. We will hold his insulin degludec, his blood glucose has been starting to come down, we will continue with sliding scale. Even though this this note was carefully revised there may still be minor errors in aircraft refueller due to voice recognition software. Nohemy Vasquez MD
--- NOTE | 2025-07-18 15:02 | PC.SS ---
Update: Patient has been downgraded. Patient extubated yesterday. On 2L nasal cannula. P.O. feeding. Afebrile. Patient receiving IV antibiotics. Patient de-saturating upon seizure activity.
--- NOTE | 2025-07-18 17:07 | ESPR_ITS ---
Documentation for date of: 07/18/25 Subjective Subjective Interval history: Patient examined at bedside. Vitals are stable, labs unremarkable. Patient is alert and oriented x3. Family and friends visiting at bedside. Overnight team reported that she had another seizure episode that was aborted with midazolam. Started on Vimpat 100mg BID. Monitor for seizure activity and continue precautions. Family was counseled on continuing therapy and importance of compliance. UE strength 3/5. Left LE 4/5 and no movement noticed in right LE. Continue aspirin due to left hemispherical infarct. Continue depakote and Vimpat for seizure management. Plan to repeat EEG tomorrow. Continue working with PT. Exam Vital Signs Temp Pulse Resp BP Pulse Ox O2 Del Method O2 Flow Rate 98.0 F 89 18 149/94 H 96 Nasal Cannula 2 07/18/25 16:00 07/18/25 16:00 07/18/25 16:00 07/18/25 16:00 07/18/25 16:00 07/18/25 16:00 07/18/25 16:00 FiO2 25 07/18/25 03:05 Narrative Exam GENERAL APPEARANCE: middle age female, awake, comfortable HEENT: Normocephalic, atraumatic. Pupils: Equal reacting to light NECK: Supple, no JVD or bruits. CARDIOVASULAR: Heart: S1, S2 heard, regular without S3-S4 or murmur no rubs or gallops. LUNGS/CHEST: lungs clear to auscultation ABDOMEN: Soft, nontender, with normal bowel sounds. No pulsatile masses. No rebound, rigidity, or guarding. Normal inspection and palpation. EXTREMITIES: Normal inspection and palpation. No edema, clubbing or cyanosis. SKIN: Warm and dry without rashes. Normal inspection. NEURO: Alert, awake and oriented x3. Cranial nerves: II through XII grossly intact. Speech and language: mild dysarthria. Motor system: Tone and bulk: Normal: Strength: 4/5 UE, slow movement on Left UE. Strength 5/5 RLE, unable to move right LE. Sensation intact; No pronator drift noted. Plantar reflex: Downgoing bilaterally. Sensory system: Intact to all modalities of sensation bilaterally. Coordination: Intact to [id number] test. No intention tremors noted. Gait: Not tested. No signs of meningeal irritation noted. PSYCHIATRIC: normal affect and mood Objective Labs 07/22/25 04:57 07/22/25 04:57 Labs: Laboratory Results - last 24 hr 07/12/25 07/18/25 07/18/25 21:58 01:14 04:52 WBC 10.7 RBC 3.80 L Hgb 10.7 L Hct 33.0 L MCV 87 MCH 28.2 MCHC 32.4 RDW Std Deviation 44.4 Plt Count 183 Neut % (Auto) 50 Lymph % (Auto) 40 [place] % (Auto) 7 Eos % (Auto) 0 Baso % (Auto) 0 Neut # (Auto) 5.4 Lymph # (Auto) 4.3 [place] # (Auto) 0.8 Eos # (Auto) 0.0 Baso # (Auto) 0.0 Immature Gran # (Auto) 0.22 H Absolute Nucleated RBC 0.00 Immature Gran % 2 H Nucleated RBC % 0 Sodium 145 Potassium 3.4 Chloride 107 Carbon Dioxide 30.9 Anion Gap 7 BUN 18 Creatinine 0.4 L Estim Creat Clear Calc 182.5 eGFR > 60 BUN/Creatinine Ratio 45 H Glucose 169 H D Calculated Osmolality 294 Calcium 8.0 L Corrected Calcium 8.8 Phosphorus 3.9 Magnesium 1.8 Albumin 3.0 L CSF Source CEREBROSPINAL FLUID CSF Angiotensin Conv Enz <5 CSF Enterovirus RNA Qual NOT DETECTED CSF Herpes I DNA (PCR) NOT DETECTED CSF Herpes II DNA (PCR) NOT DETECTED CSF West Nile IgG Ab <1.30 CSF West Nile IgM Ab <0.90 Enterovirus Source CSF ABG Interpretation ABG results: 07/12/25 07/12/25 07/13/25 08:31 17:13 04:48 ABG pH 7.13 L* 7.26 L D 7.28 L ABG pCO2 46 45 46 ABG pO2 122 H 100 D 129 H D ABG HCO3 15 L 20 22 ABG O2 Saturation 98 98 99 H ABG Base Excess -14 L -7 L -5 L 07/14/25 07/14/25 01:03 04:17 ABG pH 7.33 L 7.36 ABG pCO2 46 44 ABG pO2 127 H 98 D ABG HCO3 24 25 ABG O2 Saturation 100 H 99 H ABG Base Excess -2 -1 Quality Measures Quality Measures VTE prophylaxis Assessment & Plan Assessment Current Active Medications: Generic Name Dose Route Start Last Admin Trade Name Freq PRN Reason Stop Dose Admin Acetaminophen 650 mg 07/18/25 13:38 Acetaminophen 325 Mg Tablet NG 08/17/25 13:37 Q6HR PRN Fever >100.4 Aspirin 81 mg 07/17/25 09:00 07/18/25 09:26 Aspirin 81 Mg Chew NG 08/16/25 08:59 81 mg QDAY ASHLEY Administration Dextrose 25 ml 07/12/25 10:05 Dextrose 50%-Water Inj 50 Ml Syringe IV 08/11/25 10:04 Q15MIN PRN BG 50-70 responsive npo pt Dextrose 50 ml 07/12/25 10:05 Dextrose 50%-Water Inj 50 Ml Syringe IV 08/11/25 10:04 Q15MIN PRN BG <50 OR BG <70 & pt unresponsive Enoxaparin Sodium 40 mg 07/12/25 09:45 07/18/25 09:26 Enoxaparin Sod Inj 40 Mg/0.4 Ml Syringe SC 07/26/25 09:44 40 mg QDAY ASHLEY Administration Glucagon 1 mg 07/12/25 10:05 Glucagon Inj 1 Mg Vial IM Q15MIN PRN BG <70, and no IV access Valproic Acid 1,000 mg/ Sodium 60 mls @ 60 mls/hr 07/12/25 19:00 07/18/25 09:37 Chloride IV 08/11/25 18:59 60 mls/hr BID ASHLEY Administration Protocol Ceftriaxone Sodium 2 gm/ 50 mls @ 100 mls/hr 07/18/25 09:00 07/18/25 09:27 Sodium Chloride IV 07/25/25 08:59 100 mls/hr Q12HR ASHLEY Administration Insulin Degludec 40 unit 07/17/25 09:00 07/18/25 09:48 Insulin Degludec 5 Unit/0.05 Ml (Per 5 Units) SC 08/16/25 08:59 Not Given QDAY ASHLEY Insulin Human Lispro 0 unit 07/17/25 17:00 07/18/25 11:34 Insulin Lispro (Admelog) 1 Unit/0.01 Ml Unit SC 08/16/25 16:59 Not Given ACHS [facility] Protocol Ipratropium Luna 0.5 mg 07/14/25 11:29 Ipratropium Rt 0.5 Mg/ 2.5 Ml Nebu INH 08/13/25 11:28 Q2HR PRN WHEEZING Lacosamide 100 mg 07/18/25 21:00 Lacosamide Inj 200 Mg/20 Ml Vial IVP 08/17/25 20:59 BID ASHLEY Levalbuterol HCl 1.25 mg 07/14/25 11:29 Levalbuterol Rt 1.25 Mg/0.5 Ml Nebu INH 08/13/25 11:28 Q2H PRN WHEEZING Lisinopril 20 mg 07/17/25 09:00 07/18/25 09:26 Lisinopril 20 Mg Tablet NG 08/16/25 08:59 20 mg QDAY ASHLEY Administration Midazolam HCl 2 mg 07/18/25 07:41 07/18/25 13:41 Midazolam Inj 1 Mg/Ml Vial 2 Ml IVP 07/23/25 07:40 2 mg Q5MIN PRN Administration SEIZURES Nicotine 21 mg 07/12/25 13:15 07/18/25 09:25 Nicotine Patch 21 Mg/24 Hr Patch.Td24 TOP 08/11/25 13:14 21 mg QDAY ASHLEY Administration Pantoprazole Sodium 40 mg 07/12/25 09:45 07/18/25 09:25 Pantoprazole Inj 40 Mg Vial IVP 08/11/25 09:44 40 mg QDAY ASHLEY Administration Polyethylene Glycol 17 gm 07/19/25 09:00 Polyethylene Glycol 17 Gm Packet NG 08/18/25 08:59 QDAY ASHLEY Sodium Chloride 3 ml 07/14/25 11:29 Sodium Chloride Rt Radha 0.9% 3 Ml Nebu INH 08/13/25 11:28 PRN PRN SOLN Plan Patient is a 45-year-old female with past medical history of CVA 2018, AML, type 2 diabetes, seizures, migraine, HLD, HTN presented to ED on 07/12/25 due to breakthrough seizures/AMS. Neurology consulted for management and LP to rule out meningitis. #Meningitis #Multifocal seizure #Left hemisphere stroke #Hx seizures Likely due to status epilepticus break through seizures. 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 Since that time, patient will only take the Keppra when going to music concerts. Stroke alert called in ED. Tele neuro was consulted, NIHSS score 0. CT head/CTA negative. She received 4mg of versed without cessation. Subsequently intubated and sedated with prop/fent. Given 1500mg loading dose of Keppra in ED. Urine, sputum, and blood cultures negative. CSF analysis appearance was cloudy, WBCs 10,720, RBC 1000, glucose 97, protein greater than 250, strep pneumo antigen positive. Opening pressure 37. CSF culture stain showing 3+ WBCs. Repeat CT head and MRI brain showed areas of acute infarct in left frontal and parietal lobe. EEG: abnormal showing multifocal epileptiform discharges consistent with seizures. But no electrographic status noted -continue depakote 1000mg BID -start Vimpat 100mg BID -repeat EEG tomorrow morning -euthermia, euglycemia -neuro checks q4hr -IV midazolam for breakthrough seizures -seizure prophylaxis -Continue with aspirin 81 mg alone as the left hemispherical infarct is massive to prevent hemorrhagic conversion and DVT prophylaxis -Continue with IV antibiotics. CSF culture resulted negative. #AML #Previous CVA by history but not from MRI in 2018 #T2DM #HLD #HTN Primary care team to manage above conditions and ongoing care needs. The patient's management plan was discussed with my attending physician Dr. Colvin. Paz Rivero, PGY-2 Attending Provider Attestation/Addendum I personally have seen and examined the patient at the bedside and I agreed with resident's findings, assessment and plan of care. CSF analysis appearance was cloudy, WBCs 10,720, RBC 1000, glucose 97, protein greater than 250, strep pneumo antigen positive. Opening pressure 37. CSF culture stain showing 3+ WBCs. Repeat CT head and MRI brain showed areas of acute infarct in left frontal and parietal lobe. EEG: abnormal showing multifocal epileptiform discharges consistent with seizures. But no electrographic status noted -continue depakote 1000mg BID -start Vimpat 100mg BID -repeat EEG tomorrow morning
[2025-07-18] MEDS: LACOSAMIDE INJ 200 MG/20 ML VIAL 100 MG IVP (20:38)
[2025-07-18] MEDS: INSULIN LISPRO (AdmeLOG) 1 UNIT/0.01 ML UNIT SC (21:12)
[2025-07-19] VITALS (11 sets, daily range): BP systolic 125–152; BP diastolic 72–82; PULSE 76–98; RESP 2–32; TEMP 36.2–37; O2SAT 95–98; BMI 12.0
--- NOTE | 2025-07-19 | XR_ITS ---
Examinations: MRI Brain without intravenous contrast. MRA brain without intravenous contrast. MRA carotids without intravenous contrast 3-D vascular reconstructions Date and time of exam: July 19, 2025, 1623 hours INDICATIONS: Stroke alert today, onset altered mental status seizure Technique: Multiple axial and sagittal images of the brain have been obtained MRA brain carotid images without contrast obtained, including 3-D postprocessing, vascular maximum intensity projection images Findings: [place] is not enlarged. The optic chiasm and infundibular stalk are not remarkable. Prepontine and interpeduncular cisterns are not enlarged. No localized enlargement of the medulla or susana. Fourth ventricle and cerebellar tonsils normal in position. Subacute hemorrhage is not seen. Fourth ventricle is midline. Mass in the cerebellopontine angle region is not evident. 7th and 8th nerve complexes exhibits symmetry. Globes are symmetrical with no retro-orbital mass. Increased white matter signal is present in the occipital horns without significant signal deficit on the ADC map Diffusion-weighted images demonstrate subtle increased signal in the occipital horns Bilateral mastoiditis, left frontal sinusitis Mass-effect upon the ventricular system is not identified. MRA carotid images degraded by patient motion. MRA brain images no large vessel occlusions Impression: Negative for acute hemorrhage or mass effect Negative for acute infarct Increased signal in the occipital horns on both the diffusion weighted and FLAIR images which can be seen with ventriculitis, purulent fluid in the ventricles, clinical correlation advised, recommend correlation with neurology consultation and findings Consider lumbar puncture follow-up
[2025-07-19 05:38] LABS: Basophils # (Auto) 0.0 Thou/mm3 (0.0-0.2); Basophils % (Auto) 0 % (0-2.5); Eosinophils # (Auto) 0.1 Thou/mm3 (0.0-0.5); Eosinophils % (Auto) 0 % (0-10); Hematocrit 31.5 % (36.0-46.0); Hemoglobin 10.4 g/dL (12.0-16.0); Immature Granulocytes Auto 0.19 Thou/mm3 (0.00-0.00); Lymphocytes # (Auto) 4.2 Thou/mm3 (1.0-4.8); Lymphocytes % (Auto) 36 % (10-50); Mean Corpuscular HGB Conc 33.0 g/dl (31.0-37.0); Mean Corpuscular Hemoglobin 28.0 pg (25.0-35.0); Mean Corpuscular Volume 85 fL (80-100); Monocytes # (Auto) 0.7 Thou/mm3 (0.0-0.8); Monocytes % (Auto) 6 % (0-12); Neutrophils # (Auto) 6.5 Thou/mm3 (1.8-7.7); Neutrophils % (Auto) 56 % (37-80); Nucleated Red Blood Cell # 0.00 Thou/mm3 (0.00-0.00); Nucleated Red Blood Cell % 0 /100 WBC (0); Platelet Count 244 Thou/mm3 (140-440); RDW Standard Deviation 42.0 fL (36.4-46.3); Red Blood Count 3.71 Miln/mm3 (4.00-5.20); White Blood Count 11.6 Thou/mm3 (3.6-11.0)
[2025-07-19 06:03] LABS: Magnesium 1.8 mg/dL (1.6-2.6)
--- NOTE | 2025-07-19 07:28 | ECHO_ITS ---
Transthoracic Echo Report Ht (in): 62 Wt (lb): 192 Exam Location: Echo Lab Status: Inpatient Electric Car Operator: Rosario Peters Indications: Procedure Performed: BP: 152 / 81 HR: 82 MEASUREMENTS (Male / Female) Normal Values 2D ECHO LV Diastolic Diameter PLAX 4.1 cm 4.2 - 5.9 / 3.9 - 5.3 cm LV Systolic Diameter PLAX 2.9 cm IVS Diastolic Thickness 0.8 cm 0.6 - 1.0 / 0.6 - 0.9 cm LVPW Diastolic Thickness 1.0 cm 0.6 - 1.0 / 0.6 - 0.9 cm LV Relative Wall Thickness 0.4 LVOT Diameter 1.5 cm Aortic Root Diameter 2.5 cm LA Systolic Diameter LX 2.8 cm 3.0 - 4.0 / 2.7 - 3.8 cm LV Ejection Fraction MOD BP 63.4 % >= 55 % LV Cardiac Index MOD BP 2581.1 cm?/min?m? LV Ejection Fraction MOD 4C 69.2 % LV Cardiac Index MOD 4C 3276.9 cm?/min?m? LV Ejection Fraction 4C AL 70.1 % LV Cardiac Index 4C AL 3436.8 cm?/min?m? LV Ejection Fraction MOD 2C 59.4 % LV Cardiac Index MOD 2C 1856.6 cm?/min?m? LV Ejection Fraction 2C AL 61.3 % LV Cardiac Index 2C AL 1942.5 cm?/min?m? LA Volume Index 16.2 cm?/m? 16 - 28 cm?/m? M-MODE Aortic Root Diameter MM 2.4 cm LA Systolic Diameter MM 3.4 cm LA Ao Ratio MM 1.4 AV Cusp Separation MM 2.1 cm DOPPLER AV Peak Velocity 199.0 cm/s AV Peak Gradient 15.8 mmHg AV Mean Gradient 7.0 mmHg AV Velocity Time Integral 34.0 cm LVOT Peak Velocity 147.0 cm/s LVOT Peak Gradient 8.6 mmHg LVOT Velocity Time Integral 30.6 cm LVOT Cardiac Index 2226.1 cm?/min?m? AV Area Cont Eq vti 1.6 cm? AV Area Cont Eq pk 1.3 cm? MV Area PHT 5.4 cm? Mitral E Point Velocity 73.2 cm/s Mitral A Point Velocity 72.8 cm/s Mitral E to A Ratio 1.0 LV E' Lateral Velocity 9.0 cm/s Mitral E to LV E' Lateral Ratio 8.1 LV E' Septal Velocity 7.9 cm/s Mitral E to LV E' Septal Ratio 9.2 PV Peak Velocity 137.0 cm/s PV Peak Gradient 7.5 mmHg FINDINGS Left Ventricle Normal left ventricular size, wall thickness, systolic function with no obvious regional wall motion abnormalities. Normal left ventricular diastolic filling pattern for age. The ejection fraction is visually estimated at 55-60%. Right Ventricle The right ventricle is normal in size and systolic function. Left Atrium The left atrium is normal by two-dimensional, color flow and Doppler imaging with no structural abnormalities, no thrombus formation present. Right Atrium The right atrium is normal by two-dimensional imaging, color flow and Doppler imaging with no structural abnormalities, no thrombus formation present. Atrial Septum The interatrial septum appears normal with no evidence of a shunt. Aorta The aorta is normal by two-dimensional, color flow and Doppler interrogation. Mitral Valve The mitral valve is normal by two-dimensional, color flow and Doppler interrogation. Trace mitral regurgitation. Aortic Valve The aortic valve is trileaflet and normal by two-dimensional, color flow and Doppler interrogation. There is no significant aortic valve regurgitation. Tricuspid Valve The tricuspid valve is normal by two-dimensional, color flow and Doppler interrogation. There is trace tricuspid valve regurgitation. Pulmonic Valve The pulmonic valve is not well visualized. There is no significant pulmonic valve regurgitation. Vessels The pulmonary artery appears normal. The inferior vena cava pulmonary and hepatic veins appear normal. Pericardium The pericardium is normal by two-dimensional imaging. There is no significant pericardial effusion. CONCLUSIONS Indication: HFrEF Normal LV size and wall thickness. Normal left ventricular diastolic filling pattern for age. Estimated EF at 55-60%. The RV is normal in size and systolic function. Trace MR and TR. Dilip Early (Electronically Signed) Final Date: 19 July 2025 14:22
[2025-07-19 08:22] LABS: Alanine Aminotransferase 20 U/L (10-49); Albumin, Serum 2.8 gm/dL (3.5-5.0); Albumin/Globulin Ratio 1.8 (1.2-2.2); Alkaline Phosphatase 47 U/L (46-116); Anion Gap 9 (7-16); Aspartate Amino Transferase 34 U/L (0-34); BUN/Creatinine Ratio 57 Ratio (12-20); Bilirubin,Total 0.3 mg/dL (0.3-1.2); Blood Urea Nitrogen 17 mg/dL (9-23); Calcium 7.8 mg/dL (8.3-10.6); Calcium (Corrected) 8.8 mg/dL (8.5-10.1); Carbon Dioxide 28.3 mMol/L (20.0-31.0); Chloride 105 mMol/L (98-107); Creatinine (Component) 0.3 mg/dL (0.6-1.3); Estimated Creatinine Clearance 239.9 mL/min (>60); Globulin 1.6 gm/dL (2.3-3.5); Glucose 77 mg/dL (74-106); Osmolality,Calculated 283 (275-295); Potassium 4.2 mMol/L (3.4-5.1); Sodium 142 mMol/L (136-145); Total Protein 4.4 gm/dL (5.7-8.2); eGFR > 60 See Note
[2025-07-19] MEDS: ENOXAPARIN SOD INJ 40 MG/0.4 ML SYRINGE SC (09:51)
[2025-07-19] MEDS: LACOSAMIDE INJ 200 MG/20 ML VIAL 100 MG IVP (09:51)
[2025-07-19] MEDS: ASPIRIN 81 MG CHEW NG (09:51)
[2025-07-19] MEDS: cefTRIAXone 2 GM in SODIUM CHLORIDE 0.9% (Popper) 50 ML IV ×2 (09:52→21:23)
[2025-07-19] MEDS: VALPROATE SOD INJ 1,000 MG in SODIUM CHLORIDE 0.9% 50 ML 60 MG IV (09:53)
[2025-07-19] MEDS: NICOTINE PATCH 21 MG/24 HR PATCH.TD24 TOP (10:05)
[2025-07-19] MEDS: MIDAZOLAM INJ 1 MG/ML VIAL 2 ML 2 MG IVP ×2 (13:59→17:49)
--- NOTE | 2025-07-19 14:00 | XR_ITS ---
EXAMINATION: AP chest single view TECHNIQUE: AP portable upright chest single view Date and time: July 19, 2025, 1404 hours INDICATIONS: Seizure today. FINDINGS: Early left upper lobe pneumonia Normal heart size The osseous structures are demineralized IMPRESSION: Early left perihilar pneumonia
--- NOTE | 2025-07-19 14:19 | XR_ITS ---
Examination: CT brain head without contrast. 2-D sagittal coronal reconstructions Date and time of exam: July 19 0 25, 1423 hours, comparison July 14, 2025 INDICATIONS: Stroke alert, onset focal neurologic deficit today CTDI: vol (mGy): 52.9 DLP: (mGycm): 1021 Technique: Multiple CT axial sections of the brain have been obtained, 5 mm slice thickness. Contrast has not been administered. 2-D sagittal, coronal reconstructions have been obtained Low dose protocols were performed. One or more of the following dose reduction techniques were used; automated exposure control, adjustment of the mA and/or KV according to patient size, use of iterative reconstruction technique. Findings: No significant ventricular enlargement. Unchanged encephalomalacia left parietal convexity and left frontal convexity Prominent chronic microvascular white matter change Intra-axial or extra-axial hemorrhage density is not seen. No mass effect or midline shift Basal cisterns are not remarkable. Fourth ventricle is midline. Cranial vault intact. Impression: No interval acute hemorrhage, mass effect or midline shift
--- NOTE | 2025-07-19 14:20 | PC.NURSE ---
Stroke alert called due to symptoms, pt. being take to CT by RN and SYSTEMS ANALYSIS MANAGER,will meet ICU charge in CT with Teleneuro
[2025-07-19 14:27] LABS: Lactate (Lactic Acid) 1.0 mMol/L (0.4-2.0)
--- NOTE | 2025-07-19 14:33 | PD.RESPRO ---
Documentation for date of: 07/19/25 Subjective Subjective Interval history: Patient seen and assessed at bedside. Alert and oriented x3. No new complaints, denies chest pain, shortness of breath, palpitations, pain with inspiration. BP 152/81 this morning, systolics 130-140s overnight. In sinus rhythm on telemetry, HR 82. Ordered repeat echo today to evaluate cardiac function. Neurology requesting ELVA to rule out any cardioembolic source of stroke based on the MRI findings. Recommend to keep the patient n.p.o. overnight and will plan for a ELVA tomorrow morning if patient consents for the procedure. Exam Vital Signs Temp Pulse Resp BP Pulse Ox O2 Del Method O2 Flow Rate 97.2 F 93 20 145/82 H 95 Nasal Cannula 2 07/19/25 08:00 07/19/25 12:00 07/19/25 08:00 07/19/25 09:51 07/19/25 08:00 07/19/25 08:00 07/19/25 08:00 FiO2 25 07/19/25 08:00 Narrative Exam Physical Exam General: Awake and in no acute distress. Conversational and non-toxic appearing. HEENT: Normocephalic, atraumatic, mucous membranes moist. Heart: Regular rate and rhythm, normal S1 and S2, no murmurs appreciated. Lungs: Clear to auscultation with no wheezing or crackles. Abdomen: Soft, nondistended, nontender, positive bowel sounds. No guarding or rebound tenderness. Neurologic: Alert and oriented x3. 3/5 strength in right upper and lower extremity. 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 Extremities: No edema. Skin: No rash or ecchymoses. Objective Labs 07/19/25 04:32 07/19/25 14:05 Labs: Laboratory Results - last 24 hr 07/19/25 07/19/25 07/19/25 04:32 04:32 04:32 WBC 11.6 H RBC 3.71 L Hgb 10.4 L Hct 31.5 L MCV 85 MCH 28.0 MCHC 33.0 RDW Std Deviation 42.0 Plt Count 244 D Neut % (Auto) 56 Lymph % (Auto) 36 [place] % (Auto) 6 Eos % (Auto) 0 Baso % (Auto) 0 Neut # (Auto) 6.5 Lymph # (Auto) 4.2 [place] # (Auto) 0.7 Eos # (Auto) 0.1 Baso # (Auto) 0.0 Immature Gran # (Auto) 0.19 H Absolute Nucleated RBC 0.00 Immature Gran % 2 H Nucleated RBC % 0 Sodium Cancelled 142 Potassium Cancelled 4.2 D Chloride Cancelled Carbon Dioxide Anion Gap BUN Creatinine Estim Creat Clear Calc eGFR BUN/Creatinine Ratio Glucose Calculated Osmolality Lactic Acid Calcium Corrected Calcium Magnesium Total Bilirubin AST ALT Alkaline Phosphatase Total Protein Albumin Globulin Albumin/Globulin Ratio 07/19/25 07/19/25 07/19/25 04:32 04:32 04:32 WBC RBC Hgb Hct MCV MCH MCHC RDW Std Deviation Plt Count Neut % (Auto) Lymph % (Auto) [place] % (Auto) Eos % (Auto) Baso % (Auto) Neut # (Auto) Lymph # (Auto) [place] # (Auto) Eos # (Auto) Baso # (Auto) Immature Gran # (Auto) Absolute Nucleated RBC Immature Gran % Nucleated RBC % Sodium Potassium Chloride 105 Carbon Dioxide Cancelled 28.3 Anion Gap Cancelled 9 BUN Cancelled Creatinine Estim Creat Clear Calc eGFR BUN/Creatinine Ratio Glucose Calculated Osmolality Lactic Acid Calcium Corrected Calcium Magnesium Total Bilirubin AST ALT Alkaline Phosphatase Total Protein Albumin Globulin Albumin/Globulin Ratio 07/19/25 07/19/25 07/19/25 04:32 04:32 04:32 WBC RBC Hgb Hct MCV MCH MCHC RDW Std Deviation Plt Count Neut % (Auto) Lymph % (Auto) [place] % (Auto) Eos % (Auto) Baso % (Auto) Neut # (Auto) Lymph # (Auto) [place] # (Auto) Eos # (Auto) Baso # (Auto) Immature Gran # (Auto) Absolute Nucleated RBC Immature Gran % Nucleated RBC % Sodium Potassium Chloride Carbon Dioxide Anion Gap BUN 17 Creatinine Cancelled 0.3 L Estim Creat Clear Calc Cancelled 239.9 eGFR Cancelled BUN/Creatinine Ratio Glucose Calculated Osmolality Lactic Acid Calcium Corrected Calcium Magnesium Total Bilirubin AST ALT Alkaline Phosphatase Total Protein Albumin Globulin Albumin/Globulin Ratio 07/19/25 07/19/25 07/19/25 04:32 04:32 04:32 WBC RBC Hgb Hct MCV MCH MCHC RDW Std Deviation Plt Count Neut % (Auto) Lymph % (Auto) [place] % (Auto) Eos % (Auto) Baso % (Auto) Neut # (Auto) Lymph # (Auto) [place] # (Auto) Eos # (Auto) Baso # (Auto) Immature Gran # (Auto) Absolute Nucleated RBC Immature Gran % Nucleated RBC % Sodium Potassium Chloride Carbon Dioxide Anion Gap BUN Creatinine Estim Creat Clear Calc eGFR > 60 BUN/Creatinine Ratio Cancelled 57 H Glucose Cancelled 77 D Calculated Osmolality Cancelled Lactic Acid Calcium Corrected Calcium Magnesium Total Bilirubin AST ALT Alkaline Phosphatase Total Protein Albumin Globulin Albumin/Globulin Ratio 07/19/25 07/19/25 07/19/25 04:32 04:32 04:32 WBC RBC Hgb Hct MCV MCH MCHC RDW Std Deviation Plt Count Neut % (Auto) Lymph % (Auto) [place] % (Auto) Eos % (Auto) Baso % (Auto) Neut # (Auto) Lymph # (Auto) [place] # (Auto) Eos # (Auto) Baso # (Auto) Immature Gran # (Auto) Absolute Nucleated RBC Immature Gran % Nucleated RBC % Sodium Potassium Chloride Carbon Dioxide Anion Gap BUN Creatinine Estim Creat Clear Calc eGFR BUN/Creatinine Ratio Glucose Calculated Osmolality 283 Lactic Acid Calcium Cancelled 7.8 L Corrected Calcium Cancelled 8.8 Magnesium 1.8 Total Bilirubin Cancelled AST ALT Alkaline Phosphatase Total Protein Albumin Globulin Albumin/Globulin Ratio 07/19/25 07/19/25 07/19/25 04:32 04:32 04:32 WBC RBC Hgb Hct MCV MCH MCHC RDW Std Deviation Plt Count Neut % (Auto) Lymph % (Auto) [place] % (Auto) Eos % (Auto) Baso % (Auto) Neut # (Auto) Lymph # (Auto) [place] # (Auto) Eos # (Auto) Baso # (Auto) Immature Gran # (Auto) Absolute Nucleated RBC Immature Gran % Nucleated RBC % Sodium Potassium Chloride Carbon Dioxide Anion Gap BUN Creatinine Estim Creat Clear Calc eGFR BUN/Creatinine Ratio Glucose Calculated Osmolality Lactic Acid Calcium Corrected Calcium Magnesium Total Bilirubin 0.3 AST Cancelled 34 ALT Cancelled 20 Alkaline Phosphatase Cancelled Total Protein Albumin Globulin Albumin/Globulin Ratio 07/19/25 07/19/25 07/19/25 04:32 04:32 04:32 WBC RBC Hgb Hct MCV MCH MCHC RDW Std Deviation Plt Count Neut % (Auto) Lymph % (Auto) [place] % (Auto) Eos % (Auto) Baso % (Auto) Neut # (Auto) Lymph # (Auto) [place] # (Auto) Eos # (Auto) Baso # (Auto) Immature Gran # (Auto) Absolute Nucleated RBC Immature Gran % Nucleated RBC % Sodium Potassium Chloride Carbon Dioxide Anion Gap BUN Creatinine Estim Creat Clear Calc eGFR BUN/Creatinine Ratio Glucose Calculated Osmolality Lactic Acid Calcium Corrected Calcium Magnesium Total Bilirubin AST ALT Alkaline Phosphatase 47 Total Protein Cancelled 4.4 L Albumin Cancelled 2.8 L Globulin Cancelled Albumin/Globulin Ratio 07/19/25 07/19/25 07/19/25 04:32 04:32 14:05 WBC RBC Hgb Hct MCV MCH MCHC RDW Std Deviation Plt Count Neut % (Auto) Lymph % (Auto) [place] % (Auto) Eos % (Auto) Baso % (Auto) Neut # (Auto) Lymph # (Auto) [place] # (Auto) Eos # (Auto) Baso # (Auto) Immature Gran # (Auto) Absolute Nucleated RBC Immature Gran % Nucleated RBC % Sodium Potassium Chloride Carbon Dioxide Anion Gap BUN Creatinine Estim Creat Clear Calc eGFR BUN/Creatinine Ratio Glucose Calculated Osmolality Lactic Acid 1.0 Calcium Corrected Calcium Magnesium Total Bilirubin AST ALT Alkaline Phosphatase Total Protein Albumin Globulin 1.6 L Albumin/Globulin Ratio Cancelled 1.8 ABG Interpretation ABG results: 07/12/25 07/12/25 07/13/25 08:31 17:13 04:48 ABG pH 7.13 L* 7.26 L D 7.28 L ABG pCO2 46 45 46 ABG pO2 122 H 100 D 129 H D ABG HCO3 15 L 20 22 ABG O2 Saturation 98 98 99 H ABG Base Excess -14 L -7 L -5 L 07/14/25 07/14/25 01:03 04:17 ABG pH 7.33 L 7.36 ABG pCO2 46 44 ABG pO2 127 H 98 D ABG HCO3 24 25 ABG O2 Saturation 100 H 99 H ABG Base Excess -2 -1 Quality Measures Quality Measures VTE prophylaxis Assessment & Plan Assessment Current Active Medications: Generic Name Dose Route Start Last Admin Trade Name Freq PRN Reason Stop Dose Admin Acetaminophen 650 mg 07/18/25 13:38 Acetaminophen 325 Mg Tablet NG 08/17/25 13:37 Q6HR PRN Fever >100.4 Aspirin 81 mg 07/17/25 09:00 07/19/25 09:51 Aspirin 81 Mg Chew NG 08/16/25 08:59 81 mg QDAY ASHLEY Administration Dextrose 25 ml 07/12/25 10:05 Dextrose 50%-Water Inj 50 Ml Syringe IV 08/11/25 10:04 Q15MIN PRN BG 50-70 responsive npo pt Dextrose 50 ml 07/12/25 10:05 Dextrose 50%-Water Inj 50 Ml Syringe IV 08/11/25 10:04 Q15MIN PRN BG <50 OR BG <70 & pt unresponsive Enoxaparin Sodium 40 mg 07/12/25 09:45 07/19/25 09:51 Enoxaparin Sod Inj 40 Mg/0.4 Ml Syringe SC 07/26/25 09:44 40 mg QDAY ASHLEY Administration Glucagon 1 mg 07/12/25 10:05 Glucagon Inj 1 Mg Vial IM Q15MIN PRN BG <70, and no IV access Valproic Acid 1,000 mg/ Sodium 60 mls @ 60 mls/hr 07/12/25 19:00 07/19/25 09:53 Chloride IV 08/11/25 18:59 60 mls/hr BID ASHLEY Administration Protocol Ceftriaxone Sodium 2 gm/ 50 mls @ 100 mls/hr 07/18/25 09:00 07/19/25 09:52 Sodium Chloride IV 07/25/25 08:59 100 mls/hr Q12HR ASHLEY Administration Insulin Degludec 40 unit 07/17/25 09:00 07/19/25 09:52 Insulin Degludec 5 Unit/0.05 Ml (Per 5 Units) SC 08/16/25 08:59 Not Given QDAY ASHLEY Insulin Human Lispro 0 unit 07/17/25 17:00 07/19/25 11:01 Insulin Lispro (Admelog) 1 Unit/0.01 Ml Unit SC 08/16/25 16:59 Not Given ACHS [facility] Protocol Ipratropium Switzer 0.5 mg 07/14/25 11:29 Ipratropium Rt 0.5 Mg/ 2.5 Ml Nebu INH 08/13/25 11:28 Q2HR PRN WHEEZING Lacosamide 100 mg 07/18/25 21:00 07/19/25 09:51 Lacosamide Inj 200 Mg/20 Ml Vial IVP 08/17/25 20:59 100 mg BID ASHLEY Administration Levalbuterol HCl 1.25 mg 07/14/25 11:29 Levalbuterol Rt 1.25 Mg/0.5 Ml Nebu INH 08/13/25 11:28 Q2H PRN WHEEZING Lisinopril 20 mg 07/17/25 09:00 07/19/25 09:51 Lisinopril 20 Mg Tablet NG 08/16/25 08:59 20 mg QDAY ASHLEY Administration Midazolam HCl 2 mg 07/18/25 07:41 07/19/25 13:59 Midazolam Inj 1 Mg/Ml Vial 2 Ml IVP 07/23/25 07:40 2 mg Q5MIN PRN Administration SEIZURES Nicotine 21 mg 07/12/25 13:15 07/19/25 10:05 Nicotine Patch 21 Mg/24 Hr Patch.Td24 TOP 08/11/25 13:14 21 mg QDAY ASHLEY Administration Pantoprazole Sodium 40 mg 07/12/25 09:45 07/19/25 09:51 Pantoprazole Inj 40 Mg Vial IVP 08/11/25 09:44 40 mg QDAY ASHLEY Administration Polyethylene Glycol 17 gm 07/19/25 09:00 07/19/25 09:51 Polyethylene Glycol 17 Gm Packet NG 08/18/25 08:59 Not Given QDAY ASHLEY Sodium Chloride 3 ml 07/14/25 11:29 Sodium Chloride Rt Radha 0.9% 3 Ml Nebu INH 08/13/25 11:28 PRN PRN SOLN Plan Patient is a 45 year old female with PMH of CVA 2018, AML, type 2 diabetes, seizures, migraine, HLD, HTN who presents with altered mental status s/p intubation, admitted to ICU for work up and management of seizures. Cardiology consulted for elevated troponins likely NSTEMI II secondary to severe sepsis and metabolic abnormalities from status epilepticus. #NSTEMI II secondary to severe sepsis and metabolic abnormalities from status epilepticus #Elevated troponins secondary to septic shock #Tachycardia secondary to septic shock #HFrEF (EF 40-45%) (07/12/25) Patient initial troponins were elevated at 5.05. Unable to obtain cardiac history and cannot determine any chest pain or chest pressure. Mostly NSTEMI type II secondary to the severe sepsis or septic shock on pressors along with status epilepticus and metabolic abnormalities. BP 118/43 but tachycardic at HR 145, RR 27 and fever of 101.4. WBC count was severely elevated at 32,000 on admission. Troponin 5.052 -> 8.049 -> 6.167. TSH <0.01. A1c 9.2. Lipid panel: Triglycerides 238, cholesterol 81, LDL 23, HDL <10 Initial EKG was read as SVT versus sinus tachycardia and nonspecific T wave changes. Reviewed the EKG and patient does have distinct P waves indicating mostly sinus tachycardia for this patient. Sinus tachycardia also likely secondary to severe sepsis, also currently being weaned from sedation. Echo 07/12/25 showed normal LV size and mildly decreased LV function with an estimated EF of 40 to 45%. Patient tachycardic. Diastolic dysfunction could not be evaluated. Normal RV size and function is mildly decreased. RVSP 24 mmHg with RAP 3. Mild mitral and tricuspid regurgitation noted. No pericardial effusion. Plan: - Decreased EF with mild global hypokinesis mostly secondary to septic shock and tachycardia- expect improvement and will repeat echo prior to discharge. - Per neurology, ASA 81 only to prevent hemorrhagic conversion as left hemispherical infarct is large - Keep K >4 and Mg >2 #Acute metabolic encephalopathy secondary to seizures versus CVA #Left hemispheric stroke vs demyelinating disease #Hx of seizures, on Keppra #History of CVA CT 07/14 showed questionable infarct in the left parietal lobe and MRI of the brain performed today showed foci of restricted diffusion in the left frontal side, left parietal lobe concerning for demyelinating disease versus acute infarct. EEG 07/14 was abnormal showing intermittent slowing and burst suppression with paroxysmal multifocal spike and wave discharges are consistent with seizure disorder Brain MRI 07/15 shows foci of restricted diffusion in the left frontal lobe left parietal lobe without prominent signal deficit, possible demyelinating disease versus acute infarct 07/17/25: Off intubation and sedation Plan: - IV valproate -> depakote & vimpat, IV midazolam for breakthrough seizures - Repeat EEG tomorrow - ASA 81 - Neurology consulted - Defer to primary team for management Neurology requesting ELVA to rule out any cardioembolic source of stroke based on the MRI findings. Recommend to keep the patient n.p.o. overnight and will plan for a ELVA tomorrow morning if patient consents for the procedure. #Bilateral aspiration PNA CXR finding, likely occurred after seizure. - Defer to primary team for management #History of hypertension Takes lisinopril 20 mg daily. ?Continue lisinopril 20 mg daily #High anion gap metabolic acidosis, resolved #Lactic acidosis #Leukocytosis #History AML #Type 2 diabetes #? Meningitis #Complex migraines Thank you for your consultation, please do not hesitate to reach out if you have any question or concern Patient plan of care was discussed with the attending physician, Dr. Early. Barbara Gabriel, PGY-1 Attending Provider Attestation/Addendum I have personally seen and examined the patient separately on the above date of service and discussed the plan of care with the resident. I reviewed the resident Dr. Barbara Gabriel consultation progress note and agree with the resident findings and plan in the note above and have also edited the documentation to reflect my findings and plan. Dilip Early M.D. Interventional Cardiology
[2025-07-19 14:46] LABS: Alanine Aminotransferase 18 U/L (10-49); Albumin, Serum 3.3 gm/dL (3.5-5.0); Albumin/Globulin Ratio 1.7 (1.2-2.2); Alkaline Phosphatase 49 U/L (46-116); Anion Gap 8 (7-16); Aspartate Amino Transferase 36 U/L (0-34); BUN/Creatinine Ratio 33 Ratio (12-20); Bilirubin,Total 0.3 mg/dL (0.3-1.2); Blood Urea Nitrogen 13 mg/dL (9-23); Calcium 8.2 mg/dL (8.3-10.6); Calcium (Corrected) 8.8 mg/dL (8.5-10.1); Carbon Dioxide 26.2 mMol/L (20.0-31.0); Chloride 104 mMol/L (98-107); Creatinine (Component) 0.4 mg/dL (0.6-1.3); Estimated Creatinine Clearance 180.0 mL/min (>60); Globulin 1.9 gm/dL (2.3-3.5); Glucose 121 mg/dL (74-106); Osmolality,Calculated 276 (275-295); Potassium 3.9 mMol/L (3.4-5.1); Sodium 138 mMol/L (136-145); Total Protein 5.2 gm/dL (5.7-8.2); eGFR > 60 See Note
--- NOTE | 2025-07-19 14:46 | ESCONSULT_ITS ---
Tele Neuro Consultation Consultation Date 07/19/25 Most Recent Vital Signs Last Vital Signs Temp 97.2 F 07/19/25 08:00 Pulse 93 07/19/25 12:00 Resp 20 07/19/25 08:00 BP 145/82 H 07/19/25 09:51 Pulse Ox 95 07/19/25 08:00 O2 Del Method Nasal Cannula 07/19/25 08:00 O2 Flow Rate 2 07/19/25 08:00 FiO2 25 07/19/25 08:00 Laboratory-Coagulation Panel PT 10.9 Seconds (9.0-12.2) 07/12/25 07:25 INR 1.0 (0.9-1.3) 07/12/25 07:25 APTT 30.9 Seconds (22.0-36.0) 07/12/25 07:25 Consultation Narrative [facility] Tele[facility]urology Consult Services Patient Name:???Juanita France Date of :???1980 Identification Number:??? Date of Service:???07/19/2025 14:10:12 Diagnosis:?M62.81 - Generalized Muscle Weakness Impression: ?Patient is a 45 year old woman, admitted for seizures, status epilepticus and had bee in ICU. During seizures patient with have non rhythmic mouth movements, starring but not following commands, arms would drift to bed. Today seizures she was not following commands, was coughing, able to track with her eyes. ? ?PMHX of meningitis, strokes, sepsis. On depkaote 1000 mg BID and vimpat 100 mg BID. In house neurology following and planned for repeat EEG tomorrow. ? ?MRI Head from 07/15/2025 with left frontal and left parietal strokes. On ASA. ? ?LKN unknown, has had documented bilateral weakness, worse in right leg without movement > 24 hrs. ? ? ?The patient was not a candidate for IV thrombolytics due to recent stroke within the past 90 days. ? ?Patient not appearing to be having seizures currently. ? ?CT head today without acute findings. ? ?Recommend further management per inpatient neurology follow her retirement. ? ? Sign Out: ? Discussed with Rapid Response Team Advanced Imaging:Advanced Imaging Deferred because: Does not meet criteria due to being out of the 24-hour window for thrombectomy Metrics: Last Known Well: Unknown Dispatch Time: 07/19/2025 14:10:12 Initial Response Time: 07/19/2025 14:20:00Symptoms: seizures. Initial patient interaction: 07/19/2025 14:33:24 NIHSS Assessment Completed: 07/19/2025 14:44:40Patient is not a candidate for Thrombolytic. Thrombolytic Medical Decision: 07/19/2025 14:44:41Patient was not deemed candidate for Thrombolytic because of following reasons: LKW outside 4.[address] Head: I personally reviewed all the CT images that were available to me and it showed: no acute hemorrhage. Primary Provider Notified of Diagnostic Impression and Management Plan on: 07/19/2025 14:45:58 Spoke With: Dr Zan Dunlap Able to Reach 07/19/2025 14:45:58 History of Present Illness:Patient is a 45 year old Female. Inpatient stroke alert was called for symptoms of seizures. Patient is a 45 year old woman, admitted for seizures, status epilepticus and had bee in ICU. During seizures patient with have non rhythmic mouth movements, starring but not following commands, arms would drift to bed. Today seizures she was not following commands, was coughing, able to track with her eyes. PMHX of meningitis, strokes, sepsis. On depkaote 1000 mg BID and vimpat 100 mg BID. In house neurology following and planned for repeat EEG tomorrow. MRI Head from 07/15/2025 with left frontal and left parietal strokes. On ASA. LKN unknown, has had documented bilateral weakness, worse in right leg without movement > 24 hrs. ? Past Medical History: ?Stroke ?Seizures Medications: No Anticoagulant use? Antiplatelet use:?Yes?ASA Reviewed EMR for current medications Allergies:? Reviewed Social History: Drug Use: No Family History: There is no family history of premature cerebrovascular disease pertinent to this consultation ROS : 14 Points Review of Systems was performed and was negative except mentioned in HPI. Past Surgical History: There Is No Surgical History Contributory To Today?s Visit ? Examination: BP(145/82),?Pulse(93),?Blood Glucose(129) 1A: Level of Consciousness - Alert; keenly responsive?+ 0 1B: Ask Month and Age - Both Questions Right?+ 0 1C: Blink Eyes & Squeeze Hands - Performs Both Tasks?+ 0 2: Test Horizontal Extraocular Movements - Normal?+ 0 3: Test Visual Agarwal - No Visual Loss?+ 0 4: Test Facial Palsy (Use Grimace if Obtunded) - Normal symmetry?+ 0 5A: Test Left Arm Motor Drift - Drift, hits bed?+ 2 5B: Test Right Arm Motor Drift - Drift, hits bed?+ 2 6A: Test Left Leg Motor Drift - No Effort Against [place]?+ 3 6B: Test Right Leg Motor Drift - No Movement?+ 4 7: Test Limb Ataxia (FNF/Heel-[place]) - No Ataxia?+ 0 8: Test Sensation - Normal; No sensory loss?+ 0 9: Test Language/Aphasia - Mild-Moderate Aphasia: Some Obvious Changes, Without Significant Limitation?+ 1 10: Test Dysarthria - Mild-Moderate Dysarthria: Slurring but can be understood?+ 1 11: Test Extinction/Inattention - No abnormality?+ 0 NIHSS Score:?13 Pre-Morbid Modified Meredith Scale: Unable to assess Spoke with :?Dr Zan Dunlap This consult was conducted in real time using interactive audio and video technology. Patient was informed of the technology being used for this visit and agreed to proceed. Patient located in hospital and provider located at home/office setting. Patient is being evaluated for possible acute neurologic impairment and high probability of imminent or life-threatening deterioration. I spent total of 30 minutes providing care to this patient, including time for face to face visit via telemedicine, review of medical records, imaging studies and discussion of findings with providers, the patient and/or family. Dr Flaco Dupont [facility] For Inpatient follow-up with [facility] physician please call [facility] at . As we are not an outpatient service for any post hospital discharge needs please contact the hospital for assistance. If you have any questions for the [facility] physicians or need to reconsult for clinical or diagnostic changes please contact us via [facility] at [phone]. Non-radiologist review of imaging performed to assist with emergent clinical decision-making. Remote physician workstations do not possess the same resolution, calibration, or diagnostic capabilities as hospital-based radiology reading stations, and formal radiologist read is necessary. Signature :?Flaco Dupont ?
--- NOTE | 2025-07-19 14:59 | PD.EVENT ---
Documentation for date of: 07/19/25
--- NOTE | 2025-07-19 15:29 | PD.RESEVENT ---
Documentation for date of: 07/19/25 Event Note Event Note: Rapid response was called around 1:50 PM this afternoon due to possible seizure-like activity and patient unresponsiveness. On assessment patient was able to trace of her eyes, but was having nonintentional bowel movements and was unable to follow any commands or respond verbally. Patient was also coughing at this time. At this time lactic acid was ordered, CMP, stroke alert was also called given the patient has a history of meningitis along with infarcts during this admission there was suspicion that patient could have had a new stroke therefore stroke alert was called and initiated. Patient's head CT was unremarkable and spoke with neurologist Dr. Dupont who stated that he agreed with getting the repeat EEG at this time and that the patient was not a candidate for tenecteplase at this time given her recent CVA. Will wait for MRI to come back and for repeat EEG. At that the rapid patient got midazolam 2 mg as well for seizure-like activity and after Patient came back from the CT and was speaking with teleneurology she was AO x 3. Physical exam was fairly unchanged from yesterday. Case disclosed with Attending Dr. Pedro Roper PGY2 Disclaimer: Even though this this note was dictated by speech recognition and even though it was carefully revised there may still be minor errors in communications coordinator due to voice recognition software.
--- NOTE | 2025-07-19 15:50 | ESPR_ITS ---
Documentation for date of: 07/19/25 Subjective - Hospitalist Subjective Interval history: Patient seen and examined at bedside this morning. No acute overnight events but patient had an episode of seizure yesterday evening. Received IV midazolam at that time. This morning, patient appears alert and oriented, able to answer questions and follow commands appropriately. Denies any new complaints. But this afternoon, patient had a rapid response called, for unresponsiveness/seizure-like activity. Patient was unresponsive at bedside, was coughing, having repeated lip movement. She was unable to follow commands or answer questions. Lab results were ordered including lactic acid, CMP. Chest x-ray was obtained, which shows improvement compared to previous x-ray. Patient did not respond even after IV midazolam administration, seizure activity was slightly different compared to yesterday, stroke alert was called, patient underwent head CT, which was negative for acute finding, teleneurology recommended MRI brain stroke protocol along with EEG as recommended by in-house neurology. Discussed with in-house neurology, we will increase dose of sodium valproate to 750 4 times daily along with Vimpat to 200 IV twice daily. We will continue to monitor closely for seizure episodes, IV midazolam as needed on board. Vital signs are stable, lab results show WBC of 11.6, slightly increased compared to yesterday chemistry panel remains stable. Review of Systems Review of Systems Systems Reviewed: All systems reviewed, normal except as documented Exam Vital Signs Temp Pulse Resp BP Pulse Ox O2 Del Method O2 Flow Rate 97.2 F 93 20 145/82 H 95 Nasal Cannula 2 07/19/25 08:00 07/19/25 12:00 07/19/25 08:00 07/19/25 09:51 07/19/25 08:00 07/19/25 08:00 07/19/25 08:00 FiO2 25 07/19/25 08:00 Narrative GENERAL: Somnolent but wakes up on calling, alert and oriented x 4 when awake, able to answer questions and follow commands appropriately, appears weak and tired HEENT: Normocephalic, atraumatic, extraocular movements intact, pupils equal and reactive to light NECK: Supple, no JVD or bruits. CARDIOVASULAR: RRR, S1 and S2 heard, without murmur, rubs or gallops. LUNGS/CHEST: Clear to auscultation bilaterally. No rails, rhonchi, or wheezing. ABDOMEN: Soft, nontender, with normal bowel sounds. No rebound, rigidity, or guarding. EXTREMITIES: No edema, clubbing or cyanosis. No joint deformity. Able to move all limbs. SKIN: Warm and dry without rashes. NEURO: Alert, awake and oriented x4. Global weakness, able to lift bilateral upper extremity but more movement on left side compared to right, able to move left lower extremity, unable to move right lower extremity PSYCHIATRIC: Cooperative, somnolent Objective - Hospitalist Labs Diagram: 07/19/25 04:32 07/19/25 14:05 Labs: Laboratory Results - last 24 hr 07/19/25 07/19/25 07/19/25 04:32 04:32 04:32 WBC 11.6 H RBC 3.71 L Hgb 10.4 L Hct 31.5 L MCV 85 MCH 28.0 MCHC 33.0 RDW Std Deviation 42.0 Plt Count 244 D Neut % (Auto) 56 Lymph % (Auto) 36 [place] % (Auto) 6 Eos % (Auto) 0 Baso % (Auto) 0 Neut # (Auto) 6.5 Lymph # (Auto) 4.2 [place] # (Auto) 0.7 Eos # (Auto) 0.1 Baso # (Auto) 0.0 Immature Gran # (Auto) 0.19 H Absolute Nucleated RBC 0.00 Immature Gran % 2 H Nucleated RBC % 0 Sodium Cancelled 142 Potassium Cancelled 4.2 D Chloride Cancelled Carbon Dioxide Anion Gap BUN Creatinine Estim Creat Clear Calc eGFR BUN/Creatinine Ratio Glucose Calculated Osmolality Lactic Acid Calcium Corrected Calcium Magnesium Total Bilirubin AST ALT Alkaline Phosphatase Total Protein Albumin Globulin Albumin/Globulin Ratio 07/19/25 07/19/25 07/19/25 04:32 04:32 04:32 WBC RBC Hgb Hct MCV MCH MCHC RDW Std Deviation Plt Count Neut % (Auto) Lymph % (Auto) [place] % (Auto) Eos % (Auto) Baso % (Auto) Neut # (Auto) Lymph # (Auto) [place] # (Auto) Eos # (Auto) Baso # (Auto) Immature Gran # (Auto) Absolute Nucleated RBC Immature Gran % Nucleated RBC % Sodium Potassium Chloride 105 Carbon Dioxide Cancelled 28.3 Anion Gap Cancelled 9 BUN Cancelled Creatinine Estim Creat Clear Calc eGFR BUN/Creatinine Ratio Glucose Calculated Osmolality Lactic Acid Calcium Corrected Calcium Magnesium Total Bilirubin AST ALT Alkaline Phosphatase Total Protein Albumin Globulin Albumin/Globulin Ratio 07/19/25 07/19/25 07/19/25 04:32 04:32 04:32 WBC RBC Hgb Hct MCV MCH MCHC RDW Std Deviation Plt Count Neut % (Auto) Lymph % (Auto) [place] % (Auto) Eos % (Auto) Baso % (Auto) Neut # (Auto) Lymph # (Auto) [place] # (Auto) Eos # (Auto) Baso # (Auto) Immature Gran # (Auto) Absolute Nucleated RBC Immature Gran % Nucleated RBC % Sodium Potassium Chloride Carbon Dioxide Anion Gap BUN 17 Creatinine Cancelled 0.3 L Estim Creat Clear Calc Cancelled 239.9 eGFR Cancelled BUN/Creatinine Ratio Glucose Calculated Osmolality Lactic Acid Calcium Corrected Calcium Magnesium Total Bilirubin AST ALT Alkaline Phosphatase Total Protein Albumin Globulin Albumin/Globulin Ratio 07/19/25 07/19/25 07/19/25 04:32 04:32 04:32 WBC RBC Hgb Hct MCV MCH MCHC RDW Std Deviation Plt Count Neut % (Auto) Lymph % (Auto) [place] % (Auto) Eos % (Auto) Baso % (Auto) Neut # (Auto) Lymph # (Auto) [place] # (Auto) Eos # (Auto) Baso # (Auto) Immature Gran # (Auto) Absolute Nucleated RBC Immature Gran % Nucleated RBC % Sodium Potassium Chloride Carbon Dioxide Anion Gap BUN Creatinine Estim Creat Clear Calc eGFR > 60 BUN/Creatinine Ratio Cancelled 57 H Glucose Cancelled 77 D Calculated Osmolality Cancelled Lactic Acid Calcium Corrected Calcium Magnesium Total Bilirubin AST ALT Alkaline Phosphatase Total Protein Albumin Globulin Albumin/Globulin Ratio 07/19/25 07/19/25 07/19/25 04:32 04:32 04:32 WBC RBC Hgb Hct MCV MCH MCHC RDW Std Deviation Plt Count Neut % (Auto) Lymph % (Auto) [place] % (Auto) Eos % (Auto) Baso % (Auto) Neut # (Auto) Lymph # (Auto) [place] # (Auto) Eos # (Auto) Baso # (Auto) Immature Gran # (Auto) Absolute Nucleated RBC Immature Gran % Nucleated RBC % Sodium Potassium Chloride Carbon Dioxide Anion Gap BUN Creatinine Estim Creat Clear Calc eGFR BUN/Creatinine Ratio Glucose Calculated Osmolality 283 Lactic Acid Calcium Cancelled 7.8 L Corrected Calcium Cancelled 8.8 Magnesium 1.8 Total Bilirubin Cancelled AST ALT Alkaline Phosphatase Total Protein Albumin Globulin Albumin/Globulin Ratio 07/19/25 07/19/25 07/19/25 04:32 04:32 04:32 WBC RBC Hgb Hct MCV MCH MCHC RDW Std Deviation Plt Count Neut % (Auto) Lymph % (Auto) [place] % (Auto) Eos % (Auto) Baso % (Auto) Neut # (Auto) Lymph # (Auto) [place] # (Auto) Eos # (Auto) Baso # (Auto) Immature Gran # (Auto) Absolute Nucleated RBC Immature Gran % Nucleated RBC % Sodium Potassium Chloride Carbon Dioxide Anion Gap BUN Creatinine Estim Creat Clear Calc eGFR BUN/Creatinine Ratio Glucose Calculated Osmolality Lactic Acid Calcium Corrected Calcium Magnesium Total Bilirubin 0.3 AST Cancelled 34 ALT Cancelled 20 Alkaline Phosphatase Cancelled Total Protein Albumin Globulin Albumin/Globulin Ratio 07/19/25 07/19/25 07/19/25 04:32 04:32 04:32 WBC RBC Hgb Hct MCV MCH MCHC RDW Std Deviation Plt Count Neut % (Auto) Lymph % (Auto) [place] % (Auto) Eos % (Auto) Baso % (Auto) Neut # (Auto) Lymph # (Auto) [place] # (Auto) Eos # (Auto) Baso # (Auto) Immature Gran # (Auto) Absolute Nucleated RBC Immature Gran % Nucleated RBC % Sodium Potassium Chloride Carbon Dioxide Anion Gap BUN Creatinine Estim Creat Clear Calc eGFR BUN/Creatinine Ratio Glucose Calculated Osmolality Lactic Acid Calcium Corrected Calcium Magnesium Total Bilirubin AST ALT Alkaline Phosphatase 47 Total Protein Cancelled 4.4 L Albumin Cancelled 2.8 L Globulin Cancelled Albumin/Globulin Ratio 07/19/25 07/19/25 07/19/25 04:32 04:32 14:05 WBC RBC Hgb Hct MCV MCH MCHC RDW Std Deviation Plt Count Neut % (Auto) Lymph % (Auto) [place] % (Auto) Eos % (Auto) Baso % (Auto) Neut # (Auto) Lymph # (Auto) [place] # (Auto) Eos # (Auto) Baso # (Auto) Immature Gran # (Auto) Absolute Nucleated RBC Immature Gran % Nucleated RBC % Sodium 138 Potassium 3.9 Chloride 104 Carbon Dioxide 26.2 Anion Gap 8 BUN 13 Creatinine 0.4 L Estim Creat Clear Calc 180.0 eGFR > 60 BUN/Creatinine Ratio 33 H Glucose 121 H D Calculated Osmolality 276 Lactic Acid 1.0 Calcium 8.2 L Corrected Calcium 8.8 Magnesium Total Bilirubin 0.3 AST 36 H ALT 18 Alkaline Phosphatase 49 Total Protein 5.2 L Albumin 3.3 L D Globulin 1.6 L 1.9 L Albumin/Globulin Ratio Cancelled 1.8 1.7 ABG Interpretation ABG results: 07/12/25 07/12/25 07/13/25 08:31 17:13 04:48 ABG pH 7.13 L* 7.26 L D 7.28 L ABG pCO2 46 45 46 ABG pO2 122 H 100 D 129 H D ABG HCO3 15 L 20 22 ABG O2 Saturation 98 98 99 H ABG Base Excess -14 L -7 L -5 L 07/14/25 07/14/25 01:03 04:17 ABG pH 7.33 L 7.36 ABG pCO2 46 44 ABG pO2 127 H 98 D ABG HCO3 24 25 ABG O2 Saturation 100 H 99 H ABG Base Excess -2 -1 Assessment & Plan Patient Synopsis 45-year-old female with a past medical history of leukemia, stroke, type 2 diabetes mellitus, seizure disorder, migraine hypertension who presented with altered mental status following seizure episode, patient was intubated and upgraded to ICU due to inability to protect airway, and management of seizures. Neurology was consulted and a lumbar puncture was done which showed cloudy CSF, 20 WBC, CSF Gram stain positive for strep pneumo, patient was started on IV antibiotics for meningitis and continued on mechanical ventilation, EEG showed discharges consistent with seizure disorder, patient was extubated on 07/17/2025. CSF culture negative, MRI brain showed multifocal infarcts likely secondary to underlying meningitis. #Acute encephalopathy #Status epilepticus? Patient with history of seizures history of noncompliance with medications on Keppra, reportedly concern for Keppra causing relapse of leukemia, patient presented to the ER with status epilepticus, continued seizure despite 4 mg of Versed, patient was intubated and sedated with propofol and fentanyl, given loading dose of Keppra in the ED 1500 mg. EEG showed multiple bilateral focal epileptiform discharges consistent with seizures, but no status epilepticus. Neurology following the patient, appreciate recommendations Had another episode of seizure today, last 1 before this was yesterday afternoon. ? Increased dose of sodium valproate to 750 mg 4 times a day ? Increase dose of Vimpat to 200 twice daily ? Neurology following closely, recommended obtaining repeat EEG, appreciate recommendations ? Seizure precautions in place #Sepsis secondary to streptococcus P. meningitis #Streptococcus pneumonia bacteremia #Septic shock,?now resolved History of severe headache/migraine prior to abdominal status, CSF analysis results cloudy, WBC more than 10,000, RBC 1000, glucose 97, protein greater than 250, strep pneumo antigen positive, elevated opening pressure, findings consistent with acute meningitis patient was started on IV antibiotics, CSF cultures negative. Patient was initially on pressor support with Levophed, currently off Levophed for over 72 hours. Was initially treated with IV Decadron. Initial blood cultures grew strep pneumo sensitive to ceftriaxone, repeat blood cultures negative at 48 hours, CSF culture negative to date, ? Continue ceftriaxone 2 g BID ? Follow-up blood culture from 07/14/2025-negative #Acute multifocal CVA Patient has a reported history of CVA over 5 years ago with no residual deficits, but following diagnosis of meningitis, MRI confirmed multifocal acute infarction in the left frontal and parietal lobes, consistent with meningitis, neurology following the patient. Patient had a rapid response called today, for likely seizure episode, due to change in seizure presentation compared to yesterday, stroke alert was called, head CT today also negative for acute changes ? Physical therapy once mental status improves ? Aspirin 81 mg daily, recommended by neurology as massive left hemispheric infarct to prevent hemorrhagic conversion. ? Teleneurology was consulted, recommended MRI stroke protocol, awaiting results #NSTEMI, likely type II #CHF EF 40 to 45% NSTEMI type II likely in the setting of severe sepsis and status epilepticus, elevated troponins in the setting of septic shock, echocardiogram was done which showed normal-sized LV but EF 40 to 45%, mild mitral and tricuspid regurgitation, no pericardial effusion. Per cardiology decreased EF with mild global hypokinesis mostly secondary to septic shock and tachycardia, anticipate improvement and repeat echocardiogram prior to discharge. No anticoagulation recommended in the setting of lumbar puncture. ? Cardiology following closely, appreciate recommendations ? Continue to monitor for volume overload ? Strict intake and output monitoring #Acute hypoxic respiratory failure 2/2 aspiration pneumonia Aspiration pneumonia likely secondary to acute encephalopathy in the setting of seizure disorder and meningitis, was initially intubated for airway protection, started on mechanical ventilation, patient was extubated today after successful spontaneous breathing trial. ? Continue IV antibiotics ceftriaxone 2 g BID #History of type 2 diabetes mellitus ? insulin degludec (held)and sliding scale insulin ? Hypoglycemia protocol in place #History of hypertension ?Continue home medications #History of hyperlipidemia #History of leukemia Patient has a history of acute monocytic leukemia, elevated leukocyte count in the setting of sepsis, improved WBC count following initiation of IV antibiotics, leukocytosis likely reactive. History of chemotherapy 10 years ago, currently in remission. ?Outpatient oncology follow-up following discharge. Disposition: Telemetry for management of seizure disorder, meningitis, bacteremia, continues to be on IV antibiotics, seizure prophylaxis, titrating antiepileptics DVT prophylaxis: Enoxaparin 40 mg daily GI prophylaxis: Protonix 40 mg daily Diet: Dysphagia diet pur?ed CODE STATUS: Cobbler Mckay Spent with Patient Time: Total time spent is greater than 50% in coordination of care (as documented) at patient's floor/unit and/or counseling patient: Time with patient: Greater than 35 minutes Reason for Continued Stay Reason for continued stay: further monitoring Quality Measures Quality Measures VTE prophylaxis
--- NOTE | 2025-07-19 17:48 | PC.NURSE ---
Dr. Howe covering for Dr. Dunlap aware pt. had another seizure PRN given.
[2025-07-19] MEDS: VALPROATE SOD INJ 750 MG in SODIUM CHLORIDE 0.9% 50 ML 57.5 MG IV ×2 (17:56→23:44)
--- NOTE | 2025-07-19 18:15 | PC.NURSE ---
Dr. Patel called to [facility] to notify Dr. Vasquez of MRI report immediately. Dr. Vasquez aware STAT, and states I will review it.
--- NOTE | 2025-07-19 18:39 | PC.NURSE ---
Called about NPO order inquiring plan, Dr. Vasquez states I will call you back
[2025-07-19] MEDS: LACOSAMIDE INJ 200 MG/20 ML VIAL IVP (20:32)
--- NOTE | 2025-07-19 20:47 | PD.RESPRO ---
Documentation for date of: 07/19/25 Subjective Subjective Interval history: Patient examined at bedside. Vitals stable, labs unremarkable. Two RR called today for seizures. Patient was given IV midazolam 2g which aborted seizure. Stroke was called in the afternoon after assesment showed worsening neurologic status with decreased response and worsening weakness. Tele neuro evaluated, NIHSS score 13. CT head was negative for acute hemmorage or mass effect, midline shift. MRI brain negative for infarct but showed increased signal uptake in occipital horns. 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 Recommend that patient get transferred to tertiary care center. Needs urgent neruosurgical evaluation. Broaden abx coverage with IV vancomycin and IV cefepime. Increased depakote to 1500mg BID and vimpat to 200 BID. Monitor activity and order depakote levels. Repeat EEG today. Exam Vital Signs Temp Pulse Resp BP Pulse Ox O2 Del Method O2 Flow Rate 98.3 F 80 32 H 139/76 H 97 Nasal Cannula 2 07/19/25 20:00 07/19/25 20:00 07/19/25 20:00 07/19/25 20:00 07/19/25 20:00 07/19/25 20:00 07/19/25 20:00 FiO2 25 07/19/25 08:00 Narrative Exam GENERAL APPEARANCE: middle age female, awake, comfortable HEENT: Normocephalic, atraumatic. Pupils: Equal reacting to light NECK: Supple, no JVD or bruits. CARDIOVASULAR: Heart: S1, S2 heard, regular without S3-S4 or murmur no rubs or gallops. LUNGS/CHEST: lungs clear to auscultation ABDOMEN: Soft, nontender, with normal bowel sounds. No pulsatile masses. No rebound, rigidity, or guarding. Normal inspection and palpation. EXTREMITIES: Normal inspection and palpation. No edema, clubbing or cyanosis. SKIN: Warm and dry without rashes. Normal inspection. NEURO: Alert, awake and oriented x3. Cranial nerves: II through XII grossly intact. Speech and language: mild dysarthria. Motor system: Tone and bulk: Normal: Strength: 4/5 UE, slow movement on Left UE. Strength 5/5 RLE, unable to move right LE. Sensation intact; No pronator drift noted. Plantar reflex: Downgoing bilaterally. Sensory system: Intact to all modalities of sensation bilaterally. Coordination: unable to complete [id number] test. No intention tremors noted. Gait: Not tested. No signs of meningeal irritation noted. PSYCHIATRIC: normal affect and mood Objective Labs 07/22/25 04:57 07/22/25 04:57 Labs: Laboratory Results - last 24 hr 07/19/25 07/19/25 07/19/25 04:32 04:32 04:32 WBC 11.6 H RBC 3.71 L Hgb 10.4 L Hct 31.5 L MCV 85 MCH 28.0 MCHC 33.0 RDW Std Deviation 42.0 Plt Count 244 D Neut % (Auto) 56 Lymph % (Auto) 36 [place] % (Auto) 6 Eos % (Auto) 0 Baso % (Auto) 0 Neut # (Auto) 6.5 Lymph # (Auto) 4.2 [place] # (Auto) 0.7 Eos # (Auto) 0.1 Baso # (Auto) 0.0 Immature Gran # (Auto) 0.19 H Absolute Nucleated RBC 0.00 Immature Gran % 2 H Nucleated RBC % 0 Sodium Cancelled 142 Potassium Cancelled 4.2 D Chloride Cancelled Carbon Dioxide Anion Gap BUN Creatinine Estim Creat Clear Calc eGFR BUN/Creatinine Ratio Glucose Calculated Osmolality Lactic Acid Calcium Corrected Calcium Magnesium Total Bilirubin AST ALT Alkaline Phosphatase Total Protein Albumin Globulin Albumin/Globulin Ratio 07/19/25 07/19/25 07/19/25 04:32 04:32 04:32 WBC RBC Hgb Hct MCV MCH MCHC RDW Std Deviation Plt Count Neut % (Auto) Lymph % (Auto) [place] % (Auto) Eos % (Auto) Baso % (Auto) Neut # (Auto) Lymph # (Auto) [place] # (Auto) Eos # (Auto) Baso # (Auto) Immature Gran # (Auto) Absolute Nucleated RBC Immature Gran % Nucleated RBC % Sodium Potassium Chloride 105 Carbon Dioxide Cancelled 28.3 Anion Gap Cancelled 9 BUN Cancelled Creatinine Estim Creat Clear Calc eGFR BUN/Creatinine Ratio Glucose Calculated Osmolality Lactic Acid Calcium Corrected Calcium Magnesium Total Bilirubin AST ALT Alkaline Phosphatase Total Protein Albumin Globulin Albumin/Globulin Ratio 07/19/25 07/19/25 07/19/25 04:32 04:32 04:32 WBC RBC Hgb Hct MCV MCH MCHC RDW Std Deviation Plt Count Neut % (Auto) Lymph % (Auto) [place] % (Auto) Eos % (Auto) Baso % (Auto) Neut # (Auto) Lymph # (Auto) [place] # (Auto) Eos # (Auto) Baso # (Auto) Immature Gran # (Auto) Absolute Nucleated RBC Immature Gran % Nucleated RBC % Sodium Potassium Chloride Carbon Dioxide Anion Gap BUN 17 Creatinine Cancelled 0.3 L Estim Creat Clear Calc Cancelled 239.9 eGFR Cancelled BUN/Creatinine Ratio Glucose Calculated Osmolality Lactic Acid Calcium Corrected Calcium Magnesium Total Bilirubin AST ALT Alkaline Phosphatase Total Protein Albumin Globulin Albumin/Globulin Ratio 07/19/25 07/19/25 07/19/25 04:32 04:32 04:32 WBC RBC Hgb Hct MCV MCH MCHC RDW Std Deviation Plt Count Neut % (Auto) Lymph % (Auto) [place] % (Auto) Eos % (Auto) Baso % (Auto) Neut # (Auto) Lymph # (Auto) [place] # (Auto) Eos # (Auto) Baso # (Auto) Immature Gran # (Auto) Absolute Nucleated RBC Immature Gran % Nucleated RBC % Sodium Potassium Chloride Carbon Dioxide Anion Gap BUN Creatinine Estim Creat Clear Calc eGFR > 60 BUN/Creatinine Ratio Cancelled 57 H Glucose Cancelled 77 D Calculated Osmolality Cancelled Lactic Acid Calcium Corrected Calcium Magnesium Total Bilirubin AST ALT Alkaline Phosphatase Total Protein Albumin Globulin Albumin/Globulin Ratio 07/19/25 07/19/25 07/19/25 04:32 04:32 04:32 WBC RBC Hgb Hct MCV MCH MCHC RDW Std Deviation Plt Count Neut % (Auto) Lymph % (Auto) [place] % (Auto) Eos % (Auto) Baso % (Auto) Neut # (Auto) Lymph # (Auto) [place] # (Auto) Eos # (Auto) Baso # (Auto) Immature Gran # (Auto) Absolute Nucleated RBC Immature Gran % Nucleated RBC % Sodium Potassium Chloride Carbon Dioxide Anion Gap BUN Creatinine Estim Creat Clear Calc eGFR BUN/Creatinine Ratio Glucose Calculated Osmolality 283 Lactic Acid Calcium Cancelled 7.8 L Corrected Calcium Cancelled 8.8 Magnesium 1.8 Total Bilirubin Cancelled AST ALT Alkaline Phosphatase Total Protein Albumin Globulin Albumin/Globulin Ratio 07/19/25 07/19/25 07/19/25 04:32 04:32 04:32 WBC RBC Hgb Hct MCV MCH MCHC RDW Std Deviation Plt Count Neut % (Auto) Lymph % (Auto) [place] % (Auto) Eos % (Auto) Baso % (Auto) Neut # (Auto) Lymph # (Auto) [place] # (Auto) Eos # (Auto) Baso # (Auto) Immature Gran # (Auto) Absolute Nucleated RBC Immature Gran % Nucleated RBC % Sodium Potassium Chloride Carbon Dioxide Anion Gap BUN Creatinine Estim Creat Clear Calc eGFR BUN/Creatinine Ratio Glucose Calculated Osmolality Lactic Acid Calcium Corrected Calcium Magnesium Total Bilirubin 0.3 AST Cancelled 34 ALT Cancelled 20 Alkaline Phosphatase Cancelled Total Protein Albumin Globulin Albumin/Globulin Ratio 07/19/25 07/19/25 07/19/25 04:32 04:32 04:32 WBC RBC Hgb Hct MCV MCH MCHC RDW Std Deviation Plt Count Neut % (Auto) Lymph % (Auto) [place] % (Auto) Eos % (Auto) Baso % (Auto) Neut # (Auto) Lymph # (Auto) [place] # (Auto) Eos # (Auto) Baso # (Auto) Immature Gran # (Auto) Absolute Nucleated RBC Immature Gran % Nucleated RBC % Sodium Potassium Chloride Carbon Dioxide Anion Gap BUN Creatinine Estim Creat Clear Calc eGFR BUN/Creatinine Ratio Glucose Calculated Osmolality Lactic Acid Calcium Corrected Calcium Magnesium Total Bilirubin AST ALT Alkaline Phosphatase 47 Total Protein Cancelled 4.4 L Albumin Cancelled 2.8 L Globulin Cancelled Albumin/Globulin Ratio 07/19/25 07/19/25 07/19/25 04:32 04:32 14:05 WBC RBC Hgb Hct MCV MCH MCHC RDW Std Deviation Plt Count Neut % (Auto) Lymph % (Auto) [place] % (Auto) Eos % (Auto) Baso % (Auto) Neut # (Auto) Lymph # (Auto) [place] # (Auto) Eos # (Auto) Baso # (Auto) Immature Gran # (Auto) Absolute Nucleated RBC Immature Gran % Nucleated RBC % Sodium 138 Potassium 3.9 Chloride 104 Carbon Dioxide 26.2 Anion Gap 8 BUN 13 Creatinine 0.4 L Estim Creat Clear Calc 180.0 eGFR > 60 BUN/Creatinine Ratio 33 H Glucose 121 H D Calculated Osmolality 276 Lactic Acid 1.0 Calcium 8.2 L Corrected Calcium 8.8 Magnesium Total Bilirubin 0.3 AST 36 H ALT 18 Alkaline Phosphatase 49 Total Protein 5.2 L Albumin 3.3 L D Globulin 1.6 L 1.9 L Albumin/Globulin Ratio Cancelled 1.8 1.7 ABG Interpretation ABG results: 07/12/25 07/12/25 07/13/25 08:31 17:13 04:48 ABG pH 7.13 L* 7.26 L D 7.28 L ABG pCO2 46 45 46 ABG pO2 122 H 100 D 129 H D ABG HCO3 15 L 20 22 ABG O2 Saturation 98 98 99 H ABG Base Excess -14 L -7 L -5 L 07/14/25 07/14/25 01:03 04:17 ABG pH 7.33 L 7.36 ABG pCO2 46 44 ABG pO2 127 H 98 D ABG HCO3 24 25 ABG O2 Saturation 100 H 99 H ABG Base Excess -2 -1 Quality Measures Quality Measures VTE prophylaxis Assessment & Plan Assessment Current Active Medications: Generic Name Dose Route Start Last Admin Trade Name Freq PRN Reason Stop Dose Admin Acetaminophen 650 mg 07/18/25 13:38 Acetaminophen 325 Mg Tablet NG 08/17/25 13:37 Q6HR PRN Fever >100.4 Aspirin 81 mg 07/17/25 09:00 07/19/25 09:51 Aspirin 81 Mg Chew NG 08/16/25 08:59 81 mg QDAY ASHLEY Administration Dextrose 25 ml 07/12/25 10:05 Dextrose 50%-Water Inj 50 Ml Syringe IV 08/11/25 10:04 Q15MIN PRN BG 50-70 responsive npo pt Dextrose 50 ml 07/12/25 10:05 Dextrose 50%-Water Inj 50 Ml Syringe IV 08/11/25 10:04 Q15MIN PRN BG <50 OR BG <70 & pt unresponsive Enoxaparin Sodium 40 mg 07/12/25 09:45 07/19/25 09:51 Enoxaparin Sod Inj 40 Mg/0.4 Ml Syringe SC 07/26/25 09:44 40 mg QDAY ASHLEY Administration Glucagon 1 mg 07/12/25 10:05 Glucagon Inj 1 Mg Vial IM Q15MIN PRN BG <70, and no IV access Ceftriaxone Sodium 2 gm/ 50 mls @ 100 mls/hr 07/18/25 09:00 07/19/25 09:52 Sodium Chloride IV 07/25/25 08:59 100 mls/hr Q12HR ASHLEY Administration Valproic Acid 750 mg/ Sodium 57.5 mls @ 57.5 mls/hr 07/19/25 18:00 07/19/25 17:56 Chloride IV 08/18/25 17:59 57.5 mls/hr Q6HR ASHLEY Administration Protocol Insulin Degludec 40 unit 07/17/25 09:00 07/19/25 09:52 Insulin Degludec 5 Unit/0.05 Ml (Per 5 Units) SC 08/16/25 08:59 Not Given QDAY ASHLEY Insulin Human Lispro 0 unit 07/17/25 17:00 07/19/25 17:20 Insulin Lispro (Admelog) 1 Unit/0.01 Ml Unit SC 08/16/25 16:59 Not Given ACHS ASHLEY Protocol Ipratropium [place] 0.5 mg 07/14/25 11:29 Ipratropium Rt 0.5 Mg/ 2.5 Ml Nebu INH 08/13/25 11:28 Q2HR PRN WHEEZING Lacosamide 200 mg 07/19/25 21:00 07/19/25 20:32 Lacosamide Inj 200 Mg/20 Ml Vial IVP 08/18/25 20:59 200 mg BID ASHLEY Administration Levalbuterol HCl 1.25 mg 07/14/25 11:29 Levalbuterol Rt 1.25 Mg/0.5 Ml Nebu INH 08/13/25 11:28 Q2H PRN WHEEZING Lisinopril 20 mg 07/17/25 09:00 07/19/25 09:51 Lisinopril 20 Mg Tablet NG 08/16/25 08:59 20 mg QDAY ASLHEY Administration Midazolam HCl 2 mg 07/18/25 07:41 07/19/25 17:49 Midazolam Inj 1 Mg/Ml Vial 2 Ml IVP 07/23/25 07:40 2 mg Q5MIN PRN Administration SEIZURES Nicotine 21 mg 07/12/25 13:15 07/19/25 10:05 Nicotine Patch 21 Mg/24 Hr Patch.Td24 TOP 08/11/25 13:14 21 mg QDAY ASHLEY Administration Pantoprazole Sodium 40 mg 07/12/25 09:45 07/19/25 09:51 Pantoprazole Inj 40 Mg Vial IVP 08/11/25 09:44 40 mg QDAY ASHLEY Administration Polyethylene Glycol 17 gm 07/19/25 09:00 07/19/25 09:51 Polyethylene Glycol 17 Gm Packet NG 08/18/25 08:59 Not Given QDAY ASHLEY Sodium Chloride 3 ml 07/14/25 11:29 Sodium Chloride Rt Radha 0.9% 3 Ml Nebu INH 08/13/25 11:28 PRN PRN SOLN Plan Patient is a 45-year-old female with past medical history of CVA 2018, AML, type 2 diabetes, seizures, migraine, HLD, HTN presented to ED on 07/12/25 due to breakthrough seizures/AMS. Neurology consulted for management and LP to rule out meningitis. #Meningitis #Multifocal seizure #Left hemisphere stroke #Pyogenic Ventriculitis #Hx seizures Likely due to status epilepticus break through seizures. 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 Since that time, patient will only take the Keppra when going to music concerts. Stroke alert called in ED. Tele neuro was consulted, NIHSS score 0. CT head/CTA negative. She received 4mg of versed without cessation. Subsequently intubated and sedated with prop/fent. Given 1500mg loading dose of Keppra in ED. Urine, sputum, and blood cultures negative. CSF analysis appearance was cloudy, WBCs 10,720, RBC 1000, glucose 97, protein greater than 250, strep pneumo antigen positive. Opening pressure 37. CSF culture stain showing 3+ WBCs. Repeat CT head and MRI brain showed areas of acute infarct in left frontal and parietal lobe. EEG: abnormal showing multifocal epileptiform discharges consistent with seizures. But no electrographic status noted MRI 07/19-- negative for infarct but showed increased signal uptake in occipital horns. 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 Recommend that patient get transferred to tertiary care center. Needs urgent neruosurgical evaluation. -increased IV depakote to 1500mg BID -increase Vimpat 200mg BID -repeat EEG results pending -euthermia, euglycemia -neuro checks q4hr -IV midazolam for breakthrough seizures -seizure prophylaxis -Continue with aspirin 81 mg alone as the left hemispherical infarct is massive to prevent hemorrhagic conversion and DVT prophylaxis -Continue with IV antibiotics. CSF culture resulted negative. -deffer ELVA #AML #Previous CVA by history but not from MRI in 2018 #T2DM #HLD #HTN Primary care team to manage above conditions and ongoing care needs. The patient's management plan was discussed with my attending physician Dr. Colvin. Paz Rivero, PGY-2 Attending Provider Attestation/Addendum I personally have seen and examined the patient at the bedside and I agreed with resident's findings, assessment and plan of care. EEG: abnormal showing multifocal epileptiform discharges consistent with seizures. But no electrographic status noted MRI 07/19-- negative for infarct but showed increased signal uptake in occipital horns. 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 Recommend that patient get transferred to tertiary care center. Needs urgent neruosurgical evaluation. -increased IV depakote to 1500mg BID -increase Vimpat 200mg BID -FU with repeat EEG
[2025-07-20] VITALS (13 sets, daily range): BP systolic 113–133; BP diastolic 65–89; PULSE 63–89; RESP 18–26; TEMP 36.1–36.4; O2SAT 97–99; BMI 34.7; BMI 12.0
[2025-07-20] MEDS: VALPROATE SOD INJ 750 MG in SODIUM CHLORIDE 0.9% 50 ML 57.5 MG IV ×3 (05:36→18:05)
[2025-07-20 05:58] LABS: Basophils # (Auto) 0.0 Thou/mm3 (0.0-0.2); Basophils % (Auto) 0 % (0-2.5); Eosinophils # (Auto) 0.1 Thou/mm3 (0.0-0.5); Eosinophils % (Auto) 1 % (0-10); Hematocrit 31.6 % (36.0-46.0); Hemoglobin 10.1 g/dL (12.0-16.0); Immature Granulocytes Auto 0.22 Thou/mm3 (0.00-0.00); Lymphocytes # (Auto) 4.0 Thou/mm3 (1.0-4.8); Lymphocytes % (Auto) 40 % (10-50); Mean Corpuscular HGB Conc 32.0 g/dl (31.0-37.0); Mean Corpuscular Hemoglobin 27.8 pg (25.0-35.0); Mean Corpuscular Volume 87 fL (80-100); Monocytes # (Auto) 0.7 Thou/mm3 (0.0-0.8); Monocytes % (Auto) 7 % (0-12); Neutrophils # (Auto) 5.0 Thou/mm3 (1.8-7.7); Neutrophils % (Auto) 50 % (37-80); Nucleated Red Blood Cell # 0.00 Thou/mm3 (0.00-0.00); Nucleated Red Blood Cell % 0 /100 WBC (0); Platelet Count 247 Thou/mm3 (140-440); RDW Standard Deviation 42.5 fL (36.4-46.3); Red Blood Count 3.63 Miln/mm3 (4.00-5.20); White Blood Count 10.0 Thou/mm3 (3.6-11.0)
[2025-07-20 06:10] LABS: Alanine Aminotransferase 15 U/L (10-49); Albumin, Serum 3.1 gm/dL (3.5-5.0); Albumin/Globulin Ratio 1.6 (1.2-2.2); Alkaline Phosphatase 43 U/L (46-116); Anion Gap 7 (7-16); Aspartate Amino Transferase 30 U/L (0-34); BUN/Creatinine Ratio 23 Ratio (12-20); Bilirubin,Total 0.3 mg/dL (0.3-1.2); Blood Urea Nitrogen 9 mg/dL (9-23); Calcium 8.1 mg/dL (8.3-10.6); Calcium (Corrected) 8.8 mg/dL (8.5-10.1); Carbon Dioxide 28.8 mMol/L (20.0-31.0); Chloride 106 mMol/L (98-107); Creatinine (Component) 0.4 mg/dL (0.6-1.3); Estimated Creatinine Clearance 180.0 mL/min (>60); Globulin 1.9 gm/dL (2.3-3.5); Glucose 122 mg/dL (74-106); Magnesium 2.0 mg/dL (1.6-2.6); Osmolality,Calculated 282 (275-295); Potassium 4.0 mMol/L (3.4-5.1); Sodium 142 mMol/L (136-145); Total Protein 5.0 gm/dL (5.7-8.2); eGFR > 60 See Note
[2025-07-20] MEDS: CEFEPIME INJ 2 GM in SODIUM CHLORIDE 0.9% (Popper) 50 ML IV ×3 (09:06→20:59)
[2025-07-20] MEDS: LACOSAMIDE INJ 200 MG/20 ML VIAL IVP ×2 (09:12→20:37)
[2025-07-20] MEDS: ENOXAPARIN SOD INJ 40 MG/0.4 ML SYRINGE SC (09:13)
[2025-07-20] MEDS: NICOTINE PATCH 21 MG/24 HR PATCH.TD24 TOP (09:14)
[2025-07-20] MEDS: VANCOMYCIN/D5W 1,250 MG IVPB 250 ML 120 MG IV ×3 (09:36→21:38)
--- NOTE | 2025-07-20 09:36 | PC.CM ---
Addendum entered by Becca Tyler RN 07/20/25 18:04: 1730 I did not hear back from [facility]. I received a call from Rick at [facility] and he states since we did not get authorization they will close case at this time. He states we can call back tomorrow if we are able to get a hold of patient's insurance and if the give us authorization. Addendum entered by Becca Tyler RN 07/20/25 12:34: 1210 I reached out to [facility]/ phone # [phone] and I left a detailed message asking them to call me back. Addendum entered by Becca Tyler RN 07/20/25 11:27: 1120 I spoke to [facility] and they state they will not be the one to give authorization. She states I need to call [facility]. I will reach out to [facility]. Addendum entered by Becca Tyler RN 07/20/25 11:11: 1110 Patient has [facility] and [facility] as the Medical group. I called [facility] and left a message for a call back. 1055 I received a call back from [facility] and he states they will not present patient until I get authorization from patient's insurance. I let him know I cannot get authorization for another hospital without the admitting doctors name and NPI number. Tevor states I can call him with a verbal from insurance with a name and contact number or a reference number of the call. 1030 I called and initiated transfer with [facility]. I presented patient and faxed over a face sheet. Addendum entered by Becca Tyler RN 07/20/25 10:26: 0945 I received a call back from Nelly with [facility]. She states they would need an ICU bed for this patient and they are at capacity. They declined patient. Addendum entered by Becca Tyler RN 07/20/25 10:04: 0845 I reviewed chart and I spoke to Dr. Dunlap to discuss possible EEG. He states they are going to speak to neurologist and they do not think patient will need an EEG. He states after reviewing the radiology exams patient needs intrathecal antibiotics for ventriculitis. I contacted [facility] to initiate transfer and I faxed over information. Original Note: 1875 I received a referral to transfer patient for neurosurgery. Patient has ventriculitis and will need intrathecal antibiotics.
[2025-07-20] MEDS: POLYETHYLENE GLYCOL 17 GM PACKET NG (10:41)
[2025-07-20] MEDS: ASPIRIN 81 MG CHEW NG (10:41)
--- NOTE | 2025-07-20 11:31 | PC.SS ---
rounding note: Patient is a downgrade from ICU. Notes indicate she was recenty extubated on the . Patient worked with PT on 07/19 and was max assist. PT recommended acute rehab. Patient is open to this. However, currently transfer nurse is working on a transfer for higher level of care for neurosurgical evaluation.
--- NOTE | 2025-07-20 13:13 | ESPR_ITS ---
Documentation for date of: 07/20/25 Subjective Subjective Interval history: Patient seen and assessed at bedside. Continues to have right lower extremity weakness, right upper extremity strength has improved, able to lift right arm. Still unable to lift right leg against gravity. Left upper and lower extremity intact. Denies chest pain, shortness of breath, or palpitations. Repeat echo shows improved EF, back to normal function. No ELVA required at the present moment as there is concern for infectious etiology with ventriiculitis with pus and unlikely an acute stroke. Discussed this with the primary team as well as a neurologist regarding no indication for a ELVA at the present point of time. Patient now being transferred to an higher level care for possible neurosurgical evaluation. Exam Vital Signs Temp Pulse Resp BP Pulse Ox O2 Del Method O2 Flow Rate 97.2 F 76 22 H 128/71 99 Nasal Cannula 2 07/20/25 12:00 07/20/25 12:00 07/20/25 12:00 07/20/25 12:00 07/20/25 12:00 07/20/25 12:00 07/20/25 12:00 FiO2 25 07/20/25 00:00 Narrative Exam Physical Exam General: Awake and in no acute distress. Conversational and non-toxic appearing. HEENT: Normocephalic, atraumatic, mucous membranes moist. Heart: Regular rate and rhythm, normal S1 and S2, no murmurs appreciated. Lungs: Clear to auscultation with no wheezing or crackles. Abdomen: Soft, nondistended, nontender, positive bowel sounds. No guarding or rebound tenderness. Neurologic: Alert and oriented x3. 4/5 strength in right upper extremity and 3/5 in right lower extremity. 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 Extremities: No edema. Skin: No rash or ecchymoses. Objective Labs 07/20/25 04:57 07/20/25 04:57 Labs: Laboratory Results - last 24 hr 07/19/25 07/20/25 14:05 04:57 WBC 10.0 RBC 3.63 L Hgb 10.1 L Hct 31.6 L MCV 87 MCH 27.8 MCHC 32.0 RDW Std Deviation 42.5 Plt Count 247 Neut % (Auto) 50 Lymph % (Auto) 40 Summers % (Auto) 7 Eos % (Auto) 1 Baso % (Auto) 0 Neut # (Auto) 5.0 Lymph # (Auto) 4.0 Summers # (Auto) 0.7 Eos # (Auto) 0.1 Baso # (Auto) 0.0 Immature Gran # (Auto) 0.22 H Absolute Nucleated RBC 0.00 Immature Gran % 2 H Nucleated RBC % 0 Sodium 138 142 Potassium 3.9 4.0 Chloride 104 106 Carbon Dioxide 26.2 28.8 Anion Gap 8 7 BUN 13 9 Creatinine 0.4 L 0.4 L Estim Creat Clear Calc 180.0 180.0 eGFR > 60 > 60 BUN/Creatinine Ratio 33 H 23 H Glucose 121 H D 122 H Calculated Osmolality 276 282 Lactic Acid 1.0 Calcium 8.2 L 8.1 L Corrected Calcium 8.8 8.8 Magnesium 2.0 Total Bilirubin 0.3 0.3 AST 36 H 30 ALT 18 15 Alkaline Phosphatase 49 43 L Total Protein 5.2 L 5.0 L Albumin 3.3 L D 3.1 L Globulin 1.9 L 1.9 L Albumin/Globulin Ratio 1.7 1.6 ABG Interpretation ABG results: 07/12/25 07/12/25 07/13/25 08:31 17:13 04:48 ABG pH 7.13 L* 7.26 L D 7.28 L ABG pCO2 46 45 46 ABG pO2 122 H 100 D 129 H D ABG HCO3 15 L 20 22 ABG O2 Saturation 98 98 99 H ABG Base Excess -14 L -7 L -5 L 07/14/25 07/14/25 01:03 04:17 ABG pH 7.33 L 7.36 ABG pCO2 46 44 ABG pO2 127 H 98 D ABG HCO3 24 25 ABG O2 Saturation 100 H 99 H ABG Base Excess -2 -1 Quality Measures Quality Measures VTE prophylaxis Assessment & Plan Assessment Current Active Medications: Generic Name Dose Route Start Last Admin Trade Name Freq PRN Reason Stop Dose Admin Acetaminophen 650 mg 07/18/25 13:38 Acetaminophen 325 Mg Tablet NG 08/17/25 13:37 Q6HR PRN Fever >100.4 Aspirin 81 mg 07/20/25 12:51 Aspirin 81 Mg Chew PO 08/16/25 08:59 QDAY ASHLEY Dextrose 25 ml 07/12/25 10:05 Dextrose 50%-Water Inj 50 Ml Syringe IV 08/11/25 10:04 Q15MIN PRN BG 50-70 responsive npo pt Dextrose 50 ml 07/12/25 10:05 Dextrose 50%-Water Inj 50 Ml Syringe IV 08/11/25 10:04 Q15MIN PRN BG <50 OR BG <70 & pt unresponsive Enoxaparin Sodium 40 mg 07/12/25 09:45 07/20/25 09:13 Enoxaparin Sod Inj 40 Mg/0.4 Ml Syringe SC 07/26/25 09:44 40 mg QDAY ASHLEY Administration Glucagon 1 mg 07/12/25 10:05 Glucagon Inj 1 Mg Vial IM Q15MIN PRN BG <70, and no IV access Valproic Acid 750 mg/ Sodium 57.5 mls @ 57.5 mls/hr 07/19/25 18:00 07/20/25 12:24 Chloride IV 08/18/25 17:59 57.5 mls/hr Q6HR ASHLEY Administration Protocol Cefepime HCl 2 gm/ Sodium 50 mls @ 100 mls/hr 07/20/25 08:14 07/20/25 09:06 Chloride IV 07/27/25 08:13 100 mls/hr Q8HR ASHLEY Administration Vancomycin HCl/Dextrose 250 mls @ 120 mls/hr 07/20/25 08:45 07/20/25 09:36 Vancomycin/D5w 1,250 Mg Ivpb IV 07/27/25 08:44 120 mls/hr Q8HR ASHLEY Administration Protocol Insulin Degludec 40 unit 07/17/25 09:00 07/20/25 10:00 Insulin Degludec 5 Unit/0.05 Ml (Per 5 Units) SC 08/16/25 08:59 Not Given QDAY ASHLEY Insulin Human Lispro 0 unit 07/20/25 06:30 07/20/25 12:13 Insulin Lispro (Admelog) 1 Unit/0.01 Ml Unit SC 08/19/25 06:29 Not Given Q6HR [facility] Protocol Ipratropium [place] 0.5 mg 07/14/25 11:29 Ipratropium Rt 0.5 Mg/ 2.5 Ml Nebu INH 08/13/25 11:28 Q2HR PRN WHEEZING Lacosamide 200 mg 07/19/25 21:00 07/20/25 09:12 Lacosamide Inj 200 Mg/20 Ml Vial IVP 08/18/25 20:59 200 mg BID ASHLEY Administration Levalbuterol HCl 1.25 mg 07/14/25 11:29 Levalbuterol Rt 1.25 Mg/0.5 Ml Nebu INH 08/13/25 11:28 Q2H PRN WHEEZING Lisinopril 20 mg 07/20/25 12:50 Lisinopril 20 Mg Tablet PO 08/16/25 08:59 QDAY ASHLEY Midazolam HCl 2 mg 07/18/25 07:41 07/19/25 17:49 Midazolam Inj 1 Mg/Ml Vial 2 Ml IVP 07/23/25 07:40 2 mg Q5MIN PRN Administration SEIZURES Nicotine 21 mg 07/12/25 13:15 07/20/25 09:14 Nicotine Patch 21 Mg/24 Hr Patch.Td24 TOP 08/11/25 13:14 21 mg QDAY ASHLEY Administration Pantoprazole Sodium 40 mg 07/12/25 09:45 07/20/25 09:12 Pantoprazole Inj 40 Mg Vial IVP 08/11/25 09:44 40 mg QDAY ASHLEY Administration Pharmacy Consult 1 each 07/20/25 09:00 Vancomycin Pharmacy To Dose 1 Each Each IV 08/19/25 08:59 QDAY PRN RX Polyethylene Glycol 17 gm 07/20/25 12:50 Polyethylene Glycol 17 Gm Packet PO 08/18/25 08:59 QDAY ASHLEY Sodium Chloride 3 ml 07/14/25 11:29 Sodium Chloride Rt Rad[facility] 08[facility]13/25 11:28 PRN PRN SOLN Plan Patient is a 45 year old female with PMH of CVA 2018, AML, type 2 diabetes, seizures, migraine, HLD, HTN who presents with altered mental status s/p intubation, admitted to ICU for work up and management of seizures. Cardiology consulted for elevated troponins likely NSTEMI II secondary to severe sepsis and metabolic abnormalities from status epilepticus. #NSTEMI II secondary to severe sepsis and metabolic abnormalities from status epilepticus #Elevated troponins secondary to septic shock #Tachycardia secondary to septic shock #HFpEF (EF 55-60%) (07/19/25) Patient initial troponins were elevated at 5.05. Unable to obtain cardiac history and cannot determine any chest pain or chest pressure. Mostly NSTEMI type II secondary to the severe sepsis or septic shock on pressors along with status epilepticus and metabolic abnormalities. BP 118/43 but tachycardic at HR 145, RR 27 and fever of 101.4. WBC count was severely elevated at 32,000 on admission. Troponin 5.052 -> 8.049 -> 6.167. TSH <0.01. A1c 9.2. Lipid panel: Triglycerides 238, cholesterol 81, LDL 23, HDL <10 Initial EKG was read as SVT versus sinus tachycardia and nonspecific T wave changes. Reviewed the EKG and patient does have distinct P waves indicating mostly sinus tachycardia for this patient. Sinus tachycardia also likely secondary to severe sepsis, also currently being weaned from sedation. Echo 07/12/25 showed normal LV size and mildly decreased LV function with an estimated EF of 40 to 45%. Patient tachycardic. Diastolic dysfunction could not be evaluated. Normal RV size and function is mildly decreased. RVSP 24 mmHg with RAP 3. Mild mitral and tricuspid regurgitation noted. No pericardial effusion. Echo 07/19/25 showed normal LV size and wall thickness. Normal left ventricular diastolic filling pattern for age. Estimated EF at 55-60%. The RV is normal in size and systolic function. Trace MR and TR. Plan: - Previously decreased EF with mild global hypokinesis mostly secondary to septic shock and tachycardia. As expected significant improvement with EF of 55 to 60%, back to normal function with resolution of sepsis. No need for outpatient cardiac follow up. - Keep K >4 and Mg >2 #Acute metabolic encephalopathy secondary to seizures versus CVA #Left hemispheric stroke vs demyelinating disease #Hx of seizures, on Keppra #History of CVA CT 07/14 showed questionable infarct in the left parietal lobe and MRI of the brain performed today showed foci of restricted diffusion in the left frontal side, left parietal lobe concerning for demyelinating disease versus acute infarct. EEG 07/14 was abnormal showing intermittent slowing and burst suppression with paroxysmal multifocal spike and wave discharges are consistent with seizure disorder Brain MRI 07/15 shows foci of restricted diffusion in the left frontal lobe left parietal lobe without prominent signal deficit, possible demyelinating disease versus acute infarct 07/17/25: Off intubation and sedation Repeat MRI 07/19 showed increasing signal in the occipital horns in both diffusion weighted and FLAIR images suggesting possible ventriculitis, purulent fluid in ventricles. Negative for acute infarct. Plan: - IV valproate -> depakote & vimpat, IV midazolam for breakthrough seizures - ASA 81 - Neurology consulted - Defer to primary team for management - No ELVA required at the present moment as there is concern for infectious etiology with ventriiculitis with pus and unlikely an acute stroke. Discussed this with the primary team as well as a neurologist regarding no indication for a ELVA at the present point of time. Patient now being transferred to an higher level care for possible neurosurgical evaluation. #Bilateral aspiration PNA CXR finding, likely occurred after seizure. - Defer to primary team for management #History of hypertension Takes lisinopril 20 mg daily. ?Continue lisinopril 20 mg daily #High anion gap metabolic acidosis, resolved #Lactic acidosis #Leukocytosis #History AML #Type 2 diabetes #? Meningitis #Complex migraines Thank you for your consultation, please do not hesitate to reach out if you have any question or concern Patient plan of care was discussed with the attending physician, Dr. Early. Barbara Gabriel, PGY-1 Attending Provider Attestation/Addendum I have personally seen and examined the patient separately on the above date of service and discussed the plan of care with the resident. I reviewed the resident Dr. Barbara Gabriel consultation progress note and agree with the resident findings and plan in the note above and have also edited the documentation to reflect my findings and plan. Dilip Early M.D. Interventional Cardiology
--- NOTE | 2025-07-20 13:36 | PD.RESPRO ---
Documentation for date of: 07/20/25 Subjective Subjective Interval history: Patient was seen and examined at bedside's morning. No acute overnight events. Patient has not had any further seizures since rapid response was called yesterday. MRI did show concern for ventriculitis and spoke with neurology who stated that patient will need transfer for possible intrathecal antibiotics at this time. Given concern for ventriculitis and CSF cultures which were negative decided to broaden patient's antibiotics. Will continue with valproic acid 750 mg every 6 hours and Vimpat 200 mg twice daily. Pending possible transfer for neurosurgery for possible intrathecal antibiotics given ventriculitis and recurrence of seizures even on antiseizure medications. ELVA was discontinued as less likely embolic strokes and most likely be seizures caused by ventriculitis. Exam Vital Signs Temp Pulse Resp BP Pulse Ox O2 Del Method O2 Flow Rate 97.2 F 76 22 H 128/71 99 Nasal Cannula 2 07/20/25 12:00 07/20/25 12:00 07/20/25 12:00 07/20/25 12:00 07/20/25 12:00 07/20/25 12:00 07/20/25 12:00 FiO2 25 07/20/25 00:00 Narrative Exam General: A/O x3, no acute distress Eyes: PERRL, EOMI. Anicteric, vision grossly intact, L sclera with erythema. Ears: No ear pain, no ear discharge, Hearing grossly intact. Nose: No nasal discharge. Mouth/Throat: Moist mucous membranes, no redness, no lesions. Neck: Neck supple, non-tender, no cervical lymphadenopathy. Lungs: Clear MAR[place] ANTONIO to auscultation and percussion, No accessory muscle use. Cardio: Normal S1/S2, regular rhythm, no murmurs, no JVD Abdomen: Soft, non-tender, no palpable masses, peristalsis present, no guarding or rebound. Extremities: Symmetrical, no significant deformities, no peripheral edema , non-tender, peripheral pulses presents. Skin: No rashes, no lesions, warm to touch. Neuro: Strength on left side upper and lower extremities are 4 out of 5. Strength on right upper extremity is around 3 out of 5 and right lower extremity is unable to move. Sensation is intact in the lower extremities on the left upper extremities, but mildly impaired on the right upper extremity. Patient able to follow commands. Pupils were reactive bilaterally. No nasolabial fold flattening and AO x 3. Psych: Cooperative, appropriate mood and effect. Objective Labs 07/20/25 04:57 07/20/25 04:57 Labs: Laboratory Results - last 24 hr 07/19/25 07/20/25 14:05 04:57 WBC 10.0 RBC 3.63 L Hgb 10.1 L Hct 31.6 L MCV 87 MCH 27.8 MCHC 32.0 RDW Std Deviation 42.5 Plt Count 247 Neut % (Auto) 50 Lymph % (Auto) 40 [place] % (Auto) 7 Eos % (Auto) 1 Baso % (Auto) 0 Neut # (Auto) 5.0 Lymph # (Auto) 4.0 [place] # (Auto) 0.7 Eos # (Auto) 0.1 Baso # (Auto) 0.0 Immature Gran # (Auto) 0.22 H Absolute Nucleated RBC 0.00 Immature Gran % 2 H Nucleated RBC % 0 Sodium 138 142 Potassium 3.9 4.0 Chloride 104 106 Carbon Dioxide 26.2 28.8 Anion Gap 8 7 BUN 13 9 Creatinine 0.4 L 0.4 L Estim Creat Clear Calc 180.0 180.0 eGFR > 60 > 60 BUN/Creatinine Ratio 33 H 23 H Glucose 121 H D 122 H Calculated Osmolality 276 282 Lactic Acid 1.0 Calcium 8.2 L 8.1 L Corrected Calcium 8.8 8.8 Magnesium 2.0 Total Bilirubin 0.3 0.3 AST 36 H 30 ALT 18 15 Alkaline Phosphatase 49 43 L Total Protein 5.2 L 5.0 L Albumin 3.3 L D 3.1 L Globulin 1.9 L 1.9 L Albumin/Globulin Ratio 1.7 1.6 ABG Interpretation ABG results: 07/12/25 07/12/25 07/13/25 08:31 17:13 04:48 ABG pH 7.13 L* 7.26 L D 7.28 L ABG pCO2 46 45 46 ABG pO2 122 H 100 D 129 H D ABG HCO3 15 L 20 22 ABG O2 Saturation 98 98 99 H ABG Base Excess -14 L -7 L -5 L 07/14/25 07/14/25 01:03 04:17 ABG pH 7.33 L 7.36 ABG pCO2 46 44 ABG pO2 127 H 98 D ABG HCO3 24 25 ABG O2 Saturation 100 H 99 H ABG Base Excess -2 -1 Quality Measures Quality Measures VTE prophylaxis Assessment & Plan Assessment Current Active Medications: Generic Name Dose Route Start Last Admin Trade Name Freq PRN Reason Stop Dose Admin Acetaminophen 650 mg 07/18/25 13:38 Acetaminophen 325 Mg Tablet NG 08/17/25 13:37 Q6HR PRN Fever >100.4 Aspirin 81 mg 07/20/25 12:51 Aspirin 81 Mg Chew PO 08/16/25 08:59 QDAY ASHLEY Dextrose 25 ml 07/12/25 10:05 Dextrose 50%-Water Inj 50 Ml Syringe IV 08/11/25 10:04 Q15MIN PRN BG 50-70 responsive npo pt Dextrose 50 ml 07/12/25 10:05 Dextrose 50%-Water Inj 50 Ml Syringe IV 08/11/25 10:04 Q15MIN PRN BG <50 OR BG <70 & pt unresponsive Enoxaparin Sodium 40 mg 07/12/25 09:45 07/20/25 09:13 Enoxaparin Sod Inj 40 Mg/0.4 Ml Syringe SC 07/26/25 09:44 40 mg QDAY ASHLEY Administration Glucagon 1 mg 07/12/25 10:05 Glucagon Inj 1 Mg Vial IM Q15MIN PRN BG <70, and no IV access Valproic Acid 750 mg/ Sodium 57.5 mls @ 57.5 mls/hr 07/19/25 18:00 07/20/25 12:24 Chloride IV 08/18/25 17:59 57.5 mls/hr Q6HR ASHLEY Administration Protocol Cefepime HCl 2 gm/ Sodium 50 mls @ 100 mls/hr 07/20/25 08:14 07/20/25 09:06 Chloride IV 07/27/25 08:13 100 mls/hr Q8HR ASHLEY Administration Vancomycin HCl/Dextrose 250 mls @ 120 mls/hr 07/20/25 08:45 07/20/25 09:36 Vancomycin/D5w 1,250 Mg Ivpb IV 07/27/25 08:44 120 mls/hr Q8HR ASHLEY Administration Protocol Insulin Degludec 40 unit 07/17/25 09:00 07/20/25 10:00 Insulin Degludec 5 Unit/0.05 Ml (Per 5 Units) SC 08/16/25 08:59 Not Given QDAY ASHLEY Insulin Human Lispro 0 unit 07/20/25 06:30 07/20/25 12:13 Insulin Lispro (Admelog) 1 Unit/0.01 Ml Unit SC 08/19/25 06:29 Not Given Q6HR ASHLEY Protocol Ipratropium [place] 0.5 mg 07/14/25 11:29 Ipratropium Rt 0.5 Mg/ 2.5 Ml Nebu INH 08/13/25 11:28 Q2HR PRN WHEEZING Lacosamide 200 mg 07/19/25 21:00 07/20/25 09:12 Lacosamide Inj 200 Mg/20 Ml Vial IVP 08/18/25 20:59 200 mg BID ASHLEY Administration Levalbuterol HCl 1.25 mg 07/14/25 11:29 Levalbuterol Rt 1.25 Mg/0.5 Ml Nebu INH 08/13/25 11:28 Q2H PRN WHEEZING Lisinopril 20 mg 07/20/25 12:50 Lisinopril 20 Mg Tablet PO 08/16/25 08:59 QDAY ASHLEY Midazolam HCl 2 mg 07/18/25 07:41 07/19/25 17:49 Midazolam Inj 1 Mg/Ml Vial 2 Ml IVP 07/23/25 07:40 2 mg Q5MIN PRN Administration SEIZURES Nicotine 21 mg 07/12/25 13:15 07/20/25 09:14 Nicotine Patch 21 Mg/24 Hr Patch.Td24 TOP 08/11/25 13:14 21 mg QDAY ASHLEY Administration Pantoprazole Sodium 40 mg 07/12/25 09:45 07/20/25 09:12 Pantoprazole Inj 40 Mg Vial IVP 08/11/25 09:44 40 mg QDAY ASHLEY Administration Pharmacy Consult 1 each 07/20/25 09:00 Vancomycin Pharmacy To Dose 1 Each Each IV 08/19/25 08:59 QDAY PRN RX Polyethylene Glycol 17 gm 07/20/25 12:50 Polyethylene Glycol 17 Gm Packet PO 08/18/25 08:59 QDAY ASHLEY Sodium Chloride 3 ml 07/14/25 11:29 Sodium Chloride Rt [place] 0.9% 3 Ml Nebu INH 08/13/25 11:28 PRN PRN SOLN Plan 45-year-old female with a past medical history of leukemia, stroke, type 2 diabetes mellitus, seizure disorder, migraine hypertension who presented with altered mental status following seizure episode, patient was intubated and upgraded to ICU due to inability to protect airway, and management of seizures. Neurology was consulted and a lumbar puncture was done which showed cloudy CSF, 20 WBC, CSF Gram stain positive for strep pneumo, patient was started on IV antibiotics for meningitis and continued on mechanical ventilation, EEG showed discharges consistent with seizure disorder, patient was extubated on 07/17/2025. CSF culture negative, MRI brain showed multifocal infarcts likely secondary to underlying meningitis. #Acute encephalopathy #Status epilepticus? Patient with history of seizures history of noncompliance with medications on Keppra, reportedly concern for Keppra causing relapse of leukemia, patient presented to the ER with status epilepticus, continued seizure despite 4 mg of Versed, patient was intubated and sedated with propofol and fentanyl, given loading dose of Keppra in the ED 1500 mg. EEG showed multiple bilateral focal epileptiform discharges consistent with seizures, but no status epilepticus. No seizures overnight or today Plan: ? Continue sodium valproate to 750 mg 4 times a day ? Continue Vimpat to 200 twice daily ? Neurology following closely, appreciate recommendations ? Seizure precautions in place #Sepsis, resolved #Ventriculitis #Streptococcus P. meningitis #Streptococcus pneumonia bacteremia #Septic shock,?now resolved History of severe headache/migraine prior to abdominal status, CSF analysis results cloudy, WBC more than 10,000, RBC 1000, glucose 97, protein greater than 250, strep pneumo antigen positive, elevated opening pressure, findings consistent with acute meningitis patient was started on IV antibiotics, CSF cultures negative. Patient was initially on pressor support with Levophed, currently off Levophed for over 72 hours. Was initially treated with IV Decadron. Initial blood cultures grew strep pneumo sensitive to ceftriaxone, repeat blood cultures negative at 48 hours, CSF culture negative to date MRI 07/19/2025 did show concern for ventriculitis Plan: ? Switched Abx to vancomycin and cefepime given MRI findings ? Follow-up blood culture from 07/14/2025-negative -Transfer for possible intrathecal antibiotics #Acute multifocal CVA Patient has a reported history of CVA over 5 years ago with no residual deficits, but following diagnosis of meningitis, MRI confirmed multifocal acute infarction in the left frontal and parietal lobes, consistent with meningitis, neurology following the patient. Patient had a rapid response called 07/19, for likely seizure episode, due to change in seizure presentation compared to yesterday, stroke alert was called, head CT today also negative for acute changes Plan: ? Physical therapy once mental status improves ? Aspirin 81 mg daily, recommended by neurology as massive left hemispheric infarct to prevent hemorrhagic conversion. ? Teleneurology was consulted, recommended MRI stroke protocol, awaiting results #NSTEMI, likely type II #CHF EF 40 to 45% NSTEMI type II likely in the setting of severe sepsis and status epilepticus, elevated troponins in the setting of septic shock, echocardiogram was done which showed normal-sized LV but EF 40 to 45%, mild mitral and tricuspid regurgitation, no pericardial effusion. Per cardiology decreased EF with mild global hypokinesis mostly secondary to septic shock and tachycardia, anticipate improvement and repeat echocardiogram prior to discharge. No anticoagulation recommended in the setting of lumbar puncture. Plan: ? Cardiology following closely, appreciate recommendations ? Continue to monitor for volume overload ? Strict intake and output monitoring #Acute hypoxic respiratory failure 2/2 aspiration pneumonia Aspiration pneumonia likely secondary to acute encephalopathy in the setting of seizure disorder and meningitis, was initially intubated for airway protection, started on mechanical ventilation, patient was extubated today after successful spontaneous breathing trial. ? Continue IV antibioticsas above #History of type 2 diabetes mellitus ? insulin degludec (held) and sliding scale insulin ? Hypoglycemia protocol in place #History of hypertension ?Continue home medications #History of hyperlipidemia #History of leukemia Patient has a history of acute monocytic leukemia, elevated leukocyte count in the setting of sepsis, improved WBC count following initiation of IV antibiotics, leukocytosis likely reactive. History of chemotherapy 10 years ago, currently in remission. ?Outpatient oncology follow-up following discharge. Disposition: Possible transfer for intrathecal abx given concern for ventriculitis DVT prophylaxis: Enoxaparin 40 mg daily GI prophylaxis: Protonix 40 mg daily Diet: Dysphagia diet pur?ed CODE STATUS: Full Case disclosed with Attending Dr. Pedro Roper PGY2 Disclaimer: Even though this this note was dictated by speech recognition and even though it was carefully revised there may still be minor errors in utilization reviewer due to voice recognition software. Attending Provider Attestation/Addendum I have seen and examined the patient. I was physically present for the [place] portions of the services provided including history, physical exam, diagnosis, treatment plans and orders. I agree with assessment and plan of care as documented by residents. No acute overnight events. Patient seen and examined at bedside this morning. Appears comfortable and denies any new complaints. Was participating in with physical therapy, was able to move bilateral upper limb, left lower limb but Unable to move her right lower extremity. Sensation appears intact. Patient is alert and oriented, able to answer questions and follow commands appropriately. Did not have further episodes since yesterday afternoon. Continues to be on valproic acid 750 mg every 6 hours and Vimpat 200 mg twice daily. Underwent MRI head/brain yesterday, shows ventriculitis and purulent fluids in the ventricles. Discussed with neurology, with patient's ongoing breakthrough seizures, right lower extremity weakness, despite patient not having any fever spikes or worsening WBCs, concern for ventriculitis/ventricular abscess remains high, patient was recommended to transfer to [facility] for neurosurgery service for possible intrathecal antibiotics. Discussed with transfer nurse and transfer process has been initiated. With concern for ventricular abscess, we will broaden her antibiotics to IV cefepime and vancomycin. We will continue with aspirin for her CVA. With concern for CVA yesterday, patient was planned for ELVA initially but brain MRI did not show any new strokes, patient has been having breakthrough seizures, we will defer ELVA at this time. Family and patient at bedside updated about patient's condition, further management plan, they show understanding and agree with plan. Even though this this note was carefully revised there may still be minor errors in utilization reviewer due to voice recognition software. Nohemy Vasquez MD
[2025-07-20] MEDS: INSULIN LISPRO (AdmeLOG) 1 UNIT/0.01 ML UNIT SC ×2 (17:27→21:04)
--- NOTE | 2025-07-20 21:15 | ESPR_ITS ---
Documentation for date of: 07/20/25 Subjective Subjective Interval history: Patient examined at bedside. Vitals stable, labs unremarkable. MRI brain negative for infarct but showed increased signal uptake in occipital horns. 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 Recommend that patient get transferred to tertiary care center. Needs urgent neruosurgical evaluation and intrathecal antibiotics. Broadened abx coverage with IV vancomycin and IV cefepime. Increased depakote to 1500mg BID and vimpat to 200 BID. Monitor activity and order depakote levels. EEG results pending. Exam Vital Signs Temp Pulse Resp BP Pulse Ox O2 Del Method O2 Flow Rate 97.2 F 87 18 123/65 97 Nasal Cannula 2 07/20/25 20:00 07/20/25 20:00 07/20/25 20:00 07/20/25 20:00 07/20/25 20:00 07/20/25 20:00 07/20/25 20:00 FiO2 25 07/20/25 15:51 Narrative Exam GENERAL APPEARANCE: middle age female, awake, comfortable HEENT: Normocephalic, atraumatic. Pupils: Equal reacting to light NECK: Supple, no JVD or bruits. CARDIOVASULAR: Heart: S1, S2 heard, regular without S3-S4 or murmur no rubs or gallops. LUNGS/CHEST: lungs clear to auscultation ABDOMEN: Soft, nontender, with normal bowel sounds. No pulsatile masses. No rebound, rigidity, or guarding. Normal inspection and palpation. EXTREMITIES: Normal inspection and palpation. No edema, clubbing or cyanosis. SKIN: Warm and dry without rashes. Normal inspection. NEURO: Alert, awake and oriented x3. Cranial nerves: II through XII grossly intact. Speech and language: mild dysarthria. Motor system: Tone and bulk: Normal: Strength: 4/5 UE, slow movement on Left UE. Strength 5/5 RLE, unable to move right LE. Sensation intact; No pronator drift noted. Plantar reflex: Downgoing bilaterally. Sensory system: Intact to all modalities of sensation bilaterally. Coordination: unable to complete [id number] test. No intention tremors noted. Gait: Not tested. No signs of meningeal irritation noted. PSYCHIATRIC: normal affect and mood Objective Labs 07/22/25 04:57 07/22/25 04:57 Labs: Laboratory Results - last 24 hr 07/20/25 04:57 WBC 10.0 RBC 3.63 L Hgb 10.1 L Hct 31.6 L MCV 87 MCH 27.8 MCHC 32.0 RDW Std Deviation 42.5 Plt Count 247 Neut % (Auto) 50 Lymph % (Auto) 40 [place] % (Auto) 7 Eos % (Auto) 1 Baso % (Auto) 0 Neut # (Auto) 5.0 Lymph # (Auto) 4.0 [place] # (Auto) 0.7 Eos # (Auto) 0.1 Baso # (Auto) 0.0 Immature Gran # (Auto) 0.22 H Absolute Nucleated RBC 0.00 Immature Gran % 2 H Nucleated RBC % 0 Sodium 142 Potassium 4.0 Chloride 106 Carbon Dioxide 28.8 Anion Gap 7 BUN 9 Creatinine 0.4 L Estim Creat Clear Calc 180.0 eGFR > 60 BUN/Creatinine Ratio 23 H Glucose 122 H Calculated Osmolality 282 Calcium 8.1 L Corrected Calcium 8.8 Magnesium 2.0 Total Bilirubin 0.3 AST 30 ALT 15 Alkaline Phosphatase 43 L Total Protein 5.0 L Albumin 3.1 L Globulin 1.9 L Albumin/Globulin Ratio 1.6 ABG Interpretation ABG results: 07/12/25 07/12/25 07/13/25 08:31 17:13 04:48 ABG pH 7.13 L* 7.26 L D 7.28 L ABG pCO2 46 45 46 ABG pO2 122 H 100 D 129 H D ABG HCO3 15 L 20 22 ABG O2 Saturation 98 98 99 H ABG Base Excess -14 L -7 L -5 L 07/14/25 07/14/25 01:03 04:17 ABG pH 7.33 L 7.36 ABG pCO2 46 44 ABG pO2 127 H 98 D ABG HCO3 24 25 ABG O2 Saturation 100 H 99 H ABG Base Excess -2 -1 Quality Measures Quality Measures VTE prophylaxis Assessment & Plan Assessment Current Active Medications: Generic Name Dose Route Start Last Admin Trade Name Freq PRN Reason Stop Dose Admin Acetaminophen 650 mg 07/18/25 13:38 Acetaminophen 325 Mg Tablet NG 08/17/25 13:37 Q6HR PRN Fever >100.4 Aspirin 81 mg 07/20/25 12:51 Aspirin 81 Mg Chew PO 08/16/25 08:59 QDAY ASHLEY Dextrose 25 ml 07/12/25 10:05 Dextrose 50%-Water Inj 50 Ml Syringe IV 08/11/25 10:04 Q15MIN PRN BG 50-70 responsive npo pt Dextrose 50 ml 07/12/25 10:05 Dextrose 50%-Water Inj 50 Ml Syringe IV 08/11/25 10:04 Q15MIN PRN BG <50 OR BG <70 & pt unresponsive Enoxaparin Sodium 40 mg 07/12/25 09:45 07/20/25 09:13 Enoxaparin Sod Inj 40 Mg/0.4 Ml Syringe SC 07/26/25 09:44 40 mg QDAY ASHLEY Administration Glucagon 1 mg 07/12/25 10:05 Glucagon Inj 1 Mg Vial IM Q15MIN PRN BG <70, and no IV access Valproic Acid 750 mg/ Sodium 57.5 mls @ 57.5 mls/hr 07/19/25 18:00 07/20/25 18:05 Chloride IV 08/18/25 17:59 57.5 mls/hr Q6HR ASHLEY Administration Protocol Cefepime HCl 2 gm/ Sodium 50 mls @ 100 mls/hr 07/20/25 08:14 07/20/25 20:59 Chloride IV 07/27/25 08:13 100 mls/hr Q8HR ASHLEY Administration Vancomycin HCl/Dextrose 250 mls @ 120 mls/hr 07/20/25 08:45 07/20/25 14:34 Vancomycin/D5w 1,250 Mg Ivpb IV 07/27/25 08:44 120 mls/hr Q8HR ASHLEY Administration Protocol Insulin Degludec 40 unit 07/17/25 09:00 07/20/25 10:00 Insulin Degludec 5 Unit/0.05 Ml (Per 5 Units) [place] 08/16/25 08:59 Not Given QDAY ASHLEY Insulin Human Lispro 0 unit 07/20/25 21:00 07/20/25 21:04 Insulin Lispro (Admelog) 1 Unit/0.01 Ml Unit SC 08/19/25 20:59 3 unit [facility] Administration Protocol Ipratropium [place] 0.5 mg 07/14/25 11:29 Ipratropium Rt 0.5 Mg/ 2.5 Ml Nebu INH 08/13/25 11:28 Q2HR PRN WHEEZING Lacosamide 200 mg 07/19/25 21:00 07/20/25 20:37 Lacosamide Inj 200 Mg/20 Ml Vial IVP 08/18/25 20:59 200 mg BID ASHLEY Administration Levalbuterol HCl 1.25 mg 07/14/25 11:29 Levalbuterol Rt 1.25 Mg/0.5 Ml Nebu INH 08/13/25 11:28 Q2H PRN WHEEZING Lisinopril 20 mg 07/20/25 12:50 Lisinopril 20 Mg Tablet PO 08/16/25 08:59 QDAY ASHLEY Midazolam HCl 2 mg 07/18/25 07:41 07/19/25 17:49 Midazolam Inj 1 Mg/Ml Vial 2 Ml IVP 07/23/25 07:40 2 mg Q5MIN PRN Administration SEIZURES Nicotine 21 mg 07/12/25 13:15 07/20/25 09:14 Nicotine Patch 21 Mg/24 Hr Patch.Td24 TOP 08/11/25 13:14 21 mg QDAY ASHLEY Administration Pantoprazole Sodium 40 mg 07/12/25 09:45 07/20/25 09:12 Pantoprazole Inj 40 Mg Vial IVP 08/11/25 09:44 40 mg QDAY ASHLEY Administration Pharmacy Consult 1 each 07/20/25 09:00 Vancomycin Pharmacy To Dose 1 Each Each IV 08/19/25 08:59 QDAY PRN RX Polyethylene Glycol 17 gm 07/20/25 12:50 Polyethylene Glycol 17 Gm Packet PO 08/18/25 08:59 QDAY ASHLEY Sodium Chloride 3 ml 07/14/25 11:29 Sodium Chloride Rt Radha 0.9% 3 Ml [facility] INH 08/13/25 11:28 PRN PRN SOLN Plan Patient is a 45-year-old female with past medical history of CVA 2018, AML, type 2 diabetes, seizures, migraine, HLD, HTN presented to ED on 07/12/25 due to breakthrough seizures/AMS. Neurology consulted for management and LP to rule out meningitis. #Meningitis #Multifocal seizure #Left hemisphere stroke #Pyogenic Ventriculitis #Hx seizures Likely due to status epilepticus break through seizures. 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 Since that time, patient will only take the Keppra when going to music concerts. Stroke alert called in ED. Tele neuro was consulted, NIHSS score 0. CT head/CTA negative. She received 4mg of versed without cessation. Subsequently intubated and sedated with prop/fent. Given 1500mg loading dose of Keppra in ED. Urine, sputum, and blood cultures negative. CSF analysis appearance was cloudy, WBCs 10,720, RBC 1000, glucose 97, protein greater than 250, strep pneumo antigen positive. Opening pressure 37. CSF culture stain showing 3+ WBCs. Repeat CT head and MRI brain showed areas of acute infarct in left frontal and parietal lobe. EEG: abnormal showing multifocal epileptiform discharges consistent with seizures. But no electrographic status noted MRI 07/19-- negative for infarct but showed increased signal uptake in occipital horns. 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 Recommend that patient get transferred to tertiary care center. Needs urgent neruosurgical evaluation. -increased IV depakote to 1500mg BID -increase Vimpat 200mg BID -repeat EEG results pending -euthermia, euglycemia -neuro checks q4hr -IV midazolam for breakthrough seizures -seizure prophylaxis -Continue with aspirin 81 mg alone as the left hemispherical infarct is massive to prevent hemorrhagic conversion and DVT prophylaxis -Continue with IV antibiotics. CSF culture resulted negative. -deffer ELVA #AML #Previous CVA by history but not from MRI in 2018 #T2DM #HLD #HTN Primary care team to manage above conditions and ongoing care needs. The patient's management plan was discussed with my attending physician Dr. Colvin. Paz Rivero, PGY-2 Attending Provider Attestation/Addendum I personally have seen and examined the patient at the bedside and I agreed with resident's findings, assessment and plan of care. EEG: abnormal showing multifocal epileptiform discharges consistent with seizures. But no electrographic status noted MRI 07/19-- negative for infarct but showed increased signal uptake in occipital horns. 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 Recommend that patient get transferred to tertiary care center. Needs urgent neruosurgical evaluation. Continue IV depakote and Vimpat at current doses.
[2025-07-21] VITALS (12 sets, daily range): BP systolic 112–141; BP diastolic 64–94; PULSE 65–88; RESP 14–22; TEMP 36.2–36.6; O2SAT 97–99; BMI 34.4; BMI 12.0
[2025-07-21] MEDS: VALPROATE SOD INJ 750 MG in SODIUM CHLORIDE 0.9% 50 ML 57.5 MG IV ×4 (00:06→17:02)
[2025-07-21] MEDS: CEFEPIME INJ 2 GM in SODIUM CHLORIDE 0.9% (Popper) 50 ML IV ×3 (05:10→21:28)
[2025-07-21 05:44] LABS: Basophils # (Auto) 0.0 Thou/mm3 (0.0-0.2); Basophils % (Auto) 0 % (0-2.5); Eosinophils # (Auto) 0.1 Thou/mm3 (0.0-0.5); Eosinophils % (Auto) 1 % (0-10); Hematocrit 32.1 % (36.0-46.0); Hemoglobin 10.1 g/dL (12.0-16.0); Immature Granulocytes Auto 0.17 Thou/mm3 (0.00-0.00); Lymphocytes # (Auto) 3.7 Thou/mm3 (1.0-4.8); Lymphocytes % (Auto) 39 % (10-50); Mean Corpuscular HGB Conc 31.5 g/dl (31.0-37.0); Mean Corpuscular Hemoglobin 27.4 pg (25.0-35.0); Mean Corpuscular Volume 87 fL (80-100); Monocytes # (Auto) 0.7 Thou/mm3 (0.0-0.8); Monocytes % (Auto) 7 % (0-12); Neutrophils # (Auto) 4.7 Thou/mm3 (1.8-7.7); Neutrophils % (Auto) 50 % (37-80); Nucleated Red Blood Cell # 0.00 Thou/mm3 (0.00-0.00); Nucleated Red Blood Cell % 0 /100 WBC (0); Platelet Count 240 Thou/mm3 (140-440); RDW Standard Deviation 43.9 fL (36.4-46.3); Red Blood Count 3.68 Miln/mm3 (4.00-5.20); White Blood Count 9.4 Thou/mm3 (3.6-11.0)
[2025-07-21 06:08] LABS: Alanine Aminotransferase 16 U/L (10-49); Albumin, Serum 3.2 gm/dL (3.5-5.0); Albumin/Globulin Ratio 1.7 (1.2-2.2); Alkaline Phosphatase 41 U/L (46-116); Anion Gap 8 (7-16); Aspartate Amino Transferase 31 U/L (0-34); BUN/Creatinine Ratio 23 Ratio (12-20); Bilirubin,Total 0.2 mg/dL (0.3-1.2); Blood Urea Nitrogen 9 mg/dL (9-23); Calcium 8.0 mg/dL (8.3-10.6); Calcium (Corrected) 8.6 mg/dL (8.5-10.1); Carbon Dioxide 29.1 mMol/L (20.0-31.0); Chloride 109 mMol/L (98-107); Creatinine (Component) 0.4 mg/dL (0.6-1.3); Estimated Creatinine Clearance 177.6 mL/min (>60); Globulin 1.9 gm/dL (2.3-3.5); Glucose 117 mg/dL (74-106); Magnesium 2.0 mg/dL (1.6-2.6); Osmolality,Calculated 290 (275-295); Potassium 3.8 mMol/L (3.4-5.1); Sodium 146 mMol/L (136-145); Total Protein 5.1 gm/dL (5.7-8.2); Vancomycin,Trough 17.5 mcg/mL (5.0-10.0); eGFR > 60 See Note
[2025-07-21] MEDS: VANCOMYCIN/D5W 1,250 MG IVPB 250 ML 120 MG IV ×3 (06:32→21:28)
[2025-07-21] MEDS: INSULIN LISPRO (AdmeLOG) 1 UNIT/0.01 ML UNIT SC ×2 (07:29→11:22)
[2025-07-21] MEDS: ASPIRIN 81 MG CHEW PO (08:20)
[2025-07-21] MEDS: NICOTINE PATCH 21 MG/24 HR PATCH.TD24 TOP (08:21)
[2025-07-21] MEDS: ENOXAPARIN SOD INJ 40 MG/0.4 ML SYRINGE SC (08:21)
[2025-07-21] MEDS: LACOSAMIDE INJ 200 MG/20 ML VIAL IVP ×2 (08:21→21:27)
[2025-07-21] MEDS: POLYETHYLENE GLYCOL 17 GM PACKET PO (08:22)
--- NOTE | 2025-07-21 11:13 | PD.RESPRO ---
Documentation for date of: 07/21/25 Subjective Subjective Interval history: Patient seen and assessed at bedside. No new complaints, continues to denies chest pain, shortness of breath, and palpitations. Continues to be in sinus rhythm on telemetry. Vitals are stable. Potassium 3.8, Mg 2.0. Repleted with KCl 40 mEq. Pending transfer to tertiary center. Exam Vital Signs Temp Pulse Resp BP Pulse Ox O2 Del Method O2 Flow Rate 97.1 F 71 20 113/67 97 Nasal Cannula 2 07/21/25 07:47 07/21/25 08:21 07/21/25 07:47 07/21/25 08:21 07/21/25 07:47 07/21/25 07:47 07/21/25 07:47 FiO2 25 07/20/25 15:51 Narrative Exam Physical Exam General: Awake and in no acute distress. Conversational and non-toxic appearing. HEENT: Normocephalic, atraumatic, mucous membranes moist. Heart: Regular rate and rhythm, normal S1 and S2, no murmurs appreciated. Lungs: Clear to auscultation with no wheezing or crackles. Abdomen: Soft, nondistended, nontender, positive bowel sounds. No guarding or rebound tenderness. Neurologic: Alert and oriented x3. 4/5 strength in right upper extremity and 3/5 in right lower extremity. 4/5 aviation project engineer strength in left hand, 3/5 in right. Extremities: No edema. Skin: No rash or ecchymoses. Objective Labs 07/21/25 05:13 07/21/25 05:13 Labs: Laboratory Results - last 24 hr 07/21/25 05:13 WBC 9.4 RBC 3.68 L Hgb 10.1 L Hct 32.1 L MCV 87 MCH 27.4 MCHC 31.5 RDW Std Deviation 43.9 Plt Count 240 Neut % (Auto) 50 Lymph % (Auto) 39 [place] % (Auto) 7 Eos % (Auto) 1 Baso % (Auto) 0 Neut # (Auto) 4.7 Lymph # (Auto) 3.7 [place] # (Auto) 0.7 Eos # (Auto) 0.1 Baso # (Auto) 0.0 Immature Gran # (Auto) 0.17 H Absolute Nucleated RBC 0.00 Immature Gran % 2 H Nucleated RBC % 0 Sodium 146 H Potassium 3.8 Chloride 109 H Carbon Dioxide 29.1 Anion Gap 8 BUN 9 Creatinine 0.4 L Estim Creat Clear Calc 177.6 eGFR > 60 BUN/Creatinine Ratio 23 H Glucose 117 H Calculated Osmolality 290 Calcium 8.0 L Corrected Calcium 8.6 Magnesium 2.0 Total Bilirubin 0.2 L AST 31 ALT 16 Alkaline Phosphatase 41 L Total Protein 5.1 L Albumin 3.2 L Globulin 1.9 L Albumin/Globulin Ratio 1.7 Vancomycin Trough 17.5 H ABG Interpretation ABG results: 07/12/25 07/12/25 07/13/25 08:31 17:13 04:48 ABG pH 7.13 L* 7.26 L D 7.28 L ABG pCO2 46 45 46 ABG pO2 122 H 100 D 129 H D ABG HCO3 15 L 20 22 ABG O2 Saturation 98 98 99 H ABG Base Excess -14 L -7 L -5 L 07/14/25 07/14/25 01:03 04:17 ABG pH 7.33 L 7.36 ABG pCO2 46 44 ABG pO2 127 H 98 D ABG HCO3 24 25 ABG O2 Saturation 100 H 99 H ABG Base Excess -2 -1 Quality Measures Quality Measures VTE prophylaxis Assessment & Plan Assessment Current Active Medications: Generic Name Dose Route Start Last Admin Trade Name Freq PRN Reason Stop Dose Admin Acetaminophen 650 mg 07/18/25 13:38 Acetaminophen 325 Mg Tablet NG 08/17/25 13:37 Q6HR PRN Fever >100.4 Aspirin 81 mg 07/20/25 12:51 07/21/25 08:20 Aspirin 81 Mg Chew PO 08/16/25 08:59 81 mg QDAY ASHLEY Administration Dextrose 25 ml 07/12/25 10:05 Dextrose 50%-Water Inj 50 Ml Syringe IV 08/11/25 10:04 Q15MIN PRN BG 50-70 responsive npo pt Dextrose 50 ml 07/12/25 10:05 Dextrose 50%-Water Inj 50 Ml Syringe IV 08/11/25 10:04 Q15MIN PRN BG <50 OR BG <70 & pt unresponsive Enoxaparin Sodium 40 mg 07/12/25 09:45 07/21/25 08:21 Enoxaparin Sod Inj 40 Mg/0.4 Ml Syringe SC 07/26/25 09:44 40 mg QDAY ASHLEY Administration Glucagon 1 mg 07/12/25 10:05 Glucagon Inj 1 Mg Vial IM Q15MIN PRN BG <70, and no IV access Valproic Acid 750 mg/ Sodium 57.5 mls @ 57.5 mls/hr 07/19/25 18:00 07/21/25 05:55 Chloride IV 08/18/25 17:59 57.5 mls/hr Q6HR ASHLEY Administration Protocol Cefepime HCl 2 gm/ Sodium 50 mls @ 100 mls/hr 07/20/25 08:14 07/21/25 05:10 Chloride IV 07/27/25 08:13 100 mls/hr Q8HR ASHLEY Administration Vancomycin HCl/Dextrose 250 mls @ 120 mls/hr 07/20/25 08:45 07/21/25 06:32 Vancomycin/D5w 1,250 Mg Ivpb IV 07/27/25 08:44 120 mls/hr Q8HR ASHLEY Administration Protocol Insulin Degludec 40 unit 07/17/25 09:00 07/21/25 09:10 Insulin Degludec 5 Unit/0.05 Ml (Per 5 Units) SC 08/16/25 08:59 Not Given QDAY ASHLEY Insulin Human Lispro 0 unit 07/20/25 21:00 07/21/25 07:29 Insulin Lispro (Admelog) 1 Unit/0.01 Ml Unit SC 08/19/25 20:59 3 unit ACHS ASHLEY Administration Protocol Ipratropium [place] 0.5 mg 07/14/25 11:29 Ipratropium Rt 0.5 Mg/ 2.5 Ml Nebu INH 08/13/25 11:28 Q2HR PRN WHEEZING Lacosamide 200 mg 07/19/25 21:00 07/21/25 08:21 Lacosamide Inj 200 Mg/20 Ml Vial IVP 08/18/25 20:59 200 mg BID ASHLEY Administration Levalbuterol HCl 1.25 mg 07/14/25 11:29 Levalbuterol Rt 1.25 Mg/0.5 Ml Nebu INH 08/13/25 11:28 Q2H PRN WHEEZING Lisinopril 20 mg 07/20/25 12:50 07/21/25 08:21 Lisinopril 20 Mg Tablet PO 08/16/25 08:59 20 mg QDAY ASHLEY Administration Midazolam HCl 2 mg 07/18/25 07:41 07/19/25 17:49 Midazolam Inj 1 Mg/Ml Vial 2 Ml IVP 07/23/25 07:40 2 mg Q5MIN PRN Administration SEIZURES Nicotine 21 mg 07/12/25 13:15 07/21/25 08:21 Nicotine Patch 21 Mg/24 Hr Patch.Td24 TOP 08/11/25 13:14 21 mg QDAY ASHLEY Administration Pantoprazole Sodium 40 mg 07/12/25 09:45 07/21/25 08:20 Pantoprazole Inj 40 Mg Vial IVP 08/11/25 09:44 40 mg QDAY ASHLEY Administration Pharmacy Consult 1 each 07/20/25 09:00 Vancomycin Pharmacy To Dose 1 Each Each IV 08/19/25 08:59 QDAY PRN RX Polyethylene Glycol 17 gm 07/20/25 12:50 07/21/25 08:22 Polyethylene Glycol 17 Gm Packet PO 08/18/25 08:59 17 gm QDAY ASHLEY Administration Sodium Chloride 3 ml 07/14/25 11:29 Sodium Chloride Rt Radha 0.9% 3 Ml Nebu INH 08/13/25 11:28 PRN PRN SOLN Plan Patient is a 45 year old female with PMH of CVA 2018, AML, type 2 diabetes, seizures, migraine, HLD, HTN who presents with altered mental status s/p intubation, admitted to ICU for work up and management of seizures. Cardiology consulted for elevated troponins likely NSTEMI II secondary to severe sepsis and metabolic abnormalities from status epilepticus. #NSTEMI II secondary to severe sepsis and metabolic abnormalities from status epilepticus #Elevated troponins secondary to septic shock #Tachycardia secondary to septic shock #HFpEF (EF 55-60%) (07/19/25) Patient initial troponins were elevated at 5.05. Unable to obtain cardiac history and cannot determine any chest pain or chest pressure. Mostly NSTEMI type II secondary to the severe sepsis or septic shock on pressors along with status epilepticus and metabolic abnormalities. BP 118/43 but tachycardic at HR 145, RR 27 and fever of 101.4. WBC count was severely elevated at 32,000 on admission. Troponin 5.052 -> 8.049 -> 6.167. TSH <0.01. A1c 9.2. Lipid panel: Triglycerides 238, cholesterol 81, LDL 23, HDL <10 Initial EKG was read as SVT versus sinus tachycardia and nonspecific T wave changes. Reviewed the EKG and patient does have distinct P waves indicating mostly sinus tachycardia for this patient. Sinus tachycardia also likely secondary to severe sepsis, also currently being weaned from sedation. Echo 07/12/25 showed normal LV size and mildly decreased LV function with an estimated EF of 40 to 45%. Patient tachycardic. Diastolic dysfunction could not be evaluated. Normal RV size and function is mildly decreased. RVSP 24 mmHg with RAP 3. Mild mitral and tricuspid regurgitation noted. No pericardial effusion. Echo 07/19/25 showed normal LV size and wall thickness. Normal left ventricular diastolic filling pattern for age. Estimated EF at 55-60%. The RV is normal in size and systolic function. Trace MR and TR. Plan: - Previously decreased EF with mild global hypokinesis mostly secondary to septic shock and tachycardia. As expected significant improvement with EF of 55 to 60%, back to normal function with resolution of sepsis. No need for outpatient cardiac follow up. - Keep K >4 and Mg >2 #Acute metabolic encephalopathy secondary to seizures versus CVA #Left hemispheric stroke vs demyelinating disease #Hx of seizures, on Keppra #History of CVA CT 07/14 showed questionable infarct in the left parietal lobe and MRI of the brain performed today showed foci of restricted diffusion in the left frontal side, left parietal lobe concerning for demyelinating disease versus acute infarct. EEG 07/14 was abnormal showing intermittent slowing and burst suppression with paroxysmal multifocal spike and wave discharges are consistent with seizure disorder Brain MRI 07/15 shows foci of restricted diffusion in the left frontal lobe left parietal lobe without prominent signal deficit, possible demyelinating disease versus acute infarct 07/17/25: Off intubation and sedation Repeat MRI 07/19 showed increasing signal in the occipital horns in both diffusion weighted and FLAIR images suggesting possible ventriculitis, purulent fluid in ventricles. Negative for acute infarct. Plan: - IV valproate -> depakote & vimpat, IV midazolam for breakthrough seizures - ASA 81 - Neurology consulted - Defer to primary team for management - No ELVA required at the present moment as there is concern for infectious etiology with ventriiculitis with pus and unlikely an acute stroke. Discussed this with the primary team as well as a neurologist regarding no indication for a ELVA at the present point of time. Patient now being transferred to an higher level care for possible neurosurgical evaluation. #Bilateral aspiration PNA CXR finding, likely occurred after seizure. - Defer to primary team for management #History of hypertension Takes lisinopril 20 mg daily. ?Continue lisinopril 20 mg daily #High anion gap metabolic acidosis, resolved #Lactic acidosis #Leukocytosis #History AML #Type 2 diabetes #? Meningitis #Complex migraines Thank you for your consultation, please do not hesitate to reach out if you have any question or concern Patient plan of care was discussed with the attending physician, Dr. Early. Barbara Gabriel, PGY-1 Attending Provider Attestation/Addendum I have personally seen and examined the patient separately on the above date of service and discussed the plan of care with the resident. I reviewed the resident Dr. Barbara Gabriel consultation progress note and agree with the resident findings and plan in the note above and have also edited the documentation to reflect my findings and plan. Dilip Early M.D. Interventional Cardiology
--- NOTE | 2025-07-21 13:23 | ESPR_ITS ---
<Statement entered by Zan Roper MD - 07/21/25 14:45> I have reviewed the note and agree with the resident's assessment & plan with exceptions as below. I have personally reviewed labs, imaging, home meds/prior records, examined the patient, formulated and discussed management plan with my attending. Patient was seen and examined at bedside this morning. No acute overnight events. Patient has not had any further seizures or any spikes in WBCs or fevers. Still pending possible transfer to tertiary [facility] for neurosurgery evaluation. Otherwise no other complaints at this time. Zan Roper PGY2 Disclaimer: Even though this this note was dictated by speech recognition and even though it was carefully revised there may still be minor errors in high heel builder due to voice recognition software. Documentation for date of: 07/21/25 Subjective Subjective Interval history: Patient seen and examined at bedside; no acute events overnight. Patient was speaking and following commands. Waiting on transfer for ventriculitis. Exam Vital Signs Temp Pulse Resp BP Pulse Ox O2 Del Method O2 Flow Rate 97.8 F 74 14 112/74 99 Nasal Cannula 2 07/21/25 11:33 07/21/25 11:33 07/21/25 11:33 07/21/25 11:33 07/21/25 11:33 07/21/25 11:33 07/21/25 11:33 FiO2 25 07/20/25 15:51 Narrative Exam General: A/O x3, no acute distress Eyes: PERRL, EOMI. Anicteric, vision grossly intact, L sclera with erythema. Ears: No ear pain, no ear discharge, Hearing grossly intact. Nose: No nasal discharge. Mouth/Throat: Moist mucous membranes, no redness, no lesions. Neck: Neck supple, non-tender, no cervical lymphadenopathy. Lungs: Clear MARCO ANTONIO to auscultation and percussion, No accessory muscle use. Cardio: Normal S1/S2, regular rhythm, no murmurs, no JVD Abdomen: Soft, non-tender, no palpable masses, peristalsis present, no guarding or rebound. Extremities: Symmetrical, no significant deformities, no peripheral edema , non-tender, peripheral pulses presents. Skin: No rashes, no lesions, warm to touch. Neuro: Patient able to follow commands. Psych: Cooperative, appropriate mood and effect. Objective Labs 07/21/25 05:13 07/21/25 05:13 Labs: Laboratory Results - last 24 hr 07/21/25 05:13 WBC 9.4 RBC 3.68 L Hgb 10.1 L Hct 32.1 L MCV 87 MCH 27.4 MCHC 31.5 RDW Std Deviation 43.9 Plt Count 240 Neut % (Auto) 50 Lymph % (Auto) 39 [place] % (Auto) 7 Eos % (Auto) 1 Baso % (Auto) 0 Neut # (Auto) 4.7 Lymph # (Auto) 3.7 [place] # (Auto) 0.7 Eos # (Auto) 0.1 Baso # (Auto) 0.0 Immature Gran # (Auto) 0.17 H Absolute Nucleated RBC 0.00 Immature Gran % 2 H Nucleated RBC % 0 Sodium 146 H Potassium 3.8 Chloride 109 H Carbon Dioxide 29.1 Anion Gap 8 BUN 9 Creatinine 0.4 L Estim Creat Clear Calc 177.6 eGFR > 60 BUN/Creatinine Ratio 23 H Glucose 117 H Calculated Osmolality 290 Calcium 8.0 L Corrected Calcium 8.6 Magnesium 2.0 Total Bilirubin 0.2 L AST 31 ALT 16 Alkaline Phosphatase 41 L Total Protein 5.1 L Albumin 3.2 L Globulin 1.9 L Albumin/Globulin Ratio 1.7 Vancomycin Trough 17.5 H ABG Interpretation ABG results: 07/12/25 07/12/25 07/13/25 08:31 17:13 04:48 ABG pH 7.13 L* 7.26 L D 7.28 L ABG pCO2 46 45 46 ABG pO2 122 H 100 D 129 H D ABG HCO3 15 L 20 22 ABG O2 Saturation 98 98 99 H ABG Base Excess -14 L -7 L -5 L 07/14/25 07/14/25 01:03 04:17 ABG pH 7.33 L 7.36 ABG pCO2 46 44 ABG pO2 127 H 98 D ABG HCO3 24 25 ABG O2 Saturation 100 H 99 H ABG Base Excess -2 -1 Quality Measures Quality Measures VTE prophylaxis Assessment & Plan Assessment Current Active Medications: Generic Name Dose Route Start Last Admin Trade Name Freq PRN Reason Stop Dose Admin Acetaminophen 650 mg 07/18/25 13:38 Acetaminophen 325 Mg Tablet NG 08/17/25 13:37 Q6HR PRN Fever >100.4 Aspirin 81 mg 07/20/25 12:51 07/21/25 08:20 Aspirin 81 Mg Chew PO 08/16/25 08:59 81 mg QDAY ASHLEY Administration Dextrose 25 ml 07/12/25 10:05 Dextrose 50%-Water Inj 50 Ml Syringe IV 08/11/25 10:04 Q15MIN PRN BG 50-70 responsive npo pt Dextrose 50 ml 07/12/25 10:05 Dextrose 50%-Water Inj 50 Ml Syringe IV 08/11/25 10:04 Q15MIN PRN BG <50 OR BG <70 & pt unresponsive Enoxaparin Sodium 40 mg 07/12/25 09:45 07/21/25 08:21 Enoxaparin Sod Inj 40 Mg/0.4 Ml Syringe SC 07/26/25 09:44 40 mg QDAY ASHLEY Administration Glucagon 1 mg 07/12/25 10:05 Glucagon Inj 1 Mg Vial IM Q15MIN PRN BG <70, and no IV access Valproic Acid 750 mg/ Sodium 57.5 mls @ 57.5 mls/hr 07/19/25 18:00 07/21/25 11:22 Chloride IV 08/18/25 17:59 57.5 mls/hr Q6HR ASHLEY Administration Protocol Cefepime HCl 2 gm/ Sodium 50 mls @ 100 mls/hr 07/20/25 08:14 07/21/25 05:10 Chloride IV 07/27/25 08:13 100 mls/hr Q8HR ASHLEY Administration Vancomycin HCl/Dextrose 250 mls @ 120 mls/hr 07/20/25 08:45 07/21/25 06:32 Vancomycin/D5w 1,250 Mg Ivpb IV 07/27/25 08:44 120 mls/hr Q8HR ASHLEY Administration Protocol Insulin Degludec 40 unit 07/17/25 09:00 07/21/25 09:10 Insulin Degludec 5 Unit/0.05 Ml (Per 5 Units) SC 08/16/25 08:59 Not Given QDAY ASHLEY Insulin Human Lispro 0 unit 07/20/25 21:00 07/21/25 11:22 Insulin Lispro (Admelog) 1 Unit/0.01 Ml Unit SC 08/19/25 20:59 4 unit ACHS ASHLEY Administration Protocol Ipratropium [place] 0.5 mg 07/14/25 11:29 Ipratropium Rt 0.5 Mg/ 2.5 Ml Nebu INH 08/13/25 11:28 Q2HR PRN WHEEZING Lacosamide 200 mg 07/19/25 21:00 07/21/25 08:21 Lacosamide Inj 200 Mg/20 Ml Vial IVP 08/18/25 20:59 200 mg BID ASHLEY Administration Levalbuterol HCl 1.25 mg 07/14/25 11:29 Levalbuterol Rt 1.25 Mg/0.5 Ml Nebu INH 08/13/25 11:28 Q2H PRN WHEEZING Lisinopril 20 mg 07/20/25 12:50 07/21/25 08:21 Lisinopril 20 Mg Tablet PO 08/16/25 08:59 20 mg QDAY ASHLEY Administration Midazolam HCl 2 mg 07/18/25 07:41 07/19/25 17:49 Midazolam Inj 1 Mg/Ml Vial 2 Ml IVP 07/23/25 07:40 2 mg Q5MIN PRN Administration SEIZURES Nicotine 21 mg 07/12/25 13:15 07/21/25 08:21 Nicotine Patch 21 Mg/24 Hr Patch.Td24 TOP 08/11/25 13:14 21 mg QDAY ASHLEY Administration Pantoprazole Sodium 40 mg 07/12/25 09:45 07/21/25 08:20 Pantoprazole Inj 40 Mg Vial IVP 08/11/25 09:44 40 mg QDAY ASHLEY Administration Pharmacy Consult 1 each 07/20/25 09:00 Vancomycin Pharmacy To Dose 1 Each Each IV 08/19/25 08:59 QDAY PRN RX Polyethylene Glycol 17 gm 07/20/25 12:50 07/21/25 08:22 Polyethylene Glycol 17 Gm Packet PO 08/18/25 08:59 17 gm QDAY ASHLEY Administration Sodium Chloride 3 ml 07/14/25 11:29 Sodium Chloride Rt Radha 0.9% 3 Ml Nebu INH 08/13/25 11:28 PRN PRN SOLN Plan Patient is 45-year-old F with a PMH of leukemia, stroke, T2DM, seizure disorder, migraine, hypertension who presented with altered mental status following seizure episode, patient was intubated and upgraded to ICU due to inability to protect airway, and management of seizures. Neurology was consulted and lumbar puncture showed cloudy CSF, 20 WBC, CSF Gram stain positive for strep pneumo, patient was started on IV antibiotics for meningitis and continued on mechanical ventilation, EEG showed discharges consistent with seizure disorder, patient extubated on 07/17/2025. CSF culture negative, MRI brain showed multifocal infarcts likely secondary to underlying meningitis. #Ventriculitis #Streptococcus P. meningitis #Streptococcus pneumonia bacteremia #Sepsis, resolved #Septic shock,?resolved #Acute hypoxic respiratory failure 2/2 aspiration pneumonia History of severe headache/migraine prior to abdominal status, CSF analysis results cloudy, WBC > 10,000, RBC 1000, glucose 97, protein greater than 250, strep pneumo antigen positive, elevated opening pressure, findings consistent with acute meningitis patient was started on IV antibiotics, CSF cultures negative. Patient was initially on pressor support with Levophed, currently off Levophed since 07/15/25. Was initially treated with IV Decadron. Initial blood cultures grew strep pneumo sensitive to ceftriaxone, repeat blood cultures negative at 48 hours, CSF culture negative to date Aspiration pneumonia likely secondary to acute encephalopathy in the setting of seizure disorder and meningitis, was initially intubated for airway protection, started on mechanical ventilation, patient was extubated today after successful spontaneous breathing trial. MRI 07/19/2025 did show concern for ventriculitis Plan: ? Switched Abx to vancomycin and cefepime given MRI findings ? Follow-up blood culture from 07/14/2025-negative -Transfer for possible intrathecal antibiotics for ventriculitis #Acute encephalopathy #Status epilepticus? History of seizures with medications noncomplianceon Keppra, reportedly concern for Keppra causing relapse of leukemia, patient presented to the ER with status epilepticus, continued seizure despite 4 mg of Versed, patient was intubated and sedated with propofol and fentanyl, given loading dose of Keppra in the ED 1500 mg. EEG showed multiple bilateral focal epileptiform discharges consistent with seizures, but no status epilepticus. No seizures overnight or today Plan: ? Continue sodium valproate to 750 mg q6h ? Continue Vimpat to 200 twice daily ? Neurology following closely, appreciate recommendations ? Seizure precautions in place #Acute multifocal CVA Patient has a reported history of CVA over 5 years ago with no residual deficits, but following diagnosis of meningitis, MRI confirmed multifocal acute infarction in the left frontal and parietal lobes, consistent with meningitis, neurology following the patient. Patient had a rapid response called 07/19, for likely seizure episode, due to change in seizure presentation compared to yesterday, stroke alert was called, head CT 07/19 also negative for acute changes Plan: ? Physical therapy on board ? Aspirin 81 mg daily, recommended by neurology as massive left hemispheric infarct to prevent hemorrhagic conversion. #NSTEMI, likely type II #CHF EF 40 to 45% #History of hypertension NSTEMI type II likely in the setting of severe sepsis and status epilepticus, elevated troponins in the setting of septic shock, echocardiogram was done which showed normal-sized LV but EF 40 to 45%, mild mitral and tricuspid regurgitation, no pericardial effusion. Per cardiology decreased EF with mild global hypokinesis mostly secondary to septic shock and tachycardia, anticipate improvement and repeat echocardiogram prior to discharge. No anticoagulation recommended in the setting of lumbar puncture. Echo on 07/19/2025, showed EF of 55 to 60% suggesting recovery of cardiac function secondary to resolution of sepsis. Plan: ? Cardiology following closely, appreciate recommendations ? Continue to monitor for volume overload ? Strict intake and output monitoring - Continue home lisinopril #History of type 2 diabetes mellitus Plan: ? insulin degludec (held) and sliding scale insulin ? Hypoglycemia protocol in place #History of hyperlipidemia #History of leukemia Patient has a history of acute monocytic leukemia, elevated leukocyte count in the setting of sepsis, improved WBC count following initiation of IV antibiotics, leukocytosis likely reactive. History of chemotherapy 10 years ago, currently in remission. Patient has history of hyperlipidemia. Plan: ?Outpatient follow-up following discharge. Disposition: Possible transfer for intrathecal abx given concern for ventriculitis DVT prophylaxis: Enoxaparin 40 mg daily GI prophylaxis: Protonix 40 mg daily Diet: Dysphagia diet 3 CODE STATUS: Full This case was discussed with my attending physician, Dr. Vasquez, and senior resident, Dr. Dunlap. Cain Burkett MD-PhD, PGY1 Attending Provider Attestation/Addendum I have seen and examined the patient. I was physically present for the [place] portions of the services provided including history, physical exam, diagnosis, treatment plans and orders. I agree with assessment and plan of care as documented by residents. No acute overnight events. Patient seen and examined at bedside this morning. Appears comfortable and denies any new complaints. Has not have any further episodes after increasing dose of antiepileptics. Has been afebrile and has not had elevation in WBC count. Continues to saturate well on 2 L nasal cannula. Rest of the vitals and labs have been stable. Continues to be on IV cefepime and vancomycin for Streptococcus pneumonia bacteremia, ventriculitis, ventricular abscess, meningitis. Patient is pending transfer to [facility] for evaluation of possible intrathecal antibiotics with neurosurgery. Even though this this note was carefully revised there may still be minor errors in high heel builder due to voice recognition software. Nohemy Vasquez MD
--- NOTE | 2025-07-21 17:30 | PC.CM ---
I received a message from Vivian with [facility] phone # . I called her back but I was only able to leave a message. I let her know Anayeli Lynne wants a verbal auth prior to evaluating patient for placement. I requested a call back.
--- NOTE | 2025-07-21 21:13 | PD.RESPRO ---
Documentation for date of: 07/21/25 Subjective Subjective Interval history: Patient examined at bedside. Vitals and labs are stable. Alert and oriented x 3, remains afebrile and no reported seizures. On physical exam she is able to follow commands and minor movement in toes of right lower extremity. Transfer is still pending. Needs urgent neruosurgical evaluation and intrathecal antibiotics with drainage of pus. Broadened abx coverage with IV vancomycin and IV cefepime. Continue depakote 1500mg BID and vimpat to 200 BID. Exam Vital Signs Temp Pulse Resp BP Pulse Ox O2 Del Method O2 Flow Rate 97.5 F 87 20 130/70 97 Nasal Cannula 2 07/21/25 20:00 07/21/25 20:00 07/21/25 20:00 07/21/25 20:00 07/21/25 20:00 07/21/25 20:00 07/21/25 20:00 FiO2 25 07/20/25 15:51 Narrative Exam GENERAL APPEARANCE: middle age female, awake, comfortable HEENT: Normocephalic, atraumatic. Pupils: Equal reacting to light NECK: Supple, no JVD or bruits. CARDIOVASULAR: Heart: S1, S2 heard, regular without S3-S4 or murmur no rubs or gallops. LUNGS/CHEST: lungs clear to auscultation ABDOMEN: Soft, nontender, with normal bowel sounds. No pulsatile masses. No rebound, rigidity, or guarding. Normal inspection and palpation. EXTREMITIES: Normal inspection and palpation. No edema, clubbing or cyanosis. SKIN: Warm and dry without rashes. Normal inspection. NEURO: Alert, awake and oriented x3. Cranial nerves: II through XII grossly intact. Speech and language: mild dysarthria. Motor system: Tone and bulk: Normal: Strength: 4/5 UE, slow movement on Left UE. Strength 5/5 LLE, very fine movement noticed in RLE. Sensation intact; No pronator drift noted. Plantar reflex: Downgoing bilaterally. Sensory system: Intact to all modalities of sensation bilaterally. Coordination: unable to complete [id number] test. No intention tremors noted. Gait: Not tested. No signs of meningeal irritation noted. PSYCHIATRIC: normal affect and mood Objective Labs 07/22/25 04:57 07/22/25 04:57 Labs: Laboratory Results - last 24 hr 07/21/25 05:13 WBC 9.4 RBC 3.68 L Hgb 10.1 L Hct 32.1 L MCV 87 MCH 27.4 MCHC 31.5 RDW Std Deviation 43.9 Plt Count 240 Neut % (Auto) 50 Lymph % (Auto) 39 [place] % (Auto) 7 Eos % (Auto) 1 Baso % (Auto) 0 Neut # (Auto) 4.7 Lymph # (Auto) 3.7 [place] # (Auto) 0.7 Eos # (Auto) 0.1 Baso # (Auto) 0.0 Immature Gran # (Auto) 0.17 H Absolute Nucleated RBC 0.00 Immature Gran % 2 H Nucleated RBC % 0 Sodium 146 H Potassium 3.8 Chloride 109 H Carbon Dioxide 29.1 Anion Gap 8 BUN 9 Creatinine 0.4 L Estim Creat Clear Calc 177.6 eGFR > 60 BUN/Creatinine Ratio 23 H Glucose 117 H Calculated Osmolality 290 Calcium 8.0 L Corrected Calcium 8.6 Magnesium 2.0 Total Bilirubin 0.2 L AST 31 ALT 16 Alkaline Phosphatase 41 L Total Protein 5.1 L Albumin 3.2 L Globulin 1.9 L Albumin/Globulin Ratio 1.7 Vancomycin Trough 17.5 H ABG Interpretation ABG results: 07/12/25 07/12/25 07/13/25 08:31 17:13 04:48 ABG pH 7.13 L* 7.26 L D 7.28 L ABG pCO2 46 45 46 ABG pO2 122 H 100 D 129 H D ABG HCO3 15 L 20 22 ABG O2 Saturation 98 98 99 H ABG Base Excess -14 L -7 L -5 L 07/14/25 07/14/25 01:03 04:17 ABG pH 7.33 L 7.36 ABG pCO2 46 44 ABG pO2 127 H 98 D ABG HCO3 24 25 ABG O2 Saturation 100 H 99 H ABG Base Excess -2 -1 Quality Measures Quality Measures VTE prophylaxis Assessment & Plan Assessment Current Active Medications: Generic Name Dose Route Start Last Admin Trade Name Freq PRN Reason Stop Dose Admin Acetaminophen 650 mg 07/18/25 13:38 Acetaminophen 325 Mg Tablet NG 08/17/25 13:37 Q6HR PRN Fever >100.4 Aspirin 81 mg 07/20/25 12:51 07/21/25 08:20 Aspirin 81 Mg Chew PO 08/16/25 08:59 81 mg QDAY ASHLEY Administration Dextrose 25 ml 07/12/25 10:05 Dextrose 50%-Water Inj 50 Ml Syringe IV 08/11/25 10:04 Q15MIN PRN BG 50-70 responsive npo pt Dextrose 50 ml 07/12/25 10:05 Dextrose 50%-Water Inj 50 Ml Syringe IV 08/11/25 10:04 Q15MIN PRN BG <50 OR BG <70 & pt unresponsive Enoxaparin Sodium 40 mg 07/12/25 09:45 07/21/25 08:21 Enoxaparin Sod Inj 40 Mg/0.4 Ml Syringe SC 07/26/25 09:44 40 mg QDAY ASHLEY Administration Glucagon 1 mg 07/12/25 10:05 Glucagon Inj 1 Mg Vial IM Q15MIN PRN BG <70, and no IV access Valproic Acid 750 mg/ Sodium 57.5 mls @ 57.5 mls/hr 07/19/25 18:00 07/21/25 17:02 Chloride IV 08/18/25 17:59 57.5 mls/hr Q6HR ASHLEY Administration Protocol Cefepime HCl 2 gm/ Sodium 50 mls @ 100 mls/hr 07/20/25 08:14 07/21/25 13:26 Chloride IV 07/27/25 08:13 100 mls/hr Q8HR ASHLEY Administration Vancomycin HCl/Dextrose 250 mls @ 120 mls/hr 07/20/25 08:45 07/21/25 13:26 Vancomycin/D5w 1,250 Mg Ivpb IV 07/27/25 08:44 120 mls/hr Q8HR ASHLEY Administration Protocol Insulin Degludec 40 unit 07/17/25 09:00 07/21/25 09:10 Insulin Degludec 5 Unit/0.05 Ml (Per 5 Units) SC 08/16/25 08:59 Not Given QDAY ASHLEY Insulin Human Lispro 0 unit 07/20/25 21:00 07/21/25 16:13 Insulin Lispro (Admelog) 1 Unit/0.01 Ml Unit SC 08/19/25 20:59 Not Given ACHS ASHLEY Protocol Ipratropium [place] 0.5 mg 07/14/25 11:29 Ipratropium Rt 0.5 Mg/ 2.5 Ml Nebu INH 08/13/25 11:28 Q2HR PRN WHEEZING Lacosamide 200 mg 07/19/25 21:00 07/21/25 08:21 Lacosamide Inj 200 Mg/20 Ml Vial IVP 08/18/25 20:59 200 mg BID ASHLEY Administration Levalbuterol HCl 1.25 mg 07/14/25 11:29 Levalbuterol Rt 1.25 Mg/0.5 Ml Nebu INH 08/13/25 11:28 Q2H PRN WHEEZING Lisinopril 20 mg 07/20/25 12:50 07/21/25 08:21 Lisinopril 20 Mg Tablet PO 08/16/25 08:59 20 mg QDAY ASHLEY Administration Midazolam HCl 2 mg 07/18/25 07:41 07/19/25 17:49 Midazolam Inj 1 Mg/Ml Vial 2 Ml IVP 07/23/25 07:40 2 mg Q5MIN PRN Administration SEIZURES Nicotine 21 mg 07/12/25 13:15 07/21/25 08:21 Nicotine Patch 21 Mg/24 Hr Patch.Td24 TOP 08/11/25 13:14 21 mg QDAY ASHLEY Administration Pantoprazole Sodium 40 mg 07/12/25 09:45 07/21/25 08:20 Pantoprazole Inj 40 Mg Vial IVP 08/11/25 09:44 40 mg QDAY ASHLEY Administration Pharmacy Consult 1 each 07/20/25 09:00 Vancomycin Pharmacy To Dose 1 Each Each IV 08/19/25 08:59 QDAY PRN RX Polyethylene Glycol 17 gm 07/20/25 12:50 07/21/25 08:22 Polyethylene Glycol 17 Gm Packet PO 08/18/25 08:59 17 gm QDAY ASHLEY Administration Sodium Chloride 3 ml 07/14/25 11:29 Sodium Chloride Rt Radha 0.9% 3 Ml Nebu INH 08/13/25 11:28 PRN PRN SOLN Plan Patient is a 45-year-old female with past medical history of CVA 2018, AML, type 2 diabetes, seizures, migraine, HLD, HTN presented to ED on 07/12/25 due to breakthrough seizures/AMS. Neurology consulted for management and LP to rule out meningitis. #Meningitis #Multifocal seizure #Left hemisphere stroke #Pyogenic Ventriculitis #Hx seizures Likely due to status epilepticus break through seizures. 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 Since that time, patient will only take the Keppra when going to music concerts. Stroke alert called in ED. Tele neuro was consulted, NIHSS score 0. CT head/CTA negative. She received 4mg of versed without cessation. Subsequently intubated and sedated with prop/fent. Given 1500mg loading dose of Keppra in ED. Urine, sputum, and blood cultures negative. CSF analysis appearance was cloudy, WBCs 10,720, RBC 1000, glucose 97, protein greater than 250, strep pneumo antigen positive. Opening pressure 37. CSF culture stain showing 3+ WBCs. Repeat CT head and MRI brain showed areas of acute infarct in left frontal and parietal lobe. EEG: abnormal showing multifocal epileptiform discharges consistent with seizures. But no electrographic status noted MRI 07/19-- negative for infarct but showed increased signal uptake in occipital horns. 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 Recommend that patient get transferred to tertiary care center. Needs urgent neruosurgical evaluation. -increased IV depakote to 1500mg BID -increase Vimpat 200mg BID -repeat EEG results pending -euthermia, euglycemia -neuro checks q4hr -IV midazolam for breakthrough seizures -seizure prophylaxis -Continue with aspirin 81 mg alone as the left hemispherical infarct is massive to prevent hemorrhagic conversion and DVT prophylaxis -Continue with IV antibiotics. CSF culture resulted negative. -deffer ELVA #AML #Previous CVA by history but not from MRI in 2018 #T2DM #HLD #HTN Primary care team to manage above conditions and ongoing care needs. The patient's management plan was discussed with my attending physician Dr. Colvin. Paz Rivero, PGY-2 Attending Provider Attestation/Addendum I personally have seen and examined the patient at the bedside and I agreed with resident's findings, assessment and plan of care. Patient is clinically improving, even moving the right LE. EEG: abnormal showing multifocal epileptiform discharges consistent with seizures. But no electrographic status noted MRI 07/19-- negative for infarct but showed increased signal uptake in occipital horns. 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 Recommend that patient get transferred to tertiary care center. Needs urgent neruosurgical evaluation. Continue IV depakote and Vimpat at current doses.
[2025-07-22] VITALS (12 sets, daily range): BP systolic 116–140; BP diastolic 72–88; PULSE 70–89; RESP 18–27; TEMP 36.1–37; O2SAT 95–99; BMI 34.4
[2025-07-22] MEDS: VALPROATE SOD INJ 750 MG in SODIUM CHLORIDE 0.9% 50 ML 57.5 MG IV ×5 (00:25→23:31)
[2025-07-22] MEDS: CEFEPIME INJ 2 GM in SODIUM CHLORIDE 0.9% (Popper) 50 ML IV (05:10)
[2025-07-22] MEDS: VANCOMYCIN/D5W 1,250 MG IVPB 250 ML 120 MG IV (05:54)
[2025-07-22 06:09] LABS: Basophils # (Auto) 0.0 Thou/mm3 (0.0-0.2); Basophils % (Auto) 0 % (0-2.5); Eosinophils # (Auto) 0.1 Thou/mm3 (0.0-0.5); Eosinophils % (Auto) 1 % (0-10); Hematocrit 33.7 % (36.0-46.0); Hemoglobin 10.8 g/dL (12.0-16.0); Immature Granulocytes Auto 0.09 Thou/mm3 (0.00-0.00); Lymphocytes # (Auto) 3.1 Thou/mm3 (1.0-4.8); Lymphocytes % (Auto) 31 % (10-50); Mean Corpuscular HGB Conc 32.0 g/dl (31.0-37.0); Mean Corpuscular Hemoglobin 27.9 pg (25.0-35.0); Mean Corpuscular Volume 87 fL (80-100); Monocytes # (Auto) 0.7 Thou/mm3 (0.0-0.8); Monocytes % (Auto) 7 % (0-12); Neutrophils # (Auto) 6.1 Thou/mm3 (1.8-7.7); Neutrophils % (Auto) 61 % (37-80); Nucleated Red Blood Cell # 0.00 Thou/mm3 (0.00-0.00); Nucleated Red Blood Cell % 0 /100 WBC (0); Platelet Count 280 Thou/mm3 (140-440); RDW Standard Deviation 44.7 fL (36.4-46.3); Red Blood Count 3.87 Miln/mm3 (4.00-5.20); White Blood Count 10.0 Thou/mm3 (3.6-11.0)
[2025-07-22 06:40] LABS: Alanine Aminotransferase 18 U/L (10-49); Albumin, Serum 3.4 gm/dL (3.5-5.0); Albumin/Globulin Ratio 1.4 (1.2-2.2); Alkaline Phosphatase 46 U/L (46-116); Anion Gap 7 (7-16); Aspartate Amino Transferase 34 U/L (0-34); BUN/Creatinine Ratio 20 Ratio (12-20); Bilirubin,Total 0.2 mg/dL (0.3-1.2); Blood Urea Nitrogen 8 mg/dL (9-23); Calcium 8.6 mg/dL (8.3-10.6); Calcium (Corrected) 9.1 mg/dL (8.5-10.1); Carbon Dioxide 28.6 mMol/L (20.0-31.0); Chloride 107 mMol/L (98-107); Creatinine (Component) 0.4 mg/dL (0.6-1.3); Estimated Creatinine Clearance 177.6 mL/min (>60); Globulin 2.4 gm/dL (2.3-3.5); Glucose 118 mg/dL (74-106); Magnesium 2.0 mg/dL (1.6-2.6); Osmolality,Calculated 284 (275-295); Phosphorous 3.4 mg/dL (2.4-5.1); Potassium 3.9 mMol/L (3.4-5.1); Sodium 143 mMol/L (136-145); Total Protein 5.8 gm/dL (5.7-8.2); eGFR > 60 See Note
[2025-07-22] MEDS: INSULIN LISPRO (AdmeLOG) 1 UNIT/0.01 ML UNIT SC ×3 (08:02→20:00)
[2025-07-22] MEDS: ASPIRIN 81 MG CHEW PO (08:19)
[2025-07-22] MEDS: LACOSAMIDE INJ 200 MG/20 ML VIAL IVP ×2 (08:20→20:39)
[2025-07-22] MEDS: NICOTINE PATCH 21 MG/24 HR PATCH.TD24 TOP (08:21)
[2025-07-22] MEDS: ENOXAPARIN SOD INJ 40 MG/0.4 ML SYRINGE SC (08:21)
[2025-07-22] MEDS: INSULIN DEGLUDEC 5 UNIT/0.05 ML (PER 5 UNITS) 40 UNIT SC (08:21)
--- NOTE | 2025-07-22 09:42 | ESPR_ITS ---
Subjective Subjective Interval history: asked to see. on unusual rx for pneumococcal meningitis with cefepime and vanco with a s germ on bc noted Exam Vital Signs Temp Pulse Resp BP Pulse Ox O2 Del Method O2 Flow Rate 97.2 F 85 18 140/88 H 97 Room Air 4 07/22/25 07:39 07/22/25 08:19 07/22/25 07:39 07/22/25 08:19 07/22/25 07:39 07/22/25 07:39 07/22/25 04:00 FiO2 25 07/20/25 15:51 Narrative Exam doing ok. able to turn head side to side and touch chin to chest no active meningismus but prior meningeal findings noted Objective - Internal Medicine Labs 07/22/25 04:57 07/22/25 04:57 Labs: Laboratory Results - last 24 hr 07/22/25 04:57 WBC 10.0 RBC 3.87 L Hgb 10.8 L Hct 33.7 L MCV 87 MCH 27.9 MCHC 32.0 RDW Std Deviation 44.7 Plt Count 280 D Neut % (Auto) 61 Lymph % (Auto) 31 [place] % (Auto) 7 Eos % (Auto) 1 Baso % (Auto) 0 Neut # (Auto) 6.1 Lymph # (Auto) 3.1 [place] # (Auto) 0.7 Eos # (Auto) 0.1 Baso # (Auto) 0.0 Immature Gran # (Auto) 0.09 H Absolute Nucleated RBC 0.00 Immature Gran % 1 H Nucleated RBC % 0 Sodium 143 Potassium 3.9 Chloride 107 Carbon Dioxide 28.6 Anion Gap 7 BUN 8 L Creatinine 0.4 L Estim Creat Clear Calc 177.6 eGFR > 60 BUN/Creatinine Ratio 20 Glucose 118 H Calculated Osmolality 284 Calcium 8.6 Corrected Calcium 9.1 Phosphorus 3.4 Magnesium 2.0 Total Bilirubin 0.2 L AST 34 ALT 18 Alkaline Phosphatase 46 Total Protein 5.8 Albumin 3.4 L Globulin 2.4 Albumin/Globulin Ratio 1.4 ABG Interpretation ABG results: 07/12/25 07/12/25 07/13/25 08:31 17:13 04:48 ABG pH 7.13 L* 7.26 L D 7.28 L ABG pCO2 46 45 46 ABG pO2 122 H 100 D 129 H D ABG HCO3 15 L 20 22 ABG O2 Saturation 98 98 99 H ABG Base Excess -14 L -7 L -5 L 07/14/25 07/14/25 01:03 04:17 ABG pH 7.33 L 7.36 ABG pCO2 46 44 ABG pO2 127 H 98 D ABG HCO3 24 25 ABG O2 Saturation 100 H 99 H ABG Base Excess -2 -1 Assessment & Plan A&P Narrative prior cva w/o residual about 2022 hx pneumococcal bacteremia and meningitis this admit w/o overt csf leak noted historically. doing ok on cephs went back to standard pneumococcal rx with rocephin alone. will finish rx tomorrow am. may go home tomorrow. usual rx for pneumococcal bacteremia and meningitis is 10d and we will give credit to the unusual rx provided by the primary team the past few days, admit was 1014 PM, and it is 07/22 today Time Spent With Patient Time: Total time spent is greater than 50% in coordination of care (as documented) at patient's floor/unit and/or counseling patient:
--- NOTE | 2025-07-22 09:51 | PC.CM ---
Addendum entered by Wicho Prather RN 07/22/25 18:18: 1815-Spoke to Nevin at [facility], provided clinical update information. She will review clinical information sent and present to her team. She has informed us that they are at critical capacity and their ER is currently on diversion, so she encourages us to continue looking elsewhere. Pending response from her at this time. Addendum entered by Wicho Prather RN 07/22/25 17:50: 1749- Transfer packet sent to [facility] via XM fax. Addendum entered by Wicho Prather RN 07/22/25 17:41: 1735-Received call from MALENA Arriaga at [facility], she informed me that Dr. Jay has declined this patient as service is not available, patient requires higher level of care, recommend we reach out to tertiary care centers. Informed Dr. Dunlap of declination at this time. Will expand search to tertiary care centers. Addendum entered by Wicho Prather RN 07/22/25 10:32: 1030- Received call from MALENA Arriaga at [facility], patient is currently on waitlist for bed, she will update us at 1500. Addendum entered by Wicho Prather RN 07/22/25 10:03: 0950- Call to [facility], spoke with MALENA Hwang. Provided prior auth #, he has requested a face sheet to be sent over, he will present case to his neurosurgery team and follow up with us regarding their response. Face sheet sent via XM fax. Original Note: 0940- Call to [facility]/ , spoke to Agus Marinelli RN, request for prior auth for transfer to [facility]. Auth UM-[id number]
--- NOTE | 2025-07-22 10:16 | ESCONSULT_ITS ---
RE: JEREMÍAS FREDERICK : 1980 DATE OF CONSULTATION: 07/21/2025 REFERRING PHYSICIAN: Dr. Latham. REASON FOR CONSULTATION: Bacteremia and meningitis. She was on vanco and Ceftin for reasons that are unclear. HISTORY OF PRESENT ILLNESS: The patient is a 45-year-old with a history of a stroke a couple of years ago. She has no residual and recovered fully. She has no history of hypertension or other predisposing factors to stroke. Cardiology has seen her and determined there was no pathology. She is diabetic. She was bacteremic, has no history of head trauma and no CSF leak noted. I cannot tell why she is on the Ceftin and vanco, but I assume that is because of the low grade temps that were recorded a couple of days after she was here which may have been due to cessation of the prednisone, which we usually give to people with meningitis early on. This improves survival, but that is about it. In children, it does decrease the risk of hearing loss. For adults with pneumococcal bacteremia and pneumonia, it does seem to improve survival. This was performed in an [place] setting as I recall. SURGICAL HISTORY: Includes only hysterectomy. ALLERGIES: ALLERGIES ARE NOTED. THERE IS A LISTED ALLERGY TO HYDROCODONE, CODEINE AND FOOD ALLERGIES AND SPIDER VENOM AND OTHERS INCLUDING LACTOSE, ONION, EGGS AND SO WE WILL AVOID THOSE. She has tolerated cephalosporins before and was on Ceftin prior to my visit so she should do fine with that. IMMUNIZATIONS: Not pursued. FAMILY HISTORY: Positive for diabetes. SOCIAL HISTORY: She lives at home with her daughters. She has a boyfriend. She is diabetic as mentioned. Her A1c is not listed so I may check that tomorrow too pe benign. A sepsis and meningitis hx of cva w/o residual hx of dm P: one more day of rocephin iv and then home at your discretion. f/u with primary. no need to see id in clinic hep c neg. will screen for hiv as she is well under 65 and hiv is associated with pneumococcal sepsis. DT: 09:54:41 TT: 10:14:00 Ref: [id number] - TID: [id number] MTDD
[2025-07-22] MEDS: cefTRIAXone/D5w 2gm 2 GM/50 ML BAG IV ×2 (10:59→20:01)
--- NOTE | 2025-07-22 13:20 | PD.RESPRO ---
Documentation for date of: 07/22/25 Subjective Subjective Interval history: Patient was seen and examined at bedside today; no acute events overnight. ID consulted. Still awaiting transfer to neurosurgical center for potential intrathecal antibiotics for ventriculitis. Exam Vital Signs Temp Pulse Resp BP Pulse Ox O2 Del Method O2 Flow Rate 97.2 F 80 18 116/76 98 Room Air 4 07/22/25 12:00 07/22/25 12:00 07/22/25 12:00 07/22/25 12:00 07/22/25 12:00 07/22/25 12:00 07/22/25 11:44 FiO2 25 07/20/25 15:51 Narrative Exam General: A/O x3, no acute distress Eyes: PERRL, EOMI. Anicteric, vision grossly intact. Ears: No ear pain, no ear discharge, Hearing grossly intact. Nose: No nasal discharge. Mouth/Throat: Moist mucous membranes, no redness, no lesions. Neck: Neck supple, non-tender, no cervical lymphadenopathy. Lungs: Clear MARCO ANTONIO to auscultation and percussion, No accessory muscle use. Cardio: Normal S1/S2, regular rhythm, no murmurs, no JVD Abdomen: Soft, non-tender, no palpable masses, peristalsis present, no guarding or rebound. Extremities: Symmetrical, no significant deformities, no peripheral edema , non-tender, peripheral pulses present. Skin: No rashes, no lesions, warm to touch. Neuro: Patient able to follow commands. Psych: Cooperative, appropriate mood and effect. Objective Labs 07/22/25 04:57 07/22/25 04:57 Labs: Laboratory Results - last 24 hr 07/22/25 04:57 WBC 10.0 RBC 3.87 L Hgb 10.8 L Hct 33.7 L MCV 87 MCH 27.9 MCHC 32.0 RDW Std Deviation 44.7 Plt Count 280 D Neut % (Auto) 61 Lymph % (Auto) 31 [place] % (Auto) 7 Eos % (Auto) 1 Baso % (Auto) 0 Neut # (Auto) 6.1 Lymph # (Auto) 3.1 [place] # (Auto) 0.7 Eos # (Auto) 0.1 Baso # (Auto) 0.0 Immature Gran # (Auto) 0.09 H Absolute Nucleated RBC 0.00 Immature Gran % 1 H Nucleated RBC % 0 Sodium 143 Potassium 3.9 Chloride 107 Carbon Dioxide 28.6 Anion Gap 7 BUN 8 L Creatinine 0.4 L Estim Creat Clear Calc 177.6 eGFR > 60 BUN/Creatinine Ratio 20 Glucose 118 H Calculated Osmolality 284 Calcium 8.6 Corrected Calcium 9.1 Phosphorus 3.4 Magnesium 2.0 Total Bilirubin 0.2 L AST 34 ALT 18 Alkaline Phosphatase 46 Total Protein 5.8 Albumin 3.4 L Globulin 2.4 Albumin/Globulin Ratio 1.4 ABG Interpretation ABG results: 07/12/25 07/12/25 07/13/25 08:31 17:13 04:48 ABG pH 7.13 L* 7.26 L D 7.28 L ABG pCO2 46 45 46 ABG pO2 122 H 100 D 129 H D ABG HCO3 15 L 20 22 ABG O2 Saturation 98 98 99 H ABG Base Excess -14 L -7 L -5 L 07/14/25 07/14/25 01:03 04:17 ABG pH 7.33 L 7.36 ABG pCO2 46 44 ABG pO2 127 H 98 D ABG HCO3 24 25 ABG O2 Saturation 100 H 99 H ABG Base Excess -2 -1 Quality Measures Quality Measures VTE prophylaxis Assessment & Plan Assessment Current Active Medications: Generic Name Dose Route Start Last Admin Trade Name Freq PRN Reason Stop Dose Admin Acetaminophen 650 mg 07/18/25 13:38 Acetaminophen 325 Mg Tablet NG 08/17/25 13:37 Q6HR PRN Fever >100.4 Aspirin 81 mg 07/20/25 12:51 07/22/25 08:19 Aspirin 81 Mg Chew PO 08/16/25 08:59 81 mg QDAY ASHLEY Administration Dextrose 25 ml 07/12/25 10:05 Dextrose 50%-Water Inj 50 Ml Syringe IV 08/11/25 10:04 Q15MIN PRN BG 50-70 responsive npo pt Dextrose 50 ml 07/12/25 10:05 Dextrose 50%-Water Inj 50 Ml Syringe IV 08/11/25 10:04 Q15MIN PRN BG <50 OR BG <70 & pt unresponsive Enoxaparin Sodium 40 mg 07/12/25 09:45 07/22/25 08:21 Enoxaparin Sod Inj 40 Mg/0.4 Ml Syringe SC 07/26/25 09:44 40 mg QDAY ASHLEY Administration Glucagon 1 mg 07/12/25 10:05 Glucagon Inj 1 Mg Vial IM Q15MIN PRN BG <70, and no IV access Valproic Acid 750 mg/ Sodium 57.5 mls @ 57.5 mls/hr 07/19/25 18:00 07/22/25 11:36 Chloride IV 08/18/25 17:59 57.5 mls/hr Q6HR ASHLEY Administration Protocol Ceftriaxone Sodium/Dextrose 2 gm in 50 mls @ 100 mls/hr 07/22/25 10:15 07/22/25 10:59 Rocephin/D5w 2gm IV 07/29/25 10:14 100 mls/hr Q12HR ASHLEY Administration Insulin Degludec 40 unit 07/17/25 09:00 07/22/25 08:21 Insulin Degludec 5 Unit/0.05 Ml (Per 5 Units) SC 08/16/25 08:59 40 unit QDAY ASHLEY Administration Insulin Human Lispro 0 unit 07/20/25 21:00 07/22/25 11:36 Insulin Lispro (Admelog) 1 Unit/0.01 Ml Unit SC 08/19/25 20:59 3 unit ACHS ASHLEY Administration Protocol Ipratropium [place] 0.5 mg 07/14/25 11:29 Ipratropium Rt 0.5 Mg/ 2.5 Ml Nebu INH 08/13/25 11:28 Q2HR PRN WHEEZING Lacosamide 200 mg 07/19/25 21:00 07/22/25 08:20 Lacosamide Inj 200 Mg/20 Ml Vial IVP 08/18/25 20:59 200 mg BID ASHLEY Administration Levalbuterol HCl 1.25 mg 07/14/25 11:29 Levalbuterol Rt 1.25 Mg/0.5 Ml Nebu INH 08/13/25 11:28 Q2H PRN WHEEZING Lisinopril 20 mg 07/20/25 12:50 07/22/25 08:19 Lisinopril 20 Mg Tablet PO 08/16/25 08:59 20 mg QDAY ASHLEY Administration Midazolam HCl 2 mg 07/18/25 07:41 07/19/25 17:49 Midazolam Inj 1 Mg/Ml Vial 2 Ml IVP 07/23/25 07:40 2 mg Q5MIN PRN Administration SEIZURES Nicotine 21 mg 07/12/25 13:15 07/22/25 08:21 Nicotine Patch 21 Mg/24 Hr Patch.Td24 TOP 08/11/25 13:14 21 mg QDAY ASLHEY Administration Pantoprazole Sodium 40 mg 07/23/25 09:00 Pantoprazole 40 Mg Tablet PO 08/22/25 08:59 QDAY ASHLEY Polyethylene Glycol 17 gm 07/20/25 12:50 07/22/25 08:22 Polyethylene Glycol 17 Gm Packet PO 08/18/25 08:59 Not Given QDAY ASHLEY Sodium Chloride 3 ml 07/14/25 11:29 Sodium Chloride Rt Radha 0.9% 3 Ml Nebu INH 08/13/25 11:28 PRN PRN SOLN Plan Patient is 45-year-old F with a PMH of leukemia, stroke, T2DM, seizure disorder, migraine, hypertension who presented with altered mental status following seizure episode, patient was intubated and upgraded to ICU due to inability to protect airway, and management of seizures. Neurology was consulted and lumbar puncture showed cloudy CSF, 20 WBC, CSF Gram stain positive for strep pneumo, patient was started on IV antibiotics for meningitis and continued on mechanical ventilation, EEG showed discharges consistent with seizure disorder, patient extubated on 07/17/2025. CSF culture negative, MRI brain showed multifocal infarcts likely secondary to underlying meningitis. #Ventriculitis #Streptococcus P. meningitis #Streptococcus pneumonia bacteremia #Sepsis, resolved #Septic shock,?resolved #Acute hypoxic respiratory failure 2/2 aspiration pneumonia History of severe headache/migraine prior to abdominal status, CSF analysis results cloudy, WBC > 10,000, RBC 1000, glucose 97, protein greater than 250, strep pneumo antigen positive, elevated opening pressure, findings consistent with acute meningitis patient was started on IV antibiotics, CSF cultures negative. Patient was initially on pressor support with Levophed, currently off Levophed since 07/15/25. Was initially treated with IV Decadron. Initial blood cultures grew strep pneumo sensitive to ceftriaxone, repeat blood cultures negative at 48 hours, CSF culture negative to date Aspiration pneumonia likely secondary to acute encephalopathy in the setting of seizure disorder and meningitis, was initially intubated for airway protection, started on mechanical ventilation, patient was extubated today after successful spontaneous breathing trial. MRI 07/19/2025 did show concern for ventriculitis Plan: ? Follow-up blood culture from 07/14/2025-negative ?ID consulted, switched antibiotics to ceftriaxone 2mg IV q12h -Patient still requires transfer for neurosurgical evaluation possible intrathecal antibiotics for continuing ventriculitis #Acute encephalopathy #Status epilepticus? History of seizures with medications noncomplianceon Keppra, reportedly concern for Keppra causing relapse of leukemia, patient presented to the ER with status epilepticus, continued seizure despite 4 mg of Versed, patient was intubated and sedated with propofol and fentanyl, given loading dose of Keppra in the ED 1500 mg. EEG showed multiple bilateral focal epileptiform discharges consistent with seizures, but no status epilepticus. No seizures overnight or today Plan: ? Continue sodium valproate to 750 mg q6h ? Continue Vimpat to 200 twice daily ? Neurology following closely, appreciate recommendations ? Seizure precautions in place #Acute multifocal CVA Patient has a reported history of CVA over 5 years ago with no residual deficits, but following diagnosis of meningitis, MRI confirmed multifocal acute infarction in the left frontal and parietal lobes, consistent with meningitis, neurology following the patient. Patient had a rapid response called 07/19, for likely seizure episode, due to change in seizure presentation compared to yesterday, stroke alert was called, head CT 07/19 also negative for acute changes Plan: ? Physical therapy on board ? Aspirin 81 mg daily, recommended by neurology as massive left hemispheric infarct to prevent hemorrhagic conversion. #NSTEMI, likely type II #CHF EF 40 to 45% #History of hypertension NSTEMI type II likely in the setting of severe sepsis and status epilepticus, elevated troponins in the setting of septic shock, echocardiogram was done which showed normal-sized LV but EF 40 to 45%, mild mitral and tricuspid regurgitation, no pericardial effusion. Per cardiology decreased EF with mild global hypokinesis mostly secondary to septic shock and tachycardia, anticipate improvement and repeat echocardiogram prior to discharge. No anticoagulation recommended in the setting of lumbar puncture. Echo on 07/19/2025, showed EF of 55 to 60% suggesting recovery of cardiac function secondary to resolution of sepsis. Plan: ? Cardiology following closely, appreciate recommendations ? Continue to monitor for volume overload ? Strict intake and output monitoring - Continue home lisinopril #History of type 2 diabetes mellitus Plan: ? insulin degludec (held) and sliding scale insulin ? Hypoglycemia protocol in place #History of hyperlipidemia #History of leukemia Patient has a history of acute monocytic leukemia, elevated leukocyte count in the setting of sepsis, improved WBC count following initiation of IV antibiotics, leukocytosis likely reactive. History of chemotherapy 10 years ago, currently in remission. Patient has history of hyperlipidemia. Plan: ?Outpatient follow-up following discharge. Disposition: Possible transfer for intrathecal abx given concern for ventriculitis DVT prophylaxis: Enoxaparin 40 mg daily GI prophylaxis: Protonix 40 mg daily Diet: Dysphagia diet 3 CODE STATUS: Full This case was discussed with my attending physician, Dr. Colindres, and senior resident, Dr. Jeff. Cain Burkett MD-PhD, PGY1
--- NOTE | 2025-07-22 13:32 | PD.RESPRO ---
Documentation for date of: 07/22/25 Subjective Subjective Interval history: Patient was seen and assessed at bedside. No new complaints, right upper extremity strength improving. No new complaints, denies chest pain, shortness of breath, and palpitations. Continues to be in sinus rhythm on telemetry. Vitals are stable. Potassium 3.9, magnesium 2.0. Pending transfer to tertiary center. Exam Vital Signs Temp Pulse Resp BP Pulse Ox O2 Del Method O2 Flow Rate 97.2 F 80 18 116/76 98 Room Air 4 07/22/25 12:00 07/22/25 12:00 07/22/25 12:00 07/22/25 12:00 07/22/25 12:00 07/22/25 12:00 07/22/25 11:44 FiO2 07/20/25 15:51 Narrative Exam Physical Exam General: Awake and in no acute distress. Conversational and non-toxic appearing. HEENT: Normocephalic, atraumatic, mucous membranes moist. Heart: Regular rate and rhythm, normal S1 and S2, no murmurs appreciated. Lungs: Clear to auscultation with no wheezing or crackles. Abdomen: Soft, nondistended, nontender, positive bowel sounds. No guarding or rebound tenderness. Neurologic: Alert and oriented x3. 4/5 strength in right upper extremity and 3/5 in right lower extremity. 4/5 licensing specialist strength in left hand, 3/5 in right. Extremities: No edema. Skin: No rash or ecchymoses. Objective Labs 07/22/25 04:57 07/22/25 04:57 Labs: Laboratory Results - last 24 hr 07/22/25 04:57 WBC 10.0 RBC 3.87 L Hgb 10.8 L Hct 33.7 L MCV 87 MCH 27.9 MCHC 32.0 RDW Std Deviation 44.7 Plt Count 280 D Neut % (Auto) 61 Lymph % (Auto) 31 [place] % (Auto) 7 Eos % (Auto) 1 Baso % (Auto) 0 Neut # (Auto) 6.1 Lymph # (Auto) 3.1 [place] # (Auto) 0.7 Eos # (Auto) 0.1 Baso # (Auto) 0.0 Immature Gran # (Auto) 0.09 H Absolute Nucleated RBC 0.00 Immature Gran % 1 H Nucleated RBC % 0 Sodium 143 Potassium 3.9 Chloride 107 Carbon Dioxide 28.6 Anion Gap 7 BUN 8 L Creatinine 0.4 L Estim Creat Clear Calc 177.6 eGFR > 60 BUN/Creatinine Ratio 20 Glucose 118 H Calculated Osmolality 284 Calcium 8.6 Corrected Calcium 9.1 Phosphorus 3.4 Magnesium 2.0 Total Bilirubin 0.2 L AST 34 ALT 18 Alkaline Phosphatase 46 Total Protein 5.8 Albumin 3.4 L Globulin 2.4 Albumin/Globulin Ratio 1.4 ABG Interpretation ABG results: 07/12/25 07/12/25 07/13/25 08:31 17:13 04:48 ABG pH 7.13 L* 7.26 L D 7.28 L ABG pCO2 46 45 46 ABG pO2 122 H 100 D 129 H D ABG HCO3 15 L 20 22 ABG O2 Saturation 98 98 99 H ABG Base Excess -14 L -7 L -5 L 07/14/25 07/14/25 01:03 04:17 ABG pH 7.33 L 7.36 ABG pCO2 46 44 ABG pO2 127 H 98 D ABG HCO3 24 25 ABG O2 Saturation 100 H 99 H ABG Base Excess -2 -1 Quality Measures Quality Measures VTE prophylaxis Assessment & Plan Assessment Current Active Medications: Generic Name Dose Route Start Last Admin Trade Name Freq PRN Reason Stop Dose Admin Acetaminophen 650 mg 07/18/25 13:38 Acetaminophen 325 Mg Tablet NG 08/17/25 13:37 Q6HR PRN Fever >100.4 Aspirin 81 mg 07/20/25 12:51 07/22/25 08:19 Aspirin 81 Mg Chew PO 08/16/25 08:59 81 mg QDAY ASHLEY Administration Dextrose 25 ml 07/12/25 10:05 Dextrose 50%-Water Inj 50 Ml Syringe IV 08/11/25 10:04 Q15MIN PRN BG 50-70 responsive npo pt Dextrose 50 ml 07/12/25 10:05 Dextrose 50%-Water Inj 50 Ml Syringe IV 08/11/25 10:04 Q15MIN PRN BG <50 OR BG <70 & pt unresponsive Enoxaparin Sodium 40 mg 07/12/25 09:45 07/22/25 08:21 Enoxaparin Sod Inj 40 Mg/0.4 Ml Syringe SC 07/26/25 09:44 40 mg QDAY ASHLEY Administration Glucagon 1 mg 07/12/25 10:05 Glucagon Inj 1 Mg Vial IM Q15MIN PRN BG <70, and no IV access Valproic Acid 750 mg/ Sodium 57.5 mls @ 57.5 mls/hr 07/19/25 18:00 07/22/25 11:36 Chloride IV 08/18/25 17:59 57.5 mls/hr Q6HR ASHLEY Administration Protocol Ceftriaxone Sodium/Dextrose 2 gm in 50 mls @ 100 mls/hr 07/22/25 10:15 07/22/25 10:59 Rocephin/D5w 2gm IV 07/29/25 10:14 100 mls/hr Q12HR ASHLEY Administration Insulin Degludec 40 unit 07/17/25 09:00 07/22/25 08:21 Insulin Degludec 5 Unit/0.05 Ml (Per 5 Units) SC 08/16/25 08:59 40 unit QDAY ASHLEY Administration Insulin Human Lispro 0 unit 07/20/25 21:00 07/22/25 11:36 Insulin Lispro (Admelog) 1 Unit/0.01 Ml Unit SC 08/19/25 20:59 3 unit ACHS ASHLEY Administration Protocol Ipratropium [place] 0.5 mg 07/14/25 11:29 Ipratropium Rt 0.5 Mg/ 2.5 Ml Nebu INH 08/13/25 11:28 Q2HR PRN WHEEZING Lacosamide 200 mg 07/19/25 21:00 07/22/25 08:20 Lacosamide Inj 200 Mg/20 Ml Vial IVP 08/18/25 20:59 200 mg BID ASHLEY Administration Levalbuterol HCl 1.25 mg 07/14/25 11:29 Levalbuterol Rt 1.25 Mg/0.5 Ml Nebu INH 08/13/25 11:28 Q2H PRN WHEEZING Lisinopril 20 mg 07/20/25 12:50 07/22/25 08:19 Lisinopril 20 Mg Tablet PO 08/16/25 08:59 20 mg QDAY ASHLEY Administration Midazolam HCl 2 mg 07/18/25 07:41 07/19/25 17:49 Midazolam Inj 1 Mg/Ml Vial 2 Ml IVP 07/23/25 07:40 2 mg Q5MIN PRN Administration SEIZURES Nicotine 21 mg 07/12/25 13:15 07/22/25 08:21 Nicotine Patch 21 Mg/24 Hr Patch.Td24 TOP 08/11/25 13:14 21 mg QDAY ASHLEY Administration Pantoprazole Sodium 40 mg 07/23/25 09:00 Pantoprazole 40 Mg Tablet PO 08/22/25 08:59 QDAY ASHLEY Polyethylene Glycol 17 gm 07/20/25 12:50 07/22/25 08:22 Polyethylene Glycol 17 Gm Packet PO 08/18/25 08:59 Not Given QDAY ASHLEY Sodium Chloride 3 ml 07/14/25 11:29 Sodium Chloride Rt Radha 0.9% 3 Ml Nebu INH 08/13/25 11:28 PRN PRN SOLN Plan Patient is a 45 year old female with PMH of CVA 2018, AML, type 2 diabetes, seizures, migraine, HLD, HTN who presents with altered mental status s/p intubation, admitted to ICU for work up and management of seizures. Cardiology consulted for elevated troponins likely NSTEMI II secondary to severe sepsis and metabolic abnormalities from status epilepticus. #NSTEMI II secondary to severe sepsis and metabolic abnormalities from status epilepticus #Elevated troponins secondary to septic shock #Tachycardia secondary to septic shock #HFpEF (EF 55-60%) (07/19/25) Patient initial troponins were elevated at 5.05. Unable to obtain cardiac history and cannot determine any chest pain or chest pressure. Mostly NSTEMI type II secondary to the severe sepsis or septic shock on pressors along with status epilepticus and metabolic abnormalities. BP 118/43 but tachycardic at HR 145, RR 27 and fever of 101.4. WBC count was severely elevated at 32,000 on admission. Troponin 5.052 -> 8.049 -> 6.167. TSH <0.01. A1c 9.2. Lipid panel: Triglycerides 238, cholesterol 81, LDL 23, HDL <10 Initial EKG was read as SVT versus sinus tachycardia and nonspecific T wave changes. Reviewed the EKG and patient does have distinct P waves indicating mostly sinus tachycardia for this patient. Sinus tachycardia also likely secondary to severe sepsis, also currently being weaned from sedation. Echo 07/12/25 showed normal LV size and mildly decreased LV function with an estimated EF of 40 to 45%. Patient tachycardic. Diastolic dysfunction could not be evaluated. Normal RV size and function is mildly decreased. RVSP 24 mmHg with RAP 3. Mild mitral and tricuspid regurgitation noted. No pericardial effusion. Echo 07/19/25 showed normal LV size and wall thickness. Normal left ventricular diastolic filling pattern for age. Estimated EF at 55-60%. The RV is normal in size and systolic function. Trace MR and TR. Plan: - Previously decreased EF with mild global hypokinesis mostly secondary to septic shock and tachycardia. As expected significant improvement with EF of 55 to 60%, back to normal function with resolution of sepsis. No need for outpatient cardiac follow up. - Keep K >4 and Mg >2 #Acute metabolic encephalopathy secondary to seizures versus CVA #Left hemispheric stroke vs demyelinating disease #Hx of seizures, on Keppra #History of CVA CT 07/14 showed questionable infarct in the left parietal lobe and MRI of the brain performed today showed foci of restricted diffusion in the left frontal side, left parietal lobe concerning for demyelinating disease versus acute infarct. EEG 07/14 was abnormal showing intermittent slowing and burst suppression with paroxysmal multifocal spike and wave discharges are consistent with seizure disorder Brain MRI 07/15 shows foci of restricted diffusion in the left frontal lobe left parietal lobe without prominent signal deficit, possible demyelinating disease versus acute infarct 07/17/25: Off intubation and sedation Repeat MRI 07/19 showed increasing signal in the occipital horns in both diffusion weighted and FLAIR images suggesting possible ventriculitis, purulent fluid in ventricles. Negative for acute infarct. Plan: - IV valproate -> depakote & vimpat, IV midazolam for breakthrough seizures - ASA 81 - Neurology consulted - Defer to primary team for management - No ELVA required at the present moment as there is concern for infectious etiology with ventriiculitis with pus and unlikely an acute stroke. Discussed this with the primary team as well as a neurologist regarding no indication for a ELVA at the present point of time. Patient now being transferred to an higher level care for possible neurosurgical evaluation. #Bilateral aspiration PNA CXR finding, likely occurred after seizure. - Defer to primary team for management #History of hypertension Takes lisinopril 20 mg daily. ?Continue lisinopril 20 mg daily #High anion gap metabolic acidosis, resolved #Lactic acidosis #Leukocytosis #History AML #Type 2 diabetes #? Meningitis #Complex migraines Thank you for your consultation, please do not hesitate to reach out if you have any question or concern Patient plan of care was discussed with the attending physician, Dr. Early. Barbara Gabriel, PGY-1 Attending Provider Attestation/Addendum I have personally seen and examined the patient separately on the above date of service and discussed the plan of care with the resident. I reviewed the resident Dr. Barbara Gabriel consultation progress note and agree with the resident findings and plan in the note above and have also edited the documentation to reflect my findings and plan. Dilip Early M.D. Interventional Cardiology
--- NOTE | 2025-07-22 15:10 | PC.SS ---
rounding note: Patient has auth. Waiting on bed. Transfer
--- NOTE | 2025-07-22 15:54 | ESDS_ITS ---
<Statement entered by Eri Colindres DO - 07/23/25 07:32> I, Eri Colindres DO, attest that I was physically present for the barillas portions of the service and evaluated the patient with the resident and I reviewed and discussed the case with the resident and agree with the resident's findings and plans of care as documented above Planned Discharge Date 07/22/25 DS: Providers Provider Date of admission: 07/12/25 09:29 Primary care physician: Fady Evangelista MD Admitting Provider: Edward Harris MD Attending Provider on Admission: Eri Colindres DO Consults: 07/12/25 07:15 Consult to Neurology / Tele-Neurology Routine Comment: Consulting Provider: [facility] 07/12/25 08:56 Consult to Health Informatics Specialist Stat Comment: Consulting Provider: Edward Harris I 07/12/25 10:02 Consult to Neurology / Tele-Neurology Urgent Comment: Status epilepticus, possible meningitis Consulting Provider: Alfie Colvin 07/12/25 10:33 Referral Registered Dietitian Routine Comment: 07/12/25 12:37 Consult to Cardiology Stat Comment: Consulting Provider: Dilip Early 07/17/25 11:56 Referral Occupational Therapy Routine Comment: Referral Physical Therapy Routine Comment: Physician Instructions: 07/17/25 11:59 Referral Speech Therapy Routine Comment: stroke, s/p extubation 07/20/25 08:03 Referral - Recreation Instructor Stat Service Needed for Transfer: Neurosurgery Addl Comments:: Ventriculitis will need intrathecal antibiotics 07/22/25 08:31 Consult to Infectious Diseases Routine Comment: Consulting Provider: Sudarshan Guillen Attending Provider on DC: Eri Colindres DO Discharging Provider: Eri Colindres DO DS: Diagnosis Problem List Completed Was Problem List Reviewed/Reconciled?: Yes Hospital Course Hospital Course Hospital course: Hospital Course: Patient is a 45 F with PMH of CVA 2018, AML, type 2 diabetes, seizures, migraine, HLD, HTN presented with altered mental status to the ED on 07/12/25. Patient had a witnessed seizure and was given a loading dose of Keppra and was consulted and seen by teleneuro. Patient ended up being intubated for airway protection. Family stated that she has a history of seizures, last seizures around 6 to 12 months ago. Family states she only takes her seizure medications occasionally, and that her baseline is ANO x 3. Patient was admitted to ICU for management of status epilepticus. On 07/13/25, patient had a lumbar puncture done which showed cloudy CSF, 10k WBC, 1K RBC, glucose 97, total protein > 250; pending CSF cultures. CSF gram stain was positive for strep pneumo. Patient was off of levophed, afebrile, heart rate of 104, MAP of 68, saturating well on 55% FiO2 on mechanical ventilation A/CMV & PRVC. Patient was on fentanyl, midazolam and propofol. On 07/14/25, patient was titrated off of sedation with no seizures resulting; had a RASS of -4 and would awake to sternal rub, not voice. EEG showed paroxysmal multifocal spike and wave discharges consistent with seizure disorder. On 07/15/25, she opened right eye to verbal stimuli and was coughing. On 07/16/25, tracking and opening eyes spontaneously; not following commands at this time. On 07/17/25, patient noted to be hyponatremic, sodium checks and free water flushes initiated by night team. Patient showed improved mentation, able to follow commands; she was placed on pressure support and extubated successfully. CSF culture negative, repeat blood cultures negative x 48 hours. MRI showed new multifocal infarcts consistent with strep pneumo meningitis etiology; continuing Rocephin. On 07/18/25, patient required midazolam 2 mg x 1 for another seizure. During assessment patient had right-sided preferential gaze along with tongue movement and unresponsiveness after she had responded to questions. Midazolam 2 mg again was given x 1 and neurology was reached out who stated to start patient on Vimpat 200 mg x 1 and then 100 mg twice daily. Patient was reassessed and she was AO x 3 with no further seizures after Vimpat was started. On 07/19/25, patient had a rapid response called, for unresponsiveness/seizure-like activity. Patient was unresponsive at bedside, was coughing, having repeated lip movement, and unable to follow commands or answer questions. Lab results were ordered including lactic acid, CMP. Chest x-ray was obtained, which showed improvement compared to previous x-ray. Patient did not respond even after IV midazolam administration, seizure activity was slightly different compared to yesterday, stroke alert was called, patient underwent head CT, which was negative for acute finding, teleneurology recommended MRI brain stroke protocol along with EEG as recommended by in-house neurology. Sodium valproate increased to 750 4 times daily along with Vimpat to 200 IV twice daily, IV midazolam as needed on board. On 07/20/25, patient had no further seizures; MRI showed concern for ventriculitis, patient will need transfer for possible intrathecal antibiotics at this time per neurology. Given concern for ventriculitis and negative CSF cultures decided to broaden patient's antibiotics. Will continue with valproic acid 750 mg every 6 hours and Vimpat 200 mg twice daily. Pending transfer for neurosurgery for possible intrathecal antibiotics given ventriculitis and recurrence of seizures even on antiseizure medications. On 07/21/25, patient had further seizures or any spikes in WBCs or fevers. Still pending possible transfer to tertiary care center for neurosurgery evaluation. On 07/22/25, transfer to [facility]; patient is stable for transfer to neurosurgical center for treatment of ventriculitis. Antibiotics/antivirals used: Ceftraixone 2g IV- 07/12 - 07/20; 07/22 - Cefepime 2g IV- 07/20 - 07/22 Vancomycin pharmacy to dose- 07/12 - 07/22 Acyclovir 500mg IV Q8hr- 07/12 - 07/13 Problem List: #Ventriculitis #Streptococcus P. meningitis #Streptococcus pneumonia bacteremia #Sepsis, resolved #Septic shock,?resolved #Acute hypoxic respiratory failure 2/2 aspiration pneumonia #Acute encephalopathy #Status epilepticus? #Acute multifocal CVA #NSTEMI, likely type II #CHF EF 40 to 45% #History of hypertension #History of type 2 diabetes mellitus #History of hyperlipidemia #History of leukemia Senior resident attestation: Patient evaluated and examined at the bedside, plan of care discussed with rest of the team including my attending physician, except as noted. The patient is a 45-year-old female with a past medical history of type 2 diabetes mellitus, seizure disorder, CVA, AML, patient presented to the emergency room with altered mental status, patient had witnessed episode of seizure, was intubated for airway protection, stayed in ICU, found to have meningitis on CSF exam, Neurologist Dr Colvin followed the patient, lumbar puncture showed neutrophilic leukocytosis and elevated proteins, CSF culture was negative but CSF serology positive for strep pneumo, blood cultures later were positive for Streptococcus pneumonia. Patient was started on empiric IV antibiotics for treatment meningitis and steroids initially, later steroids were discontinued, continued on IV ceftriaxone per sensitivity as treatment for pneumococcal meningitis. During the course of treatment patient's mental status continued to improve, currently does feel weak in the right side of the body, MRI 07/05/2025 showed restricted diffusion left frontal lobe left parietal lobe, possible acute stroke in the setting of meningitis. MRI brain 07/19 showed increased signal of the occipital horns on the FLAIR images consistent with ventriculitis, purulent fluid in the ventricles, antibiotics were broadened to vancomycin and cefepime, and neurology recommended transfer for neurosurgery evaluation and possible intrathecal antibiotics for treatment of suspected ventriculitis. Patient is pending transfer to [facility]. Quresh PGY3 Status at Discharge Overall status at discharge: patient is progressing back to baseline Time Spent with Patient Time attestation: Total time spent providing and/or coordinating discharge services: Time spent: Greater than 30 minutes Exam Vital Signs Temp Pulse Resp BP Pulse Ox O2 Del Method O2 Flow Rate 97.2 F 88 18 123/72 95 Room Air 4 07/22/25 15:39 07/22/25 15:39 07/22/25 15:39 07/22/25 15:39 07/22/25 15:39 07/22/25 15:39 07/22/25 11:44 FiO2 25 07/20/25 15:51 Narrative Exam General: A/O x3, no acute distress Eyes: PERRL, EOMI. Anicteric, vision grossly intact. Ears: No ear pain, no ear discharge, Hearing grossly intact. Nose: No nasal discharge. Mouth/Throat: Moist mucous membranes, no redness, no lesions. Neck: Neck supple, non-tender, no cervical lymphadenopathy. Lungs: Clear MARCO ANTONIO to auscultation and percussion, No accessory muscle use. Cardio: Normal S1/S2, regular rhythm, no murmurs, no JVD Abdomen: Soft, non-tender, no palpable masses, peristalsis present, no guarding or rebound. Extremities: Symmetrical, no significant deformities, no peripheral edema , non-tender, peripheral pulses present. Skin: No rashes, no lesions, warm to touch. Neuro: Patient able to follow commands. Psych: Cooperative, appropriate mood and effect. Discharge Plan Plan Facility Pt Being Transferred to: Other-Specify in comment Disposition Comment: [facility] Patient condition on transfer: Stable Prescriptions/Referrals Prescriptions/Med Rec: No Action metformin 1,000 mg Tablet 1,000 mg PO QDAY atorvastatin 20 mg tablet 20 mg PO QPM Qty: 30 0RF amoxicillin-pot clavulanate 875-125 mg tablet 1 tab PO Q12H Qty: 20 0RF alprazolam [Xanax] 0.25 mg tablet 0.25 mg PO BID PRN (Reason: anxiety) Qty: 20 0RF aspirin [Tylor Low Dose Aspirin] 81 mg tablet,delayed release (DR/EC) 325 mg PO QDAY metformin 1,000 mg tablet 1,000 mg PO BID lisinopril 5 mg tablet 20 mg PO QDAY Referrals: Fady Evangelista MD [Primary Care Provider, Family Practice] Patient/Caregiver Discharge Instructions Print Language: Sammarinese Quality Discharge Quality Measures none
--- NOTE | 2025-07-22 21:45 | ESPR_ITS ---
Documentation for date of: 07/22/25 Subjective Subjective Interval history: Patient examined at bedside. Vitals and labs are stable. Alert and oriented x 3, remains afebrile and no reported seizures. On physical exam she is able to follow commands and minor movement in toes of right lower extremity. Transfer is still pending. Needs urgent neruosurgical evaluation and intrathecal antibiotics with drainage of pus. IV abx reverted back to ceftriaxone. Continue depakote 1500mg BID and vimpat to 200 BID. Exam Vital Signs Temp Pulse Resp BP Pulse Ox O2 Del Method O2 Flow Rate 97.2 F 78 18 123/72 96 Room Air 2 07/22/25 15:39 07/22/25 21:32 07/22/25 21:32 07/22/25 15:39 07/22/25 21:32 07/22/25 15:39 07/22/25 21:32 FiO2 25 07/20/25 15:51 Narrative Exam GENERAL APPEARANCE: middle age female, awake, comfortable HEENT: Normocephalic, atraumatic. Pupils: Equal reacting to light NECK: Supple, no JVD or bruits. CARDIOVASULAR: Heart: S1, S2 heard, regular without S3-S4 or murmur no rubs or gallops. LUNGS/CHEST: lungs clear to auscultation ABDOMEN: Soft, nontender, with normal bowel sounds. No pulsatile masses. No rebound, rigidity, or guarding. Normal inspection and palpation. EXTREMITIES: Normal inspection and palpation. No edema, clubbing or cyanosis. SKIN: Warm and dry without rashes. Normal inspection. NEURO: Alert, awake and oriented x3. Cranial nerves: II through XII grossly intact. Speech and language: mild dysarthria. Motor system: Tone and bulk: Normal: Strength: 4/5 UE, slow movement on Left UE. Strength 5/5 LLE, very fine movement noticed in RLE. Sensation intact; No pronator drift noted. Plantar reflex: Downgoing bilaterally. Sensory system: Intact to all modalities of sensation bilaterally. Coordination: unable to complete [id number] test. No intention tremors noted. Gait: Not tested. No signs of meningeal irritation noted. PSYCHIATRIC: normal affect and mood Objective Labs 07/22/25 04:57 07/22/25 04:57 Labs: Laboratory Results - last 24 hr 07/22/25 04:57 WBC 10.0 RBC 3.87 L Hgb 10.8 L Hct 33.7 L MCV 87 MCH 27.9 MCHC 32.0 RDW Std Deviation 44.7 Plt Count 280 D Neut % (Auto) 61 Lymph % (Auto) 31 [place] % (Auto) 7 Eos % (Auto) 1 Baso % (Auto) 0 Neut # (Auto) 6.1 Lymph # (Auto) 3.1 [place] # (Auto) 0.7 Eos # (Auto) 0.1 Baso # (Auto) 0.0 Immature Gran # (Auto) 0.09 H Absolute Nucleated RBC 0.00 Immature Gran % 1 H Nucleated RBC % 0 Sodium 143 Potassium 3.9 Chloride 107 Carbon Dioxide 28.6 Anion Gap 7 BUN 8 L Creatinine 0.4 L Estim Creat Clear Calc 177.6 eGFR > 60 BUN/Creatinine Ratio 20 Glucose 118 H Calculated Osmolality 284 Calcium 8.6 Corrected Calcium 9.1 Phosphorus 3.4 Magnesium 2.0 Total Bilirubin 0.2 L AST 34 ALT 18 Alkaline Phosphatase 46 Total Protein 5.8 Albumin 3.4 L Globulin 2.4 Albumin/Globulin Ratio 1.4 ABG Interpretation ABG results: 07/12/25 07/12/25 07/13/25 08:31 17:13 04:48 ABG pH 7.13 L* 7.26 L D 7.28 L ABG pCO2 46 45 46 ABG pO2 122 H 100 D 129 H D ABG HCO3 15 L 20 22 ABG O2 Saturation 98 98 99 H ABG Base Excess -14 L -7 L -5 L 07/14/25 07/14/25 01:03 04:17 ABG pH 7.33 L 7.36 ABG pCO2 46 44 ABG pO2 127 H 98 D ABG HCO3 24 25 ABG O2 Saturation 100 H 99 H ABG Base Excess -2 -1 Quality Measures Quality Measures none Assessment & Plan Assessment Current Active Medications: Generic Name Dose Route Start Last Admin Trade Name Freq PRN Reason Stop Dose Admin Acetaminophen 650 mg 07/18/25 13:38 Acetaminophen 325 Mg Tablet NG 08/17/25 13:37 Q6HR PRN Fever >100.4 Aspirin 81 mg 07/20/25 12:51 07/22/25 08:19 Aspirin 81 Mg Chew PO 08/16/25 08:59 81 mg QDAY ASHLEY Administration Dextrose 25 ml 07/12/25 10:05 Dextrose 50%-Water Inj 50 Ml Syringe IV 08/11/25 10:04 Q15MIN PRN BG 50-70 responsive npo pt Dextrose 50 ml 07/12/25 10:05 Dextrose 50%-Water Inj 50 Ml Syringe IV 08/11/25 10:04 Q15MIN PRN BG <50 OR BG <70 & pt unresponsive Enoxaparin Sodium 40 mg 07/12/25 09:45 07/22/25 08:21 Enoxaparin Sod Inj 40 Mg/0.4 Ml Syringe SC 07/26/25 09:44 40 mg QDAY ASHLEY Administration Glucagon 1 mg 07/12/25 10:05 Glucagon Inj 1 Mg Vial IM Q15MIN PRN BG <70, and no IV access Valproic Acid 750 mg/ Sodium 57.5 mls @ 57.5 mls/hr 07/19/25 18:00 07/22/25 17:49 Chloride IV 08/18/25 17:59 57.5 mls/hr Q6HR ASHLEY Administration Protocol Ceftriaxone Sodium/Dextrose 2 gm in 50 mls @ 100 mls/hr 07/22/25 10:15 07/22/25 20:01 Rocephin/D5w 2gm IV 07/29/25 10:14 100 mls/hr Q12HR ASHLEY Administration Insulin Degludec 40 unit 07/17/25 09:00 07/22/25 08:21 Insulin Degludec 5 Unit/0.05 Ml (Per 5 Units) SC 08/16/25 08:59 40 unit QDAY ASHLEY Administration Insulin Human Lispro 0 unit 07/20/25 21:00 07/22/25 20:00 Insulin Lispro (Admelog) 1 Unit/0.01 Ml Unit SC 08/19/25 20:59 3 unit ACHS ASHLEY Administration Protocol Ipratropium [place] 0.5 mg 07/14/25 11:29 Ipratropium Rt 0.5 Mg/ 2.5 Ml Nebu INH 08/13/25 11:28 Q2HR PRN WHEEZING Lacosamide 200 mg 07/19/25 21:00 07/22/25 20:39 Lacosamide Inj 200 Mg/20 Ml Vial IVP 08/18/25 20:59 200 mg BID ASHLEY Administration Levalbuterol HCl 1.25 mg 07/14/25 11:29 Levalbuterol Rt 1.25 Mg/0.5 Ml Nebu INH 08/13/25 11:28 Q2H PRN WHEEZING Lisinopril 20 mg 07/20/25 12:50 07/22/25 08:19 Lisinopril 20 Mg Tablet PO 08/16/25 08:59 20 mg QDAY ASHLEY Administration Midazolam HCl 2 mg 07/18/25 07:41 07/19/25 17:49 Midazolam Inj 1 Mg/Ml Vial 2 Ml IVP 07/23/25 07:40 2 mg Q5MIN PRN Administration SEIZURES Nicotine 21 mg 07/12/25 13:15 07/22/25 08:21 Nicotine Patch 21 Mg/24 Hr Patch.Td24 TOP 08/11/25 13:14 21 mg QDAY ASHLEY Administration Pantoprazole Sodium 40 mg 07/23/25 09:00 Pantoprazole 40 Mg Tablet PO 08/22/25 08:59 QDAY ASHLEY Polyethylene Glycol 17 gm 07/20/25 12:50 07/22/25 08:22 Polyethylene Glycol 17 Gm Packet PO 08/18/25 08:59 Not Given QDAY ASHLEY Sodium Chloride 3 ml 07/14/25 11:29 Sodium Chloride Rt Radha 0.9% 3 Ml Nebu INH 08/13/25 11:28 PRN PRN SOLN Plan Patient is a 45-year-old female with past medical history of CVA 2018, AML, type 2 diabetes, seizures, migraine, HLD, HTN presented to ED on 07/12/25 due to breakthrough seizures/AMS. Neurology consulted for management and LP to rule out meningitis. #Meningitis #Multifocal seizure #Left hemisphere stroke #Pyogenic Ventriculitis #Hx seizures Likely due to status epilepticus break through seizures. 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 Since that time, patient will only take the Keppra when going to music concerts. Stroke alert called in ED. Tele neuro was consulted, NIHSS score 0. CT head/CTA negative. She received 4mg of versed without cessation. Subsequently intubated and sedated with prop/fent. Given 1500mg loading dose of Keppra in ED. Urine, sputum, and blood cultures negative. CSF analysis appearance was cloudy, WBCs 10,720, RBC 1000, glucose 97, protein greater than 250, strep pneumo antigen positive. Opening pressure 37. CSF culture stain showing 3+ WBCs. Repeat CT head and MRI brain showed areas of acute infarct in left frontal and parietal lobe. EEG: abnormal showing multifocal epileptiform discharges consistent with seizures. But no electrographic status noted MRI 10-- negative for infarct but showed increased signal uptake in occipital horns. 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 Recommend that patient get transferred to tertiary care center. Needs urgent neruosurgical evaluation. -increased IV depakote to 1500mg BID -increase Vimpat 200mg BID -repeat EEG results pending -euthermia, euglycemia -neuro checks q4hr -IV midazolam for breakthrough seizures -seizure prophylaxis -Continue with aspirin 81 mg alone as the left hemispherical infarct is massive to prevent hemorrhagic conversion and DVT prophylaxis -Continue with IV antibiotics. CSF culture resulted negative. -deffer ELVA #AML #Previous CVA by history but not from MRI in 2018 #T2DM #HLD #HTN Primary care team to manage above conditions and ongoing care needs. The patient's management plan was discussed with my attending physician Dr. Colvin. Paz Rivero, PGY-2 Attending Provider Attestation/Addendum I did review the record independently and agreed with resident's findings, assessment and plan of care. Patient is clinically improving, even moving the right LE. vitals: stable and afebrile EEG: abnormal showing multifocal epileptiform discharges consistent with seizures. But no electrographic status noted MRI 07/19-- negative for infarct but showed increased signal uptake in occipital horns. 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 Recommend that patient get transferred to tertiary care center. Needs urgent neruosurgical evaluation. Continue IV depakote and Vimpat at current doses.
--- NOTE | 2025-07-22 21:49 | PC.NURSE ---
Spoke with Sesar at [facility] states they are declining patient due to financials
[2025-07-23] VITALS (8 sets, daily range): BP systolic 100–154; BP diastolic 58–88; PULSE 67–105; RESP 21–30; TEMP 36.1–37.1; O2SAT 94–99; BMI 33.6
[2025-07-23] MEDS: VALPROATE SOD INJ 750 MG in SODIUM CHLORIDE 0.9% 50 ML 57.5 MG IV ×3 (05:35→17:31)
[2025-07-23 06:06] LABS: Glucose Estimated Average 197 mg/dL (80-131); Hemoglobin A1C 8.5 % Hgb (4.8-6.0)
[2025-07-23 06:20] LABS: Phosphorous 4.4 mg/dL (2.4-5.1)
--- NOTE | 2025-07-23 09:28 | PD.RESPRO ---
Documentation for date of: 07/23/25 Subjective Subjective Interval history: Patient was seen and examined at bedside this morning; no acute events overnight. Patient and their family were informed [facility] stated that she needed [facility], and our transfer team is currently working on this transfer. Exam Vital Signs Temp Pulse Resp BP Pulse Ox O2 Del Method O2 Flow Rate 97.3 F 67 24 H 118/75 94 L Room Air 2 07/23/25 08:00 07/23/25 08:00 07/23/25 08:00 07/23/25 08:00 07/23/25 08:00 07/23/25 08:00 07/22/25 21:32 FiO2 25 07/20/25 15:51 Narrative Exam General: A/O x3, no acute distress Eyes: PERRL, EOMI. Anicteric, vision grossly intact. Ears: No ear pain, no ear discharge, Hearing grossly intact. Nose: No nasal discharge. Mouth/Throat: Moist mucous membranes, no redness, no lesions. Neck: Neck supple, non-tender, no cervical lymphadenopathy. Lungs: Clear MARCO ANTONIO to auscultation and percussion, No accessory muscle use. Cardio: Normal S1/S2, regular rhythm, no murmurs, no JVD Abdomen: Soft, non-tender, no palpable masses, peristalsis present, no guarding or rebound. Extremities: Symmetrical, no significant deformities, no peripheral edema , non-tender, peripheral pulses present. Skin: No rashes, no lesions, warm to touch. Neuro: Patient able to follow commands. Psych: Cooperative, appropriate mood and effect. Objective Labs 07/24/25 05:22 07/24/25 05:22 Labs: Laboratory Results - last 24 hr 07/23/25 05:[address] Glu mg/dL 197 H Hemoglobin A1c 8.5 H Phosphorus 4.4 ABG Interpretation ABG results: 07/12/25 07/12/25 07/13/25 08:31 17:13 04:48 ABG pH 7.13 L* 7.26 L D 7.28 L ABG pCO2 46 45 46 ABG pO2 122 H 100 D 129 H D ABG HCO3 15 L 20 22 ABG O2 Saturation 98 98 99 H ABG Base Excess -14 L -7 L -5 L 07/14/25 07/14/25 01:03 04:17 ABG pH 7.33 L 7.36 ABG pCO2 46 44 ABG pO2 127 H 98 D ABG HCO3 24 25 ABG O2 Saturation 100 H 99 H ABG Base Excess -2 -1 Quality Measures Quality Measures none Assessment & Plan Assessment Current Active Medications: Generic Name Dose Route Start Last Admin Trade Name Freq PRN Reason Stop Dose Admin Acetaminophen 650 mg 07/18/25 13:38 Acetaminophen 325 Mg Tablet NG 08/17/25 13:37 Q6HR PRN Fever >100.4 Aspirin 81 mg 07/20/25 12:51 07/22/25 08:19 Aspirin 81 Mg Chew PO 08/16/25 08:59 81 mg QDAY ASHLEY Administration Dextrose 25 ml 07/12/25 10:05 Dextrose 50%-Water Inj 50 Ml Syringe IV 08/11/25 10:04 Q15MIN PRN BG 50-70 responsive npo pt Dextrose 50 ml 07/12/25 10:05 Dextrose 50%-Water Inj 50 Ml Syringe IV 08/11/25 10:04 Q15MIN PRN BG <50 OR BG <70 & pt unresponsive Enoxaparin Sodium 40 mg 07/12/25 09:45 07/22/25 08:21 Enoxaparin Sod Inj 40 Mg/0.4 Ml Syringe SC 07/26/25 09:44 40 mg QDAY ASHLEY Administration Glucagon 1 mg 07/12/25 10:05 Glucagon Inj 1 Mg Vial IM Q15MIN PRN BG <70, and no IV access Valproic Acid 750 mg/ Sodium 57.5 mls @ 57.5 mls/hr 07/19/25 18:00 07/23/25 05:35 Chloride IV 08/18/25 17:59 57.5 mls/hr Q6HR ASHLEY Administration Protocol Ceftriaxone Sodium/Dextrose 2 gm in 50 mls @ 100 mls/hr 07/22/25 10:15 07/22/25 20:01 Rocephin/D5w 2gm IV 07/29/25 10:14 100 mls/hr Q12HR ASHLEY Administration Insulin Degludec 40 unit 07/17/25 09:00 07/22/25 08:21 Insulin Degludec 5 Unit/0.05 Ml (Per 5 Units) SC 08/16/25 08:59 40 unit QDAY ASHLEY Administration Insulin Human Lispro 0 unit 07/20/25 21:00 07/23/25 07:35 Insulin Lispro (Admelog) 1 Unit/0.01 Ml Unit SC 08/19/25 20:59 Not Given ACHS ASHLEY Protocol Ipratropium [place] 0.5 mg 07/14/25 11:29 Ipratropium Rt 0.5 Mg/ 2.5 Ml Nebu INH 08/13/25 11:28 Q2HR PRN WHEEZING Lacosamide 200 mg 07/19/25 21:00 07/22/25 20:39 Lacosamide Inj 200 Mg/20 Ml Vial IVP 08/18/25 20:59 200 mg BID ASHLEY Administration Levalbuterol HCl 1.25 mg 07/14/25 11:29 Levalbuterol Rt 1.25 Mg/0.5 Ml Nebu INH 08/13/25 11:28 Q2H PRN WHEEZING Lisinopril 20 mg 07/20/25 12:50 07/22/25 08:19 Lisinopril 20 Mg Tablet PO 08/16/25 08:59 20 mg QDAY ASHLEY Administration Midazolam HCl 2 mg 07/23/25 07:46 Midazolam Inj 1 Mg/Ml Vial 2 Ml IVP 07/28/25 07:45 Q5MIN PRN SEIZURES Nicotine 21 mg 07/12/25 13:15 07/22/25 08:21 Nicotine Patch 21 Mg/24 Hr Patch.Td24 TOP 08/11/25 13:14 21 mg QDAY ASHLEY Administration Pantoprazole Sodium 40 mg 07/23/25 09:00 Pantoprazole 40 Mg Tablet PO 08/22/25 08:59 QDAY ASHLEY Polyethylene Glycol 17 gm 07/20/25 12:50 07/22/25 08:22 Polyethylene Glycol 17 Gm Packet PO 08/18/25 08:59 Not Given QDAY ASHLEY Sodium Chloride 3 ml 07/14/25 11:29 Sodium Chloride Rt Radha 0.9% 3 Ml Nebu INH 08/13/25 11:28 PRN PRN SOLN Plan Patient is 45-year-old F with a PMH of leukemia, stroke, T2DM, seizure disorder, migraine, hypertension who presented with altered mental status following seizure episode, patient was intubated and upgraded to ICU due to inability to protect airway, and management of seizures. Neurology was consulted and lumbar puncture showed cloudy CSF, 20 WBC, CSF Gram stain positive for strep pneumo, patient was started on IV antibiotics for meningitis and continued on mechanical ventilation, EEG showed discharges consistent with seizure disorder, patient extubated on 07/17/2025. CSF culture negative, MRI brain showed multifocal infarcts likely secondary to underlying meningitis. #Ventriculitis #Streptococcus P. meningitis #Streptococcus pneumonia bacteremia #Sepsis, resolved #Septic shock,?resolved #Acute hypoxic respiratory failure 2/2 aspiration pneumonia History of severe headache/migraine prior to abdominal status, CSF analysis results cloudy, WBC > 10,000, RBC 1000, glucose 97, protein greater than 250, strep pneumo antigen positive, elevated opening pressure, findings consistent with acute meningitis patient was started on IV antibiotics, CSF cultures negative. Patient was initially on pressor support with Levophed, currently off Levophed since 07/15/25. Was initially treated with IV Decadron. Initial blood cultures grew strep pneumo sensitive to ceftriaxone, repeat blood cultures negative at 48 hours, CSF culture negative to date Aspiration pneumonia likely secondary to acute encephalopathy in the setting of seizure disorder and meningitis, was initially intubated for airway protection, started on mechanical ventilation, patient was extubated today after successful spontaneous breathing trial. MRI 07/19/2025 did show concern for ventriculitis Plan: ? Switched Abx to vancomycin and cefepime given MRI findings ? Follow-up blood culture from 07/14/2025-negative -Transfer for intrathecal antibiotics for ventriculitis; [facility] refused, stating that patient needed higher level of care at [facility]. Transfer team currently working on transfer. #Acute encephalopathy #Status epilepticus? History of seizures with medications noncomplianceon Keppra, reportedly concern for Keppra causing relapse of leukemia, patient presented to the ER with status epilepticus, continued seizure despite 4 mg of Versed, patient was intubated and sedated with propofol and fentanyl, given loading dose of Keppra in the ED 1500 mg. EEG showed multiple bilateral focal epileptiform discharges consistent with seizures, but no status epilepticus. No seizures overnight or today Plan: ? Continue sodium valproate to 750 mg q6h ? Continue Vimpat to 200 twice daily ? Neurology following closely, appreciate recommendations ? Seizure precautions in place #Acute multifocal CVA Patient has a reported history of CVA over 5 years ago with no residual deficits, but following diagnosis of meningitis, MRI confirmed multifocal acute infarction in the left frontal and parietal lobes, consistent with meningitis, neurology following the patient. Patient had a rapid response called 07/19, for likely seizure episode, due to change in seizure presentation compared to yesterday, stroke alert was called, head CT 07/19 also negative for acute changes Plan: ? Physical therapy on board ? Aspirin 81 mg daily, recommended by neurology as massive left hemispheric infarct to prevent hemorrhagic conversion. #NSTEMI, likely type II #CHF EF 40 to 45% #History of hypertension NSTEMI type II likely in the setting of severe sepsis and status epilepticus, elevated troponins in the setting of septic shock, echocardiogram was done which showed normal-sized LV but EF 40 to 45%, mild mitral and tricuspid regurgitation, no pericardial effusion. Per cardiology decreased EF with mild global hypokinesis mostly secondary to septic shock and tachycardia, anticipate improvement and repeat echocardiogram prior to discharge. No anticoagulation recommended in the setting of lumbar puncture. Echo on 07/19/2025, showed EF of 55 to 60% suggesting recovery of cardiac function secondary to resolution of sepsis. Plan: ? Cardiology following closely, appreciate recommendations ? Continue to monitor for volume overload ? Strict intake and output monitoring - Continue home lisinopril #History of type 2 diabetes mellitus Plan: ? insulin degludec (held) and sliding scale insulin ? Hypoglycemia protocol in place #History of hyperlipidemia #History of leukemia Patient has a history of acute monocytic leukemia, elevated leukocyte count in the setting of sepsis, improved WBC count following initiation of IV antibiotics, leukocytosis likely reactive. History of chemotherapy 10 years ago, currently in remission. Patient has history of hyperlipidemia. Plan: ?Outpatient follow-up following discharge. Disposition: Possible transfer for intrathecal abx given concern for ventriculitis DVT prophylaxis: Enoxaparin 40 mg daily GI prophylaxis: Protonix 40 mg daily Diet: Dysphagia diet 3 CODE STATUS: Full This case was discussed with my attending physician, Dr. Colindres, and senior resident, Dr. Jeff. Cian Burkett MD-PhD, PGY1 Attending Provider Attestation/Addendum I, Eri Colindres, , attest that I was physically present for the barillas portions of the service and evaluated the patient with the resident and I reviewed and discussed the case with the resident and agree with the resident's findings and plans of care as documented above Patient seen and evaluated this AM. She states she is feeling well. No acute events overnight. She states that she has improved movement in her LUE. Continue with PT. Per neurosurgery, patient will need [facility] center[facility] due to ventriculitis. She remains on rocephin at this time.
[2025-07-23] MEDS: ENOXAPARIN SOD INJ 40 MG/0.4 ML SYRINGE SC (09:30)
[2025-07-23] MEDS: LACOSAMIDE INJ 200 MG/20 ML VIAL IVP ×2 (09:31→22:05)
[2025-07-23] MEDS: cefTRIAXone/D5w 2gm 2 GM/50 ML BAG IV ×2 (09:31→22:04)
[2025-07-23] MEDS: ASPIRIN 81 MG CHEW PO (09:32)
[2025-07-23] MEDS: PANTOPRAZOLE 40 MG TABLET PO (09:32)
[2025-07-23] MEDS: NICOTINE PATCH 21 MG/24 HR PATCH.TD24 TOP (09:32)
[2025-07-23] MEDS: INSULIN DEGLUDEC 5 UNIT/0.05 ML (PER 5 UNITS) 40 UNIT SC (09:34)
--- NOTE | 2025-07-23 10:07 | PD.RESPRO ---
Documentation for date of: 07/23/25 Subjective Subjective Interval history: Patient seen and assessed at bedside. No new complaints, denies chest pain, shortness of breath, and palpitations. Continues to be in sinus rhythm on telemetry. Strength improving, is now able to lift right leg against gravity. Sensation intact. Pending transfer. Exam Vital Signs Temp Pulse Resp BP Pulse Ox O2 Del Method O2 Flow Rate 97.3 F 67 24 H 118/75 94 L Room Air 2 07/23/25 08:00 07/23/25 09:32 07/23/25 08:00 07/23/25 09:32 07/23/25 08:00 07/23/25 08:00 07/22/25 21:32 FiO2 25 07/20/25 15:51 Narrative Exam Physical Exam General: Awake and in no acute distress. Conversational and non-toxic appearing. HEENT: Normocephalic, atraumatic, mucous membranes moist. Heart: Regular rate and rhythm, normal S1 and S2, no murmurs appreciated. Lungs: Clear to auscultation with no wheezing or crackles. Abdomen: Soft, nondistended, nontender, positive bowel sounds. No guarding or rebound tenderness. Neurologic: Alert and oriented x3. 4/5 strength in right upper extremity and 3/5 in right lower extremity. 4/5 alternative energy technician strength in left hand, 3/5 in right. Extremities: No edema. Skin: No rash or ecchymoses. Objective Labs 07/22/25 04:57 07/22/25 04:57 Labs: Laboratory Results - last 24 hr 07/23/25 05:[address] Glu mg/dL 197 H Hemoglobin A1c 8.5 H Phosphorus 4.4 ABG Interpretation ABG results: 07/12/25 07/12/25 07/13/25 08:31 17:13 04:48 ABG pH 7.13 L* 7.26 L D 7.28 L ABG pCO2 46 45 46 ABG pO2 122 H 100 D 129 H D ABG HCO3 15 L 20 22 ABG O2 Saturation 98 98 99 H ABG Base Excess -14 L -7 L -5 L 07/14/25 07/14/25 01:03 04:17 ABG pH 7.33 L 7.36 ABG pCO2 46 44 ABG pO2 127 H 98 D ABG HCO3 24 25 ABG O2 Saturation 100 H 99 H ABG Base Excess -2 -1 Quality Measures Quality Measures none Assessment & Plan Assessment Current Active Medications: Generic Name Dose Route Start Last Admin Trade Name Freq PRN Reason Stop Dose Admin Acetaminophen 650 mg 07/18/25 13:38 Acetaminophen 325 Mg Tablet NG 08/17/25 13:37 Q6HR PRN Fever >100.4 Aspirin 81 mg 07/20/25 12:51 07/23/25 09:32 Aspirin 81 Mg Chew PO 08/16/25 08:59 81 mg QDAY ASHLEY Administration Dextrose 25 ml 07/12/25 10:05 Dextrose 50%-Water Inj 50 Ml Syringe IV 08/11/25 10:04 Q15MIN PRN BG 50-70 responsive npo pt Dextrose 50 ml 07/12/25 10:05 Dextrose 50%-Water Inj 50 Ml Syringe IV 08/11/25 10:04 Q15MIN PRN BG <50 OR BG <70 & pt unresponsive Enoxaparin Sodium 40 mg 07/12/25 09:45 07/23/25 09:30 Enoxaparin Sod Inj 40 Mg/0.4 Ml Syringe SC 07/26/25 09:44 40 mg QDAY ASHLEY Administration Glucagon 1 mg 07/12/25 10:05 Glucagon Inj 1 Mg Vial IM Q15MIN PRN BG <70, and no IV access Valproic Acid 750 mg/ Sodium 57.5 mls @ 57.5 mls/hr 07/19/25 18:00 07/23/25 05:35 Chloride IV 08/18/25 17:59 57.5 mls/hr Q6HR ASHLEY Administration Protocol Ceftriaxone Sodium/Dextrose 2 gm in 50 mls @ 100 mls/hr 07/22/25 10:15 07/23/25 09:31 Rocephin/D5w 2gm IV 07/29/25 10:14 100 mls/hr Q12HR ASHLEY Administration Insulin Degludec 40 unit 07/17/25 09:00 07/23/25 09:34 Insulin Degludec 5 Unit/0.05 Ml (Per 5 Units) SC 08/16/25 08:59 40 unit QDAY ASHLEY Administration Insulin Human Lispro 0 unit 07/20/25 21:00 07/23/25 07:35 Insulin Lispro (Admelog) 1 Unit/0.01 Ml Unit SC 08/19/25 20:59 Not Given ACHS ASHLEY Protocol Ipratropium [place] 0.5 mg 07/14/25 11:29 Ipratropium Rt 0.5 Mg/ 2.5 Ml Nebu INH 08/13/25 11:28 Q2HR PRN WHEEZING Lacosamide 200 mg 07/19/25 21:00 07/23/25 09:31 Lacosamide Inj 200 Mg/20 Ml Vial IVP 08/18/25 20:59 200 mg BID ASHLEY Administration Levalbuterol HCl 1.25 mg 07/14/25 11:29 Levalbuterol Rt 1.25 Mg/0.5 Ml Nebu INH 08/13/25 11:28 Q2H PRN WHEEZING Lisinopril 20 mg 07/20/25 12:50 07/23/25 09:32 Lisinopril 20 Mg Tablet PO 08/16/25 08:59 20 mg QDAY ASHLEY Administration Midazolam HCl 2 mg 07/23/25 07:46 Midazolam Inj 1 Mg/Ml Vial 2 Ml IVP 07/28/25 07:45 Q5MIN PRN SEIZURES Nicotine 21 mg 07/12/25 13:15 07/23/25 09:32 Nicotine Patch 21 Mg/24 Hr Patch.Td24 TOP 08/11/25 13:14 21 mg QDAY ASHLEY Administration Pantoprazole Sodium 40 mg 07/23/25 09:00 07/23/25 09:32 Pantoprazole 40 Mg Tablet PO 08/22/25 08:59 40 mg QDAY ASHLEY Administration Polyethylene Glycol 17 gm 07/20/25 12:50 07/23/25 09:34 Polyethylene Glycol 17 Gm Packet PO 08/18/25 08:59 Not Given QDAY ASHLEY Sodium Chloride 3 ml 07/14/25 11:29 Sodium Chloride Rt Radha 0.9% 3 Ml Nebu INH 08/13/25 11:28 PRN PRN SOLN Plan Patient is a 45 year old female with PMH of CVA 2018, AML, type 2 diabetes, seizures, migraine, HLD, HTN who presents with altered mental status s/p intubation, admitted to ICU for work up and management of seizures. Cardiology consulted for elevated troponins likely NSTEMI II secondary to severe sepsis and metabolic abnormalities from status epilepticus. #NSTEMI II secondary to severe sepsis and metabolic abnormalities from status epilepticus #Elevated troponins secondary to septic shock #Tachycardia secondary to septic shock #HFpEF (EF 55-60%) (07/19/25) Patient initial troponins were elevated at 5.05. Unable to obtain cardiac history and cannot determine any chest pain or chest pressure. Mostly NSTEMI type II secondary to the severe sepsis or septic shock on pressors along with status epilepticus and metabolic abnormalities. BP 118/43 but tachycardic at HR 145, RR 27 and fever of 101.4. WBC count was severely elevated at 32,000 on admission. Troponin 5.052 -> 8.049 -> 6.167. TSH <0.01. A1c 9.2. Lipid panel: Triglycerides 238, cholesterol 81, LDL 23, HDL <10 Initial EKG was read as SVT versus sinus tachycardia and nonspecific T wave changes. Reviewed the EKG and patient does have distinct P waves indicating mostly sinus tachycardia for this patient. Sinus tachycardia also likely secondary to severe sepsis, also currently being weaned from sedation. Echo 07/12/25 showed normal LV size and mildly decreased LV function with an estimated EF of 40 to 45. Patient tachycardic. Diastolic dysfunction could not be evaluated. Normal RV size and function is mildly decreased. RVSP 24 mmHg with RAP 3. Mild mitral and tricuspid regurgitation noted. No pericardial effusion. Echo 07/19/25 showed normal LV size and wall thickness. Normal left ventricular diastolic filling pattern for age. Estimated EF at 55-60%. The RV is normal in size and systolic function. Trace MR and TR. Plan: - Previously decreased EF with mild global hypokinesis mostly secondary to septic shock and tachycardia. As expected significant improvement with EF of 55 to 60%, back to normal function with resolution of sepsis. No need for outpatient cardiac follow up. - Keep K >4 and Mg >2 #Acute metabolic encephalopathy secondary to seizures versus CVA #Left hemispheric stroke vs demyelinating disease #Hx of seizures, on Keppra #History of CVA CT 07/14 showed questionable infarct in the left parietal lobe and MRI of the brain performed today showed foci of restricted diffusion in the left frontal side, left parietal lobe concerning for demyelinating disease versus acute infarct. EEG 07/14 was abnormal showing intermittent slowing and burst suppression with paroxysmal multifocal spike and wave discharges are consistent with seizure disorder Brain MRI 07/15 shows foci of restricted diffusion in the left frontal lobe left parietal lobe without prominent signal deficit, possible demyelinating disease versus acute infarct 07/17/25: Off intubation and sedation Repeat MRI 07/19 showed increasing signal in the occipital horns in both diffusion weighted and FLAIR images suggesting possible ventriculitis, purulent fluid in ventricles. Negative for acute infarct. Plan: - IV valproate -> depakote & vimpat, IV midazolam for breakthrough seizures - ASA 81 - Neurology consulted - Defer to primary team for management - No ELVA required at the present moment as there is concern for infectious etiology with ventriiculitis with pus and unlikely an acute stroke. Discussed this with the primary team as well as a neurologist regarding no indication for a ELVA at the present point of time. Patient now being transferred to an higher level care for possible neurosurgical evaluation. #Bilateral aspiration PNA CXR finding, likely occurred after seizure. - Defer to primary team for management #History of hypertension Takes lisinopril 20 mg daily. ?Continue lisinopril 20 mg daily #High anion gap metabolic acidosis, resolved #Lactic acidosis #Leukocytosis #History AML #Type 2 diabetes #? Meningitis #Complex migraines Thank you for your consultation, please do not hesitate to reach out if you have any question or concern Patient plan of care was discussed with the attending physician, Dr. Early. Barbara Gabriel, PGY-1 Attending Provider Attestation/Addendum I have personally seen and examined the patient separately on the above date of service and discussed the plan of care with the resident. I reviewed the resident Dr. Barbara Gabriel consultation progress note and agree with the resident findings and plan in the note above and have also edited the documentation to reflect my findings and plan. Dilip Early M.D. Interventional Cardiology
[2025-07-23] MEDS: INSULIN LISPRO (AdmeLOG) 1 UNIT/0.01 ML UNIT SC ×2 (12:04→22:04)
[2025-07-23 12:08] LABS: HIV (1&2) Antibody Rapid Non-Reactive
--- NOTE | 2025-07-23 13:52 | PD.VPROG1 ---
Telemedicine visit statement This visit was conducted with the use of interactive audio and video telecommunications system that permits real time communication between the patient and the provider. Patient's verbal consent for virtual visit was obtained on 07/23/25 at 1352. Documentation for date of: 07/23/25 Subjective Subjective Interval history: Patient is in MedSurg, no new symptoms reported. Continues to have right lower extremity weakness. No seizures, headache or paresthesias or dizziness Virtual exam Vital Signs Temp Pulse Resp BP Pulse Ox O2 Del Method O2 Flow Rate 98.1 F 92 30 H 127/69 96 Room Air 2 07/23/25 12:05 07/23/25 12:05 07/23/25 12:05 07/23/25 12:05 07/23/25 12:05 07/23/25 12:05 07/22/25 21:32 FiO2 25 07/20/25 15:51 Objective Labs 07/24/25 05:22 07/24/25 05:22 Labs: Laboratory Results - last 24 hr 07/23/25 05:[address] Glu mg/dL 197 H Hemoglobin A1c 8.5 H Phosphorus 4.4 HIV 1&2 Antibody Rapid Non-Reactive ABG Interpretation ABG results: 07/12/25 07/12/25 07/13/25 08:31 17:13 04:48 ABG pH 7.13 L* 7.26 L D 7.28 L ABG pCO2 46 45 46 ABG pO2 122 H 100 D 129 H D ABG HCO3 15 L 20 22 ABG O2 Saturation 98 98 99 H ABG Base Excess -14 L -7 L -5 L 07/14/25 07/14/25 01:03 04:17 ABG pH 7.33 L 7.36 ABG pCO2 46 44 ABG pO2 127 H 98 D ABG HCO3 24 25 ABG O2 Saturation 100 H 99 H ABG Base Excess -2 -1 Assessment & Plan Assessment Patient is a 45-year-old female with past medical history of CVA 2018, AML, type 2 diabetes, seizures, migraine, HLD, HTN presented to ED on 07/12/25 due to breakthrough seizures/AMS. Neurology consulted for management and LP to rule out meningitis. #Meningitis #seizure: status epilepticus/ break through seizures. Noncompliance issue arised after oncologist expressed concern of Keppra causing AML to return after her remission. Since that time, patient will only take the Keppra when going to music concerts. Urine, sputum, and blood cultures negative. CSF analysis appearance was cloudy, WBCs 10,720, RBC 1000, glucose 97, protein greater than 250, strep pneumo antigen positive. Opening pressure 37. CSF Gram stain showing 3+ WBCs. Blood culture negative Repeat CT head and MRI brain showed areas of acute infarct in left frontal and parietal lobe. EEG: abnormal showing multifocal epileptiform discharges consistent with seizures. But no electrographic status noted Clinical improvement gradually with the exception of right lower extremity weakness -continue depakote 1000mg BID -Continue with aspirin 81 mg alone as the left hemispherical infarct is massive to prevent hemorrhagic conversion and DVT prophylaxis -Continue with IV antibiotics. CSF culture resulted negative. As the MRI brain showed ventriculitis, unchanged and waiting for transfer to tertiary center for intrathecal antibiotics and pus drainage from the ventricles. Will order the repeat MRI brain. #AML #Previous CVA by history but not from MRI in 2018 #T2DM #HLD #HTN Primary care team to manage above conditions and ongoing care needs.
--- NOTE | 2025-07-23 13:55 | XR_ITS ---
Examination: MRI of brain without intravenous contrast. MRI brain with intravenous contrast. Date and time of exam: July 23, 2025, 1555 hours, comparison July 15, 2025 Indications increased signal in the occipital bones on the prior studies which can be seen with ventriculitis Technique: Multiple axial and sagittal images of the brain to been obtained. Siemens high-resolution 1.52 Sandi short bore scanner utilized. Sagittal sections, T1 weighted images, TR 500, TE 14, are performed. Axial sections proton-density and T2-weighted images have been obtained. Inversion recovery axial images, TR 9260, TE 111, TR 2500. Diffusion weighted images, axial sections, TR 4800, TE 128, B value 1000. Axial sections, ADC map, TR 4800, TE 128. Axial and coronal images were also obtained post 16 cc gadolinium administered intravenously. Findings:: Enlargement of the sella turcica is not present. The optic chiasm and infundibular stalk are not remarkable. There is no localized enlargement of the medulla or susana. Fourth ventricle and cerebellar tonsils appear normal in position. No subacute area of hemorrhage density is seen. Fourth ventricle is midline. Mass in the cerebellopontine angle region is not evident. 7th and 8th nerve complexes exhibit symmetry Globes are symmetrical Orbital musculature including medial lateral rectus muscles do not exhibit abnormality Increased white matter signal is evident in the high left parietal lobe Effacement of the cortical sulcal markings is not identified. Mass effect upon the ventricular system is not identified. Diffusion-weighted images demonstrate again multiple foci of restricted diffusion in the left frontal parietal lobe, less prominent in the left frontal lobe compared to the July 15, 2025 exam Contrast images demonstrate no abnormal enhancement Impression: Again noted foci of restricted diffusion in the left frontal left parietal lobe without prominent deficit on the ADC map, differential unchanged Again noted on the diffusion images and the FLAIR images increased signal in the occipital horns which can be seen with ventriculitis Correlation with clinical findings by neurology recommended
--- NOTE | 2025-07-23 15:58 | PC.SS ---
Rounding note: Transfer pending for HLOC. No accepting facilities reported.
--- NOTE | 2025-07-23 16:36 | PC.CM ---
0972 [facility] declined patient due to capacity. Patient was already declined by Janneth Lynne.
[2025-07-24] VITALS (9 sets, daily range): BP systolic 105–137; BP diastolic 65–87; PULSE 62–97; RESP 16–18; TEMP 36.1–37.1; O2SAT 93–100
[2025-07-24] MEDS: VALPROATE SOD INJ 750 MG in SODIUM CHLORIDE 0.9% 50 ML 57.5 MG IV ×5 (00:33→23:03)
[2025-07-24 06:28] LABS: Basophils # (Auto) 0.0 Thou/mm3 (0.0-0.2); Basophils % (Auto) 0 % (0-2.5); Eosinophils # (Auto) 0.0 Thou/mm3 (0.0-0.5); Eosinophils % (Auto) 0 % (0-10); Hematocrit 34.3 % (36.0-46.0); Hemoglobin 11.0 g/dL (12.0-16.0); Immature Granulocytes Auto 0.07 Thou/mm3 (0.00-0.00); Lymphocytes # (Auto) 4.5 Thou/mm3 (1.0-4.8); Lymphocytes % (Auto) 44 % (10-50); Mean Corpuscular HGB Conc 32.1 g/dl (31.0-37.0); Mean Corpuscular Hemoglobin 27.8 pg (25.0-35.0); Mean Corpuscular Volume 87 fL (80-100); Monocytes # (Auto) 1.1 Thou/mm3 (0.0-0.8); Monocytes % (Auto) 11 % (0-12); Neutrophils # (Auto) 4.4 Thou/mm3 (1.8-7.7); Neutrophils % (Auto) 44 % (37-80); Nucleated Red Blood Cell # 0.00 Thou/mm3 (0.00-0.00); Nucleated Red Blood Cell % 0 /100 WBC (0); Platelet Count 404 Thou/mm3 (140-440); RDW Standard Deviation 44.8 fL (36.4-46.3); Red Blood Count 3.95 Miln/mm3 (4.00-5.20); White Blood Count 10.1 Thou/mm3 (3.6-11.0)
[2025-07-24 06:46] LABS: Alanine Aminotransferase 15 U/L (10-49); Albumin, Serum 3.5 gm/dL (3.5-5.0); Albumin/Globulin Ratio 1.7 (1.2-2.2); Alkaline Phosphatase 42 U/L (46-116); Anion Gap 9 (7-16); Aspartate Amino Transferase 31 U/L (0-34); BUN/Creatinine Ratio 20 Ratio (12-20); Bilirubin,Total 0.2 mg/dL (0.3-1.2); Blood Urea Nitrogen 8 mg/dL (9-23); Calcium 8.5 mg/dL (8.3-10.6); Calcium (Corrected) 8.9 mg/dL (8.5-10.1); Carbon Dioxide 28.6 mMol/L (20.0-31.0); Chloride 106 mMol/L (98-107); Creatinine (Component) 0.4 mg/dL (0.6-1.3); Estimated Creatinine Clearance 175.3 mL/min (>60); Globulin 2.1 gm/dL (2.3-3.5); Glucose 83 mg/dL (74-106); Magnesium 1.9 mg/dL (1.6-2.6); Osmolality,Calculated 284 (275-295); Phosphorous 5.0 mg/dL (2.4-5.1); Potassium 4.2 mMol/L (3.4-5.1); Sodium 144 mMol/L (136-145); Total Protein 5.6 gm/dL (5.7-8.2); eGFR > 60 See Note
[2025-07-24] MEDS: LACOSAMIDE INJ 200 MG/20 ML VIAL IVP ×2 (08:33→21:00)
[2025-07-24] MEDS: cefTRIAXone/D5w 2gm 2 GM/50 ML BAG IV ×2 (08:34→21:07)
[2025-07-24] MEDS: ENOXAPARIN SOD INJ 40 MG/0.4 ML SYRINGE SC (08:34)
[2025-07-24] MEDS: NICOTINE PATCH 21 MG/24 HR PATCH.TD24 TOP (08:34)
[2025-07-24] MEDS: ASPIRIN 81 MG CHEW PO (08:34)
[2025-07-24] MEDS: PANTOPRAZOLE 40 MG TABLET PO (08:35)
--- NOTE | 2025-07-24 10:02 | PC.CM ---
Addendum entered by Becca Tyler RN 07/24/25 19:27: Patient has been accepted by [facility] with Dr. Cj Kendall. We are pending bed availablity. I completed transfer back agreement and I faxed it back to [facility]. Tranfer packet with 1 CD left on transfer nurse desk. Addendum entered by Becca Tyler RN 07/24/25 17:09: 1645 I received a call back from [facility] with [facility]. She states she has been trying to get a hold of Dr. Colindres and she is not answering. I contacted Dr. Colindres and she states she is not able to talk to [facility] at this time. She asked me to have them call Dr. Dunlap at [phone]. I provided the number to [facility]. Addendum entered by Becca Tyler RN 07/24/25 12:41: 1145 I faxed over information to [facility] and I pushed over images. Addendum entered by Becca Tyler RN 07/24/25 12:05: 1115 I contacted [facility] and I initiated a transfer. 1100 Dr. Dunlap called me back and they do want to transfer patient. Original Note: [id number] reached out to Dr. Dunlap to follow up on request for transfer. I let him know patient has not been accepted by any facility. I let him know I spoke to the doctors yesterday and they stated patient is improving and they said they were going to reach out to neurology to see if patient still needed to be transferred. Dr. Dunlap states they are rounding at this time so he will speak to the team to decided if patient needs transfer or not. He states he will get back to me.
--- NOTE | 2025-07-24 11:06 | PC.SS ---
rounding note; Patient pending higher level of care transfer
--- NOTE | 2025-07-24 13:19 | ESPR_ITS ---
Documentation for date of: 07/24/25 Subjective Subjective Interval history: Patient seen and assessed at bedside. No new complaints. Strength in right upper and lower extremities improving. Sinus rhythm on telemetry. Vitals are stable. Pending transfer. Exam Vital Signs Temp Pulse Resp BP Pulse Ox O2 Del Method O2 Flow Rate 97.4 F 62 18 112/69 93 L Room Air 2 07/24/25 12:00 07/24/25 12:00 07/24/25 12:00 07/24/25 12:00 07/24/25 12:00 07/24/25 12:00 07/22/25 21:32 FiO2 25 07/20/25 15:51 Narrative Exam Physical Exam General: Awake and in no acute distress. Conversational and non-toxic appearing. HEENT: Normocephalic, atraumatic, mucous membranes moist. Heart: Regular rate and rhythm, normal S1 and S2, no murmurs appreciated. Lungs: Clear to auscultation with no wheezing or crackles. Abdomen: Soft, nondistended, nontender, positive bowel sounds. No guarding or rebound tenderness. Neurologic: Alert and oriented x3. 4/5 strength in right upper extremity and 3/5 in right lower extremity. 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 Extremities: No edema. Skin: No rash or ecchymoses. Objective Labs 07/24/25 05:22 07/24/25 05:22 Labs: Laboratory Results - last 24 hr 07/24/25 05:22 WBC 10.1 RBC 3.95 L Hgb 11.0 L Hct 34.3 L MCV 87 MCH 27.8 MCHC 32.1 RDW Std Deviation 44.8 Plt Count 404 D Neut % (Auto) 44 Lymph % (Auto) 44 [place] % (Auto) 11 Eos % (Auto) 0 Baso % (Auto) 0 Neut # (Auto) 4.4 Lymph # (Auto) 4.5 [place] # (Auto) 1.1 H Eos # (Auto) 0.0 Baso # (Auto) 0.0 Immature Gran # (Auto) 0.07 H Absolute Nucleated RBC 0.00 Immature Gran % 1 H Nucleated RBC % 0 Sodium 144 Potassium 4.2 Chloride 106 Carbon Dioxide 28.6 Anion Gap 9 BUN 8 L Creatinine 0.4 L Estim Creat Clear Calc 175.3 eGFR > 60 BUN/Creatinine Ratio 20 Glucose 83 Calculated Osmolality 284 Calcium 8.5 Corrected Calcium 8.9 Phosphorus 5.0 Magnesium 1.9 Total Bilirubin 0.2 L AST 31 ALT 15 Alkaline Phosphatase 42 L Total Protein 5.6 L Albumin 3.5 Globulin 2.1 L Albumin/Globulin Ratio 1.7 ABG Interpretation ABG results: 07/12/25 07/12/25 07/13/25 08:31 17:13 04:48 ABG pH 7.13 L* 7.26 L D 7.28 L ABG pCO2 46 45 46 ABG pO2 122 H 100 D 129 H D ABG HCO3 15 L 20 22 ABG O2 Saturation 98 98 99 H ABG Base Excess -14 L -7 L -5 L 07/14/25 07/14/25 01:03 04:17 ABG pH 7.33 L 7.36 ABG pCO2 46 44 ABG pO2 127 H 98 D ABG HCO3 24 25 ABG O2 Saturation 100 H 99 H ABG Base Excess -2 -1 Quality Measures Quality Measures none Assessment & Plan Assessment Current Active Medications: Generic Name Dose Route Start Last Admin Trade Name Freq PRN Reason Stop Dose Admin Acetaminophen 650 mg 07/18/25 13:38 Acetaminophen 325 Mg Tablet NG 08/17/25 13:37 Q6HR PRN Fever >100.4 Aspirin 81 mg 07/20/25 12:51 07/24/25 08:34 Aspirin 81 Mg Chew PO 08/16/25 08:59 81 mg QDAY ASHLEY Administration Dextrose 25 ml 07/12/25 10:05 Dextrose 50%-Water Inj 50 Ml Syringe IV 08/11/25 10:04 Q15MIN PRN BG 50-70 responsive npo pt Dextrose 50 ml 07/12/25 10:05 Dextrose 50%-Water Inj 50 Ml Syringe IV 08/11/25 10:04 Q15MIN PRN BG <50 OR BG <70 & pt unresponsive Enoxaparin Sodium 40 mg 07/12/25 09:45 07/24/25 08:34 Enoxaparin Sod Inj 40 Mg/0.4 Ml Syringe SC 07/26/25 09:44 40 mg QDAY ASHLEY Administration Glucagon 1 mg 07/12/25 10:05 Glucagon Inj 1 Mg Vial IM Q15MIN PRN BG <70, and no IV access Valproic Acid 750 mg/ Sodium 57.5 mls @ 57.5 mls/hr 07/19/25 18:00 07/24/25 12:16 Chloride IV 08/18/25 17:59 57.5 mls/hr Q6HR ASLHEY Administration Protocol Ceftriaxone Sodium/Dextrose 2 gm in 50 mls @ 100 mls/hr 07/22/25 10:15 07/24/25 08:34 Rocephin/D5w 2gm IV 07/29/25 10:14 100 mls/hr Q12HR ASHLEY Administration Insulin Degludec 40 unit 07/17/25 09:00 07/23/25 09:34 Insulin Degludec 5 Unit/0.05 Ml (Per 5 Units) SC 08/16/25 08:59 40 unit On Hold: 07/24/25 07:53 QDAY ASHLEY Administration Insulin Human Lispro 0 unit 07/20/25 21:00 07/24/25 11:25 Insulin Lispro (Admelog) 1 Unit/0.01 Ml Unit SC 08/19/25 20:59 Not Given ACHS ASHLEY Protocol Ipratropium Lester 0.5 mg 07/14/25 11:29 Ipratropium Rt 0.5 Mg/ 2.5 Ml Nebu INH 08/13/25 11:28 Q2HR PRN WHEEZING Lacosamide 200 mg 07/19/25 21:00 07/24/25 08:33 Lacosamide Inj 200 Mg/20 Ml Vial IVP 08/18/25 20:59 200 mg BID ASHLEY Administration Levalbuterol HCl 1.25 mg 07/14/25 11:29 Levalbuterol Rt 1.25 Mg/0.5 Ml Nebu INH 08/13/25 11:28 Q2H PRN WHEEZING Lisinopril 20 mg 07/20/25 12:50 07/24/25 08:34 Lisinopril 20 Mg Tablet PO 08/16/25 08:59 20 mg QDAY ASHLEY Administration Midazolam HCl 2 mg 07/23/25 07:46 Midazolam Inj 1 Mg/Ml Vial 2 Ml IVP 07/28/25 07:45 Q5MIN PRN SEIZURES Nicotine 21 mg 07/12/25 13:15 07/24/25 08:34 Nicotine Patch 21 Mg/24 Hr Patch.Td24 TOP 08/11/25 13:14 21 mg QDAY ASHLEY Administration Pantoprazole Sodium 40 mg 07/23/25 09:00 07/24/25 08:35 Pantoprazole 40 Mg Tablet PO 08/22/25 08:59 40 mg QDAY ASHLEY Administration Polyethylene Glycol 17 gm 07/20/25 12:50 07/24/25 08:48 Polyethylene Glycol 17 Gm Packet PO 08/18/25 08:59 Not Given QDAY ASHLEY Sodium Chloride 3 ml 07/14/25 11:29 Sodium Chloride Rt Radha 0.9% 3 Ml Nebu INH 08/13/25 11:28 PRN PRN SOLN Plan Patient is a 45 year old female with PMH of CVA 2018, AML, type 2 diabetes, seizures, migraine, HLD, HTN who presents with altered mental status s/p intubation, admitted to ICU for work up and management of seizures. Cardiology consulted for elevated troponins likely NSTEMI II secondary to severe sepsis and metabolic abnormalities from status epilepticus. #NSTEMI II secondary to severe sepsis and metabolic abnormalities from status epilepticus #Elevated troponins secondary to septic shock #Tachycardia secondary to septic shock #HFpEF (EF 55-60%) (07/19/25) Patient initial troponins were elevated at 5.05. Unable to obtain cardiac history and cannot determine any chest pain or chest pressure. Mostly NSTEMI type II secondary to the severe sepsis or septic shock on pressors along with status epilepticus and metabolic abnormalities. BP 118/43 but tachycardic at HR 145, RR 27 and fever of 101.4. WBC count was severely elevated at 32,000 on admission. Troponin 5.052 -> 8.049 -> 6.167. TSH <0.01. A1c 9.2. Lipid panel: Triglycerides 238, cholesterol 81, LDL 23, HDL <10 Initial EKG was read as SVT versus sinus tachycardia and nonspecific T wave changes. Reviewed the EKG and patient does have distinct P waves indicating mostly sinus tachycardia for this patient. Sinus tachycardia also likely secondary to severe sepsis, also currently being weaned from sedation. Echo 07/12/25 showed normal LV size and mildly decreased LV function with an estimated EF of 40 to 45. Patient tachycardic. Diastolic dysfunction could not be evaluated. Normal RV size and function is mildly decreased. RVSP 24 mmHg with RAP 3. Mild mitral and tricuspid regurgitation noted. No pericardial effusion. Echo 07/19/25 showed normal LV size and wall thickness. Normal left ventricular diastolic filling pattern for age. Estimated EF at 55-60%. The RV is normal in size and systolic function. Trace MR and TR. Plan: - Previously decreased EF with mild global hypokinesis mostly secondary to septic shock and tachycardia. As expected significant improvement with EF of 55 to 60%, back to normal function with resolution of sepsis. No need for outpatient cardiac follow up. - Keep K >4 and Mg >2 #Acute metabolic encephalopathy secondary to seizures versus CVA #Left hemispheric stroke vs demyelinating disease #Hx of seizures, on Keppra #History of CVA CT 07/14 showed questionable infarct in the left parietal lobe and MRI of the brain performed today showed foci of restricted diffusion in the left frontal side, left parietal lobe concerning for demyelinating disease versus acute infarct. EEG 07/14 was abnormal showing intermittent slowing and burst suppression with paroxysmal multifocal spike and wave discharges are consistent with seizure disorder Brain MRI 07/15 shows foci of restricted diffusion in the left frontal lobe left parietal lobe without prominent signal deficit, possible demyelinating disease versus acute infarct 07/17/25: Off intubation and sedation Repeat MRI 07/19 showed increasing signal in the occipital horns in both diffusion weighted and FLAIR images suggesting possible ventriculitis, purulent fluid in ventricles. Negative for acute infarct. Plan: - IV valproate -> depakote & vimpat, IV midazolam for breakthrough seizures - ASA 81 - Neurology consulted - Defer to primary team for management - No ELVA required at the present moment as there is concern for infectious etiology with ventriiculitis with pus and unlikely an acute stroke. Discussed this with the primary team as well as a neurologist regarding no indication for a ELVA at the present point of time. Patient now being transferred to an higher level care for possible neurosurgical evaluation. #Bilateral aspiration PNA CXR finding, likely occurred after seizure. - Defer to primary team for management #History of hypertension Takes lisinopril 20 mg daily. ?Continue lisinopril 20 mg daily #High anion gap metabolic acidosis, resolved #Lactic acidosis #Leukocytosis #History AML #Type 2 diabetes #? Meningitis #Complex migraines Thank you for your consultation, please do not hesitate to reach out if you have any question or concern Patient plan of care was discussed with the attending physician, Dr. Early. Barbara Gabriel, PGY-1 Attending Provider Attestation/Addendum I have personally seen and examined the patient separately on the above date of service and discussed the plan of care with the resident. I reviewed the resident Dr. Barbara Gabriel consultation progress note and agree with the resident findings and plan in the note above and have also edited the documentation to reflect my findings and plan. Dilip Early M.D. Interventional Cardiology
--- NOTE | 2025-07-24 14:24 | ESPR_ITS ---
<Statement entered by Zan Roper MD - 07/24/25 19:16> I have reviewed the note and agree with the resident's assessment & plan with exceptions as below. I have personally reviewed labs, imaging, home meds/prior records, examined the patient, formulated and discussed management plan with my attending Patient was seen and examined at bedside this morning. No acute overnight events. Still pending transfer for neurosurgery. Patient continues seizure free. Repeat MRI still showing ventriculitis, but no accumulation of pus in ventricles. Spoke Neurologist at [facility] Dr. Corona as well as Neurosurgery resident Dr. Spaulding and presented the case. Stated they would discuss the case and let us know if they accepted the patient. Zan Roper PGY2 Disclaimer: Even though this this note was dictated by speech recognition and even though it was carefully revised there may still be minor errors in nnps due to voice recognition software. Documentation for date of: 07/24/25 Subjective Subjective Interval history: Patient seen and examined at bedside; no acute events overnight. She is still pending transfer to [facility]; MRI brain once again showed evidence of ventriculitis. Exam Vital Signs Temp Pulse Resp BP Pulse Ox O2 Del Method O2 Flow Rate 97.4 F 62 18 112/69 93 L Room Air 2 07/24/25 12:00 07/24/25 12:00 07/24/25 12:00 07/24/25 12:00 07/24/25 12:00 07/24/25 12:00 07/22/25 21:32 FiO2 25 07/20/25 15:51 Narrative Exam General: A/O x3, no acute distress Eyes: PERRL, EOMI. Anicteric, vision grossly intact. Ears: No ear pain, no ear discharge, Hearing grossly intact. Nose: No nasal discharge. Mouth/Throat: Moist mucous membranes, no redness, no lesions. Neck: Neck supple, non-tender, no cervical lymphadenopathy. Lungs: Clear MARCO ANTONIO to auscultation and percussion, No accessory muscle use. Cardio: Normal S1/S2, regular rhythm, no murmurs, no JVD Abdomen: Soft, non-tender, no palpable masses, peristalsis present, no guarding or rebound. Extremities: Symmetrical, no significant deformities, no peripheral edema , non-tender, peripheral pulses present. Skin: No rashes, no lesions, warm to touch. Neuro: Patient able to follow commands. Psych: Cooperative, appropriate mood and effect. Objective Labs 07/24/25 05:22 07/24/25 05:22 Labs: Laboratory Results - last 24 hr 07/24/25 05:22 WBC 10.1 RBC 3.95 L Hgb 11.0 L Hct 34.3 L MCV 87 MCH 27.8 MCHC 32.1 RDW Std Deviation 44.8 Plt Count 404 D Neut % (Auto) 44 Lymph % (Auto) 44 Marshall % (Auto) 11 Eos % (Auto) 0 Baso % (Auto) 0 Neut # (Auto) 4.4 Lymph # (Auto) 4.5 Marshall # (Auto) 1.1 H Eos # (Auto) 0.0 Baso # (Auto) 0.0 Immature Gran # (Auto) 0.07 H Absolute Nucleated RBC 0.00 Immature Gran % 1 H Nucleated RBC % 0 Sodium 144 Potassium 4.2 Chloride 106 Carbon Dioxide 28.6 Anion Gap 9 BUN 8 L Creatinine 0.4 L Estim Creat Clear Calc 175.3 eGFR > 60 BUN/Creatinine Ratio 20 Glucose 83 Calculated Osmolality 284 Calcium 8.5 Corrected Calcium 8.9 Phosphorus 5.0 Magnesium 1.9 Total Bilirubin 0.2 L AST 31 ALT 15 Alkaline Phosphatase 42 L Total Protein 5.6 L Albumin 3.5 Globulin 2.1 L Albumin/Globulin Ratio 1.7 ABG Interpretation ABG results: 07/12/25 07/12/25 07/13/25 08:31 17:13 04:48 ABG pH 7.13 L* 7.26 L D 7.28 L ABG pCO2 46 45 46 ABG pO2 122 H 100 D 129 H D ABG HCO3 15 L 20 22 ABG O2 Saturation 98 98 99 H ABG Base Excess -14 L -7 L -5 L 07/14/25 07/14/25 01:03 04:17 ABG pH 7.33 L 7.36 ABG pCO2 46 44 ABG pO2 127 H 98 D ABG HCO3 24 25 ABG O2 Saturation 100 H 99 H ABG Base Excess -2 -1 Quality Measures Quality Measures none Assessment & Plan Assessment Current Active Medications: Generic Name Dose Route Start Last Admin Trade Name Freq PRN Reason Stop Dose Admin Acetaminophen 650 mg 07/18/25 13:38 Acetaminophen 325 Mg Tablet NG 08/17/25 13:37 Q6HR PRN Fever >100.4 Aspirin 81 mg 07/20/25 12:51 07/24/25 08:34 Aspirin 81 Mg Chew PO 08/16/25 08:59 81 mg QDAY ASHLEY Administration Dextrose 25 ml 07/12/25 10:05 Dextrose 50%-Water Inj 50 Ml Syringe IV 08/11/25 10:04 Q15MIN PRN BG 50-70 responsive npo pt Dextrose 50 ml 07/12/25 10:05 Dextrose 50%-Water Inj 50 Ml Syringe IV 08/11/25 10:04 Q15MIN PRN BG <50 OR BG <70 & pt unresponsive Enoxaparin Sodium 40 mg 07/12/25 09:45 07/24/25 08:34 Enoxaparin Sod Inj 40 Mg/0.4 Ml Syringe SC 07/26/25 09:44 40 mg QDAY ASHLEY Administration Glucagon 1 mg 07/12/25 10:05 Glucagon Inj 1 Mg Vial IM Q15MIN PRN BG <70, and no IV access Valproic Acid 750 mg/ Sodium 57.5 mls @ 57.5 mls/hr 07/19/25 18:00 07/24/25 12:16 Chloride IV 08/18/25 17:59 57.5 mls/hr Q6HR ASHLEY Administration Protocol Ceftriaxone Sodium/Dextrose 2 gm in 50 mls @ 100 mls/hr 07/22/25 10:15 07/24/25 08:34 Rocephin/D5w 2gm IV 07/29/25 10:14 100 mls/hr Q12HR ASHLEY Administration Insulin Degludec 40 unit 07/17/25 09:00 07/23/25 09:34 Insulin Degludec 5 Unit/0.05 Ml (Per 5 Units) SC 08/16/25 08:59 40 unit On Hold: 07/24/25 07:53 QDAY ASHLEY Administration Insulin Human Lispro 0 unit 07/20/25 21:00 07/24/25 11:25 Insulin Lispro (Admelog) 1 Unit/0.01 Ml Unit SC 08/19/25 20:59 Not Given ACHS ASHLEY Protocol Ipratropium [place] 0.5 mg 07/14/25 11:29 Ipratropium Rt 0.5 Mg/ 2.5 Ml Nebu INH 08/13/25 11:28 Q2HR PRN WHEEZING Lacosamide 200 mg 07/19/25 21:00 07/24/25 08:33 Lacosamide Inj 200 Mg/20 Ml Vial IVP 08/18/25 20:59 200 mg BID ASHLEY Administration Levalbuterol HCl 1.25 mg 07/14/25 11:29 Levalbuterol Rt 1.25 Mg/0.5 Ml Nebu INH 08/13/25 11:28 Q2H PRN WHEEZING Lisinopril 20 mg 07/20/25 12:50 07/24/25 08:34 Lisinopril 20 Mg Tablet PO 08/16/25 08:59 20 mg QDAY ASHLEY Administration Midazolam HCl 2 mg 07/23/25 07:46 Midazolam Inj 1 Mg/Ml Vial 2 Ml IVP 07/28/25 07:45 Q5MIN PRN SEIZURES Nicotine 21 mg 07/12/25 13:15 07/24/25 08:34 Nicotine Patch 21 Mg/24 Hr Patch.Td24 TOP 08/11/25 13:14 21 mg QDAY ASHLEY Administration Pantoprazole Sodium 40 mg 07/23/25 09:00 07/24/25 08:35 Pantoprazole 40 Mg Tablet PO 08/22/25 08:59 40 mg QDAY ASHLEY Administration Polyethylene Glycol 17 gm 07/20/25 12:50 07/24/25 08:48 Polyethylene Glycol 17 Gm Packet PO 08/18/25 08:59 Not Given QDAY ASHLEY Sodium Chloride 3 ml 07/14/25 11:29 Sodium Chloride Rt Radha 0.9% 3 Ml Nebu INH 08/13/25 11:28 PRN PRN SOLN Plan Patient is 45-year-old F with a PMH of leukemia, stroke, T2DM, seizure disorder, migraine, hypertension who presented with altered mental status following seizure episode, patient was intubated and upgraded to ICU due to inability to protect airway, and management of seizures. Neurology was consulted and lumbar puncture showed cloudy CSF, 20 WBC, CSF Gram stain positive for strep pneumo, patient was started on IV antibiotics for meningitis and continued on mechanical ventilation, EEG showed discharges consistent with seizure disorder, patient extubated on 07/17/2025. CSF culture negative, MRI brain showed multifocal infarcts likely secondary to underlying meningitis. #Ventriculitis #Streptococcus P. meningitis #Streptococcus pneumonia bacteremia #Sepsis, resolved #Septic shock,?resolved #Acute hypoxic respiratory failure 2/2 aspiration pneumonia History of severe headache/migraine prior to abdominal status, CSF analysis results cloudy, WBC > 10,000, RBC 1000, glucose 97, protein greater than 250, strep pneumo antigen positive, elevated opening pressure, findings consistent with acute meningitis patient was started on IV antibiotics, CSF cultures negative. Patient was initially on pressor support with Levophed, currently off Levophed since 07/15/25. Was initially treated with IV Decadron. Initial blood cultures grew strep pneumo sensitive to ceftriaxone, repeat blood cultures negative at 48 hours, CSF culture negative to date Aspiration pneumonia likely secondary to acute encephalopathy in the setting of seizure disorder and meningitis, was initially intubated for airway protection, started on mechanical ventilation, patient was extubated today after successful spontaneous breathing trial. MRI 07/19/2025 did show concern for ventriculitis; MRI 07/23/2025 continues to show concern for ventriculitis ID switched antibiotics to ceftriaxone as of 07/22/2025 Plan: ?Antibiotics switched to 2 g ceftriaxone daily per ID note as of 07/22/2025 ? Follow-up blood culture from 07/14/2025-negative -Transfer for intrathecal antibiotics for ventriculitis; [facility] refused, stating that patient needed higher level of care at [facility]. Transfer team currently working on transfer. #Acute encephalopathy #Status epilepticus? History of seizures with medications noncomplianceon Keppra, reportedly concern for Keppra causing relapse of leukemia, patient presented to the ER with status epilepticus, continued seizure despite 4 mg of Versed, patient was intubated and sedated with propofol and fentanyl, given loading dose of Keppra in the ED 1500 mg. EEG showed multiple bilateral focal epileptiform discharges consistent with seizures, but no status epilepticus. No seizures overnight or today Plan: ? Continue sodium valproate to 750 mg q6h ? Continue Vimpat to 200 twice daily ? Neurology following closely, appreciate recommendations ? Seizure precautions in place #Acute multifocal CVA Patient has a reported history of CVA over 5 years ago with no residual deficits, but following diagnosis of meningitis, MRI confirmed multifocal acute infarction in the left frontal and parietal lobes, consistent with meningitis, neurology following the patient. Patient had a rapid response called 07/19, for likely seizure episode, due to change in seizure presentation compared to yesterday, stroke alert was called, head CT 07/19 also negative for acute changes Plan: ? Physical therapy on board ? Aspirin 81 mg daily, recommended by neurology as massive left hemispheric infarct to prevent hemorrhagic conversion. #NSTEMI, likely type II #CHF EF 40 to 45% #History of hypertension NSTEMI type II likely in the setting of severe sepsis and status epilepticus, elevated troponins in the setting of septic shock, echocardiogram was done which showed normal-sized LV but EF 40 to 45%, mild mitral and tricuspid regurgitation, no pericardial effusion. Per cardiology decreased EF with mild global hypokinesis mostly secondary to septic shock and tachycardia, anticipate improvement and repeat echocardiogram prior to discharge. No anticoagulation recommended in the setting of lumbar puncture. Echo on 07/19/2025, showed EF of 55 to 60% suggesting recovery of cardiac function secondary to resolution of sepsis. Plan: ? Cardiology following closely, appreciate recommendations ? Continue to monitor for volume overload ? Strict intake and output monitoring - Continue home lisinopril #History of type 2 diabetes mellitus Plan: ? insulin degludec (held) and sliding scale insulin ? Hypoglycemia protocol in place #History of hyperlipidemia #History of leukemia Patient has a history of acute monocytic leukemia, elevated leukocyte count in the setting of sepsis, improved WBC count following initiation of IV antibiotics, leukocytosis likely reactive. History of chemotherapy 10 years ago, currently in remission. Patient has history of hyperlipidemia. Plan: ?Outpatient follow-up following discharge. Disposition: Transfer for intrathecal abx given concern for ventriculitis DVT prophylaxis: Enoxaparin 40 mg daily GI prophylaxis: Protonix 40 mg daily Diet: Dysphagia diet 3 with Glucerna shake CODE STATUS: Full This case was discussed with my attending physician, Dr. Colindres, and senior resident, Dr. Dunlap. Cain Burkett MD-PhD, PGY1 Attending Provider Attestation/Addendum I, Eri Colindres, DO, attest that I was physically present for the barillas portions of the service and evaluated the patient with the resident and I reviewed and discussed the case with the resident and agree with the resident's findings and plans of care as documented above Patient seen and evaluated this AM. She states she is feeling well. She denies any fevers, chills, headache, nausea or vomiting. Repeat MRI was done yesterday and appears unchanged with foci of restricted diffusion in the left frontal left parietal lobe without prominent deficit on the ADC map, as well as diffusion images and the FLAIR images increased signal in the occipital horns which can be seen with ventriculitis. Pending transfer to tertiary care for further neurosurgical evaluation. Patient remains stable for transfer.
[2025-07-24] MEDS: INSULIN LISPRO (AdmeLOG) 1 UNIT/0.01 ML UNIT SC (17:16)
--- NOTE | 2025-07-24 19:50 | ESDS_ITS ---
<Statement entered by Eri Colindres DO - 07/24/25 20:02> I, Eri Colindres DO, attest that I was physically present for the barillas portions of the service and evaluated the patient with the resident and I reviewed and discussed the case with the resident and agree with the resident's findings and plans of care as documented above Planned Discharge Date 07/24/25 DS: Providers Provider Date of admission: 07/12/25 09:29 Primary care physician: Fady Evangelista MD Admitting Provider: Edward Harris MD Attending Provider on Admission: Eri Colindres DO Consults: 07/12/25 07:15 Consult to Neurology / Tele-Neurology Routine Comment: Consulting Provider: [facility] 07/12/25 08:56 Consult to Solar Sales Manager Stat Comment: Consulting Provider: Edward Harris I 07/12/25 10:02 Consult to Neurology / Tele-Neurology Urgent Comment: Status epilepticus, possible meningitis Consulting Provider: Alfie Colvin 07/12/25 10:33 Referral Registered Dietitian Routine Comment: 07/12/25 12:37 Consult to Cardiology Stat Comment: Consulting Provider: Dilip Early 07/17/25 11:56 Referral Occupational Therapy Routine Comment: Referral Physical Therapy Routine Comment: Physician Instructions: 07/17/25 11:59 Referral Speech Therapy Routine Comment: stroke, s/p extubation 07/20/25 08:03 Referral - Bomb Squad Officer Stat Service Needed for Transfer: Neurosurgery Addl Comments:: Ventriculitis will need intrathecal antibiotics 07/22/25 08:31 Consult to Infectious Diseases Routine Comment: Consulting Provider: Sudarshan Guillen Attending Provider on DC: Eri Colindres DO Discharging Provider: Eri Colindres DO DS: Diagnosis Problem List Completed Was Problem List Reviewed/Reconciled?: Yes Hospital Course Hospital Course Hospital course: 45 y/o female with PMH of CVA 2018, AML (on remission), type 2 diabetes, seizures, migraine, HLD, HTN admitted to the ICU on 07/12/2025 due to status epilepticus after being intubated for airway protection. Prior to this seizure patient had her last seizure around 6-12 months prior. During stay in the ICU patient had a lumbar puncture that was consistent with meningitis and strep pneumonia antigen was positive. CSF analysis showed cloudy CSF, 10k WBC, 1K RBC, glucose 97, total protein > 250. Patient in the ICU required vasopressors do to septic shock and was placed on ceftriaxone and Vancomycin as well as decadron 4mg BID after loading dose of 10mg. ICU course was further complicated by patient having SVT likely secondary to septic shock. At this time patient was on Depakote 1000mg BID and lacosamide was held due to tachycardia. EEG showed paroxysmal multifocal spike and wave discharges consistent with seizure disorder. MRI 07/05/2025 showed restricted diffusion left frontal lobe left parietal lobe, possible acute stroke in the setting of meningitis. Blood cultures also showed Strep pneumonia bacteremia, but CSF culture remained negative. ?On 07/17/2025 patient was extubated and downgraded to the medical floor. On the night patient was downgraded she continued to have seizures requiring more pushes of Iv versed. At this time as heart rate had improved lacosamide was restarted. Antibiotics were de-escalated to ceftriaxone 2gm BID given cultures. On 07/19/2025 patient had another seizure episode for which rapid response do to seizure like activity, patient?s physical exam was fairly unchanged with R LE immobility along with weakness on the R UE. Afterwards Sodium valproate increased to 750 4 times daily along with Vimpat to 200 IV twice daily, IV midazolam as needed on board. Brain MRI ordered 07/19/25 showed increased signal of the occipital horns on the FLAIR images consistent with ventriculitis and purulent fluid in the ventricles therefore it was decided patient would need transfer for possible intrathecal antibiotics at this time per neurology. Also given concern for ventriculitis along with recurrent seizures at this time antibiotic regimen was broaden to cefepime and vancomycin. Infectious disease was consulted and de-escalated antibiotics to rocephin 2gm BID again. Patient remained seizure free, A/Ox3, along with improvement in neurological deficits upto today. No more fevers or spikes in WBC. Repeat MRI brain again showed ventriculitis, but no purulent fluid in ventricles. Patient?s physical exam has also showen improvement with R LE improved mobility, but strength 3/5 at best and R UE with good mobility and 4/5 strength, L LE and UE 4/5 strength based on patient?s current clinical status. ?Repeat blood cultures have since been negative and repeat MRI on 07/23/2025 showed increased signal in the occipital horns which can be seen with ventriculitis. Last dose of aspirin was 07/24/25 in the AM. At this time patient is stable enough to be transferred to tertiary care center. Discharge plan: Transfer to tertiary care center. Problem list: #Ventriculitis #Streptococcus P. meningitis #Streptococcus pneumonia bacteremia #Sepsis, resolved #Septic shock,?resolved #Acute hypoxic respiratory failure 2/2 aspiration pneumonia #Acute encephalopathy #Status epilepticus #Acute multifocal CVA #NSTEMI, likely type II #CHF EF 40 to 45% #History of hypertension #History of type 2 diabetes mellitus #History of hyperlipidemia #History of leukemia Case disclosed with Attending Dr. Jens Roper PGY2 Disclaimer: Even though this this note was dictated by speech recognition and even though it was carefully revised there may still be minor errors in mink slicer due to voice recognition software. Time Spent with Patient Time attestation: Total time spent providing and/or coordinating discharge services:>30 min Time spent: Greater than 30 minutes Exam Vital Signs Temp Pulse Resp BP Pulse Ox O2 Del Method O2 Flow Rate 97.2 F 90 16 117/73 97 Room Air 2 07/24/25 16:00 07/24/25 16:00 07/24/25 16:00 07/24/25 16:00 07/24/25 16:00 07/24/25 16:00 07/22/25 21:32 FiO2 25 07/20/25 15:51 Narrative Exam General: A/O x3, no acute distress Eyes: PERRL, EOMI. Anicteric, vision grossly intact. Ears: No ear pain, no ear discharge, Hearing grossly intact. Nose: No nasal discharge. Mouth/Throat: Moist mucous membranes, no redness, no lesions. Neck: Neck supple, non-tender, no cervical lymphadenopathy. Lungs: Clear MARCO ANTONIO to auscultation and percussion, No accessory muscle use. Cardio: Normal S1/S2, regular rhythm, no murmurs, no JVD or carotid bruits. Abdomen: Soft, non-tender, no palpable masses, peristalsis present, no guarding or rebound. Extremities: Symmetrical, no significant deformities, no peripheral edema , non-tender, peripheral pulses presents. Skin: No rashes, no lesions, warm to touch. Small abrasion in MARCO ANTONIO UE. Neuro: R LE strength 3/5 (able to minimally lift against gravity) R UE strength 4/5 when compared to L UE. L UE and L LE srength 4/5 given current clinical status, sensation intact, follwoing all commands, no nasal fold flattening, pupils equal. Psych: Cooperative, appropriate mood and effect. Discharge Plan Problem List Was Problem List Reviewed/Reconciled?: Yes Plan Facility Pt Being Transferred to: [facility] Disposition Comment: [facility] Patient condition on transfer: Stable Prescriptions/Referrals Prescriptions/Med Rec: No Action metformin 1,000 mg Tablet 1,000 mg PO QDAY atorvastatin 20 mg tablet 20 mg PO QPM Qty: 30 0RF amoxicillin-pot clavulanate 875-125 mg tablet 1 tab PO Q12H Qty: 20 0RF alprazolam [Xanax] 0.25 mg tablet 0.25 mg PO BID PRN (Reason: anxiety) Qty: 20 0RF aspirin [Tylor Low Dose Aspirin] 81 mg tablet,delayed release (DR/EC) 325 mg PO QDAY metformin 1,000 mg tablet 1,000 mg PO BID lisinopril 5 mg tablet 20 mg PO QDAY Referrals: Fady Evangelista MD [Primary Care Provider, Family Practice] Patient/Caregiver Discharge Instructions Print Language: Georgian Quality Discharge Quality Measures VTE prophylaxis
--- NOTE | 2025-07-24 21:01 | PC.NURSE ---
RECEIVED A CALL FROM [facility] THAT BED IS AVAILABLE. PATIENT IS GOING TO [facility], ROOM [id number], [address]; [address]ESS [address] [place], [place] [address] [place] [id number]; GIVE REPORT TO TEL #[phone]
--- NOTE | 2025-07-24 23:14 | ESPR_ITS ---
Documentation for date of: 07/24/25 Subjective Subjective Interval history: Patient was seen in [facility] today with family at the bedside, continues to have right lower extremity weakness. No seizures reported overnight. Exam - Neurology Vital Signs Temp Pulse Resp BP Pulse Ox O2 Del Method O2 Flow Rate 97.4 F 94 17 137/87 H 97 Room Air 2 07/24/25 20:00 07/24/25 20:00 07/24/25 20:00 07/24/25 20:00 07/24/25 20:00 07/24/25 20:00 07/22/25 21:32 FiO2 25 07/20/25 15:51 Narrative Exam GENERAL APPEARANCE: Well hydrated, well-nourished in no acute distress. HEENT: Normocephalic, atraumatic, extraocular movements intact. Pupils: Equal reacting to light and accommodation NECK: Supple, no JVD or bruits. CARDIOVASULAR: Heart: S1, S2 heard, regular without S3-S4 or murmur no rubs or gallops. LUNGS/CHEST: Clear to auscultation bilaterally. No rails, rhonchi, or wheezing. Normal inspection. ABDOMEN: Soft, nontender, with normal bowel sounds. No pulsatile masses. No rebound, rigidity, or guarding. Normal inspection and palpation. EXTREMITIES: Normal inspection and palpation. No edema, clubbing or cyanosis. SKIN: Warm and dry without rashes. Normal inspection. MUSCULOSKELETAL: No cervical, thoracic, lumbar or midline bony tenderness. Normal inspection. NEURO: Alert, awake and oriented x3. Cranial nerves: II through XII grossly intact. Speech and language: Normal with no dysarthria or dysphasia. Motor system: Tone and bulk: Normal: Strength: 5 out of 5 in both upper and left lower extremities; No pronator drift noted. Deep tendon reflexes: 2+ bilaterally symmetrical. Plantar reflex: Downgoing bilaterally. Sensory system: Intact to all modalities of sensation bilaterally. Coordination: Intact to [id number]-[id number] test bilaterally. No ataxia, no dysmetria, or dysdiadochokinesia noted. No intention tremors noted. Gait: Cannot be tested, secondary to right lower extremity weakness. No signs of meningeal irritation noted. PSYCHIATRIC: Normal mood and affect. Objective Labs 07/24/25 05:22 07/24/25 05:22 Labs: Laboratory Results - last 24 hr 07/24/25 05:22 WBC 10.1 RBC 3.95 L Hgb 11.0 L Hct 34.3 L MCV 87 MCH 27.8 MCHC 32.1 RDW Std Deviation 44.8 Plt Count 404 D Neut % (Auto) 44 Lymph % (Auto) 44 [place] % (Auto) 11 Eos % (Auto) 0 Baso % (Auto) 0 Neut # (Auto) 4.4 Lymph # (Auto) 4.5 [place] # (Auto) 1.1 H Eos # (Auto) 0.0 Baso # (Auto) 0.0 Immature Gran # (Auto) 0.07 H Absolute Nucleated RBC 0.00 Immature Gran % 1 H Nucleated RBC % 0 Sodium 144 Potassium 4.2 Chloride 106 Carbon Dioxide 28.6 Anion Gap 9 BUN 8 L Creatinine 0.4 L Estim Creat Clear Calc 175.3 eGFR > 60 BUN/Creatinine Ratio 20 Glucose 83 Calculated Osmolality 284 Calcium 8.5 Corrected Calcium 8.9 Phosphorus 5.0 Magnesium 1.9 Total Bilirubin 0.2 L AST 31 ALT 15 Alkaline Phosphatase 42 L Total Protein 5.6 L Albumin 3.5 Globulin 2.1 L Albumin/Globulin Ratio 1.7 ABG Interpretation ABG results: 07/12/25 07/12/25 07/13/25 08:31 17:13 04:48 ABG pH 7.13 L* 7.26 L D 7.28 L ABG pCO2 46 45 46 ABG pO2 122 H 100 D 129 H D ABG HCO3 15 L 20 22 ABG O2 Saturation 98 98 99 H ABG Base Excess -14 L -7 L -5 L 07/14/25 07/14/25 01:03 04:17 ABG pH 7.33 L 7.36 ABG pCO2 46 44 ABG pO2 127 H 98 D ABG HCO3 24 25 ABG O2 Saturation 100 H 99 H ABG Base Excess -2 -1 Assessment & Plan Additional Assessment & Plan Additional Plan: antonieta is a 45-year-old female with past medical history of CVA 2018, AML, type 2 diabetes, seizures, migraine, HLD, HTN presented to ED on 07/12/25 due to breakthrough seizures/AMS. Neurology consulted for management and LP to rule out meningitis. #Meningitis: Resolved #seizure: status epilepticus/ break through seizures: Under control. Noncompliance issue arised after oncologist expressed concern of Keppra causing AML to return after her remission. Since that time, patient will only take the Keppra when going to music concerts. Urine, sputum, and blood cultures negative. CSF analysis appearance was cloudy, WBCs 10,720, RBC 1000, glucose 97, protein greater than 250, strep pneumo antigen positive. Opening pressure 37. CSF Gram stain showing 3+ WBCs. Blood culture negative Repeat CT head and MRI brain showed areas of acute infarct in left frontal and parietal lobe. EEG: abnormal showing multifocal epileptiform discharges consistent with seizures. But no electrographic status noted Clinical improvement gradually with the exception of right lower extremity weakness -continue depakote 1000mg BID -Continue with aspirin 81 mg alone as the left hemispherical infarct is massive to prevent hemorrhagic conversion and DVT prophylaxis -Continue with IV antibiotics. CSF culture resulted negative. As the repeat MRI brain showed ventriculitis, unchanged and waiting for transfer to tertiary center for intrathecal antibiotics and pus drainage from the ventricles. #AML #Previous CVA by history but not from MRI in 2018 #T2DM #HLD #HTN Primary care team to manage above conditions and ongoing care needs.
--- NOTE | 2025-07-24 23:45 | PC.NURSE ---
REPORT GIVEN TO MALENA ANGEL AT [facility].
[2025-07-25] VITALS: BP 112/76; PULSE 103; PULSE 99; RESP 20; TEMP 36.6; O2SAT 97
[2025-07-25 06:57] LABS: Valporic Acid (Depak)* 58.1 mg/L (50.0-100.0)
== END 2025-07-25 00:32 | disposition short-term general hospital (02) | DRG 720 ==
LOC: SERX 08:49 → SERHOLD 09:48 → S2SX 14:26 → S3NX 07-18 17:21
PROVIDERS: Internal Medicine Infectious Disease; Student in an Organized Health Care Education/Training Program; Admitting Provider Internal Medicine Critical Care Medicine; Emergency Provider Emergency Medicine; PCP Family Medicine; Visit Provider Internal Medicine
DX: A40.3 Sepsis due to Streptococcus pneumoniae (principal); I63.9 Cerebral infarction, unspecified; G40.901 Epilepsy, unspecified, not intractable, with status epilepticus; Z86.73 Personal history of transient ischemic attack (TIA), and cerebral infarction without residual deficits; E78.5 Hyperlipidemia, unspecified; G04.90 Encephalitis and encephalomyelitis, unspecified; F17.210 Nicotine dependence, cigarettes, uncomplicated; R57.8 Other shock; I24.89 Other forms of acute ischemic heart disease; I47.10 Supraventricular tachycardia, unspecified; J69.0 Pneumonitis due to inhalation of food and vomit; E87.20 Acidosis, unspecified; E87.6 Hypokalemia; G43.909 Migraine, unspecified, not intractable, without status migrainosus; G93.41 Metabolic encephalopathy; E87.1 Hypo-osmolality and hyponatremia; I11.0 Hypertensive heart disease with heart failure; I50.42 Chronic combined systolic (congestive) and diastolic (congestive) heart failure; J15.4 Pneumonia due to other streptococci; J96.01 Acute respiratory failure with hypoxia; R29.713 NIHSS score 13; R65.21 Severe sepsis with septic shock; S09.90XA Unspecified injury of head, initial encounter; V80.010A Animal-rider injured by fall from or being thrown from horse in noncollision accident, initial encounter; Y93.52 Activity, horseback riding; Z79.4 Long term (current) use of insulin; G00.1 Pneumococcal meningitis; E11.65 Type 2 diabetes mellitus with hyperglycemia; D64.9 Anemia, unspecified; E11.649 Type 2 diabetes mellitus with hypoglycemia without coma; E07.81 Sick-euthyroid syndrome; Z79.82 Long term (current) use of aspirin; Z79.84 Long term (current) use of oral hypoglycemic drugs; Z79.899 Other long term (current) drug therapy; Z91.148 Patient's other noncompliance with medication regimen for other reason; Z86.61 Personal history of infections of the central nervous system
CPT/HCPCS: 36415; 36600; 70450; 70496; 70498; 70544; 70551; 70553; 71045; 80048; 80053; 80061; 80069; 80164; 80202; 80307; 81001; 82010; 82164; 82436; 82803; 82945; 83036; 83605; 83615; 83735; 84100; 84133; 84157; 84295; 84300; 84439; 84443; 84484; 84550; 84703; 85025; 85610; 85730; 86403; 86703; 86788; 86789; 87040; 87070; 87077; 87081; 87186; 87205; 87498; 87502; 87530; 87811; 89051; 92526; 92610; 93005; 93306; 94002; 94003; 94644; 94645; 95816; 96361; 96365; 96366; 96375; 96376; 97163; 99285; 99308; A4649; A9577; C9254; J0131; J0133; J0330; J0692; J0696; J1100; J1650; J1815; J1953; J2250; J2251; J2470; J2704; J3010; J3372; J3373; J3374; J3475; J3480; J3490; J7030; J7050; J7120; J7999; Q9967; A9270

== ENCOUNTER 2025-07-29 23:01 | Inpatient (IN) | payer MEDICAID, SELFPAY ==
[2025-07-29 23:29] VITALS: BMI 30.4
--- NOTE | 2025-07-29 23:45 | PD.RESHP ---
Documentation for date of: 07/30/25 HPI History of Present Illness History of present illness: Juanita Bond is 45 yr female with PMH of CVA 2018, AML (on remission), type 2 diabetes, seizures, migraine, HLD, HTN, meningitis who was transferred back to [facility] from [facility]. Patient was initially admitted to [facility] for breakthrough siezures, in septic shock found to have strep pneumo meningitis and ventriculitis. Patient was transferred to [facility] on 07/24 where she underwent sinusotomy and washout with ENT. Procedure did not show any signs of purulence so no neurosurgical intervention was deemed necessary. TTE was negative for any valvular lesions. No intrathecal antibiotics were indicated. Patient remains on ceftriaxone 2 g twice daily for total of 4 weeks until 08/12. Patient has improved markedly, now alert and oriented x 3, conversational, strength 5 out of 5 in upper and lower extremities. Denies any recurrent seizures. Patient to continue aspirin, lacosamide,vimpat. She denies any headaches, weakness, loss of consciousness, blurry vision, dysphagia. Past Medical History: AML (last chemo was 10 years ago, remission around 1 year ago) sees oncologist in [place]. CVA 4 to 5 years ago, recovered completely, has not been following a neurologist recently, type 2 diabetes, seizures, migraine, HLD, HTN. Family History: no family history of seizures, endorses family history of diabetes Surgical History: Denies any heart stents, endorses hysterectomy, teeth removal for dentures Social History: Lives at home with family, smokes 1 pack of cigarettes per day, alcohol occasionally, no recreational drugs no vape or marijuana. Medications: Excedrin 1 or 2 per month (whenever migraines occur), metformin, was on Mounjaro, multivitamins, aspirin 81, blood pressure meds once or twice a month for her migraines (will follow up med rec), Allergies: Allergies: Codeine (anaphylaxis), bees, Drain, Bactrim? Review of Systems Review of Systems Systems Reviewed: All systems reviewed, normal except as documented Exam Vital Signs Temp Pulse Resp BP Pulse Ox O2 Del Method 97.5 F 72 18 128/74 94 L Room Air 07/30/25 04:00 07/30/25 04:00 07/30/25 04:00 07/30/25 04:00 07/30/25 04:00 07/30/25 04:00 Narrative Exam General: Alert and oriented x3. No acute distress, cooperative HEENT: NCAT, No JVD noted. Mucosa moist. Pupils are equal and reactive to light bilaterally Cardiovascular: Normal S1 and S2. Regular rate and rhythm. Respiratory: Lungs are clear to auscultation bilaterally. No wheezing or crackles heard. Abdomen: Soft, nontender, not distended, normal bowel sounds. Skin: Warm to touch, dry, no rashes noted Musculoskeletal: No gross injuries. Able to move all 4 extremities. No pitting edema Neuro: Alert and oriented x3. No focal neuro deficits. Fluent speech with intact naming, strength 5/5 upper and lower extremities was able to take a few steps with assistance, no dizziness. Psych: Normal affect and mood Results: Labs 08/01/25 05:05 08/01/25 05:05 Labs: Short CBC 07/30/25 Range/Units 05:49 WBC 6.1 (3.6-11.0) Thou/mm3 Hgb 11.4 L (12.0-16.0) g/dL Hct 36.4 (36.0-46.0) % Plt Count 392 (140-440) Thou/mm3 BMP 07/30/25 05:49 Sodium 146 H Potassium 3.6 Chloride 108 H Carbon Dioxide 28.0 BUN 7 L Creatinine 0.4 L Glucose 124 H Calcium 8.9 Liver Function 07/30/25 Range/Units 05:49 Total Bilirubin 0.2 L (0.3-1.2) mg/dL AST 23 (0-34) U/L ALT 9 L (10-49) U/L Alkaline Phosphatase 49 (46-116) U/L Albumin 3.5 (3.5-5.0) gm/dL Quality Measures Quality Measures VTE prophylaxis Medications Home Medications and Allergies Home Medications ?Medication ?Instructions ?Recorded ?Confirmed ?Type aspirin 81 mg tablet,delayed 325 mg PO QDAY 07/12/25 07/29/25 History release (Tylor Low Dose Aspirin) lisinopril 5 mg tablet 20 mg PO QDAY 07/12/25 07/29/25 History metformin 1,000 mg tablet 1,000 mg PO BID 07/12/25 07/29/25 History Allergies Allergy/AdvReac Type Severity Reaction Status Date / Time spider venom Allergy Severe Numbness Verified 05/17/22 12:14 codeine Allergy Mild rash Verified 05/17/22 12:14 vomiting hives hydrocodone Allergy Mild rash hives Verified 05/17/22 12:14 vomiting lactose Allergy Mild Diarrhea Verified 07/17/25 23:03 onion Allergy Mild Anaphylaxis Verified 05/17/22 12:14 eggs Allergy Mild Nausea Uncoded 07/30/25 08:19 Visit Medications Acetaminophen (Acetaminophen 325 Mg Tablet) 650 mg PO Q6H PRN PRN Reason: Fever >100.4 or pain 1-3 Stop: 08/28/25 23:22 Dextrose (Dextrose 50%-Water Inj 50 Ml Syringe) 25 ml IV Q15MIN PRN PRN Reason: BG 50-70 responsive npo pt Stop: 08/29/25 00:06 Dextrose (Dextrose 50%-Water Inj 50 Ml Syringe) 50 ml IV Q15MIN PRN PRN Reason: BG <50 OR BG <70 & pt unresponsive Stop: 08/29/25 00:06 Glucagon (Glucagon Inj 1 Mg Vial) 1 mg IM Q15MIN PRN PRN Reason: BG <70, and no IV access Ceftriaxone Sodium 2 gm/ (Sodium Chloride) 50 mls @ 100 mls/hr IV QDAY ASHLEY Stop: 08/05/25 23:27 Last Admin: 07/30/25 00:18 Dose: 100 mls/hr Insulin Human Lispro (Insulin Lispro (Admelog) 1 Unit/0.01 Ml Unit) 0 unit SC [facility]; Protocol Stop: 08/29/25 07:29 Ondansetron HCl (Ondansetron Inj 2 Mg/Ml Inj 2 Ml) 4 mg IVP Q6H PRN; Protocol PRN Reason: NAUSEA OR VOMITING Stop: 08/28/25 23:22 Sennosides (Senna Tablet) 1 tab PO QDAY PRN; Protocol PRN Reason: constipation Stop: 08/28/25 23:22 Assessment & Plan Plan Juanita Bond is 45 yr female with PMH of CVA 2018, AML (on remission), type 2 diabetes, seizures, migraine, HLD, HTN, meningitis who was transferred back to [facility] from [facility] after sinusotomy and washout with ENT. #Ventriculitis/ Meningitis #Strep pneumo #s/p frontal sinusotomy and washout 07/26 Initial blood cultures were positive for strep pneumo showed sensitivity to ceftriaxone, repeat blood cultures were negative. She is found to have left frontal and parietal lobe infarcts during hospitalization at [facility]. Repeat MRI showed restricted area of diffusion concerning for ventriculitis. There is no indication for intrathecal antibiotics at [facility]. TTE without valvular vegetations Sinus fungal culture 07/26 negative for yeast or fungal elements. Blood cultures 07/25 were negative x 2. - Continue IV ceftriaxone 2 g twice daily through 08/12 - Repeat MRI brain with and without contrast in 3 weeks - Follow-up with the ENT in 3 weeks - Continue using nasal rinses. #Seizure disorder She has a history of nonadherence to levetiracetam. Patient's family stated that she would typically use antiseizure medications when going to music concerts. EEG before transfer showed multiple bilateral focal epileptiform discharges consistent with seizures, but no status epilepticus. - Continue Vimpat 1500 mg twice daily ? Continue lacosamide 200 mg twice daily - Seizure precautions ? Close follow-up outpatient ? Day team to consider in-house neurology consultation -repeat valproic acid level on 08/01 #Stroke Patient had history of CVA with no residual deficits. But following diagnosis of meningitis, MRI confirmed multifocal acute infarction in the left frontal and parietal lobes. Per neurology at [facility], these areas of diffusion restriction most likely secondary to ventriculitis versus infarct. -Continue aspirin 81 mg ? Continue atorvastatin 20 mg #HFpEF EF 55-60% Echocardiogram from 07/12 showed normal-sized LV, EF 40 to 45%, mild mitral and tricuspid regurgitation, no pericardial effusion. Echo 07/19/25 showed normal LV size and wall thickness. Normal left ventricular diastolic filling pattern for age. Estimated EF at 55-60%. The RV is normal in size and systolic function. Trace MR and TR. Per cardiology intial echo most likely due to her presentation of septic shock and tachycardia. -monitor fluid status -no cardiology follow up needed after dc #HTN BP 131/82 on admission. Remains controlled -resume home lisinopril 20mg daily after discharge -monitor vitals #Incidental thyroid nodule Multinodular thyroid with largest nodule measuring 2.0 cm found incidentally on CT scan. - follow-up outpatient -repeat TSH/free T4 #History [id number] type 2 diabetes A1c 8.5, takes metformin 1000 mg twice daily at home - Continue sliding scale insulin - Low carb consistent diet #AML in remission Patient follows with an oncologist in [place] for mgmt/monitoring her AML. Daughter stated that visits are 1-2 times/yr. Noncompliance with seizure medications arised after oncologist expressed concern of Keppra causing AML to return after her remission. Leukocyte count 6.1 -continue to follow with oncology outpatient Health maintenance: Dispo: transfer back to [facility] from [facility] for meningitis FEN: low carb diet DVT prophylaxis: Lovenox 40 CODE STATUS: Full code The patient's management plan was discussed with my attending physician Dr. Greenfield. Paz Rivero, PGY-2 Attending Provider Attestation/Addendum After examination of the patient and review of the clinical data I feel that this patient needs admission to the hospital for further treatment/evaluation. Plan of care discussed with patient and is in agreement. I Amarilis Greenfield MD, attest that I was physically present for barillas portions of evaluation, and examined patient, labs and imagings and plan of care were discussed with IM residents team, and I agree with the findings and plans documented above.
[2025-07-30] VITALS (9 sets, daily range): BP systolic 116–141; BP diastolic 69–85; PULSE 72–103; RESP 15–99; TEMP 36.4–36.6; O2SAT 94–98
[2025-07-30] MEDS: cefTRIAXone 2 GM in SODIUM CHLORIDE 0.9% (Popper) 50 ML IV ×3 (00:18→20:29)
[2025-07-30 06:22] LABS: Basophils # (Auto) 0.1 Thou/mm3 (0.0-0.2); Basophils % (Auto) 1 % (0-2.5); Eosinophils # (Auto) 0.0 Thou/mm3 (0.0-0.5); Eosinophils % (Auto) 0 % (0-10); Hematocrit 36.4 % (36.0-46.0); Hemoglobin 11.4 g/dL (12.0-16.0); Immature Granulocytes Auto 0.01 Thou/mm3 (0.00-0.00); Lymphocytes # (Auto) 3.2 Thou/mm3 (1.0-4.8); Lymphocytes % (Auto) 53 % (10-50); Mean Corpuscular HGB Conc 31.3 g/dl (31.0-37.0); Mean Corpuscular Hemoglobin 27.7 pg (25.0-35.0); Mean Corpuscular Volume 89 fL (80-100); Monocytes # (Auto) 0.7 Thou/mm3 (0.0-0.8); Monocytes % (Auto) 11 % (0-12); Neutrophils # (Auto) 2.1 Thou/mm3 (1.8-7.7); Neutrophils % (Auto) 35 % (37-80); Nucleated Red Blood Cell # 0.00 Thou/mm3 (0.00-0.00); Nucleated Red Blood Cell % 0 /100 WBC (0); Platelet Count 392 Thou/mm3 (140-440); RDW Standard Deviation 48.5 fL (36.4-46.3); Red Blood Count 4.11 Miln/mm3 (4.00-5.20); White Blood Count 6.1 Thou/mm3 (3.6-11.0)
[2025-07-30 07:03] LABS: Alanine Aminotransferase 9 U/L (10-49); Albumin, Serum 3.5 gm/dL (3.5-5.0); Albumin/Globulin Ratio 1.8 (1.2-2.2); Alkaline Phosphatase 49 U/L (46-116); Anion Gap 10 (7-16); Aspartate Amino Transferase 23 U/L (0-34); BUN/Creatinine Ratio 18 Ratio (12-20); Bilirubin,Total 0.2 mg/dL (0.3-1.2); Blood Urea Nitrogen 7 mg/dL (9-23); Calcium 8.9 mg/dL (8.3-10.6); Calcium (Corrected) 9.3 mg/dL (8.5-10.1); Carbon Dioxide 28.0 mMol/L (20.0-31.0); Chloride 108 mMol/L (98-107); Creatinine (Component) 0.4 mg/dL (0.6-1.3); Estimated Creatinine Clearance 184.1 mL/min (>60); Globulin 2.0 gm/dL (2.3-3.5); Glucose 124 mg/dL (74-106); Magnesium 1.7 mg/dL (1.6-2.6); Osmolality,Calculated 289 (275-295); Phosphorous 5.0 mg/dL (2.4-5.1); Potassium 3.6 mMol/L (3.4-5.1); Sodium 146 mMol/L (136-145); Total Protein 5.5 gm/dL (5.7-8.2); eGFR > 60 See Note
[2025-07-30 09:24] LABS: Free T4 (Free Thyroxine) 1.06 ng/dL (0.89-1.76); Thyroid Stimulating Hormone 0.01 uIU/mL (0.55-4.78)
[2025-07-30] MEDS: ASPIRIN EC 81 MG TABEC PO (10:20)
[2025-07-30] MEDS: ENOXAPARIN SOD INJ 40 MG/0.4 ML SYRINGE SC (10:23)
[2025-07-30] MEDS: DIVALPROEX SOD DR 500 MG TABLET.DR 1500 MG PO ×2 (11:07→20:28)
[2025-07-30] MEDS: LACOSAMIDE 50 MG TABLET 200 MG PO ×2 (11:07→20:28)
[2025-07-30] MEDS: INSULIN LISPRO (AdmeLOG) 1 UNIT/0.01 ML UNIT SC (11:11)
--- NOTE | 2025-07-30 11:15 | PC.SS ---
Patient is a 45 year old female presenting to the hospital for seizures, transfer back from [facility]. CORRESPONDENCE REVIEW CLERK met with patient and patient daughter Iris at bedside. Patient gave consent for guest to remain in the room. CORRESPONDENCE REVIEW CLERK introduced self, role, and reason for visit. Patient confirmed demographic information and stated she lives at home with daughter Madhu. Patient stated that in case she is unable to make medical decisions on her own she would like her daughter Karl to make them PH: [phone]. Patient confirmed that she has shower commode, bed with rail, walker four point, and does not utilize home oxygen. Patient stated that her PCP is Dr. Evangelista at [facility] and her last visit was in May 2025. Patient stated that once medically clear she would like to d/c home with home health, patient does not have HH preference. Patient stated that she has transportation and does not have SS needs at the moment. PCP: [facility] Dr. Evangelista D/C: Home with Home Health Decision maker: Karl Simmons PH: [phone]
--- NOTE | 2025-07-30 15:47 | ESPR_ITS ---
<Statement entered by Tawanna Stafford MD - 07/30/25 17:56> Patient was seen and examined at bedside. I agree on the assessment and plan on this note as documented by resident Piter Adkins DO PGY1. 45-year-old female with past medical history of Type 2 diabetes mellitus, seizure disorder, migraine disorder, hyperlipidemia, hypertension, CVA with no significant deficits in 2018 and AML in remission who was admitted to [facility] after transfer back from [facility], patient was transferred on 07/24 for suspicion of ventriculitis, patient did not receive intrathecal antibiotics at [facility] and patient was continued on IV antibiotics, transferred back for placement of PICC line to continue antibiotic therapy through 08/12. Patient currently has no concerns, no active problems, will continue seizure medication, aspirin daily, atorvastatin and IV ceftriaxone 2 g twice daily per [facility] recommendations. Pending physical therapy evaluation, PICC line placement and neurology recommendations. Patient needs close outpatient follow-up, thyroid ultrasound, repeat MRI and ENT follow-up outpatient. Case discussed with attending Dr. Joe Stafford MD PGY-2 Documentation for date of: 07/30/25 Subjective Subjective Interval history: Patient was seen and examined at bedside. Patient was readmitted to [facility] after undergoing sinusotomy and washout with ENT at [facility]. She reports improved mobility in her arms and legs and denies previously present nuchal rigidity, photophobia, headache, and confusion. Patient has improved markedly, now alert and oriented x 3, conversational, strength 5 out of 5 in upper and lower extremities. Denies any recurrent seizures. She denies any headaches, weakness, loss of consciousness, blurry vision, dysphagia. Pending PICC line placement by IR on Friday for delivery of long-term antibiotics. She was initially admitted to [facility] for breakthrough siezures, in septic shock found to have strep pneumo meningitis and ventriculitis. Procedure did not show any signs of purulence so no neurosurgical intervention was deemed necessary. TTE was negative for any valvular lesions. No intrathecal antibiotics were indicated. Patient remains on ceftriaxone 2 g twice daily for total of 4 weeks until 08/12. Exam Vital Signs Temp Pulse Resp BP Pulse Ox O2 Del Method 97.8 F 100 20 120/82 95 Room Air 07/30/25 11:37 07/30/25 13:29 07/30/25 13:29 07/30/25 11:37 07/30/25 11:37 07/30/25 11:37 Narrative Exam General: Alert and oriented x3. No acute distress, cooperative HEENT: NCAT, No JVD noted. Mucosa moist. Pupils are equal and reactive to light bilaterally Cardiovascular: Normal S1 and S2. Regular rate and rhythm. Respiratory: Lungs are clear to auscultation bilaterally. No wheezing or crackles heard. Abdomen: Soft, nontender, not distended, normal bowel sounds. Skin: Warm to touch, dry, no rashes noted Musculoskeletal: No gross injuries. Able to move all 4 extremities. No pitting edema Neuro: Alert and oriented x3. No focal neuro deficits. Fluent speech with intact naming, strength 5/5 upper and lower extremities was able to take a few steps with assistance, no dizziness. Psych: Normal affect and mood Objective Labs 07/31/25 05:22 07/31/25 05:22 Labs: Laboratory Results - last 24 hr 07/30/25 05:49 WBC 6.1 RBC 4.11 Hgb 11.4 L Hct 36.4 MCV 89 MCH 27.7 MCHC 31.3 RDW Std Deviation 48.5 H Plt Count 392 Neut % (Auto) 35 L Lymph % (Auto) 53 H Titus % (Auto) 11 Eos % (Auto) 0 Baso % (Auto) 1 Neut # (Auto) 2.1 Lymph # (Auto) 3.2 Titus # (Auto) 0.7 Eos # (Auto) 0.0 Baso # (Auto) 0.1 Immature Gran # (Auto) 0.01 H Absolute Nucleated RBC 0.00 Immature Gran % 0 Nucleated RBC % 0 Sodium 146 H Potassium 3.6 Chloride 108 H Carbon Dioxide 28.0 Anion Gap 10 BUN 7 L Creatinine 0.4 L Estim Creat Clear Calc 184.1 eGFR > 60 BUN/Creatinine Ratio 18 Glucose 124 H Calculated Osmolality 289 Calcium 8.9 Corrected Calcium 9.3 Phosphorus 5.0 Magnesium 1.7 Total Bilirubin 0.2 L AST 23 ALT 9 L Alkaline Phosphatase 49 Total Protein 5.5 L Albumin 3.5 Globulin 2.0 L Albumin/Globulin Ratio 1.8 TSH 0.01 L* Free T4 1.06 Quality Measures Quality Measures VTE prophylaxis Assessment & Plan Assessment Current Active Medications: Generic Name Dose Route Start Last Admin Trade Name Freq PRN Reason Stop Dose Admin Acetaminophen 650 mg 07/29/25 23:23 Acetaminophen 325 Mg Tablet PO 08/28/25 23:22 Q6H PRN Fever >100.4 or pain 1-3 Aspirin 81 mg 07/30/25 09:00 07/30/25 10:20 Aspirin Ec 81 Mg Tabec PO 08/29/25 08:59 81 mg QDAY ASHLEY Administration Atorvastatin Calcium 20 mg 07/30/25 21:00 Atorvastatin Calcium 20 Mg Tablet PO 08/29/25 20:59 HS ASHLEY Dextrose 25 ml 07/30/25 00:07 Dextrose 50%-Water Inj 50 Ml Syringe IV 08/29/25 00:06 Q15MIN PRN BG 50-70 responsive npo pt Dextrose 50 ml 07/30/25 00:07 Dextrose 50%-Water Inj 50 Ml Syringe IV 08/29/25 00:06 Q15MIN PRN BG <50 OR BG <70 & pt unresponsive Divalproex Sodium 1,500 mg 07/30/25 10:45 07/30/25 11:[address] 500 Mg Tablet.Dr PO 08/29/25 10:44 1,500 mg BID ASHLEY Administration Enoxaparin Sodium 40 mg 07/30/25 09:00 07/30/25 10:23 Enoxaparin Sod Inj 40 Mg/0.4 Ml Syringe SC 08/13/25 08:59 40 mg QDAY ASHLEY Administration Glucagon 1 mg 07/30/25 00:07 Glucagon Inj 1 Mg Vial IM Q15MIN PRN BG <70, and no IV access Ceftriaxone Sodium 2 gm/ 50 mls @ 100 mls/hr 07/30/25 09:00 07/30/25 10:21 Sodium Chloride IV 08/06/25 08:59 100 mls/hr BID ASHLEY Administration Insulin Human Lispro 0 unit 07/30/25 07:30 07/30/25 11:11 Insulin Lispro (Admelog) 1 Unit/0.01 Ml Unit SC 08/29/25 07:29 1 unit ACHS ASHLEY Administration Protocol Lacosamide 200 mg 07/30/25 10:45 07/30/25 11:07 Lacosamide 50 Mg Tablet PO 08/29/25 10:44 200 mg BID ASHLEY Administration Ondansetron HCl 4 mg 07/29/25 23:23 Ondansetron Inj 2 Mg/Ml Inj 2 Ml IVP 08/28/25 23:22 Q6H PRN NAUSEA OR VOMITING Protocol Sennosides 1 tab 07/29/25 23:23 Senna Tablet PO 08/28/25 23:22 QDAY PRN constipation Protocol Sodium Chloride 1 spray 07/30/25 15:07 Saline Nasal 45 Ml Btl NASAL 08/29/25 15:06 Q2H PRN CONGESTION Plan Juanita Bond is 45 yr female with PMH of CVA 2018, AML (on remission), type 2 diabetes, seizures, migraine, HLD, HTN, meningitis who was transferred back to [facility] from [facility] after sinusotomy and washout with ENT. #Bacterial Meningitis #Strep pneumo #s/p frontal sinusotomy and washout 07/26 Initial blood cultures were positive for strep pneumo showed sensitivity to ceftriaxone, repeat blood cultures were negative. She is found to have left frontal and parietal lobe infarcts during hospitalization at [facility]. Repeat MRI showed restricted area of diffusion concerning for ventriculitis. There is no indication for intrathecal antibiotics at [facility]. TTE without valvular vegetations Sinus fungal culture 07/26 negative for yeast or fungal elements. Blood cultures 07/25 were negative x 2. Plan: - Continue IV ceftriaxone 2 g twice daily through 08/12 - pending IR PICC line placement for ABx delivery - Repeat MRI brain with and without contrast in 3 weeks - Follow-up with the ENT in 3 weeks - Continue using nasal rinses. #Seizure disorder She has a history of nonadherence to levetiracetam. Patient's family stated that she would typically use antiseizure medications when going to music concerts. EEG before transfer showed multiple bilateral focal epileptiform discharges consistent with seizures, but no status epilepticus. - Continue Valproate PO 1500 mg twice daily ? Continue lacosamide PO 200 mg twice daily - Seizure precautions ? Close follow-up outpatient ? Neurology, Dr Colvin, consulted, appreciate recs. -repeat valproic acid level on 08/01 #Stroke Patient had history of CVA with no residual deficits. But following diagnosis of meningitis, MRI confirmed multifocal acute infarction in the left frontal and parietal lobes. Per neurology at [facility], these areas of diffusion restriction most likely secondary to ventriculitis versus infarct. -Continue aspirin 81 mg ?Continue atorvastatin 20 mg #HFpEF EF 55-60% Echocardiogram from 07/12 showed normal-sized LV, EF 40 to 45%, mild mitral and tricuspid regurgitation, no pericardial effusion. Echo 07/19/25 showed normal LV size and wall thickness. Normal left ventricular diastolic filling pattern for age. Estimated EF at 55-60%. The RV is normal in size and systolic function. Trace MR and TR. Per cardiology intial echo most likely due to her presentation of septic shock and tachycardia. -monitor fluid status -no cardiology follow up needed after dc #HTN BP 131/82 on admission. Remains controlled -resume home lisinopril 20mg daily after discharge -monitor vitals #Incidental thyroid nodule Multinodular thyroid with largest nodule measuring 2.0 cm found incidentally on CT scan. - follow-up outpatient -repeat TSH/free T4 #History [id number] type 2 diabetes A1c 8.5, takes metformin 1000 mg twice daily at home - Continue sliding scale insulin - Low carb consistent diet #AML in remission Patient follows with an oncologist in [place] for mgmt/monitoring her AML. Daughter stated that visits are 1-2 times/yr. Noncompliance with seizure medications arised after oncologist expressed concern of Keppra causing AML to return after her remission. Leukocyte count 6.1 -continue to follow with oncology outpatient Health maintenance: Dispo: transfer back to [facility] from [facility] for meningitis FEN: low carb diet DVT prophylaxis: Lovenox 40 CODE STATUS: Full code Case discussed with Attending Physician Dr. Mckay CAST and senior resident Tawanna Stafford MD, PGY-2 Piter Adkins DO Internal Medicine PGY-1 Attending Provider Attestation/Addendum I have examined the patient, reviewed labs and imaging findings, discussed the case with the resident(s), and reviewed entered orders. I agree with the plan of care as outlined in this note, with these additional summaries/recommendations: Patient seen at bedside. She was transferred back from [facility] overnight. She has no new symptoms to report at this time. Continue IV Rocephin 2 g daily through 08/12/2025. PICC line ordered. Home health referral made. Follow-up with ENT in 3 weeks and repeat MRI brain. Continue Vimpat and lacosamide for seizure disorder. Continue aspirin although [facility] reports findings more likely related to ventriculitis rather than acute CVA. Continue home antihypertensives. Patient was found to have thyroid nodule. Ordered TSH and free T4. Outpatient thyroid ultrasound. Continue insulin sliding scale for diabetes mellitus type 2 with Accu-Cheks. Patient updated on plan and agreement. All questions answered satisfaction. Please see residents note for additional details and management. Dr. Mckay MD
--- NOTE | 2025-07-30 17:11 | PC.CC ---
Initial HH order sent to out to [facility] pharmacy agencies and HH agencies. [facility] accepted and booked. will need to keep them updated of PICC line and DC date on Friday.. Will also need to send DC summary and instructions.
[2025-07-30] MEDS: ATORVASTATIN CALCIUM 20 MG TABLET PO (20:29)
--- NOTE | 2025-07-30 20:30 | PC.NURSE ---
Dr. Colvin in to see patient.
--- NOTE | 2025-07-30 23:42 | ESPR_ITS ---
Documentation for date of: 07/30/25 Subjective Subjective Interval history: Patient was seen in [facility] today with family at the bedside, no more right upper or right lower extremity weakness. No seizures reported overnight. She got transferred recently from [facility] after having had frontal sinusotomy and a wash. Exam - Neurology Vital Signs Temp Pulse Resp BP Pulse Ox O2 Del Method 97.6 F 90 18 116/69 94 L Room Air 07/30/25 20:00 07/30/25 20:00 07/30/25 20:00 07/30/25 20:00 07/30/25 20:00 07/30/25 20:00 Objective Labs 07/30/25 05:49 07/30/25 05:49 Labs: Laboratory Results - last 24 hr 07/30/25 05:49 WBC 6.1 RBC 4.11 Hgb 11.4 L Hct 36.4 MCV 89 MCH 27.7 MCHC 31.3 RDW Std Deviation 48.5 H Plt Count 392 Neut % (Auto) 35 L Lymph % (Auto) 53 H Noble % (Auto) 11 Eos % (Auto) 0 Baso % (Auto) 1 Neut # (Auto) 2.1 Lymph # (Auto) 3.2 Noble # (Auto) 0.7 Eos # (Auto) 0.0 Baso # (Auto) 0.1 Immature Gran # (Auto) 0.01 H Absolute Nucleated RBC 0.00 Immature Gran % 0 Nucleated RBC % 0 Sodium 146 H Potassium 3.6 Chloride 108 H Carbon Dioxide 28.0 Anion Gap 10 BUN 7 L Creatinine 0.4 L Estim Creat Clear Calc 184.1 eGFR > 60 BUN/Creatinine Ratio 18 Glucose 124 H Calculated Osmolality 289 Calcium 8.9 Corrected Calcium 9.3 Phosphorus 5.0 Magnesium 1.7 Total Bilirubin 0.2 L AST 23 ALT 9 L Alkaline Phosphatase 49 Total Protein 5.5 L Albumin 3.5 Globulin 2.0 L Albumin/Globulin Ratio 1.8 TSH 0.01 L* Free T4 1.06 Assessment & Plan Assessment and plan (1) AMS (altered mental status): Status: Resolved Assessment and plan: Patient initially presented with sepsis Clinical picture showed meningitis, encephalitis, ventriculitis. As the MRI showed findings consistent with bilateral ventriculitis, transferred to [facility] for frontal sinusotomy with wash Significant improvement noted overall. Patient is able to lift her right upper and lower extremities without any difficulty. Continue with IV antibiotics as recommended. (2) Diabetes: Status: Chronic Assessment and plan: Continue with aggressive blood sugar management by checking AC and at bedtime. (3) Hyperlipidemia: Status: Chronic (4) Seizure: Status: Chronic Assessment and plan: Under control Depakote. Will closely monitor her levels. Additional Assessment & Plan Additional Plan: Continue with statin
[2025-07-31] VITALS (8 sets, daily range): BP systolic 106–123; BP diastolic 70–86; PULSE 67–101; RESP 15–97; TEMP 36.4–37.1; O2SAT 94–97
[2025-07-31 05:56] LABS: Basophils # (Auto) 0.1 Thou/mm3 (0.0-0.2); Basophils % (Auto) 1 % (0-2.5); Eosinophils # (Auto) 0.1 Thou/mm3 (0.0-0.5); Eosinophils % (Auto) 1 % (0-10); Hematocrit 34.3 % (36.0-46.0); Hemoglobin 10.8 g/dL (12.0-16.0); Immature Granulocytes Auto 0.01 Thou/mm3 (0.00-0.00); Lymphocytes # (Auto) 3.1 Thou/mm3 (1.0-4.8); Lymphocytes % (Auto) 54 % (10-50); Mean Corpuscular HGB Conc 31.5 g/dl (31.0-37.0); Mean Corpuscular Hemoglobin 28.3 pg (25.0-35.0); Mean Corpuscular Volume 90 fL (80-100); Monocytes # (Auto) 0.5 Thou/mm3 (0.0-0.8); Monocytes % (Auto) 8 % (0-12); Neutrophils # (Auto) 2.1 Thou/mm3 (1.8-7.7); Neutrophils % (Auto) 36 % (37-80); Nucleated Red Blood Cell # 0.00 Thou/mm3 (0.00-0.00); Nucleated Red Blood Cell % 0 /100 WBC (0); Platelet Count 351 Thou/mm3 (140-440); RDW Standard Deviation 50.4 fL (36.4-46.3); Red Blood Count 3.82 Miln/mm3 (4.00-5.20); White Blood Count 5.8 Thou/mm3 (3.6-11.0)
[2025-07-31 06:18] LABS: Alanine Aminotransferase 10 U/L (10-49); Albumin, Serum 3.5 gm/dL (3.5-5.0); Albumin/Globulin Ratio 1.8 (1.2-2.2); Alkaline Phosphatase 45 U/L (46-116); Anion Gap 9 (7-16); Aspartate Amino Transferase 24 U/L (0-34); BUN/Creatinine Ratio 15 Ratio (12-20); Bilirubin,Total 0.2 mg/dL (0.3-1.2); Blood Urea Nitrogen 6 mg/dL (9-23); Calcium 8.5 mg/dL (8.3-10.6); Calcium (Corrected) 8.9 mg/dL (8.5-10.1); Carbon Dioxide 27.8 mMol/L (20.0-31.0); Chloride 110 mMol/L (98-107); Creatinine (Component) 0.4 mg/dL (0.6-1.3); Estimated Creatinine Clearance 184.1 mL/min (>60); Globulin 2.0 gm/dL (2.3-3.5); Glucose 134 mg/dL (74-106); Osmolality,Calculated 292 (275-295); Potassium 4.0 mMol/L (3.4-5.1); Sodium 147 mMol/L (136-145); Total Protein 5.5 gm/dL (5.7-8.2); eGFR > 60 See Note
[2025-07-31] MEDS: cefTRIAXone 2 GM in SODIUM CHLORIDE 0.9% (Popper) 50 ML IV ×2 (08:48→20:27)
[2025-07-31] MEDS: DIVALPROEX SOD DR 500 MG TABLET.DR 1500 MG PO ×2 (08:49→20:26)
[2025-07-31] MEDS: ENOXAPARIN SOD INJ 40 MG/0.4 ML SYRINGE SC (08:49)
[2025-07-31] MEDS: ASPIRIN EC 81 MG TABEC PO (08:49)
[2025-07-31] MEDS: LACOSAMIDE 50 MG TABLET 200 MG PO ×2 (08:50→20:26)
--- NOTE | 2025-07-31 08:58 | PC.NURSE ---
Went in to give am medications. Patient is rude and cussing the whole time this nurse is explaining meds and plan of care.
--- NOTE | 2025-07-31 09:20 | PC.NURSE ---
Sinus rinse done at bedside with this nurse. Pt is rude and every sentence has profanity. Pt unhappy about stay here in [facility].
[2025-07-31] MEDS: INSULIN LISPRO (AdmeLOG) 1 UNIT/0.01 ML UNIT SC ×2 (11:32→20:27)
--- NOTE | 2025-07-31 13:07 | PC.NURSE ---
Pt refuses to have Seizure pads put on bed. --JA
--- NOTE | 2025-07-31 13:25 | ESPR_ITS ---
<Statement entered by Tawanna Stafford MD - 08/01/25 05:51> Patient was seen and examined at bedside. I agree on the assessment and plan on this note as documented by resident Piter Adkins DO PGY1. 45-year-old female with past medical history of type 2 diabetes mellitus, seizure disorder, migraine disorder, hyperlipidemia, hypertension, CVA with no significant deficits in 2018 and AML in remission transferred back to [facility] from [facility], currently on IV antibiotics for meningitis. Patient needs antibiotics through 08/12, otherwise no active concerns or problems currently, patient will need PICC line placement in a.m., will be discharged on home health, case discussed with social media job titles today. Close outpatient follow-up, thyroid ultrasound repeat MRI per [facility] recommendations and ENT follow-up outpatient. Anticipate discharge in the next 24 hours Case discussed with attending Dr. Joe Stafford MD PGY-2 Documentation for date of: 07/31/25 Subjective Subjective Interval history: Patient was seen and examined at bedside. Patient reports improved mobility in her Rt arms and legs and denies previously present nuchal rigidity, photophobia, headache, and confusion. Alert and oriented x 3, conversational. She denies any aches or pains, headaches, weakness, loss of consciousness, blurry vision, dysphagia, or seizures. Will be provided saline rinse she brought in by herself after confirmation by pharmacy. Pending PICC line placement by IR on Friday for delivery of long-term antibiotics. She remains on ceftriaxone 2 g twice daily for total of 4 weeks until 08/12. Pt had anaphylaxis to onions and will make sure diet is devoid of it. Exam Vital Signs Temp Pulse Resp BP Pulse Ox O2 Del Method 98.7 F 101 H 18 116/82 95 Room Air 07/31/25 12:00 07/31/25 12:00 07/31/25 12:00 07/31/25 12:00 07/31/25 12:07/31/25 12:00 Narrative Exam General: Alert and oriented x3. No acute distress, cooperative HEENT: NCAT, No JVD noted. Mucosa moist. Pupils are equal and reactive to light bilaterally Cardiovascular: Normal S1 and S2. Regular rate and rhythm. Respiratory: Lungs are clear to auscultation bilaterally. No wheezing or crackles heard. Abdomen: Soft, nontender, not distended, normal bowel sounds. Skin: Warm to touch, dry, no rashes noted Musculoskeletal: No gross injuries. Able to move all 4 extremities. No pitting edema Neuro: Alert and oriented x3. No focal neuro deficits. Fluent speech with intact naming, strength 5/5 upper and lower extremities was able to take a few steps with assistance, no dizziness. Psych: Normal affect and mood Objective Labs 08/01/25 05:05 08/01/25 05:05 Labs: Laboratory Results - last 24 hr 07/31/25 05:22 WBC 5.8 RBC 3.82 L Hgb 10.8 L Hct 34.3 L MCV 90 MCH 28.3 MCHC 31.5 RDW Std Deviation 50.4 H Plt Count 351 D Neut % (Auto) 36 L Lymph % (Auto) 54 H [place] % (Auto) 8 Eos % (Auto) 1 Baso % (Auto) 1 Neut # (Auto) 2.1 Lymph # (Auto) 3.1 [place] # (Auto) 0.5 Eos # (Auto) 0.1 Baso # (Auto) 0.1 Immature Gran # (Auto) 0.01 H Absolute Nucleated RBC 0.00 Immature Gran % 0 Nucleated RBC % 0 Sodium 147 H Potassium 4.0 Chloride 110 H Carbon Dioxide 27.8 Anion Gap 9 BUN 6 L Creatinine 0.4 L Estim Creat Clear Calc 184.1 eGFR > 60 BUN/Creatinine Ratio 15 Glucose 134 H Calculated Osmolality 292 Calcium 8.5 Corrected Calcium 8.9 Total Bilirubin 0.2 L AST 24 ALT 10 Alkaline Phosphatase 45 L Total Protein 5.5 L Albumin 3.5 Globulin 2.0 L Albumin/Globulin Ratio 1.8 Quality Measures Quality Measures VTE prophylaxis Assessment & Plan Assessment Current Active Medications: Generic Name Dose Route Start Last Admin Trade Name Freq PRN Reason Stop Dose Admin Acetaminophen 650 mg 07/29/25 23:23 Acetaminophen 325 Mg Tablet PO 08/28/25 23:22 Q6H PRN Fever >100.4 or pain 1-3 Aspirin 81 mg 07/30/25 09:00 07/31/25 08:49 Aspirin Ec 81 Mg Tabec PO 08/29/25 08:59 81 mg QDAY ASHLEY Administration Atorvastatin Calcium 20 mg 07/30/25 21:00 07/30/25 20:29 Atorvastatin Calcium 20 Mg Tablet PO 08/29/25 20:59 20 mg HS ASHLEY Administration Neilmed Sinus Rinse 0 ea 07/30/25 19:21 07/31/25 09:03 NASAL 08/29/25 19:20 1 spray BID PRN Administration CONGESTION Dextrose 25 ml 07/30/25 00:07 Dextrose 50%-Water Inj 50 Ml Syringe IV 08/29/25 00:06 Q15MIN PRN BG 50-70 responsive npo pt Dextrose 50 ml 07/30/25 00:07 Dextrose 50%-Water Inj 50 Ml Syringe IV 08/29/25 00:06 Q15MIN PRN BG <50 OR BG <70 & pt unresponsive Divalproex Sodium 1,500 mg 07/30/25 10:45 07/31/25 08:[address] 500 Mg Tablet.Dr PO 08/29/25 10:44 1,500 mg BID ASHLEY Administration Enoxaparin Sodium 40 mg 07/30/25 09:00 07/31/25 08:49 Enoxaparin Sod Inj 40 Mg/0.4 Ml Syringe SC 08/13/25 08:59 40 mg QDAY ASHLEY Administration Glucagon 1 mg 07/30/25 00:07 Glucagon Inj 1 Mg Vial IM Q15MIN PRN BG <70, and no IV access Ceftriaxone Sodium 2 gm/ 50 mls @ 100 mls/hr 07/30/25 09:00 07/31/25 08:48 Sodium Chloride IV 08/06/25 08:59 100 mls/hr BID ASHLEY Administration Insulin Human Lispro 0 unit 07/30/25 07:30 07/31/25 11:32 Insulin Lispro (Admelog) 1 Unit/0.01 Ml Unit SC 08/29/25 07:29 1 unit ACHS ASHLEY Administration Protocol Lacosamide 200 mg 07/30/25 10:45 07/31/25 08:50 Lacosamide 50 Mg Tablet PO 08/29/25 10:44 200 mg BID ASHLEY Administration Ondansetron HCl 4 mg 07/29/25 23:23 Ondansetron Inj 2 Mg/Ml Inj 2 Ml IVP 08/28/25 23:22 Q6H PRN NAUSEA OR VOMITING Protocol Sennosides 1 tab 07/29/25 23:23 Senna Tablet PO 08/28/25 23:22 QDAY PRN constipation Protocol Sodium Chloride 1 spray 07/30/25 15:07 Saline Nasal 45 Ml Btl NASAL 08/29/25 15:06 Q2H PRN CONGESTION Protocol Plan Juanita Bond is 45 yr female with PMH of CVA 2018, AML (on remission), type 2 diabetes, seizures, migraine, HLD, HTN, meningitis who was transferred back to [facility] from [facility] after sinusotomy and washout with ENT. #Bacterial Meningitis #Strep pneumo #s/p frontal sinusotomy and washout 07/26 Initial blood cultures were positive for strep pneumo showed sensitivity to ceftriaxone, repeat blood cultures were negative. She is found to have left frontal and parietal lobe infarcts during hospitalization at [facility]. Repeat MRI showed restricted area of diffusion concerning for ventriculitis. There is no indication for intrathecal antibiotics at [facility]. TTE without valvular vegetations Sinus fungal culture 07/26 negative for yeast or fungal elements. Blood cultures 07/25 were negative x 2. Plan: - Continue IV ceftriaxone 2 g twice daily through 08/12 - pending IR PICC line placement for ABx delivery - Repeat MRI brain with and without contrast in 3 weeks - Follow-up with the ENT in 3 weeks - Continue using nasal rinses. #Hypernatremia Na 147 -encouraged free water intake #Seizure disorder, controlled She has a history of nonadherence to levetiracetam. Patient's family stated that she would typically use antiseizure medications when going to music concerts. EEG before transfer showed multiple bilateral focal epileptiform discharges consistent with seizures, but no status epilepticus. - Continue Valproate PO 1500 mg twice daily ? Continue lacosamide PO 200 mg twice daily - Seizure precautions ? Close follow-up outpatient ? Neurology, Dr Colvin, consulted, appreciate recs. - repeat valproic acid level on 08/01 #Stroke Patient had history of CVA with no residual deficits. But following diagnosis of meningitis, MRI confirmed multifocal acute infarction in the left frontal and parietal lobes. Per neurology at [facility], these areas of diffusion restriction most likely secondary to ventriculitis versus infarct. -Continue aspirin 81 mg ?Continue atorvastatin 20 mg #HFpEF EF 55-60% Echocardiogram from 07/12 showed normal-sized LV, EF 40 to 45%, mild mitral and tricuspid regurgitation, no pericardial effusion. Echo 07/19/25 showed normal LV size and wall thickness. Normal left ventricular diastolic filling pattern for age. Estimated EF at 55-60%. The RV is normal in size and systolic function. Trace MR and TR. Per cardiology intial echo most likely due to her presentation of septic shock and tachycardia. -monitor fluid status -no cardiology follow up needed after dc #HTN BP 131/82 on admission. Remains controlled -resume home lisinopril 20mg daily after discharge -monitor vitals #Incidental thyroid nodule Multinodular thyroid with largest nodule measuring 2.0 cm found incidentally on CT scan. TSH .01 and free T4 1.06 WNL (07/30) - follow-up outpatient #History [id number] type 2 diabetes A1c 8.5, takes metformin 1000 mg twice daily at home - Continue sliding scale insulin - Low carb consistent diet #AML in remission Patient follows with an oncologist in [place] for mgmt/monitoring her AML. Daughter stated that visits are 1-2 times/yr. Noncompliance with seizure medications arised after oncologist expressed concern of Keppra causing AML to return after her remission. Leukocyte count 6.1 -continue to follow with oncology outpatient Health maintenance: Dispo: transfer back to [facility] from [facility] for meningitis FEN: low carb diet -diet modification: no onions for hx of anaphylactic rxn DVT prophylaxis: Lovenox 40 CODE STATUS: Full code Case discussed with Attending Physician Dr. Mckay CAST and senior resident Tawanna Stafford MD, PGY-2 Piter Adkins DO Internal Medicine PGY-1 Attending Provider Attestation/Addendum I have examined the patient, reviewed labs and imaging findings, discussed the case with the resident(s), and reviewed entered orders. I agree with the plan of care as outlined in this note, with these additional summaries/recommendations: Patient seen at bedside. No acute overnight events. Patient is anxious to be discharged although no new symptoms to report today. Continue IV Rocephin 2 g daily through 08/12/2025. PICC line ordered. Home health referral made. Follow-up with ENT in 3 weeks and repeat MRI brain. Continue Vimpat and lacosamide for seizure disorder. Continue aspirin although [facility] reports findings more likely related to ventriculitis rather than acute CVA. Continue home antihypertensives. Patient was found to have thyroid nodule and outpatient thyroid ultrasound. Continue insulin sliding scale for diabetes mellitus type 2 with Accu-Cheks. Patient updated on plan and agreement. All questions answered satisfaction. Please see residents note for additional details and management. Dr. Mckay MD
[2025-07-31] MEDS: ATORVASTATIN CALCIUM 20 MG TABLET PO (20:27)
--- NOTE | 2025-07-31 23:59 | PD.VPROG1 ---
Telemedicine visit statement This visit was conducted with the use of interactive audio and video telecommunications system that permits real time communication between the patient and the provider. Patient's verbal consent for virtual visit was obtained on 07/31/25 at 2359. Documentation for date of: 07/31/25 Subjective Subjective Interval history: Patient is in MedSurg, no new symptoms reported. Continues to move all extremities including the right LE. No seizures, headache or paresthesias or dizziness Virtual exam Vital Signs Temp Pulse Resp BP Pulse Ox O2 Del Method 98.3 F 82 20 112/86 H 94 L Room Air 07/31/25 20:00 07/31/25 23:28 07/31/25 23:28 07/31/25 20:00 07/31/25 20:00 07/31/25 20:00 Objective Labs 07/31/25 05:22 07/31/25 05:22 Labs: Laboratory Results - last 24 hr 07/31/25 05:22 WBC 5.8 RBC 3.82 L Hgb 10.8 L Hct 34.3 L MCV 90 MCH 28.3 MCHC 31.5 RDW Std Deviation 50.4 H Plt Count 351 D Neut % (Auto) 36 L Lymph % (Auto) 54 H [place] % (Auto) 8 Eos % (Auto) 1 Baso % (Auto) 1 Neut # (Auto) 2.1 Lymph # (Auto) 3.1 [place] # (Auto) 0.5 Eos # (Auto) 0.1 Baso # (Auto) 0.1 Immature Gran # (Auto) 0.01 H Absolute Nucleated RBC 0.00 Immature Gran % 0 Nucleated RBC % 0 Sodium 147 H Potassium 4.0 Chloride 110 H Carbon Dioxide 27.8 Anion Gap 9 BUN 6 L Creatinine 0.4 L Estim Creat Clear Calc 184.1 eGFR > 60 BUN/Creatinine Ratio 15 Glucose 134 H Calculated Osmolality 292 Calcium 8.5 Corrected Calcium 8.9 Total Bilirubin 0.2 L AST 24 ALT 10 Alkaline Phosphatase 45 L Total Protein 5.5 L Albumin 3.5 Globulin 2.0 L Albumin/Globulin Ratio 1.8 Assessment & Plan Assessment Patient is a 45-year-old female with past medical history of CVA 2018, AML, type 2 diabetes, seizures, migraine, HLD, HTN presented to ED on 07/12/25 due to breakthrough seizures/AMS. Neurology consulted for management and LP to rule out meningitis. #Meningitis/encephalitis/Frontal sinusitis/Ventriculitis #seizure: status epilepticus/ break through seizures. Noncompliance issue arised after oncologist expressed concern of Keppra causing AML to return after her remission. Since that time, patient will only take the Keppra when going to music concerts. Urine, sputum, and blood cultures negative. CSF analysis appearance was cloudy, WBCs 10,720, RBC 1000, glucose 97, protein greater than 250, strep pneumo antigen positive. Opening pressure 37. CSF Gram stain showing 3+ WBCs. Blood culture negative Repeat CT head and MRI brain showed areas of acute infarct in left frontal and parietal lobe secondary to encephalitis/meingitis and ventriculitis. EEG: abnormal showing multifocal epileptiform discharges consistent with seizures. But no electrographic status noted Clinical improvement gradually with the exception of right lower extremity weakness -continue depakote 1000mg BID -Continue with aspirin 81 mg alone as the left hemispherical infarct is massive to prevent hemorrhagic conversion and DVT prophylaxis -Continue with IV antibiotics. CSF culture resulted negative. As the repeat MRI brain showed ventriculitis, unchanged and transferred to tertiary center for pus drainage from the ventricles. She got treatment at [facility] with frontal sinusotomy with wash and is doing much better, no more focal deficit. She will continue with Ceftriaxone as recommended. Will need a repeat MRI brain at the end of the course. #AML #Previous CVA by history but not from MRI in 2018 #T2DM #HLD #HTN Primary care team to manage above conditions and ongoing care needs.
[2025-08-01] VITALS (9 sets, daily range): BP systolic 102–159; BP diastolic 69–93; PULSE 70–102; RESP 12–96; TEMP 36.5–37; O2SAT 92–99
[2025-08-01 05:37] LABS: Basophils # (Auto) 0.1 Thou/mm3 (0.0-0.2); Basophils % (Auto) 2 % (0-2.5); Eosinophils # (Auto) 0.1 Thou/mm3 (0.0-0.5); Eosinophils % (Auto) 1 % (0-10); Hematocrit 35.5 % (36.0-46.0); Hemoglobin 11.2 g/dL (12.0-16.0); Immature Granulocytes Auto 0.02 Thou/mm3 (0.00-0.00); Lymphocytes # (Auto) 3.1 Thou/mm3 (1.0-4.8); Lymphocytes % (Auto) 52 % (10-50); Mean Corpuscular HGB Conc 31.5 g/dl (31.0-37.0); Mean Corpuscular Hemoglobin 28.3 pg (25.0-35.0); Mean Corpuscular Volume 90 fL (80-100); Monocytes # (Auto) 0.4 Thou/mm3 (0.0-0.8); Monocytes % (Auto) 7 % (0-12); Neutrophils # (Auto) 2.3 Thou/mm3 (1.8-7.7); Neutrophils % (Auto) 38 % (37-80); Nucleated Red Blood Cell # 0.00 Thou/mm3 (0.00-0.00); Nucleated Red Blood Cell % 0 /100 WBC (0); Platelet Count 321 Thou/mm3 (140-440); RDW Standard Deviation 50.2 fL (36.4-46.3); Red Blood Count 3.96 Miln/mm3 (4.00-5.20); White Blood Count 6.0 Thou/mm3 (3.6-11.0)
[2025-08-01 06:14] LABS: Alanine Aminotransferase 10 U/L (10-49); Albumin, Serum 3.6 gm/dL (3.5-5.0); Albumin/Globulin Ratio 1.8 (1.2-2.2); Alkaline Phosphatase 48 U/L (46-116); Anion Gap 8 (7-16); Aspartate Amino Transferase 27 U/L (0-34); BUN/Creatinine Ratio 15 Ratio (12-20); Bilirubin,Total < 0.2 mg/dL (0.3-1.2); Blood Urea Nitrogen 6 mg/dL (9-23); Calcium 8.6 mg/dL (8.3-10.6); Calcium (Corrected) 8.9 mg/dL (8.5-10.1); Carbon Dioxide 27.9 mMol/L (20.0-31.0); Chloride 110 mMol/L (98-107); Creatinine (Component) 0.4 mg/dL (0.6-1.3); Estimated Creatinine Clearance 184.1 mL/min (>60); Globulin 2.0 gm/dL (2.3-3.5); Glucose 118 mg/dL (74-106); Magnesium 1.7 mg/dL (1.6-2.6); Osmolality,Calculated 289 (275-295); Potassium 3.9 mMol/L (3.4-5.1); Sodium 146 mMol/L (136-145); Total Protein 5.6 gm/dL (5.7-8.2); eGFR > 60 See Note
--- NOTE | 2025-08-01 08:49 | PC.SS ---
Follow up note: On IV antibiotic. Will require IV antibiotic at home, Rocephin 2grm 2X day until Aug 12, 2025. Pt will return home with for IV antibiotic.
[2025-08-01] MEDS: DIVALPROEX SOD DR 500 MG TABLET.DR 1500 MG PO (08:54)
[2025-08-01] MEDS: LACOSAMIDE 50 MG TABLET 200 MG PO (08:54)
[2025-08-01] MEDS: cefTRIAXone 2 GM in SODIUM CHLORIDE 0.9% (Popper) 50 ML IV (08:55)
[2025-08-01 09:04] LABS: INR 0.9 (0.9-1.3); Partial Thromboplastin Time 26.5 Seconds (22.0-36.0); Prothrombin Time 9.9 Seconds (9.0-12.2)
--- NOTE | 2025-08-01 09:15 | XR_ITS ---
EXAM: Fluoroscopic guided PICC line placement INDICATION: Needs antibiotics. DATE: 08/01/2025, 9:10 a.m. Fluoroscopy time: 0.7 minutes Dose: 3.52 mGy COMPARISON: Chest x-ray 07/19/2025. PROCEDURE: After discussion of risks and benefits informed consent was obtained. The patient was brought to the angiography suite and placed supine on the exam table. Right brachial vein IV access in place in the right antecubital fossa. This area was cleaned and draped in normal sterile surgical fashion. 10 cc of 1% lidocaine was used for local anesthesia. Using fluoroscopic guidance a 0.018 wire was advanced through the existing right brachial vein access site into the cavoatrial junction. IV tubing was removed. Peel-away sheath was placed over the wire. The wire was removed. Dual-lumen 45 cm PICC line was advanced through the peel-away sheath with the distal tip advanced to the caval atrial junction. Peel-away sheath was removed. Both ports flushed and aspirated easily. Catheter was fixed to the send the antecubital fossa. No complications. IMPRESSION: Successful right brachial vein PICC line placement as above. Catheter is ready for use.
[2025-08-01] MEDS: HEPARIN SOD LOCK SYR 100 UNIT/ML 500 UNIT IV (09:54)
[2025-08-01] MEDS: LIDOCAINE INJ PF 1% 30 ML VIAL 10 ML EPID (09:57)
--- NOTE | 2025-08-01 10:00 | PC.SS ---
SS spoke to Matt GUY who stated pt is clear to DC. ESTRADA will follow. Monique GUY also updated.
--- NOTE | 2025-08-01 10:42 | PC.NURSE ---
patient transferred back to room via gurney. hand off report given to monique smith. Monique smith and I assessed dressing and site at bedside. dressing is clean, dry, and intact. site is soft, flat, non-tender, and no signs of hematoma.
--- NOTE | 2025-08-01 11:40 | PC.CM ---
[facility] health can open patient tomorrow. [facility] will deliver IV ABX to patient today. Patient had PICC line placed today. [employer] AGUIAR and bed side nurse made aware.
--- NOTE | 2025-08-01 15:19 | PC.SS ---
SS met with pt who explained [facility] was going to order her a walker but was not certain if they did. SS has order pt a walker using [employer]. Pt is aware insurance authorization is required for walker. SS provided pt with [employer] with locations to purchase a walker if required.
--- NOTE | 2025-08-01 16:47 | PC.PT ---
Patient is safe to ambulate to the bedside commode with 1 staff and a FWW. RN made aware.
--- NOTE | 2025-08-01 20:07 | ESDS_ITS ---
<Statement entered by Tawanna Stafford MD - 08/01/25 20:57> Patient was seen and examined by me personally. I have reviewed the below documentation by the team resident and agree with its findings. Discharge plan was discussed with the attending, Dr. Joe Stafford MD Internal Medicine, PGY-2 Planned Discharge Date 08/01/25 DS: Providers Provider Date of admission: 07/29/25 23:01 Primary care physician: Physician No Primary/Family Admitting Provider: Joe Bashir MD Attending Provider on Admission: Amarilis Greenfield MD Consults: 07/30/25 08:17 Referral Wound Care Routine Comment: 07/30/25 08:19 Referral Physical Therapy Routine Comment: Physician Instructions: 07/30/25 10:50 Consult to Neurology / Tele-Neurology Routine Comment: Consulting Provider: Alfie Colvin Attending Provider on DC: Joe Bashir MD Discharging Provider: Piter Adkins DO DS: Diagnosis Problem List Completed Was Problem List Reviewed/Reconciled?: Yes Hospital Course Hospital Course Hospital course: Hospital Course: Juanita Bond is 45 yr female with PMH of CVA 2018, AML (on remission), type 2 diabetes, seizures, migraine, HLD, HTN, meningitis who was transferred back to [facility] from [facility] on 07/29/2025. Patient was initially admitted to [facility] for breakthrough siezures, in septic shock found to have strep pneumo meningitis and ventriculitis. Patient was transferred to [facility] on 07/24 where she underwent sinusotomy and washout with ENT. Procedure did not show any signs of purulence so no neurosurgical intervention was deemed necessary. TTE was negative for any valvular lesions. No intrathecal antibiotics were indicated. Patient recommeded to stay on ceftriaxone 2 g twice daily for total of 4 weeks until 08/12. Patient showed marked improvement since original presentation. During this hospital stay, she remained afebrile alert and oriented x 3, conversational, strength 5 out of 5 in upper and lower extremities. She was continued on aspirin, lacosamide and vimpat for seizure disorder, and insulin sliding scale for T2DM. Patient stayed in hospital until 08/01 when IR had availability to establish a PICC line for mcc ABx delivery. Her vitals were stable and CBC within normal limits. CMP revealed mild hypernatremia 147 which improved after encouraged free water intake. Follow-up with ENT outpatient and repeat MRI brain in [address]. [address] scan, found to have multinodular thyroid with largest nodule measuring 2.0 cm. TSH .01 and free T4 1.06 WNL (07/30). Recommended to follow up outpatient. At the time of discharge, patient is medically stable and deemed safe to return to his/her previous state of living. Admission Diagnoses: #Bacterial meningitis #Strep pneumo #Status post from pulm sinusotomy and washout 07/26 #Hypernatremia #Seizure disorder, controlled #Stroke #HFpEF EF 55 to 60% #HTN #Incidental thyroid nodule #History of tmf-[id number] type 2 diabetes #AML in remission Discharge Instructions: - Complete antibiotic treatment with Ceftriaxone 2g twice a day till August 12, 2025 via PICC Line. Follow up with home health regarding the same. - Continue Depakote 1500mg twice a day and lacosamide 200mg twice a day, follow up with neurology outpatient. - Take metformin twice a day with sliding scale insulin per regimen as prescribed. - Repeat MRI brain with and without contrast in 3 weeks - Follow-up with the ENT in 3 weeks, obtain referral from PCP. - Obtain thyroid ultrasound outpatient, follow up with Endocrinology outpatient - Follow up with PCP in 1 week. - Return to ED if symptoms worsen. This case was discussed with my attending physician, Dr. Bashir, and senior resident, Dr Stafford. Piter Adkins, DO PGY I Status at Discharge Functional status at discharge: independent ambulation Overall status at discharge: patient is back to baseline Time Spent with Patient Time attestation: Total time spent providing and/or coordinating discharge services: More than 50% of the patient's total hospital stay Time spent: Greater than 30 minutes Exam Vital Signs Temp Pulse Resp BP Pulse Ox O2 Del Method 98.4 F 102 H 18 141/93 H 95 Room Air 08/01/25 16:00 08/01/25 16:00 08/01/25 16:08/01/25 16:00 08/01/25 16:08/01/25 16:00 Narrative Exam General: Alert and oriented x3. No acute distress, cooperative HEENT: NCAT, No JVD noted. Mucosa moist. Pupils are equal and reactive to light bilaterally Cardiovascular: Normal S1 and S2. Regular rate and rhythm. Respiratory: Lungs are clear to auscultation bilaterally. No wheezing or crackles heard. Abdomen: Soft, nontender, not distended, normal bowel sounds. Skin: Warm to touch, dry, no rashes noted Musculoskeletal: No gross injuries. Able to move all 4 extremities. No pitting edema Neuro: Alert and oriented x3. No focal neuro deficits. Fluent speech with intact naming, strength 5/5 upper and lower extremities was able to take a few steps with assistance, no dizziness. Psych: Normal affect and mood Discharge Plan Plan Patient Disposition: Home w/HOME HEALTH Patient condition on transfer: Stable Care Plan Goals: - Complete antibiotic treatment with Ceftriaxone 2g twice a day till August 12, 2025 via PICC Line. Follow up with home health regarding the same. - Continue Depakote 1500mg twice a day and lacosamide 200mg twice a day, follow up with neurology outpatient. - Take metformin twice a day with sliding scale insulin per regimen as prescribed. - Repeat MRI brain with and without contrast in 3 weeks - Follow-up with the ENT in 3 weeks, obtain referral from PCP. - Obtain thyroid ultrasound outpatient, follow up with Endocrinology outpatient - Follow up with PCP in 1 week. - Return to ED if symptoms worsen. Prescriptions/Referrals Prescriptions/Med Rec: New ceftriaxone 2 gram recon soln 2 g IV Q12H divalproex [Depakote] 500 mg tablet,delayed release (DR/EC) 1,500 mg PO BID 30 Days Qty: 180 0RF lacosamide 200 mg tablet 200 mg PO BID 30 Days Qty: 60 0RF insulin lispro 200 unit/mL (3 mL) insulin pen 1 sliding scale dose subcut ACHS Qty: 6 0RF Continued atorvastatin 20 mg tablet 20 mg PO QPM Qty: 30 0RF metformin 1,000 mg tablet 1,000 mg PO BID lisinopril 5 mg tablet 20 mg PO QDAY Changed aspirin [Tylor Low Dose Aspirin] 81 mg tablet,delayed release (DR/EC) 81 mg PO QDAY 30 Days Qty: 30 0RF Referrals: No Primary/Family,Physician [Primary Care Provider] Alfie Colvin MD [Physician, Neurology] Patient/Caregiver Discharge Instructions Discharge Activity: activity as tolerated Other Discharge Activity Instructions:: Complete antibiotic treatment with Ceftriaxone 2g twice a day till August 12, 2025 via PICC Line. Follow up with home health regarding the same. - Continue Depakote 1500mg twice a day and lacosamide 200mg twice a day, follow up with neurology outpatient. - Take metformin twice a day with sliding scale insulin per regimen as prescribed. - Repeat MRI brain with and without contrast in 3 weeks - Follow-up with the ENT in 3 weeks, obtain referral from PCP. - Obtain thyroid ultrasound outpatient, follow up with Endocrinology outpatient - Follow up with PCP in 1 week. - Return to ED if symptoms worsen. Education Materials: Treating Thyroid Problems, Caring for Your PICC Dc, Meningitis Print Language: Macanese Stand Alone Forms: [employer] Award Info., Patient Portal Info Letter Discharge Order Discharge Orders: Discharge (Routine); Ordered 08/01/25 Ordered By: Tawanna Stafford Quality Discharge Quality Measures VTE prophylaxis MD Attestestation MD Attestation I have examined the patient, reviewed labs and imaging findings, discussed the case with the resident(s), and reviewed entered orders. I agree with the plan of care as outlined in this note. Time Spent: [address] Mckay MD
--- NOTE | 2025-08-02 07:42 | PC.CC ---
dc summary and instructions sent to [facility]
== END 2025-08-01 16:55 | disposition home health service (06) | DRG 49 ==
PROVIDERS: Radiology Diagnostic Radiology; Admitting Provider Student in an Organized Health Care Education/Training Program; Visit Provider Student in an Organized Health Care Education/Training Program
DX: G00.1 Pneumococcal meningitis (principal); G04.90 Encephalitis and encephalomyelitis, unspecified; E11.9 Type 2 diabetes mellitus without complications; C92.01 Acute myeloblastic leukemia, in remission; E78.5 Hyperlipidemia, unspecified; I11.0 Hypertensive heart disease with heart failure; I50.30 Unspecified diastolic (congestive) heart failure; F17.210 Nicotine dependence, cigarettes, uncomplicated; G40.909 Epilepsy, unspecified, not intractable, without status epilepticus; I63.9 Cerebral infarction, unspecified; E04.2 Nontoxic multinodular goiter; J32.1 Chronic frontal sinusitis; Z91.148 Patient's other noncompliance with medication regimen for other reason; E87.0 Hyperosmolality and hypernatremia; Z79.4 Long term (current) use of insulin; Z79.82 Long term (current) use of aspirin; Z79.899 Other long term (current) drug therapy; Z86.73 Personal history of transient ischemic attack (TIA), and cerebral infarction without residual deficits; Z88.5 Allergy status to narcotic agent
CPT/HCPCS: 36415; 80053; 83735; 84100; 84439; 84443; 85025; 85610; 85730; 87081; 94762; 97162; A4649; C1894; J0696; J1642; J1650; J1815; J3490; J7050; A9270